=== PATIENT | female | born 1945 | race Caucasian/White ===

== ENCOUNTER → 2017-05-31 07:03 | Outpatient (CLI) | payer MEDICARE, OTHER, MEDICAID, SELFPAY ==
--- NOTE | 2017-05-31 11:52 | PFT ---
INTRODUCTION: The patient is a 72-year-old female currently under the care of Dorita Whaley the presents for pulmonary function testing secondary to a diagnosis of COPD. Respiratory therapy reports good patient effort and reports no other concerns. Bronchodilators were used during testing. INTERPRETATION: Forced expiration spirometry demonstrates the presence of a mild large airways obstructive ventilatory defect. There was no significant response to aerosolized bronchodilators, based upon strict ATS criteria. However, the patient did have a significant mid flow bronchodilator response. Spirogram is of good quality do not plateau indicating slow emptying of the lungs. The respiratory flow volume loop reveals decreased expiratory flow rates primarily at high lung volumes consistent with small airways obstruction. Body plethysmography was performed and reveals lung volumes to be within normal limits. Diffusing capacity by single breath CO was within normal limits at 75% of predicted. IMPRESSION: These pulmonary function studies demonstrate the presence of a mild large airways obstructive ventilatory defect. There was a significant mid flow bronchodilator response and stigmata of small airways obstruction, which can be seen with underlying asthma. There are no previous pulmonary function studies available for comparison.
== END ==
DX: J44.9 Chronic obstructive pulmonary disease, unspecified (principal)
CPT/HCPCS: 94060; 94726; 94729

== ENCOUNTER → 2017-07-06 10:46 | Outpatient (CLI) | payer MEDICARE, OTHER, MEDICAID, SELFPAY ==
[2017-07-06 11:10] LABS: International Normalized Ratio 1.9; Prothrombin Time (Protime)PT. 21.8 SECONDS (11.7-14.9)
== END ==
PROVIDERS: Visit Provider Nurse Practitioner Family
DX: I48.91 Unspecified atrial fibrillation (principal)
CPT/HCPCS: 36415; 85610

== ENCOUNTER → 2017-07-11 09:52 | Outpatient (CLI) | payer MEDICARE, OTHER, MEDICAID, SELFPAY ==
[2017-07-11 11:01] LABS: International Normalized Ratio 3.3; Prothrombin Time (Protime)PT. 33.6 SECONDS (11.7-14.9)
== END ==
PROVIDERS: Visit Provider Nurse Practitioner Family
DX: I48.91 Unspecified atrial fibrillation (principal)
CPT/HCPCS: 85610

== ENCOUNTER → 2017-07-21 09:40 | Outpatient (CLI) | payer MEDICARE, OTHER, MEDICAID, SELFPAY ==
[2017-07-21 12:37] LABS: International Normalized Ratio 3.3
== END ==
PROVIDERS: Visit Provider Nurse Practitioner Family
DX: I48.91 Unspecified atrial fibrillation (principal); Z79.01 Long term (current) use of anticoagulants
CPT/HCPCS: 36415; 85610

== ENCOUNTER → 2017-08-02 12:11 | Outpatient (CLI) | payer MEDICARE, OTHER, MEDICAID, SELFPAY ==
--- NOTE | 2017-08-02 12:18 | EKG12_ITS ---
Test Reason : AFIB Blood Pressure : / mmHG Vent. Rate : 094 BPM Atrial Rate : 089 BPM P-R Int : 000 ms QRS Dur : 110 ms QT Int : 390 ms P-R-T Axes : 000 083 000 degrees QTc Int : 487 ms Atrial fibrillation Low voltage QRS Incomplete right bundle branch block Abnormal ECG When compared with ECG of 21-FEB-2017 12:26, Incomplete right bundle branch block has replaced Right bundle branch block Confirmed by RODNEY MORROW, CHRIS ([id number]), editorial clerk SAUD TALAMANTES ([id number]) on 08/04/2017 3:05:49 PM Referred By: Gabby DONNELLY Confirmed By:CHRIS STEVENS MD
== END ==
PROVIDERS: Family Provider Nurse Practitioner Family; PCP Nurse Practitioner Family; Visit Provider Nurse Practitioner Family
DX: I48.91 Unspecified atrial fibrillation (principal)
CPT/HCPCS: 93005

== ENCOUNTER 2017-08-02 12:31 | Emergency (ER) | payer MEDICARE, OTHER, MEDICAID, SELFPAY ==
[2017-08-02 12:32] VITALS: BP 166/148; PULSE 101; RESP 20; TEMP 36.6; O2SAT 98; BMI 44.2
[2017-08-02 13:16] LABS: Absolute Neutrophil Count 5.9 X10^3/uL (2.0-7.7); Basophil# 0.06 X10^3/uL; Basophil% 0.6 % (0-1); Eosinophil# 0.32 X10^3/uL; Eosinophils% 3.3 % (0-5); Hematocrit 35.7 % (37-47); Lymphocyte % 25.6 % (19-41); Mean Corp Hgb Conc 30.8 g/gl (32-36); Mean Corpuscular Hgb 27.4 pg (27.0-32.0); Mean Platelet Vol. 10.6 fl (6.2-12.0); Monocyte# 0.94 X10^3/uL; Monocyte% 9.6 % (0-10); Neutrophil # 5.91 X10^3/uL (2.7-7.7); Neutrophil % 60.6 % (47-70); POSITIVE COUNT NO; POSITIVE DIFFERENTIAL NO; POSITIVE MORPHOLOGY NO; Platelet Count 410 K/mm3 (150-450); RBC Distribution Width CV 15.3 % (11.6-14.6); RBC Distribution Width SD 49.4 fl (35.1-43.9); Red Blood Count 4.01 M/mm3 (4.2-5.4); White Blood Count 9.8 K/mm3 (4.4-11.0)
--- NOTE | 2017-08-02 13:37 | RAD_ITS ---
STUDY: X-RAY CHEST REASON FOR EXAM: Female, 72 years old. Palpitations. Dyspnea on exertion. TECHNIQUE: PA and lateral views of the chest. COMPARISON: Comparison is made with prior examination dated January 26, 2017. FINDINGS: Stable mild degree of increased linear markings at the lung bases suggestive of a mild degree of bibasilar scarring. Hyperinflation. Mild increased markings at the lung apices suggestive of scarring. There is no demonstrated pleural abnormality. Normal size heart. Normal mediastinum and santana. Normal visualized pulmonary arteries. There is atherosclerotic calcification of the aortic arch with tortuosity. There is demineralization of the osseous structures. Normal visualized ribs, clavicles, and shoulders. There is no demonstrated abnormality of the visualized soft tissue structures of the upper abdomen. RAD/Chest PA and Lateral IMPRESSION: Hyperinflation. Stable mild increased markings at the lung bases suggestive of mild bibasilar scarring. Electronically Signed: Tavo Saucedo MD at 14:31 EDT Tel [phone], Service support ,
[2017-08-02 13:41] LABS: Anion Gap 8 (5-15); BUN 24 mg/dL (7-18); BUN/Creat Ratio 22.9 RATIO (10-20); Calcium,Total 9.2 mg/dL (8.5-10.1); Chloride 108 mmol/L (98-107); Creatinine, Serum 1.05 mg/dL (0.55-1.02); EST Glomerular Filtration Rate 55 mL/min (>60); Est Glom Filt Rate - Afr Amer 66 mL/min (>60); Estimated Creatinine Clearance 49.57 ml/min; Glucose 82 mg/dL (74-106); Potassium 4.8 mmol/L (3.5-5.1); Sodium Level 140 mmol/L (136-145)
[2017-08-02 14:26] VITALS: BP 139/97; PULSE 97; RESP 13; O2SAT 99
[2017-08-02 14:39] LABS: International Normalized Ratio 2.2; Prothrombin Time (Protime)PT. 24.2 SECONDS (11.7-14.9)
[2017-08-02 14:50] LABS: BNP,B-Type NATRIURETIC PEPTIDE 115.1 pg/mL (0-100)
[2017-08-02] MEDS: Furosemide 40 MG/4 ML Vial IV (15:12)
[2017-08-02 15:19] VITALS: BP 136/94; PULSE 74; RESP 14; O2SAT 98
--- NOTE | 2017-08-02 15:42 | ED.DCSUM_ITS ---
- ER Visit Summary Date of Service: 08/02/17 Chief Complaint: [S of breath leg swelling] History of Present Illness: The patient is a 72 F [presents the emergency department with shortness of breath for the last 3 weeks. She has had swelling in her lower extremities which is gotten much worse. She has a history of paroxysmal atrial fibrillation. She followed up with her primary doctor today who noted her to be in atrial fibrillation and referred her to the emergency department. She is on Coumadin. She is on rate controlling medications metoprolol.] Physical Examination: [] The rate 74 pulse ox 98% WN WD NAD PERRL EOMI MMM NECK supple and nontender, no masses Regular rhythm with a normal rate no murmur rub or gallop, plus symmetric lower extremity edema, symmetric radial pulses trichomoniasis DP pulses CTAB no respiratory distress ABDOMEN is soft and nontender, normal bowel sounds, no distension, no rebound or guarding SKIN is warm and dry no rashes Alert and Oriented x3, CN II-XII in tact, no motor or sensory deficits, gait normal No lymphadenopathy Test Results: [] Emergency Department Course and Treatment: [TG is atrial fibrillation at a rate of 94. There is no acute ischemic changes she has a right bundle branch block was unchanged from previous a year ago. Patient is therapeutic on her Coumadin at 2.2. Chest x-ray shows no acute process. BNP is 115 which is only slightly elevated. Patient was given Lasix in the emergency department. I do think her shortness of breath is likely due to increased fluid burden. I spoke with Dr. An who is on-call for Dr. Banuelos. I will start the patient on Lasix daily. She will continue her Coumadin and follow-up with them in the office in 1-2 weeks. She understands to return to the emergency department for any worsening of her symptoms. Treatment Plan: [] Disposition: [Discharge] Impression: [1. Peripheral edema 2. Paroxysmal atrial fibrillation] This note was generated with [employer] dictation software. It may contain incorrect words, spelling, and punctuation that were not noted in review of the chart prior to signing ED Disposition - Plan for ED Patient: Chief Complaint: Shortness of Breath Referrals: Gabby Bhatt, TEE-C [Primary Care Provider] -
--- NOTE | 2017-08-02 15:43 | ED.DEP ---
ED Disposition - Plan for ED Patient: Chief Complaint: Shortness of Breath Instructions: ED Afib, ED Leg Swelling Bilateral Prescriptions: Furosemide [Lasix] 40 mg PO DAILY #10 tablet Referrals: Dwaine Banuelos MD [STAFF PHYSICIAN] - 1-2 Weeks
[2017-08-02 15:56] VITALS: BP 136/94; PULSE 111; RESP 20; O2SAT 97
== END 2017-08-02 15:57 | disposition home or self-care (01) ==
LOC: ED 15:14
PROVIDERS: Emergency Provider Emergency Medicine; Family Provider Nurse Practitioner Family; PCP Nurse Practitioner Family
DX: R60.0 Localized edema (principal); I48.0 Paroxysmal atrial fibrillation; E78.00 Pure hypercholesterolemia, unspecified; E11.9 Type 2 diabetes mellitus without complications; E66.9 Obesity, unspecified; Z68.41 Body mass index [BMI] 40.0-44.9, adult; Z79.01 Long term (current) use of anticoagulants; Z79.84 Long term (current) use of oral hypoglycemic drugs; Z79.899 Other long term (current) drug therapy
CPT/HCPCS: 71046; 80048; 83880; 84484; 85025; 85610; 93005; 96374; 99284; A4216; J1940

== ENCOUNTER → 2017-08-25 15:43 | Outpatient (CLI) | payer MEDICARE, OTHER, MEDICAID, SELFPAY ==
--- NOTE | 2017-08-25 15:43 | DT_ITS ---
This patient was seen during an EMR downtime August 21, 2017 - August 28, 2017. This patient may have a combination of paper and electronic documentation or all paper documentation. All documentation is viewable within the e-chart portion of [facility] for each patient visit.
[2017-08-25 18:12] LABS: Hematocrit 35.5 % (37-47); Hemoglobin 10.9 g/dl (12.0-15.0); Mean Corp Hgb Conc 30.7 g/gl (32-36); Mean Corpuscular Hgb 25.6 pg (27.0-32.0); Mean Corpuscular Volume 83.3 fL (81-99); Mean Platelet Vol. 10.1 fl (6.2-12.0); Platelet Count 420 K/mm3 (150-450); RBC Distribution Width SD 45.7 fl (35.1-43.9); Red Blood Count 4.26 M/mm3 (4.2-5.4); Scan Indicated on CBC? Y/N NO; White Blood Count 11.6 K/mm3 (4.4-11.0)
[2017-08-25 18:13] LABS: International Normalized Ratio 2.4; Prothrombin Time (Protime)PT. 26.4 SECONDS (11.7-14.9)
[2017-08-26 06:12] LABS: BUN 48 mg/dL (7-18); BUN/Creat Ratio 27.1 RATIO (10-20); Creatinine, Serum 1.77 mg/dL (0.55-1.02); EST Glomerular Filtration Rate 30 mL/min (>60); Est Glom Filt Rate - Afr Amer 36 mL/min (>60); Glucose 95 mg/dL (74-106)
[2017-08-26 06:13] LABS: Anion Gap 9 (5-15); Calcium,Total 8.8 mg/dL (8.5-10.1); Chloride 108 mmol/L (98-107); Potassium 3.7 mmol/L (3.5-5.1); Sodium Level 142 mmol/L (136-145); T4 Free Direct 1.59 ng/dL (0.76-1.46); Thyroid Stim Hormone (TSH) 1.16 uIU/mL (0.358-3.74)
[2017-08-26 06:45] LABS: Magnesium 1.8 mg/dL (1.6-2.6)
== END ==
PROVIDERS: Family Provider Nurse Practitioner Family; PCP Nurse Practitioner Family; Visit Provider Physician Assistant Medical
DX: I48.91 Unspecified atrial fibrillation (principal)
CPT/HCPCS: 36415; 80048; 83735; 84439; 84443; 85027; 85610

== ENCOUNTER → 2017-09-12 10:56 | Outpatient (CLI) | payer MEDICARE, OTHER, MEDICAID, SELFPAY ==
[2017-09-11 13:01] VITALS: BMI 43.0
[2017-09-12 11:20] LABS: Prothrombin Time Fingerstick 27.1 SEC (11.9-14.4)
--- NOTE | 2017-09-12 15:00 | PCM.OP.BLANK ---
Problem List (1) Atrial fibrillation by electrocardiogram Status: Chronic Operative Report Date of Procedure: 09/12/17 Procedure: Synchronized biphasic DC cardioversion Indications: Atrial fibrillation Consent: Per the patient Premedications: Per Dr. Pawan Ruiz with propofol 100 mg IV push total Procedure: Synchronized biphasic DC cardioversion: 200 J ?1: Result: Atrial fibrillation Synchronized biphasic DC cardioversion: 300 J ?1: Result: Sinus rhythm with subsequent return to atrial fibrillation Synchronized biphasic DC cardioversion: 360 J ?1: Result: Sinus rhythm with subsequent return to atrial fibrillation Complications: No apparent complications This note was generated with [employer] software. It may contain incorrect words, spelling, and punctuation that were not noted in checking the note before signing.
--- NOTE | 2017-09-12 16:31 | PCM.OP.BLANK ---
Problem List (1) Atrial fibrillation by electrocardiogram Status: Chronic Operative Report Date of Procedure: 09/12/17 - Conscious sedation CONSCIOUS SEDATION REPORT BRIEF HISTORY OF PRESENT ILLNESS: The patient is a 72-year-old [female] who presented to [facility] for an elective outpatient cardioversion due to underlying atrial fibrillation. The patient reports no PO intake since midnight. The patient does have a history of [obstructive sleep apnea]. The patient reports [a] history of smoking and COPD. The patient denies any recent constitutional symptoms such as fevers, chills, nausea or vomiting. The patient denies previous anesthetic complications. PHYSICAL EXAMINATION: VITAL SIGNS: Reviewed and were acceptable. GENERAL: The patient is an obese [female][male], in no apparent distress, speaking in full sentences. HEENT: Normocephalic, atraumatic. Mucous membranes are moist and pink. Good mouth opening noted. Trachea is midline. Good neck mobility. MP [IV] CHEST: S1, S2 irregularly irregular. No murmurs, rubs or gallops were noted. LUNGS: Clear to auscultation bilaterally without appreciable wheezes, rales or rhonchi. ABDOMEN: Soft, nontender, nondistended. Positive bowel sounds. EXTREMITIES: There is no clubbing, cyanosis. 2+ edema was noted. ASA Class: II DESCRIPTION OF PROCEDURE: After confirmation of informed consent, the patient's anesthesia plan was reviewed in detail. [Propofol] was chosen. Risks and benefits were reviewed and the patient agreed to proceed. At 12:36 PM, the patient was given [40 mg of propofol]. [The patient required a total of] 100 [mg of][propofol] [throughout the procedure to achieve appropriate sedation.] The patient achieved an appropriate level of sedation and received 3 attempt[s] synchronized cardioversion, at 200/300/360 respectively by [Dr. Banuelos] at the bedside. This was [unsuccessful] in achieving normal sinus rhythm. The patient was monitored until 12:50 PM, at which time the patient reached their baseline mental status and function. The patient tolerated the procedure well. COMPLICATIONS: Failure to achieve normal sinus rhythm ESTIMATED BLOOD LOSS: None RECOMMENDATIONS: Okay to recover in usual fashion. Code Visit 9xxxx: Other Procedure See Report - 14 minutes of conscious sedation - [id number]
--- NOTE | 2017-09-12 16:34 | OP.PCM_ITS ---
Problem List (1) Atrial fibrillation by electrocardiogram Status: Chronic Operative Report Date of Procedure: 09/12/17 - Conscious sedation CONSCIOUS SEDATION REPORT BRIEF HISTORY OF PRESENT ILLNESS: The patient is a 72-year-old [female] who presented to [facility] for an elective outpatient cardioversion due to underlying atrial fibrillation. The patient reports no PO intake since midnight. The patient does have a history of [obstructive sleep apnea]. The patient reports [a] history of smoking and COPD. The patient denies any recent constitutional symptoms such as fevers, chills, nausea or vomiting. The patient denies previous anesthetic complications. PHYSICAL EXAMINATION: VITAL SIGNS: Reviewed and were acceptable. GENERAL: The patient is an obese [female][male], in no apparent distress, speaking in full sentences. HEENT: Normocephalic, atraumatic. Mucous membranes are moist and pink. Good mouth opening noted. Trachea is midline. Good neck mobility. MP [IV] CHEST: S1, S2 irregularly irregular. No murmurs, rubs or gallops were noted. LUNGS: Clear to auscultation bilaterally without appreciable wheezes, rales or rhonchi. ABDOMEN: Soft, nontender, nondistended. Positive bowel sounds. EXTREMITIES: There is no clubbing, cyanosis. 2+ edema was noted. ASA Class: II DESCRIPTION OF PROCEDURE: After confirmation of informed consent, the patient's anesthesia plan was reviewed in detail. [Propofol] was chosen. Risks and benefits were reviewed and the patient agreed to proceed. At 12:36 PM, the patient was given [40 mg of propofol]. [The patient required a total of] 100 [mg of][propofol] [ throughout the procedure to achieve appropriate sedation.] The patient achieved an appropriate level of sedation and received 3 attempt[s] synchronized cardioversion, at 200/300/360 respectively by [Dr. Banuelos] at the bedside. This was [unsuccessful] in achieving normal sinus rhythm. The patient was monitored until 12:50 PM, at which time the patient reached their baseline mental status and function. The patient tolerated the procedure well. COMPLICATIONS: Failure to achieve normal sinus rhythm ESTIMATED BLOOD LOSS: None RECOMMENDATIONS: Okay to recover in usual fashion. Code Visit 9xxxx: Other Procedure See Report - 14 minutes of conscious sedation - [id number]
== END ==
PROVIDERS: Visit Provider Internal Medicine Cardiovascular Disease
DX: I48.0 Paroxysmal atrial fibrillation (principal); E78.5 Hyperlipidemia, unspecified; R60.0 Localized edema; R53.83 Other fatigue; Z79.01 Long term (current) use of anticoagulants; Z79.82 Long term (current) use of aspirin; Z79.899 Other long term (current) drug therapy
CPT/HCPCS: 36416; 85610; 92960; 93005; J7040

== ENCOUNTER → 2017-09-19 11:11 | Outpatient (CLI) | payer MEDICARE, OTHER, MEDICAID, SELFPAY ==
[2017-09-19 12:32] LABS: Anion Gap 10 (5-15); BUN 26 mg/dL (7-18); Calcium,Total 8.7 mg/dL (8.5-10.1); Chloride 104 mmol/L (98-107); Creatinine, Serum 1.24 mg/dL (0.55-1.02); EST Glomerular Filtration Rate 45 mL/min (>60); Est Glom Filt Rate - Afr Amer 55 mL/min (>60); Glucose 134 mg/dL (74-106); Potassium 3.9 mmol/L (3.5-5.1); Sodium Level 143 mmol/L (136-145)
== END ==
PROVIDERS: Visit Provider Internal Medicine Cardiovascular Disease
DX: I48.91 Unspecified atrial fibrillation (principal)
CPT/HCPCS: 36415; 80048

== ENCOUNTER → 2017-10-05 10:02 | Outpatient (CLI) | payer MEDICARE, MEDICAID, SELFPAY ==
[2017-10-05 11:37] LABS: Anion Gap 6 (5-15); BUN 29 mg/dL (7-18); BUN/Creat Ratio 24.4 RATIO (10-20); Calcium,Total 9.4 mg/dL (8.5-10.1); Chloride 111 mmol/L (98-107); Creatinine, Serum 1.19 mg/dL (0.55-1.02); EST Glomerular Filtration Rate 48 mL/min (>60); Est Glom Filt Rate - Afr Amer 57 mL/min (>60); Glucose 109 mg/dL (74-106); Potassium 4.3 mmol/L (3.5-5.1); Sodium Level 143 mmol/L (136-145)
== END ==
PROVIDERS: Visit Provider Internal Medicine Cardiovascular Disease
DX: I48.91 Unspecified atrial fibrillation (principal); I10 Essential (primary) hypertension; I45.10 Unspecified right bundle-branch block; I34.0 Nonrheumatic mitral (valve) insufficiency; I36.1 Nonrheumatic tricuspid (valve) insufficiency
CPT/HCPCS: 36415; 80048

== ENCOUNTER → 2017-10-31 12:53 | Outpatient (CLI) | payer MEDICARE, MEDICAID, SELFPAY ==
--- NOTE | 2017-11-05 18:42 | LEAS ---
Arterial Study - Arterial Study Arterial Study: This is a 72-year-old female with a history of hypertension, diabetes mellitus, hyperlipidemia, and atrial fibrillation. The patient presents with lower extremity pain. Suspecting the presence of atherosclerotic peripheral arterial occlusive disease, the patient was brought to the noninvasive vascular laboratory at this time for the purpose of bilateral noninvasive lower extremity arterial assessment. Doppler signal assessment was used to evaluate the pulses at ankle level bilaterally. The posterior tibial and dorsalis pedis pulses were triphasic bilaterally. Segmental limb pressures were obtained bilaterally. The right ankle pressure, as determined by posterior tibial pulse, was measured at 134 mmHg. The right ankle pressure, as determined by dorsalis pedis pulse, was measured at 130 mmHg. The right digital pressure was measured at 95 mmHg. The left ankle pressure, as determined by posterior tibial pulse, was measured at 121 mmHg. The left ankle pressure, as determined by dorsalis pedis pulse, was measured at 120 mmHg. The left digital pressure was measured at 93 mmHg. Resting ankle-brachial indices were calculated bilaterally. The resting right ankle-brachial index was calculated to be 1.24. The resting left ankle-brachial index was calculated to be 1.12. Digital-brachial indices were calculated bilaterally. The right digital-brachial index was calculated to be 0.88. The left digital-brachial index was calculated to be 0.86. Impression: Based upon the findings of this resting noninvasive lower extremity arterial study, there is no evidence of significant atherosclerotic peripheral arterial occlusive disease in the lower extremities bilaterally. Triphasic waveforms are noted at ankle level bilaterally. Resting ankle-brachial indices are bilaterally normal. Digital-brachial indices are also normal bilaterally. In summary, this represents a normal resting noninvasive lower extremity arterial study bilaterally.
== END ==
PROVIDERS: PCP Nurse Practitioner Family; Visit Provider Surgery
DX: I73.9 Peripheral vascular disease, unspecified (principal); M79.89 Other specified soft tissue disorders; R79.89 Other specified abnormal findings of blood chemistry
CPT/HCPCS: 93922; 93970

== ENCOUNTER → 2017-11-08 20:05 | Outpatient (CLI) | payer MEDICARE, MEDICAID, SELFPAY | PROVIDERS: PCP Nurse Practitioner Family; Referring Provider Nurse Practitioner Family; Visit Provider Internal Medicine Critical Care Medicine | DX: G47.10 Hypersomnia, unspecified (principal) | CPT/HCPCS: 95810 ==

== ENCOUNTER → 2017-11-10 12:22 | Outpatient (CLI) | payer MEDICARE, MEDICAID, SELFPAY ==
[2017-11-10 13:43] LABS: BNP,B-Type NATRIURETIC PEPTIDE 167.3 pg/mL (0-100)
[2017-11-10 13:45] LABS: Anion Gap 13 (5-15); BUN 30 mg/dL (7-18); BUN/Creat Ratio 24.2 RATIO (10-20); Calcium,Total 8.9 mg/dL (8.5-10.1); Chloride 109 mmol/L (98-107); Creatinine, Serum 1.24 mg/dL (0.55-1.02); EST Glomerular Filtration Rate 45 mL/min (>60); Est Glom Filt Rate - Afr Amer 55 mL/min (>60); Glucose 94 mg/dL (74-106); Potassium 4.2 mmol/L (3.5-5.1); Sodium Level 141 mmol/L (136-145)
== END ==
PROVIDERS: Visit Provider Nurse Practitioner Acute Care
DX: R06.02 Shortness of breath (principal)
CPT/HCPCS: 36415; 71046; 80048; 83880

== ENCOUNTER 2017-11-14 09:30 | Outpatient (RCR) | payer MEDICARE, MEDICAID, SELFPAY ==
[2017-11-07 08:22] VITALS: BP 153/75; PULSE 88; RESP 18; TEMP 36; BMI 43.0
--- NOTE | 2017-11-07 09:05 | PCM.WC.HP ---
(1) Swelling of lower extremity Status: Chronic Current Visit: Yes Code(s): M79.89 - Other specified soft tissue disorders (2) Morbid obesity with BMI of 40.0-44.9, adult Status: Chronic Current Visit: Yes Code(s): E66.01 - Morbid (severe) obesity due to excess calories; Z68.41 - Body mass index (BMI) 40.0-44.9, adult (3) GERD (gastroesophageal reflux disease) Status: Chronic Current Visit: No Code(s): K21.9 - Gastro-esophageal reflux disease without esophagitis (4) Diabetes mellitus Status: Chronic Current Visit: No Qualifiers: Diabetes mellitus type: type 2 Code(s): E11.9 - Type 2 diabetes mellitus without complications (5) Hypothyroidism Status: Chronic Current Visit: No Code(s): E03.9 - Hypothyroidism, unspecified (6) Arthritis Status: Chronic Current Visit: No Code(s): M19.90 - Unspecified osteoarthritis, unspecified site (7) Edema leg Status: Chronic Current Visit: Yes Code(s): R60.0 - Localized edema (8) Lymphedema Status: Chronic Current Visit: Yes Code(s): I89.0 - Lymphedema, not elsewhere classified (9) Atrial fibrillation Status: Chronic Current Visit: No Qualifiers: Code(s): I48.91 - Unspecified atrial fibrillation (10) Hyperlipidemia Status: Chronic Current Visit: No Qualifiers: Code(s): E78.5 - Hyperlipidemia, unspecified (11) Hypertension Status: Chronic Current Visit: No Qualifiers: Code(s): I10 - Essential (primary) hypertension (12) Exertional dyspnea Status: Chronic Current Visit: Yes Code(s): R06.09 - Other forms of dyspnea History of Present Illness Date of Service: 11/07/17 Chief Complaint: Severe swelling, edema, and lymphedema in the lower extremities bilaterally History of Wound: This is a 72-year-old diabetic female with a long-standing history of swelling, edema, and lymphedema in her lower extremities. The patient claims to sleep on a flat surface at night. However, she is not very active. She spends long hours each day sitting idly. She denies any history of thrombophlebitis. She also denies a history of wounds or ulcerations in her lower extremities. She claims her activity is limited by exertional dyspnea. She suffers from multiple medical problems, listed below. Past Medical History Past Medical History: Chronic Problems (Last Reviewed 10/25/17 @ 06:16 by Connie Mattson) Swelling of lower extremity (Chronic) Morbid obesity with BMI of 40.0-44.9, adult (Chronic) GERD (gastroesophageal reflux disease) (Chronic) Diabetes mellitus (Chronic) Hypothyroidism (Chronic) Arthritis (Chronic) Edema leg (Chronic) Lymphedema (Chronic) Exertional dyspnea (Chronic) Atrial fibrillation by electrocardiogram (Chronic) Atrial fibrillation (Chronic) Hyperlipidemia (Chronic) Hypertension (Chronic) RBBB (right bundle branch block) (Chronic) Nonrheumatic mitral valve regurgitation (Chronic) Nonrheumatic tricuspid valve regurgitation (Chronic) Past Medical History: The patient has a history of atrial fibrillation, for which she is on systemic anticoagulation therapy. She also suffers from hypertension, diabetes mellitus, hypothyroidism, hyperlipidemia, gastroesophageal reflux disease, and arthritis. The patient's history is negative for myocardial infarction, congestive heart failure, cerebrovascular accident, cancer, renal disease, and pulmonary disease. Surgical History: - - The patient is undergone cardioversion ?2. She is also undergone tonsillectomy as a child. She is undergone left total knee replacement in the past. She has had bilateral cataract surgery. An ovarian cyst has been removed. She has also undergone bilateral foot surgery. Allergies/Adverse Reactions: Allergies No Known Allergies Allergy (Verified 11/07/17 08:40) Home Medications: Ambulatory Orders Medication Instructions Recorded Atorvastatin Calcium [Lipitor] 20 mg PO QHS 02/02/17 Cholecalciferol (Vitamin D3) 50,000 unit PO QWEEK 02/02/17 [Vitamin D3] Levothyroxine Sodium 150 mcg PO DAILY 02/02/17 Losartan/Hydrochlorothiazide 1 ea PO DAILY 02/02/17 [Losartan-Hctz 100-25 mg Tab] Metformin HCl [Glucophage] 500 mg PO BIDCM 02/02/17 Metoprolol Tartrate [Lopressor 50 mg PO BID 02/02/17 (Beta Frank)] Warfarin [Coumadin ([facility]KC)] 3 mg PO DAILY 02/02/17 furosemide 40 mg tablet 40 mg PO DAILY #30 tab 08/11/17 Albuterol IH (ProAir) [Proair Hfa 1 puff INHALATION Q6H PRN PRN 09/11/17 (SP)Vent Pts] Aspirin E.C. [Ecotrin] 81 mg PO DAILY@0800 09/11/17 Montelukast [Singulair] 10 mg PO DAILY 11/07/17 - Family History Paternal Family History: Family History (Last Reviewed 10/25/17 @ 06:16 by Connie Mattson) Mother Heart disease - - The patient's father at the age of 23, killed in a train wreck. Patient's mother at the age of 91 with a history of dementia and atrial fibrillation. Lives: Alone Smoking Status: Former smoker Tobacco Use: Non-smoker Alcohol: None Drugs: None Review of Systems Constitutional: Denies: Chills, Fever, Weight Change Eyes: Denies: Pain, Vision Change HEENT: Denies: Difficulty Hearing, Difficulty Swallowing, Sinus Congestion Cardiovascular: Denies: Chest Pain, Palpitations Respiratory: Denies: Cough, Shortness of Breath Gastrointestinal: Denies: Diarrhea, Nausea, Vomiting Genitourinary: Denies: Dysuria, Hematuria Endocrine: Denies: Heat/ Cold Intolerance, Polydipsia, Polyuria Hematologic/ Lymphatic: Denies: Easy Bruising, Easy Bleeding - Physical Exam Vital Signs Temp Pulse Resp BP 96.8 F L 88 18 153/75 H 11/07/17 08:22 11/07/17 08:22 11/07/17 08:22 11/07/17 08:22 General: Alert, Oriented x3, Cooperative, No apparent distress, Well developed, Well nourished, - - The patient is morbidly obese. HEENT: Atraumatic, PERRLA, EOMI, Normocephalic Oral: Moist Mucosa Neck: Supple, No JVD, Negative Carotid Bruits, Negative Hepatojugular Reflux, No Nodes, No Nuchal Rigidity, Trachea Midline Lungs: Clear to auscultation, Normal air movement, No rhonchi, No wheeze, No rales Cardiovascular: Regular rate, Regular Rhythm, Normal S1, Normal S2, No murmurs Abdomen: Soft, Non Tender, Non-Distended, Obese Extremities: No clubbing, No cyanosis, No Calf Tenderness, - - Bilateral lower extremity swelling, edema, and lymphedema are noted. There are no open wounds or ulcerations. No significant varicosities are appreciated. Skin: No rashes, No breakdown Wound Measurements and Assessment WC - Nurse 1 - General Ulcer Measurement Start: 11/07/17 08:17 Freq: Status: Active Protocol: Activity Type Activity Date Activity User E-Sign Co-Sign Detail Recorded Client Recorded Date Recorded By Document 11/07/17 08:22 DL [id number] 11/07/17 08:36 DL 11/07/17 08:22 Wound Center Nurse 1 [Ulcer Assessment] Edema -Tunneling No -Undermining/Tunneling No -Circular Undermining No -Moisture (Guerda-wound Skin Appearance No Abnormality ) -Color (Guerda-wound Skin Appearance) No Abnormality -Temperature (Guerda-wound Skin No Abnormality Appearance) (Pt Warm) -Ulcer Cleansing Wound Cleanser -Foul Odor after Cleansing No [Edema Assessment] -Right Calf (cm) 48 -Right Ankle (cm) 34 -Left Calf (cm) 46 -Left Ankle (cm) 32.3 - Nurse 2 - General Ulcer CM Notes Start: 11/07/17 08:17 Freq: Status: Active Protocol: Activity Type Activity Date Activity User E-Sign Co-Sign Detail Recorded Client Recorded Date Recorded By Document 11/07/17 08:58 [id number] 11/07/17 09:02 11/07/17 08:58 Wound Center Nurse 2 [Procedure/Treatment] Edema -Time 08:58 -Correct Patient Yes -Correct Side, Site, Position Yes -Correct Procedure Yes -Procedure Performed No -Wound/Ulcer Outcome Not Healed -Bleeding Controlled with NA [See Physician Procedure note for Specifics] Pain Scale: 0-10 Numeric [Pain] -Is Patient Pain Free? Yes Musculoskeletal: No Muscle Wasting Neurological: Cranial nerves II-XII grossly intact, Neuro grossly intact Psych/Mental Status: Normal Affect, Appropriate, Alert and oriented to time, place, person, mood and affect Debridement Note Post-Debridement Measurements/Treatment - Nurse 2 - General Ulcer CM Notes Start: 11/07/17 08:17 Freq: Status: Active Protocol: Activity Type Activity Date Activity User E-Sign Co-Sign Detail Recorded Client Recorded Date Recorded By Document 11/07/17 08:58 [id number] 11/07/17 09:02 11/07/17 08:58 Wound Center Nurse 2 Edema -Time 08:58 -Correct Patient Yes -Correct Side, Site, Position Yes -Correct Procedure Yes -Procedure Performed No -Wound/Ulcer Outcome Not Healed -Bleeding Controlled with NA Pain Scale: 0-10 Numeric Is Patient Pain Free? Yes No debridement was completed today Assessment/Plan Active Problems (Last Reviewed 10/25/17 @ 06:16 by Connie Mattson) Swelling of lower extremity (Chronic) Morbid obesity with BMI of 40.0-44.9, adult (Chronic) Edema leg (Chronic) Lymphedema (Chronic) Exertional dyspnea (Chronic) Assessment: This is a 72-year-old female with a long-standing history of swelling, edema, and lymphedema in her lower extremities. In part, it appears as though the swelling and edema is related to lifestyle issues. The patient is morbidly obese. She has not active. She spends long hours each day and an idle sitting position. She has multiple pre-existing medical problems, which have been outlined above. 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 Noninvasive lower extremity arterial study has also been performed, which was normal. Plan: We are to implement conservative treatment measures initially with respect to the patient's lower extremity swelling, edema, and lymphedema. The patient has been advised to elevate her lower extremities as much as possible. Elevation is to be to heart level, or higher. Elevation is to be implemented even during daytime hours. Patient is to continue sleeping on a flat mattress at night. Activity has been encouraged. Weight loss has also been encouraged. Patient has been advised to avoid prolonged idle sitting. We are to implement compression to the lower extremities by means of a 3M 2 layer compression wrap, which will be changed twice weekly. The patient is to return in 1 week for reassessment. The patient is not a smoker. Influenza vaccine was not administered today. Patient stands 5 feet 8 inches in height. She weighs 283 pounds. Her BMI is 43, which places her in a class III obesity category. Weight loss has been strongly recommended, with collaboration by the patient's primary care physician.
[2017-11-10 13:36] VITALS: BP 158/66; PULSE 97; RESP 20; TEMP 36.6; BMI 43.0
[2017-11-10 14:10] VITALS: BMI 43.0
[2017-11-14 09:32] VITALS: BP 145/88; PULSE 94; RESP 18; TEMP 37.4; BMI 43.0
--- NOTE | 2017-11-14 10:13 | PCM.WC.HP ---
(1) Swelling of lower extremity Status: Chronic Current Visit: Yes Code(s): M79.89 - Other specified soft tissue disorders (2) Morbid obesity with BMI of 40.0-44.9, adult Status: Chronic Current Visit: Yes Code(s): E66.01 - Morbid (severe) obesity due to excess calories; Z68.41 - Body mass index (BMI) 40.0-44.9, adult (3) GERD (gastroesophageal reflux disease) Status: Chronic Current Visit: No Code(s): K21.9 - Gastro-esophageal reflux disease without esophagitis (4) Diabetes mellitus Status: Chronic Current Visit: No Qualifiers: Diabetes mellitus type: type 2 Code(s): E11.9 - Type 2 diabetes mellitus without complications (5) Hypothyroidism Status: Chronic Current Visit: No Code(s): E03.9 - Hypothyroidism, unspecified (6) Arthritis Status: Chronic Current Visit: No Code(s): M19.90 - Unspecified osteoarthritis, unspecified site (7) Edema leg Status: Chronic Current Visit: Yes Code(s): R60.0 - Localized edema (8) Lymphedema Status: Chronic Current Visit: Yes Code(s): I89.0 - Lymphedema, not elsewhere classified (9) Atrial fibrillation Status: Chronic Current Visit: No Qualifiers: Atrial fibrillation type: paroxysmal Qualified Code(s): I48.0 - Paroxysmal atrial fibrillation Code(s): I48.91 - Unspecified atrial fibrillation (10) Hyperlipidemia Status: Chronic Current Visit: No Qualifiers: Code(s): E78.5 - Hyperlipidemia, unspecified (11) Hypertension Status: Chronic Current Visit: No Qualifiers: Code(s): I10 - Essential (primary) hypertension (12) Exertional dyspnea Status: Chronic Current Visit: Yes Code(s): R06.09 - Other forms of dyspnea History of Present Illness Date of Service: 11/14/17 Chief Complaint: Severe swelling, edema, and lymphedema in the lower extremities bilaterally History of Wound: This is a 72-year-old diabetic female with a long-standing history of swelling, edema, and lymphedema in her lower extremities. The patient claims to sleep on a flat surface at night. However, she is not very active. She spends long hours each day sitting idly. She denies any history of thrombophlebitis. She also denies a history of wounds or ulcerations in her lower extremities. She claims her activity is limited by exertional dyspnea. She suffers from multiple medical problems, listed below. Past Medical History Past Medical History: Chronic Problems (Last Reviewed 11/10/17 @ 11:49 by Izabela Proctor NP-C) Swelling of lower extremity (Chronic) Morbid obesity with BMI of 40.0-44.9, adult (Chronic) GERD (gastroesophageal reflux disease) (Chronic) Diabetes mellitus (Chronic) Hypothyroidism (Chronic) Arthritis (Chronic) Edema leg (Chronic) Lymphedema (Chronic) Exertional dyspnea (Chronic) Atrial fibrillation by electrocardiogram (Chronic) Atrial fibrillation (Chronic) Hyperlipidemia (Chronic) Hypertension (Chronic) RBBB (right bundle branch block) (Chronic) Nonrheumatic mitral valve regurgitation (Chronic) Nonrheumatic tricuspid valve regurgitation (Chronic) Surgical History: - - The patient is undergone cardioversion ?2. She is also undergone tonsillectomy as a child. She is undergone left total knee replacement in the past. She has had bilateral cataract surgery. An ovarian cyst has been removed. She has also undergone bilateral foot surgery. Allergies/Adverse Reactions: Allergies No Known Allergies Allergy (Verified 11/10/17 11:32) Home Medications: Ambulatory Orders Medication Instructions Recorded Atorvastatin Calcium [Lipitor] 20 mg PO QHS 02/02/17 Cholecalciferol (Vitamin D3) 50,000 unit PO QWEEK 02/02/17 [Vitamin D3] Levothyroxine Sodium 150 mcg PO DAILY 02/02/17 Losartan/Hydrochlorothiazide 1 ea PO DAILY 02/02/17 [Losartan-Hctz 100-25 mg Tab] Metformin HCl [Glucophage] 500 mg PO BIDCM 02/02/17 Metoprolol Tartrate [Lopressor 50 mg PO BID 02/02/17 (Beta Frank)] Warfarin [Coumadin ([facility])] 3 mg PO DAILY 02/02/17 furosemide 40 mg tablet 40 mg PO DAILY #30 tab 08/11/17 Albuterol IH (ProAir) [Proair Hfa 1 puff INHALATION Q6H PRN PRN 09/11/17 (SP)Vent Pts] Aspirin E.C. [Ecotrin] 81 mg PO DAILY@0800 09/11/17 Montelukast [Singulair] 10 mg PO DAILY 11/07/17 - Family History Paternal Family History: Family History (Last Reviewed 11/10/17 @ 11:49 by TRENTON Garrison) Mother Heart disease - - The patient's father at the age of 23, killed in a train wreck. Patient's mother at the age of 91 with a history of dementia and atrial fibrillation. Lives: Alone Smoking Status: Former smoker Tobacco Use: Non-smoker Alcohol: None Drugs: None Review of Systems Constitutional: Denies: Chills, Fever, Weight Change Eyes: Denies: Pain, Vision Change HEENT: Denies: Difficulty Hearing, Difficulty Swallowing, Sinus Congestion Cardiovascular: Denies: Chest Pain, Palpitations Respiratory: Denies: Cough, Shortness of Breath Gastrointestinal: Denies: Diarrhea, Nausea, Vomiting Genitourinary: Denies: Dysuria, Hematuria Endocrine: Denies: Heat/ Cold Intolerance, Polydipsia, Polyuria Hematologic/ Lymphatic: Denies: Easy Bruising, Easy Bleeding - Physical Exam Vital Signs Temp Pulse Resp BP 99.3 F H 94 18 145/88 H 11/14/17 09:32 11/14/17 09:32 11/14/17 09:32 11/14/17 09:32 General: Alert, Oriented x3, Cooperative, No apparent distress, Well developed, Well nourished HEENT: Atraumatic, PERRLA, EOMI, Normocephalic Oral: Moist Mucosa Neck: No JVD Lungs: Normal air movement Abdomen: Non-Distended Extremities: No clubbing, No cyanosis, No Calf Tenderness, - - The swelling and edema in the patient's lower extremities persists, but is markedly improved. Circumference dimensions are documented elsewhere. There is no sign of infection or cellulitis. There are no open wounds or ulcerations. Skin: No rashes, No breakdown Wound Measurements and Assessment WC - Nurse 1 - General Ulcer Measurement Start: 11/07/17 08:17 Freq: Status: Active Protocol: Activity Type Activity Date Activity User E-Sign Co-Sign Detail Recorded Client Recorded Date Recorded By Document 11/14/17 09:32 [facility] [id number] 11/14/17 09:38 [facility] 11/14/17 09:32 Wound Center Nurse 1 [Edema Assessment] -Lower Limb Edema Present Yes -Right Calf (cm) 46.7 -Right Ankle (cm) 30.2 -Left Calf (cm) 45.5 -Left Ankle (cm) 29.1 - Nurse 2 - General Ulcer CM Notes Start: 11/07/17 08:17 Freq: Status: Active Protocol: Activity Type Activity Date Activity User E-Sign Co-Sign Detail Recorded Client Recorded Date Recorded By Document 11/14/17 10:05 [id number] 11/14/17 10:06 JS 11/14/17 10:05 Wound Center Nurse 2 [Procedure/Treatment] Edema -Time 10:05 -Correct Patient Yes -Correct Side, Site, Position Yes -Correct Procedure Yes -Procedure Performed No -Wound/Ulcer Outcome Not Healed -Ulcer Cleansing Not Cleansed -Foul Odor after Cleansing No -Bioengineered Tissue No -Bleeding Controlled with NA -Treatment Response Procedure Tolerated Well [See Physician Procedure note for Specifics] Pain Scale: 0-10 Numeric [Pain] -Is Patient Pain Free? Yes Neurological: Cranial nerves II-XII grossly intact, Neuro grossly intact Psych/Mental Status: Normal Affect, Appropriate, Alert and oriented to time, place, person, mood and affect Debridement Note Post-Debridement Measurements/Treatment - Nurse 2 - General Ulcer CM Notes Start: 11/07/17 08:17 Freq: Status: Active Protocol: Activity Type Activity Date Activity User E-Sign Co-Sign Detail Recorded Client Recorded Date Recorded By Document 11/07/17 08:58 [id number] 11/07/17 09:02 Document 11/14/17 10:05 [id number] 11/14/17 10:06 11/07/17 11/14/17 08:58 10:05 Wound Center Nurse 2 Edema -Time 08:58 10:05 -Correct Patient Yes Yes -Correct Side, Site, Position Yes Yes -Correct Procedure Yes Yes -Procedure Performed No No -Wound/Ulcer Outcome Not Healed Not Healed -Ulcer Cleansing Not Cleansed -Foul Odor after Cleansing No -Bioengineered Tissue No -Bleeding Controlled with NA NA -Treatment Response Procedure Tolerated Well Pain Scale: 0-10 Numeric Is Patient Pain Free? Yes Yes No debridement was completed today Assessment/Plan Active Problems (Last Reviewed 11/10/17 @ 11:49 by Izabela Proctor NP-C) Swelling of lower extremity (Chronic) Morbid obesity with BMI of 40.0-44.9, adult (Chronic) Edema leg (Chronic) Lymphedema (Chronic) Exertional dyspnea (Chronic) Assessment: This is a 72-year-old female with a long-standing history of swelling, edema, and lymphedema in her lower extremities. In part, it appears as though the swelling and edema is related to lifestyle issues. The patient is morbidly obese. She has not active. She spends long hours each day and an idle sitting position. She has multiple pre-existing medical problems, which have been outlined above. 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 Noninvasive lower extremity arterial study has also been performed, which was normal. Plan: We are to continue conservative treatment measures with respect to the patient's lower extremity swelling, edema, and lymphedema. The patient has been advised to elevate her lower extremities as much as possible. Elevation is to be to heart level, or higher. Elevation is to be implemented even during daytime hours. Patient is to continue sleeping on a flat mattress at night. Activity has been encouraged. Weight loss has also been encouraged. Patient has been advised to avoid prolonged idle sitting. We are to continue compression to the lower extremities by means of a 3M 2 layer compression wrap, which will be changed twice weekly. The patient is to return in 1 week for reassessment. Ultimately, and long-term solution to compression will be implemented, such as the use of CircAid Velcro compression garments. It is anticipated that these will be implemented within the next several weeks. The patient is not a smoker. Influenza vaccine was not administered today. Patient stands 5 feet 8 inches in height. She weighs 283 pounds. Her BMI is 43, which places her in a class III obesity category. Weight loss has been strongly recommended, with collaboration by the patient's primary care physician.
[2017-11-15 09:59] VITALS: BP 133/96; PULSE 96; RESP 18; TEMP 35.5; BMI 43.0
== END 2017-11-17 23:59 ==
LOC: WC 09:30
PROVIDERS: PCP Nurse Practitioner Family; Visit Provider Surgery
DX: I89.0 Lymphedema, not elsewhere classified (principal); R06.09 Other forms of dyspnea; R06.02 Shortness of breath; K21.9 Gastro-esophageal reflux disease without esophagitis; E66.01 Morbid (severe) obesity due to excess calories; Z68.41 Body mass index [BMI] 40.0-44.9, adult; Z71.3 Dietary counseling and surveillance; E11.9 Type 2 diabetes mellitus without complications; E03.9 Hypothyroidism, unspecified; M19.90 Unspecified osteoarthritis, unspecified site; R60.0 Localized edema; I48.2 Chronic atrial fibrillation; E78.5 Hyperlipidemia, unspecified; I10 Essential (primary) hypertension; Z79.899 Other long term (current) drug therapy; Z79.01 Long term (current) use of anticoagulants; Z79.84 Long term (current) use of oral hypoglycemic drugs; Z79.82 Long term (current) use of aspirin; Z87.891 Personal history of nicotine dependence
CPT/HCPCS: 29581; 36415; 71046; 80048; 83880; 99211; 99212; 99213; G0463

== ENCOUNTER 2017-11-28 10:30 | Outpatient (RCR) | payer MEDICARE, MEDICAID, SELFPAY ==
[2017-11-18 01:40] VITALS: BP 133/96; PULSE 96; RESP 18; TEMP 35.5
[2017-11-21 11:56] VITALS: BP 155/71; PULSE 106; RESP 18; TEMP 36.3
--- NOTE | 2017-11-21 12:54 | PCM.WC.HP ---
(1) Swelling of lower extremity Status: Chronic Current Visit: Yes Code(s): M79.89 - Other specified soft tissue disorders (2) Morbid obesity with BMI of 40.0-44.9, adult Status: Chronic Current Visit: No Code(s): E66.01 - Morbid (severe) obesity due to excess calories; Z68.41 - Body mass index (BMI) 40.0-44.9, adult (3) GERD (gastroesophageal reflux disease) Status: Chronic Current Visit: No Code(s): K21.9 - Gastro-esophageal reflux disease without esophagitis (4) Diabetes mellitus Status: Chronic Current Visit: Yes Qualifiers: Diabetes mellitus type: type 2 Code(s): E11.9 - Type 2 diabetes mellitus without complications (5) Hypothyroidism Status: Chronic Current Visit: No Code(s): E03.9 - Hypothyroidism, unspecified (6) Arthritis Status: Chronic Current Visit: No Code(s): M19.90 - Unspecified osteoarthritis, unspecified site (7) Edema leg Status: Chronic Current Visit: Yes Code(s): R60.0 - Localized edema (8) Lymphedema Status: Chronic Current Visit: Yes Code(s): I89.0 - Lymphedema, not elsewhere classified (9) Exertional dyspnea Status: Chronic Current Visit: No Code(s): R06.09 - Other forms of dyspnea (10) Atrial fibrillation by electrocardiogram Status: Chronic Current Visit: No Code(s): I48.91 - Unspecified atrial fibrillation (11) Atrial fibrillation Status: Chronic Current Visit: No Qualifiers: Code(s): I48.91 - Unspecified atrial fibrillation (12) Hyperlipidemia Status: Chronic Current Visit: No Qualifiers: Code(s): E78.5 - Hyperlipidemia, unspecified (13) Hypertension Status: Chronic Current Visit: No Qualifiers: Code(s): I10 - Essential (primary) hypertension (14) RBBB (right bundle branch block) Status: Chronic Current Visit: No Code(s): I45.10 - Unspecified right bundle-branch block (15) Nonrheumatic mitral valve regurgitation Status: Chronic Current Visit: No Code(s): I34.0 - Nonrheumatic mitral (valve) insufficiency (16) Nonrheumatic tricuspid valve regurgitation Status: Chronic Current Visit: No Code(s): I36.1 - Nonrheumatic tricuspid (valve) insufficiency History of Present Illness Date of Service: 11/21/17 Chief Complaint: Severe swelling, edema, and lymphedema in the lower extremities bilaterally History of Wound: This is a 72-year-old diabetic female with a long-standing history of swelling, edema, and lymphedema in her lower extremities. The patient claims to sleep on a flat surface at night. However, she is not very active. She spends long hours each day sitting idly. She denies any history of thrombophlebitis. She also denies a history of wounds or ulcerations in her lower extremities. She claims her activity is limited by exertional dyspnea. She suffers from multiple medical problems, listed below. Past Medical History Past Medical History: Chronic Problems (Last Reviewed 11/17/17 @ 11:11 by Izabela Proctor NP-C) Swelling of lower extremity (Chronic) Morbid obesity with BMI of 40.0-44.9, adult (Chronic) GERD (gastroesophageal reflux disease) (Chronic) Diabetes mellitus (Chronic) Hypothyroidism (Chronic) Arthritis (Chronic) Edema leg (Chronic) Lymphedema (Chronic) Exertional dyspnea (Chronic) Atrial fibrillation by electrocardiogram (Chronic) Atrial fibrillation (Chronic) Hyperlipidemia (Chronic) Hypertension (Chronic) RBBB (right bundle branch block) (Chronic) Nonrheumatic mitral valve regurgitation (Chronic) Nonrheumatic tricuspid valve regurgitation (Chronic) Surgical History: - - The patient is undergone cardioversion ?2. She is also undergone tonsillectomy as a child. She is undergone left total knee replacement in the past. She has had bilateral cataract surgery. An ovarian cyst has been removed. She has also undergone bilateral foot surgery. Allergies/Adverse Reactions: Allergies No Known Allergies Allergy (Verified 11/17/17 10:51) Home Medications: Ambulatory Orders Medication Instructions Recorded Atorvastatin Calcium [Lipitor] 20 mg PO QHS 02/02/17 Cholecalciferol (Vitamin D3) 50,000 unit PO QWEEK 02/02/17 [Vitamin D3] Levothyroxine Sodium 150 mcg PO DAILY 02/02/17 Losartan/Hydrochlorothiazide 1 ea PO DAILY 02/02/17 [Losartan-Hctz 100-25 mg Tab] Metformin HCl [Glucophage] 500 mg PO BIDCM 02/02/17 Metoprolol Tartrate [Lopressor 50 mg PO BID 02/02/17 (Beta Frank)] Warfarin [Coumadin ([facility])] 3 mg PO DAILY 02/02/17 furosemide 40 mg tablet 40 mg PO DAILY #30 tab 08/11/17 Albuterol IH (ProAir) [Proair Hfa 1 puff INHALATION Q6H PRN PRN 09/11/17 (SP)Vent Pts] Aspirin E.C. [Ecotrin] 81 mg PO DAILY@0800 09/11/17 Montelukast [Singulair] 10 mg PO DAILY 11/07/17 - Family History Paternal Family History: Family History (Last Reviewed 11/17/17 @ 11:11 by Izabela Proctor NP-C) Mother Heart disease - - The patient's father at the age of 23, killed in a train wreck. Patient's mother at the age of 91 with a history of dementia and atrial fibrillation. Smoking Status: Former smoker Tobacco Use: Non-smoker Review of Systems Constitutional: Denies: Chills, Fever, Weight Change Eyes: Denies: Pain, Vision Change HEENT: Denies: Difficulty Hearing, Difficulty Swallowing, Sinus Congestion Cardiovascular: Denies: Chest Pain, Palpitations Respiratory: Denies: Cough, Shortness of Breath Gastrointestinal: Denies: Diarrhea, Nausea, Vomiting Genitourinary: Denies: Dysuria, Hematuria Endocrine: Denies: Heat/ Cold Intolerance, Polydipsia, Polyuria Hematologic/ Lymphatic: Denies: Easy Bruising, Easy Bleeding - Physical Exam Vital Signs Temp Pulse Resp BP 97.3 F L 106 H 18 155/71 H 11/21/17 11:56 11/21/17 11:56 11/21/17 11:56 11/21/17 11:56 General: Alert, Oriented x3, Cooperative, No apparent distress, Well developed, Well nourished HEENT: Atraumatic, PERRLA, EOMI, Normocephalic Oral: Moist Mucosa Neck: No JVD Lungs: Normal air movement Abdomen: Non-Distended Extremities: No clubbing, No cyanosis, No Calf Tenderness, - - Swelling and edema persist in the lower extremities bilaterally, with little change from that noted previously. Dimensions are documented elsewhere. There are no open wounds or ulcerations. There is no sign of infection or cellulitis. Skin: No rashes, No breakdown Wound Measurements and Assessment WC - Nurse 1 - General Ulcer Measurement Start: 11/21/17 11:56 Freq: Status: Active Protocol: Activity Type Activity Date Activity User E-Sign Co-Sign Detail Recorded Client Recorded Date Recorded By Document 11/21/17 11:56 [id number] 11/21/17 11:58 11/21/17 11:56 Wound Center Nurse 1 [Edema Assessment] -Lower Limb Edema Present Yes -Right Calf (cm) 46.5 -Right Ankle (cm) 33.0 -Left Calf (cm) 45.0 -Left Ankle (cm) 30.5 - Nurse 2 - General Ulcer CM Notes Start: 11/21/17 11:56 Freq: Status: Active Protocol: Activity Type Activity Date Activity User E-Sign Co-Sign Detail Recorded Client Recorded Date Recorded By Document 11/21/17 12:39 [id number] 11/21/17 12:47 11/21/17 12:39 Wound Center Nurse 2 [Procedure/Treatment] Edema -Time 12:39 -Correct Patient Yes -Correct Side, Site, Position Yes -Correct Procedure Yes -Procedure Performed No -Bleeding Controlled with NA [See Physician Procedure note for Specifics] Pain Scale: 0-10 Numeric [Pain] -Is Patient Pain Free? Yes Musculoskeletal: No Muscle Wasting Neurological: Cranial nerves II-XII grossly intact, Neuro grossly intact Psych/Mental Status: Normal Affect, Appropriate, Alert and oriented to time, place, person, mood and affect Debridement Note Post-Debridement Measurements/Treatment - Nurse 2 - General Ulcer CM Notes Start: 11/21/17 11:56 Freq: Status: Active Protocol: Activity Type Activity Date Activity User E-Sign Co-Sign Detail Recorded Client Recorded Date Recorded By Document 11/21/17 12:39 [id number] 11/21/17 12:47 11/21/17 12:39 Wound Center Nurse 2 Edema -Time 12:39 -Correct Patient Yes -Correct Side, Site, Position Yes -Correct Procedure Yes -Procedure Performed No -Bleeding Controlled with NA Pain Scale: 0-10 Numeric Is Patient Pain Free? Yes No debridement was completed today Assessment/Plan Active Problems (Last Reviewed 11/17/17 @ 11:11 by LUDY GarrisonC) Swelling of lower extremity (Chronic) Diabetes mellitus (Chronic) Edema leg (Chronic) Lymphedema (Chronic) Assessment: This is a 72-year-old female with a long-standing history of swelling, edema, and lymphedema in her lower extremities. In part, it appears as though the swelling and edema is related to lifestyle issues. The patient is morbidly obese. She has not active. She spends long hours each day and an idle sitting position. She has multiple pre-existing medical problems, which have been outlined above. 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 Noninvasive lower extremity arterial study has also been performed, which was normal. The patient did not tolerate the 3M 2 layer compression wraps, which were bothersome to her during the nighttime hours. She has been using SpandaGrips in the last few days. There has been no significant improvement. Plan: We are to continue conservative treatment measures with respect to the patient's lower extremity swelling, edema, and lymphedema. The patient has been advised to elevate her lower extremities as much as possible. Elevation is to be to heart level, or higher. Elevation is to be implemented even during daytime hours. Patient is to continue sleeping on a flat mattress at night. Activity has been encouraged. Weight loss has also been encouraged. Patient has been advised to avoid prolonged idle sitting. We are to implement compression by means of SurePress compression wraps bilaterally. The patient is to be instructed in the appropriate means of applying the compression wraps bilaterally. These will be worn daily, and will be removed each evening. Because the patient sleeps on a flat mattress at night, leg elevation will help to minimize the swelling during nighttime hours. The patient is to return in 1 week for reassessment. Ultimately, and long-term solution to compression will be implemented, such as the use of CircAid Velcro compression garments. It is anticipated that these will be implemented within the next several weeks. The patient is not a smoker. Influenza vaccine was not administered today. Patient stands 5 feet 8 inches in height. She weighs 283 pounds. Her BMI is 43, which places her in a class III obesity category. Weight loss has been strongly recommended, with collaboration by the patient's primary care physician.
[2017-11-28 10:40] VITALS: BP 138/73; PULSE 95; RESP 18; TEMP 37.3
--- NOTE | 2017-11-28 11:37 | PCM.WC.HP ---
(1) Swelling of lower extremity Status: Chronic Current Visit: Yes Code(s): M79.89 - Other specified soft tissue disorders (2) Morbid obesity with BMI of 40.0-44.9, adult Status: Chronic Current Visit: No Code(s): E66.01 - Morbid (severe) obesity due to excess calories; Z68.41 - Body mass index (BMI) 40.0-44.9, adult (3) GERD (gastroesophageal reflux disease) Status: Chronic Current Visit: No Code(s): K21.9 - Gastro-esophageal reflux disease without esophagitis (4) Diabetes mellitus Status: Chronic Current Visit: Yes Qualifiers: Diabetes mellitus type: type 2 Code(s): E11.9 - Type 2 diabetes mellitus without complications (5) Hypothyroidism Status: Chronic Current Visit: No Code(s): E03.9 - Hypothyroidism, unspecified (6) Arthritis Status: Chronic Current Visit: No Code(s): M19.90 - Unspecified osteoarthritis, unspecified site (7) Edema leg Status: Chronic Current Visit: Yes Code(s): R60.0 - Localized edema (8) Lymphedema Status: Chronic Current Visit: Yes Code(s): I89.0 - Lymphedema, not elsewhere classified (9) Exertional dyspnea Status: Chronic Current Visit: No Code(s): R06.09 - Other forms of dyspnea (10) Atrial fibrillation by electrocardiogram Status: Chronic Current Visit: No Code(s): I48.91 - Unspecified atrial fibrillation (11) Atrial fibrillation Status: Chronic Current Visit: No Qualifiers: Code(s): I48.91 - Unspecified atrial fibrillation (12) Hyperlipidemia Status: Chronic Current Visit: No Qualifiers: Code(s): E78.5 - Hyperlipidemia, unspecified (13) Hypertension Status: Chronic Current Visit: No Qualifiers: Code(s): I10 - Essential (primary) hypertension (14) RBBB (right bundle branch block) Status: Chronic Current Visit: No Code(s): I45.10 - Unspecified right bundle-branch block (15) Nonrheumatic mitral valve regurgitation Status: Chronic Current Visit: No Code(s): I34.0 - Nonrheumatic mitral (valve) insufficiency (16) Nonrheumatic tricuspid valve regurgitation Status: Chronic Current Visit: No Code(s): I36.1 - Nonrheumatic tricuspid (valve) insufficiency History of Present Illness Date of Service: 11/28/17 Chief Complaint: Severe swelling, edema, and lymphedema in the lower extremities bilaterally History of Wound: This is a 72-year-old diabetic female with a long-standing history of swelling, edema, and lymphedema in her lower extremities. The patient claims to sleep on a flat surface at night. However, she is not very active. She spends long hours each day sitting idly. She denies any history of thrombophlebitis. She also denies a history of wounds or ulcerations in her lower extremities. She claims her activity is limited by exertional dyspnea. She suffers from multiple medical problems, listed below. Past Medical History Past Medical History: Chronic Problems (Last Reviewed 11/17/17 @ 11:11 by Izabela Proctor NP-C) Swelling of lower extremity (Chronic) Morbid obesity with BMI of 40.0-44.9, adult (Chronic) GERD (gastroesophageal reflux disease) (Chronic) Diabetes mellitus (Chronic) Hypothyroidism (Chronic) Arthritis (Chronic) Edema leg (Chronic) Lymphedema (Chronic) Exertional dyspnea (Chronic) Atrial fibrillation by electrocardiogram (Chronic) Atrial fibrillation (Chronic) Hyperlipidemia (Chronic) Hypertension (Chronic) RBBB (right bundle branch block) (Chronic) Nonrheumatic mitral valve regurgitation (Chronic) Nonrheumatic tricuspid valve regurgitation (Chronic) Surgical History: - - The patient is undergone cardioversion ?2. She is also undergone tonsillectomy as a child. She is undergone left total knee replacement in the past. She has had bilateral cataract surgery. An ovarian cyst has been removed. She has also undergone bilateral foot surgery. Allergies/Adverse Reactions: Allergies No Known Allergies Allergy (Verified 11/17/17 10:51) Home Medications: Ambulatory Orders Medication Instructions Recorded Atorvastatin Calcium [Lipitor] 20 mg PO QHS 02/02/17 Cholecalciferol (Vitamin D3) 50,000 unit PO QWEEK 02/02/17 [Vitamin D3] Levothyroxine Sodium 150 mcg PO DAILY 02/02/17 Losartan/Hydrochlorothiazide 1 ea PO DAILY 02/02/17 [Losartan-Hctz 100-25 mg Tab] Metformin HCl [Glucophage] 500 mg PO BIDCM 02/02/17 Metoprolol Tartrate [Lopressor 50 mg PO BID 02/02/17 (Beta Frank)] Warfarin [Coumadin ([facility])] 3 mg PO DAILY 02/02/17 furosemide 40 mg tablet 40 mg PO DAILY #30 tab 08/11/17 Albuterol IH (ProAir) [Proair Hfa 1 puff INHALATION Q6H PRN PRN 09/11/17 (SP)Vent Pts] Aspirin E.C. [Ecotrin] 81 mg PO DAILY@0800 09/11/17 Montelukast [Singulair] 10 mg PO DAILY 11/07/17 - Family History Paternal Family History: Family History (Last Reviewed 11/17/17 @ 11:11 by Izabela Proctor NP-C) Mother Heart disease - - The patient's father at the age of 23, killed in a train wreck. Patient's mother at the age of 91 with a history of dementia and atrial fibrillation. Smoking Status: Former smoker Tobacco Use: Non-smoker Review of Systems Constitutional: Denies: Chills, Fever, Weight Change Eyes: Denies: Pain, Vision Change HEENT: Denies: Difficulty Hearing, Difficulty Swallowing, Sinus Congestion Cardiovascular: Denies: Chest Pain, Palpitations Respiratory: Denies: Cough, Shortness of Breath Gastrointestinal: Denies: Diarrhea, Nausea, Vomiting Genitourinary: Denies: Dysuria, Hematuria Endocrine: Denies: Heat/ Cold Intolerance, Polydipsia, Polyuria Hematologic/ Lymphatic: Denies: Easy Bruising, Easy Bleeding - Physical Exam Vital Signs Temp Pulse Resp BP 99.1 F 95 18 138/73 H 11/28/17 10:40 11/28/17 10:40 11/28/17 10:40 11/28/17 10:40 General: Alert, Oriented x3, Cooperative, No apparent distress, Well developed, Well nourished HEENT: Atraumatic, PERRLA, EOMI, Normocephalic Oral: Moist Mucosa Neck: No JVD Lungs: Normal air movement Abdomen: Non-Distended, Obese Extremities: No clubbing, No cyanosis, No Calf Tenderness, Edema, - - Mild swelling and edema persists in the lower extremities bilaterally. However, it is slightly improved over previous weeks. There are no open wounds or ulcerations. There is no sign of infection or cellulitis. Circumference measurements are documented elsewhere. Skin: No rashes, No breakdown Wound Measurements and Assessment WC - Nurse 1 - General Ulcer Measurement Start: 11/21/17 11:56 Freq: Status: Active Protocol: Activity Type Activity Date Activity User E-Sign Co-Sign Detail Recorded Client Recorded Date Recorded By Document 11/28/17 10:40 DL [id number] 11/28/17 10:46 DL 11/28/17 10:40 Wound Center Nurse 1 [Ulcer Assessment] Edema -Texture (Guerda-wound Skin Appearance) No Abnormality -Moisture (Guerda-wound Skin Appearance No Abnormality ) -Color (Guerda-wound Skin Appearance) No Abnormality -Temperature (Guerda-wound Skin No Abnormality Appearance) (Pt Warm) [Edema Assessment] -Right Calf (cm) 45.5 -Right Ankle (cm) 3.2 -Left Calf (cm) 44 -Left Ankle (cm) 27.8 WC - Nurse 2 - General Ulcer CM Notes Start: 11/21/17 11:56 Freq: Status: Active Protocol: Activity Type Activity Date Activity User E-Sign Co-Sign Detail Recorded Client Recorded Date Recorded By Document 11/28/17 11:25 [id number] 11/28/17 11:26 11/28/17 11:25 Wound Center Nurse 2 [Procedure/Treatment] Edema -Time 11:26 -Correct Patient Yes -Correct Side, Site, Position Yes -Correct Procedure Yes -Procedure Performed No -Ulcer Cleansing Not Cleansed -Foul Odor after Cleansing No -Bioengineered Tissue No -Bleeding Controlled with NA [See Physician Procedure note for Specifics] Pain Scale: 0-10 Numeric [Pain] -Is Patient Pain Free? Yes Neurological: Cranial nerves II-XII grossly intact, Neuro grossly intact Psych/Mental Status: Normal Affect, Appropriate, Alert and oriented to time, place, person, mood and affect Debridement Note Post-Debridement Measurements/Treatment - Nurse 2 - General Ulcer CM Notes Start: 11/21/17 11:56 Freq: Status: Active Protocol: Activity Type Activity Date Activity User E-Sign Co-Sign Detail Recorded Client Recorded Date Recorded By Document 11/21/17 12:39 [id number] 11/21/17 12:47 JS Document 11/28/17 11:25 [id number] 11/28/17 11:26 11/21/17 11/28/17 12:39 11:25 Wound Center Nurse 2 Edema -Time 12:39 11:26 -Correct Patient Yes Yes -Correct Side, Site, Position Yes Yes -Correct Procedure Yes Yes -Procedure Performed No No -Ulcer Cleansing Not Cleansed -Foul Odor after Cleansing No -Bioengineered Tissue No -Bleeding Controlled with NA NA Pain Scale: 0-10 Numeric Is Patient Pain Free? Yes Yes No debridement was completed today Assessment/Plan Active Problems (Last Reviewed 11/17/17 @ 11:11 by Izabela Proctor NP-Garrison) Swelling of lower extremity (Chronic) Diabetes mellitus (Chronic) Edema leg (Chronic) Lymphedema (Chronic) Assessment: This is a 72-year-old female with a long-standing history of swelling, edema, and lymphedema in her lower extremities. In part, it appears as though the swelling and edema is related to lifestyle issues. The patient is morbidly obese. She has not active. 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 She spends long hours each day and an idle sitting position. She has multiple pre-existing medical problems, which have been outlined above. 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 Noninvasive lower extremity arterial study has also been performed, which was normal. The patient did not tolerate the 3M 2 layer compression wraps, which were bothersome to her during the nighttime hours. She has been using SurePress wraps to the lower extremities daily. Plan: We are to continue conservative treatment measures with respect to the patient's lower extremity swelling, edema, and lymphedema. The patient has been advised to elevate her lower extremities as much as possible. Elevation is to be to heart level, or higher. Elevation is to be implemented even during daytime hours. Patient is to continue sleeping on a flat mattress at night. Activity has been encouraged. Weight loss has also been encouraged. Patient has been advised to avoid prolonged idle sitting. We are to continue compression by means of SurePress compression wraps bilaterally. The patient has been instructed in the appropriate means of applying the compression wraps bilaterally. These will be worn daily, and will be removed each evening. Because the patient sleeps on a flat mattress at night, leg elevation will help to minimize the swelling during nighttime hours. We will attempt to obtain Velcro CircAid compression garments for the patient's lower extremities. The patient is to return in 2 weeks for reassessment. The patient is not a smoker. Influenza vaccine was not administered today. Patient stands 5 feet 8 inches in height. She weighs 283 pounds. Her BMI is 43, which places her in a class III obesity category. Weight loss has been strongly recommended, with collaboration by the patient's primary care physician.
--- NOTE | 2017-11-28 11:41 | HP.PCM_ITS ---
(1) Swelling of lower extremity Status: Chronic Current Visit: Yes Code(s): M79.89 - Other specified soft tissue disorders (2) Morbid obesity with BMI of 40.0-44.9, adult Status: Chronic Current Visit: No Code(s): E66.01 - Morbid (severe) obesity due to excess calories; Z68.41 - Body mass index (BMI) 40.0-44.9, adult (3) GERD (gastroesophageal reflux disease) Status: Chronic Current Visit: No Code(s): K21.9 - Gastro-esophageal reflux disease without esophagitis (4) Diabetes mellitus Status: Chronic Current Visit: Yes Qualifiers: Diabetes mellitus type: type 2 Code(s): E11.9 - Type 2 diabetes mellitus without complications (5) Hypothyroidism Status: Chronic Current Visit: No Code(s): E03.9 - Hypothyroidism, unspecified (6) Arthritis Status: Chronic Current Visit: No Code(s): M19.90 - Unspecified osteoarthritis, unspecified site (7) Edema leg Status: Chronic Current Visit: Yes Code(s): R60.0 - Localized edema (8) Lymphedema Status: Chronic Current Visit: Yes Code(s): I89.0 - Lymphedema, not elsewhere classified (9) Exertional dyspnea Status: Chronic Current Visit: No Code(s): R06.09 - Other forms of dyspnea (10) Atrial fibrillation by electrocardiogram Status: Chronic Current Visit: No Code(s): I48.91 - Unspecified atrial fibrillation (11) Atrial fibrillation Status: Chronic Current Visit: No Qualifiers: Code(s): I48.91 - Unspecified atrial fibrillation (12) Hyperlipidemia Status: Chronic Current Visit: No Qualifiers: Code(s): E78.5 - Hyperlipidemia, unspecified (13) Hypertension Status: Chronic Current Visit: No Qualifiers: Code(s): I10 - Essential (primary) hypertension (14) RBBB (right bundle branch block) Status: Chronic Current Visit: No Code(s): I45.10 - Unspecified right bundle -branch block (15) Nonrheumatic mitral valve regurgitation Status: Chronic Current Visit: No Code(s): I34.0 - Nonrheumatic mitral ( valve) insufficiency (16) Nonrheumatic tricuspid valve regurgitation Status: Chronic Current Visit: No Code(s): I36.1 - Nonrheumatic tricuspid ( valve) insufficiency History of Present Illness Date of Service: 11/28/17 Chief Complaint: Severe swelling, edema, and lymphedema in the lower extremities bilaterally History of Wound: This is a 72-year-old diabetic female with a long-standing history of swelling, edema, and lymphedema in her lower extremities. The patient claims to sleep on a flat surface at night. However, she is not very active. She spends long hours each day sitting idly. She denies any history of thrombophlebitis. She also denies a history of wounds or ulcerations in her lower extremities. She claims her activity is limited by exertional dyspnea. She suffers from multiple medical problems, listed below. Past Medical History Past Medical History: Chronic Problems (Last Reviewed 11/17/17 @ 11:11 by Izabela Proctor NP-C) Swelling of lower extremity (Chronic) Morbid obesity with BMI of 40.0-44.9, adult (Chronic) GERD (gastroesophageal reflux disease) (Chronic) Diabetes mellitus (Chronic) Hypothyroidism (Chronic) Arthritis (Chronic) Edema leg (Chronic) Lymphedema (Chronic) Exertional dyspnea (Chronic) Atrial fibrillation by electrocardiogram (Chronic) Atrial fibrillation (Chronic) Hyperlipidemia (Chronic) Hypertension (Chronic) RBBB (right bundle branch block) (Chronic) Nonrheumatic mitral valve regurgitation (Chronic) Nonrheumatic tricuspid valve regurgitation (Chronic) Surgical History: - - The patient is undergone cardioversion ?2. She is also undergone tonsillectomy as a child. She is undergone left total knee replacement in the past. She has had bilateral cataract surgery. An ovarian cyst has been removed. She has also undergone bilateral foot surgery. Allergies/Adverse Reactions: Allergies No Known Allergies Allergy (Verified 11/17/17 10:51) Home Medications: Ambulatory Orders Medication Instructions Recorded Atorvastatin Calcium [Lipitor] 20 mg PO QHS 02/02/17 Cholecalciferol (Vitamin D3) 50,000 unit PO QWEEK 02/02/17 [Vitamin D3] Levothyroxine Sodium 150 mcg PO DAILY 02/02/17 Losartan/Hydrochlorothiazide 1 ea PO DAILY 02/02/17 [Losartan-Hctz 100-25 mg Tab] Metformin HCl [Glucophage] 500 mg PO BIDCM 02/02/17 Metoprolol Tartrate [Lopressor 50 mg PO BID 02/02/17 (Beta Frank)] Warfarin [Coumadin ([facility])] 3 mg PO DAILY 02/02/17 furosemide 40 mg tablet 40 mg PO DAILY #30 tab 08/11/17 Albuterol IH (ProAir) [Proair Hfa 1 puff INHALATION Q6H PRN PRN 09/11/17 (SP)Vent Pts] Aspirin E.C. [Ecotrin] 81 mg PO DAILY@0800 09/11/17 Montelukast [Singulair] 10 mg PO DAILY 11/07/17 - Family History Paternal Family History: Family History (Last Reviewed 11/17/17 @ 11:11 by Izabela Proctor NP-C) Mother Heart disease - - The patient's father at the age of 23, killed in a train wreck. Patient's mother at the age of 91 with a history of dementia and atrial fibrillation. Smoking Status: Former smoker Tobacco Use: Non-smoker Review of Systems Constitutional: Denies: Chills, Fever, Weight Change Eyes: Denies: Pain, Vision Change HEENT: Denies: Difficulty Hearing, Difficulty Swallowing, Sinus Congestion Cardiovascular: Denies: Chest Pain, Palpitations Respiratory: Denies: Cough, Shortness of Breath Gastrointestinal: Denies: Diarrhea, Nausea, Vomiting Genitourinary: Denies: Dysuria, Hematuria Endocrine: Denies: Heat/ Cold Intolerance, Polydipsia, Polyuria Hematologic/ Lymphatic: Denies: Easy Bruising, Easy Bleeding - Physical Exam Vital Signs Temp Pulse Resp BP 99.1 F 95 18 138/73 H 11/28/17 10:40 11/28/17 10:40 11/28/17 10:40 11/28/17 10:40 General: Alert, Oriented x3, Cooperative, No apparent distress, Well developed, Well nourished HEENT: Atraumatic, PERRLA, EOMI, Normocephalic Oral: Moist Mucosa Neck: No JVD Lungs: Normal air movement Abdomen: Non-Distended, Obese Extremities: No clubbing, No cyanosis, No Calf Tenderness, Edema, - - Mild swelling and edema persists in the lower extremities bilaterally. However, it is slightly improved over previous weeks. There are no open wounds or ulcerations. There is no sign of infection or cellulitis. Circumference measurements are documented elsewhere. Skin: No rashes, No breakdown Wound Measurements and Assessment WC - Nurse 1 - General Ulcer Measurement Start: 11/21/17 11:56 Freq: Status: Active Protocol: Activity Type Activity Date Activity User E-Sign Co-Sign Detail Recorded Client Recorded Date Recorded By Document 11/28/17 10:40 DL [id number] 11/28/17 10:46 DL 11/28/17 10:40 Wound Center Nurse 1 [Ulcer Assessment] Edema -Texture (Guerda-wound Skin Appearance) No Abnormality -Moisture (Guerda-wound Skin Appearance No Abnormality ) -Color (Guerda-wound Skin Appearance) No Abnormality -Temperature (Guerda-wound Skin No Abnormality Appearance) (Pt Warm) [Edema Assessment] -Right Calf (cm) 45.5 -Right Ankle (cm) 3.2 -Left Calf (cm) 44 -Left Ankle (cm) 27.8 WC - Nurse 2 - General Ulcer CM Notes Start: 11/21/17 11:56 Freq: Status: Active Protocol: Activity Type Activity Date Activity User E-Sign Co-Sign Detail Recorded Client Recorded Date Recorded By Document 11/28/17 11:25 [id number] 11/28/17 11:26 11/28/17 11:25 Wound Center Nurse 2 [Procedure/Treatment] Edema -Time 11:26 -Correct Patient Yes -Correct Side, Site, Position Yes -Correct Procedure Yes -Procedure Performed No -Ulcer Cleansing Not Cleansed -Foul Odor after Cleansing No -Bioengineered Tissue No -Bleeding Controlled with NA [See Physician Procedure note for Specifics] Pain Scale: 0-10 Numeric [Pain] -Is Patient Pain Free? Yes Neurological: Cranial nerves II-XII grossly intact, Neuro grossly intact Psych/Mental Status: Normal Affect, Appropriate, Alert and oriented to time, place, person, mood and affect Debridement Note Post-Debridement Measurements/Treatment - Nurse 2 - General Ulcer CM Notes Start: 11/21/17 11:56 Freq: Status: Active Protocol: Activity Type Activity Date Activity User E-Sign Co-Sign Detail Recorded Client Recorded Date Recorded By Document 11/21/17 12:39 [id number] 11/21/17 12:47 JS Document 11/28/17 11:25 [id number] 11/28/17 11:26 11/21/17 11/28/17 12:39 11:25 Wound Center Nurse 2 Edema -Time 12:39 11:26 -Correct Patient Yes Yes -Correct Side, Site, Position Yes Yes -Correct Procedure Yes Yes -Procedure Performed No No -Ulcer Cleansing Not Cleansed -Foul Odor after Cleansing No -Bioengineered Tissue No -Bleeding Controlled with NA NA Pain Scale: 0-10 Numeric Is Patient Pain Free? Yes Yes No debridement was completed today Assessment/Plan Active Problems (Last Reviewed 11/17/17 @ 11:11 by Izabela Proctor NP-[place]) Swelling of lower extremity (Chronic) Diabetes mellitus (Chronic) Edema leg (Chronic) Lymphedema (Chronic) Assessment: This is a 72-year-old female with a long-standing history of swelling, edema, and lymphedema in her lower extremities. In part, it appears as though the swelling and edema is related to lifestyle issues. The patient is morbidly obese. She has not active. 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 She spends long hours each day and an idle sitting position. She has multiple pre- existing medical problems, which have been outlined above. 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 Noninvasive lower extremity arterial study has also been performed, which was normal. The patient did not tolerate the 3M 2 layer compression wraps , which were bothersome to her during the nighttime hours. She has been using SurePress wraps to the lower extremities daily. Plan: We are to continue conservative treatment measures with respect to the patient's lower extremity swelling, edema, and lymphedema. The patient has been advised to elevate her lower extremities as much as possible. Elevation is to be to heart level, or higher. Elevation is to be implemented even during daytime hours. Patient is to continue sleeping on a flat mattress at night. Activity has been encouraged. Weight loss has also been encouraged. Patient has been advised to avoid prolonged idle sitting. We are to continue compression by means of SurePress compression wraps bilaterally. The patient has been instructed in the appropriate means of applying the compression wraps bilaterally. These will be worn daily, and will be removed each evening. Because the patient sleeps on a flat mattress at night, leg elevation will help to minimize the swelling during nighttime hours. We will attempt to obtain Velcro CircAid compression garments for the patient's lower extremities. The patient is to return in 2 weeks for reassessment. The patient is not a smoker. Influenza vaccine was not administered today. Patient stands 5 feet 8 inches in height. She weighs 283 pounds. Her BMI is 43, which places her in a class III obesity category. Weight loss has been strongly recommended, with collaboration by the patient's primary care physician.
--- NOTE | 2017-11-28 17:05 | WC ---
30 pp Medical Records Faxed to [facility] for CircAid wraps.
== END 2017-12-17 23:59 ==
LOC: WC 10:30
PROVIDERS: PCP Nurse Practitioner Family; Visit Provider Surgery
DX: I89.0 Lymphedema, not elsewhere classified (principal); E11.9 Type 2 diabetes mellitus without complications; R60.0 Localized edema; M79.89 Other specified soft tissue disorders; E66.01 Morbid (severe) obesity due to excess calories; Z68.41 Body mass index [BMI] 40.0-44.9, adult; Z71.3 Dietary counseling and surveillance; K21.9 Gastro-esophageal reflux disease without esophagitis; E03.9 Hypothyroidism, unspecified; M19.90 Unspecified osteoarthritis, unspecified site; I48.2 Chronic atrial fibrillation; E78.5 Hyperlipidemia, unspecified; I10 Essential (primary) hypertension; Z79.899 Other long term (current) drug therapy; Z79.84 Long term (current) use of oral hypoglycemic drugs; Z79.82 Long term (current) use of aspirin; Z87.891 Personal history of nicotine dependence
CPT/HCPCS: 99212; 99213; G0463

== ENCOUNTER → 2017-12-26 11:48 | Outpatient (CLI) | payer MEDICARE, SELFPAY ==
[2017-12-26 12:26] LABS: Prothrombin Time Fingerstick 41.2 SEC (11.9-14.4)
[2017-12-26 12:33] LABS: International Normalized Ratio 3.4; Prothrombin Time (Protime)PT. 34.5 SECONDS (11.7-14.9)
== END ==
PROVIDERS: Internal Medicine Cardiovascular Disease; Referring Provider Internal Medicine Cardiovascular Disease; Visit Provider Internal Medicine Cardiovascular Disease
DX: I48.1 Persistent atrial fibrillation (principal)
CPT/HCPCS: 36415; 36416; 85610

== ENCOUNTER 2018-01-16 09:00 | Outpatient (RCR) | payer MEDICARE, MEDICAID, SELFPAY ==
[2017-12-18 01:15] VITALS: BP 138/73; PULSE 95; RESP 18; TEMP 37.3
[2017-12-26 09:07] VITALS: BP 157/73; PULSE 90; RESP 18; TEMP 36.1
--- NOTE | 2017-12-26 09:35 | PCM.WC.HP ---
(1) KYLE (obstructive sleep apnea) Status: Chronic Current Visit: No Code(s): G47.33 - Obstructive sleep apnea (adult) (pediatric) (2) Swelling of lower extremity Status: Chronic Current Visit: Yes Code(s): M79.89 - Other specified soft tissue disorders (3) Morbid obesity with BMI of 40.0-44.9, adult Status: Chronic Current Visit: Yes Code(s): E66.01 - Morbid (severe) obesity due to excess calories; Z68.41 - Body mass index (BMI) 40.0-44.9, adult (4) GERD (gastroesophageal reflux disease) Status: Chronic Current Visit: No Code(s): K21.9 - Gastro-esophageal reflux disease without esophagitis (5) Diabetes mellitus Status: Chronic Current Visit: No Qualifiers: Diabetes mellitus type: type 2 Code(s): E11.9 - Type 2 diabetes mellitus without complications (6) Hypothyroidism Status: Chronic Current Visit: No Code(s): E03.9 - Hypothyroidism, unspecified (7) Arthritis Status: Chronic Current Visit: No Code(s): M19.90 - Unspecified osteoarthritis, unspecified site (8) Edema leg Status: Chronic Current Visit: Yes Code(s): R60.0 - Localized edema (9) Lymphedema Status: Chronic Current Visit: Yes Code(s): I89.0 - Lymphedema, not elsewhere classified (10) Exertional dyspnea Status: Chronic Current Visit: No Code(s): R06.09 - Other forms of dyspnea (11) Atrial fibrillation by electrocardiogram Status: Chronic Current Visit: No Code(s): I48.91 - Unspecified atrial fibrillation (12) Atrial fibrillation Status: Chronic Current Visit: No Qualifiers: Code(s): I48.91 - Unspecified atrial fibrillation (13) Hyperlipidemia Status: Chronic Current Visit: No Qualifiers: Code(s): E78.5 - Hyperlipidemia, unspecified (14) Hypertension Status: Chronic Current Visit: No Qualifiers: Code(s): I10 - Essential (primary) hypertension (15) RBBB (right bundle branch block) Status: Chronic Current Visit: No Code(s): I45.10 - Unspecified right bundle-branch block (16) Nonrheumatic mitral valve regurgitation Status: Chronic Current Visit: No Code(s): I34.0 - Nonrheumatic mitral (valve) insufficiency (17) Nonrheumatic tricuspid valve regurgitation Status: Chronic Current Visit: No Code(s): I36.1 - Nonrheumatic tricuspid (valve) insufficiency History of Present Illness Chief Complaint: Severe swelling, edema, and lymphedema in the lower extremities bilaterally History of Wound: This is a 72-year-old diabetic female with a long-standing history of swelling, edema, and lymphedema in her lower extremities. The patient claims to sleep on a flat surface at night. However, she is not very active. She spends long hours each day sitting idly. She denies any history of thrombophlebitis. She also denies a history of wounds or ulcerations in her lower extremities. She claims her activity is limited by exertional dyspnea. She suffers from multiple medical problems, listed below. Past Medical History Past Medical History: Chronic Problems (Last Reviewed 11/17/17 @ 11:11 by Izabela Proctor NP-C) KYLE (obstructive sleep apnea) (Chronic) Swelling of lower extremity (Chronic) Morbid obesity with BMI of 40.0-44.9, adult (Chronic) GERD (gastroesophageal reflux disease) (Chronic) Diabetes mellitus (Chronic) Hypothyroidism (Chronic) Arthritis (Chronic) Edema leg (Chronic) Lymphedema (Chronic) Exertional dyspnea (Chronic) Atrial fibrillation by electrocardiogram (Chronic) Atrial fibrillation (Chronic) Hyperlipidemia (Chronic) Hypertension (Chronic) RBBB (right bundle branch block) (Chronic) Nonrheumatic mitral valve regurgitation (Chronic) Nonrheumatic tricuspid valve regurgitation (Chronic) Surgical History: - - The patient is undergone cardioversion ?2. She is also undergone tonsillectomy as a child. She is undergone left total knee replacement in the past. She has had bilateral cataract surgery. An ovarian cyst has been removed. She has also undergone bilateral foot surgery. Allergies/Adverse Reactions: Allergies No Known Allergies Allergy (Verified 12/25/17 15:31) Home Medications: Ambulatory Orders Medication Instructions Recorded Atorvastatin Calcium [Lipitor] 20 mg PO QHS 02/02/17 Cholecalciferol (Vitamin D3) 50,000 unit PO QWEEK 02/02/17 [Vitamin D3] Levothyroxine Sodium 150 mcg PO DAILY 02/02/17 Metformin HCl [Glucophage] 500 mg PO BIDCM 02/02/17 Warfarin [Coumadin ([facility])] 3 mg PO DAILY 02/02/17 furosemide 40 mg tablet 40 mg PO DAILY #30 tab 08/11/17 Albuterol IH (ProAir) [Proair Hfa 1 puff INHALATION Q6H PRN PRN 09/11/17 (SP)Vent Pts] Aspirin E.C. [Ecotrin] 81 mg PO DAILY@0800 09/11/17 Montelukast [Singulair] 10 mg PO DAILY 11/07/17 losartan 50 mg-hydrochlorothiazide 1 tab PO DAILY 12/12/17 12.5 mg tablet propafenone ER 325 mg 325 mg PO Q12H 12/12/17 capsule,extended release 12 hr metoprolol tartrate 50 mg tablet 50 mg PO BID 12/25/17 - Family History Paternal Family History: Family History (Last Reviewed 11/17/17 @ 11:11 by Izabela Proctor NP-C) Mother Heart disease - - The patient's father at the age of 23, killed in a train wreck. Patient's mother at the age of 91 with a history of dementia and atrial fibrillation. Smoking Status: Former smoker Tobacco Use: Non-smoker Review of Systems Constitutional: Denies: Chills, Fever, Weight Change Eyes: Denies: Pain, Vision Change HEENT: Denies: Difficulty Hearing, Difficulty Swallowing, Sinus Congestion Cardiovascular: Denies: Chest Pain, Palpitations Respiratory: Denies: Cough, Shortness of Breath Gastrointestinal: Denies: Diarrhea, Nausea, Vomiting Genitourinary: Denies: Dysuria, Hematuria Endocrine: Denies: Heat/ Cold Intolerance, Polydipsia, Polyuria Hematologic/ Lymphatic: Denies: Easy Bruising, Easy Bleeding - Physical Exam Vital Signs Temp Pulse Resp BP 96.9 F L 90 18 157/73 H 12/26/17 09:07 12/26/17 09:07 12/26/17 09:07 12/26/17 09:07 General: Alert, Oriented x3, Cooperative, No apparent distress, Well developed, Well nourished HEENT: Atraumatic, PERRLA, EOMI, Normocephalic Oral: Moist Mucosa Neck: No JVD Lungs: Normal air movement Abdomen: Non-Distended, Obese Extremities: No clubbing, No cyanosis, No Calf Tenderness, - - Mild swelling and edema is noted in the lower extremities bilaterally. There are no open wounds or ulcerations. A large ecchymosis is noted on the medial aspect of the right distal calf, the result of minor trauma recently. Skin: No rashes Wound Measurements and Assessment - Nurse 1 - General Ulcer Measurement Start: 12/26/17 09:07 Freq: Status: Active Protocol: Activity Type Activity Date Activity User E-Sign Co-Sign Detail Recorded Client Recorded Date Recorded By Document 12/26/17 09:07 [id number] 12/26/17 09:08 12/26/17 09:07 Wound Center Nurse 1 [Edema Assessment] -Lower Limb Edema Present Yes -Right Calf (cm) 48.0 -Right Ankle (cm) 31.0 -Left Calf (cm) 47.0 -Left Ankle (cm) 30.5 - Nurse 2 - General Ulcer CM Notes Start: 12/26/17 09:07 Freq: Status: Active Protocol: Activity Type Activity Date Activity User E-Sign Co-Sign Detail Recorded Client Recorded Date Recorded By Document 12/26/17 09:22 [id number] 12/26/17 09:32 12/26/17 09:22 Wound Center Nurse 2 [Procedure/Treatment] Edema -Time 09:22 -Correct Patient Yes -Correct Side, Site, Position Yes -Correct Procedure Yes -Procedure Performed No [See Physician Procedure note for Specifics] Pain Scale: 0-10 Numeric [Pain] -Is Patient Pain Free? Yes Musculoskeletal: No Muscle Wasting Neurological: Cranial nerves II-XII grossly intact, Neuro grossly intact Psych/Mental Status: Normal Affect, Appropriate, Alert and oriented to time, place, person, mood and affect Debridement Note Post-Debridement Measurements/Treatment - Nurse 2 - General Ulcer CM Notes Start: 12/26/17 09:07 Freq: Status: Active Protocol: Activity Type Activity Date Activity User E-Sign Co-Sign Detail Recorded Client Recorded Date Recorded By Document 12/26/17 09:22 [id number] 12/26/17 09:32 12/26/17 09:22 Wound Center Nurse 2 Edema -Time 09:22 -Correct Patient Yes -Correct Side, Site, Position Yes -Correct Procedure Yes -Procedure Performed No Pain Scale: 0-10 Numeric Is Patient Pain Free? Yes No debridement was completed today Assessment/Plan Active Problems (Last Reviewed 11/17/17 @ 11:11 by Izabela Proctor, AIR POLLUTION CONTROL ENGINEER-C) Swelling of lower extremity (Chronic) Morbid obesity with BMI of 40.0-44.9, adult (Chronic) Edema leg (Chronic) Lymphedema (Chronic) Assessment: This is a 72-year-old female with a long-standing history of swelling, edema, and lymphedema in her lower extremities. In part, it appears as though the swelling and edema is related to lifestyle issues. The patient is morbidly obese. She has not active. 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 She spends long hours each day and an idle sitting position. She has multiple pre-existing medical problems, which have been outlined above. 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 Noninvasive lower extremity arterial study has also been performed, which was normal. The patient did not tolerate the 3M 2 layer compression wraps, which were bothersome to her during the nighttime hours. She has been using SurePress wraps to the lower extremities daily. Presents today, however, with an increase in the swelling and edema in her lower extremities bilaterally. She has, within the last several days, received her CircAid Velcro compression garments, which will now be implemented. Plan: We are to continue conservative treatment measures with respect to the patient's lower extremity swelling, edema, and lymphedema. The patient has been advised to elevate her lower extremities as much as possible. Elevation is to be to heart level, or higher. Elevation is to be implemented even during daytime hours. Patient is to continue sleeping on a flat mattress at night. Activity has been encouraged. Weight loss has also been encouraged. Patient has been advised to avoid prolonged idle sitting. We are to continue compression by means CircAid Velcro compression garments which have recently been received. The patient is to be instructed in the appropriate means of applying the garments. They are to be utilized on a daily basis. The patient is to return in 3 weeks for reassessment. If, as anticipated, the swelling and edema in the patient's lower extremities has improved, it is likely that the patient will be discharged at that time. The patient is not a smoker. Influenza vaccine was not administered today. Patient stands 5 feet 8 inches in height. She weighs 283 pounds. Her BMI is 43, which places her in a class III obesity category. Weight loss has been strongly recommended, with collaboration by the patient's primary care physician.
--- NOTE | 2017-12-26 09:40 | HP.PCM_ITS ---
(1) KYLE (obstructive sleep apnea) Status: Chronic Current Visit: No Code(s): G47.33 - Obstructive sleep apnea (adult) (pediatric) (2) Swelling of lower extremity Status: Chronic Current Visit: Yes Code(s): M79.89 - Other specified soft tissue disorders (3) Morbid obesity with BMI of 40.0-44.9, adult Status: Chronic Current Visit: Yes Code(s): E66.01 - Morbid (severe) obesity due to excess calories; Z68.41 - Body mass index (BMI) 40.0-44.9, adult (4) GERD (gastroesophageal reflux disease) Status: Chronic Current Visit: No Code(s): K21.9 - Gastro-esophageal reflux disease without esophagitis (5) Diabetes mellitus Status: Chronic Current Visit: No Qualifiers: Diabetes mellitus type: type 2 Code(s): E11.9 - Type 2 diabetes mellitus without complications (6) Hypothyroidism Status: Chronic Current Visit: No Code(s): E03.9 - Hypothyroidism, unspecified (7) Arthritis Status: Chronic Current Visit: No Code(s): M19.90 - Unspecified osteoarthritis, unspecified site (8) Edema leg Status: Chronic Current Visit: Yes Code(s): R60.0 - Localized edema (9) Lymphedema Status: Chronic Current Visit: Yes Code(s): I89.0 - Lymphedema, not elsewhere classified (10) Exertional dyspnea Status: Chronic Current Visit: No Code(s): R06.09 - Other forms of dyspnea (11) Atrial fibrillation by electrocardiogram Status: Chronic Current Visit: No Code(s): I48.91 - Unspecified atrial fibrillation (12) Atrial fibrillation Status: Chronic Current Visit: No Qualifiers: Code(s): I48.91 - Unspecified atrial fibrillation (13) Hyperlipidemia Status: Chronic Current Visit: No Qualifiers: Code(s): E78.5 - Hyperlipidemia, unspecified (14) Hypertension Status: Chronic Current Visit: No Qualifiers: Code(s): I10 - Essential (primary) hypertension (15) RBBB (right bundle branch block) Status: Chronic Current Visit: No Code(s): I45.10 - Unspecified right bundle-branch block (16) Nonrheumatic mitral valve regurgitation Status: Chronic Current Visit: No Code(s): I34.0 - Nonrheumatic mitral (valve) insufficiency (17) Nonrheumatic tricuspid valve regurgitation Status: Chronic Current Visit: No Code(s): I36.1 - Nonrheumatic tricuspid (valve) insufficiency History of Present Illness Chief Complaint: Severe swelling, edema, and lymphedema in the lower extremities bilaterally History of Wound: This is a 72-year-old diabetic female with a long-standing history of swelling, edema, and lymphedema in her lower extremities. The patient claims to sleep on a flat surface at night. However, she is not very active. She spends long hours each day sitting idly. She denies any history of thrombophlebitis. She also denies a history of wounds or ulcerations in her low er extremities. She claims her activity is limited by exertional dyspnea. She suffers from multiple medical problems, listed below. Past Medical History Past Medical History: Chronic Problems (Last Reviewed 11/17/17 @ 11:11 by Izabela Proctor NP-C) KYLE (obstructive sleep apnea) (Chronic) Swelling of lower extremity (Chronic) Morbid obesity with BMI of 40.0-44.9, adult (Chronic) GERD (gastroesophageal reflux disease) (Chronic) Diabetes mellitus (Chronic) Hypothyroidism (Chronic) Arthritis (Chronic) Edema leg (Chronic) Lymphedema (Chronic) Exertional dyspnea (Chronic) Atrial fibrillation by electrocardiogram (Chronic) Atrial fibrillation (Chronic) Hyperlipidemia (Chronic) Hypertension (Chronic) RBBB (right bundle branch block) (Chronic) Nonrheumatic mitral valve regurgitation (Chronic) Nonrheumatic tricuspid valve regurgitation (Chronic) Surgical History: - - The patient is undergone cardioversion ?2. She is also u ndergone tonsillectomy as a child. She is undergone left total knee replacement in the past. She has had bilateral cataract surgery. An ovarian cyst has been removed. She has also undergone bilateral foot surgery. Allergies/Adverse Reactions: Allergies No Known Allergies Allergy (Verified 12/25/17 15:31) Home Medications: Ambulatory Orders Medication Instructions Recorded Atorvastatin Calcium [Lipitor] 20 mg PO QHS 02/02/17 Cholecalciferol (Vitamin D3) 50,000 unit PO QWEEK 02/02/17 [Vitamin D3] Levothyroxine Sodium 150 mcg PO DAILY 02/02/17 Metformin HCl [Glucophage] 500 mg PO BIDCM 02/02/17 Warfarin [Coumadin ([facility])] 3 mg PO DAILY 02/02/17 furosemide 40 mg tablet 40 mg PO DAILY #30 tab 08/11/17 Albuterol IH (ProAir) [Proair Hfa 1 puff INHALATION Q6H PRN PRN 09/11/17 (SP)Vent Pts] Aspirin E.C. [Ecotrin] 81 mg PO DAILY@0800 09/11/17 Montelukast [Singulair] 10 mg PO DAILY 11/07/17 losartan 50 mg-hydrochlorothiazide 1 tab PO DAILY 12/12/17 12.5 mg tablet propafenone ER 325 mg 325 mg PO Q12H 12/12/17 capsule,extended release 12 hr metoprolol tartrate 50 mg tablet 50 mg PO BID 12/25/17 - Family History Paternal Family History: Family History (Last Reviewed 11/17/17 @ 11:11 by Izabela Proctor NP-C) Mother Heart disease - - The patient's father at the age of 23, killed in a train wreck. Patient's mother at the age of 91 with a history of dementia and atrial fibrillation. Smoking Status: Former smoker Tobacco Use: Non-smoker Review of Systems Constitutional: Denies: Chills, Fever, Weight Change Eyes: Denies: Pain, Vision Change HEENT: Denies: Difficulty Hearing, Difficulty Swallowing, Sinus Congestion Cardiovascular: Denies: Chest Pain, Palpitations Respiratory: Denies: Cough, Shortness of Breath Gastrointestinal: Denies: Diarrhea, Nausea, Vomiting Genitourinary: Denies: Dysuria, Hematuria Endocrine: Denies: Heat/ Cold Intolerance, Polydipsia, Polyuria Hematologic/ Lymphatic: Denies: Easy Bruising, Easy Bleeding - Physical Exam Vital Signs Temp Pulse Resp BP 96.9 F L 90 18 157/73 H 12/26/17 09:07 12/26/17 09:07 12/26/17 09:07 12/26/17 09:07 General: Alert, Oriented x3, Cooperative, No apparent distress, Well developed, Well nourished HEENT: Atraumatic, PERRLA, EOMI, Normocephalic Oral: Moist Mucosa Neck: No JVD Lungs: Normal air movement Abdomen: Non-Distended, Obese Extremities: No clubbing, No cyanosis, No Calf Tenderness, - - Mild swelling and edema is noted in the lower extremities bilaterally. There are no open wounds or ulcerations. A large ecchymosis is noted on the medial aspect of the right distal calf, the result of minor trauma recently. Skin: No rashes Wound Measurements and Assessment - Nurse 1 - General Ulcer Measurement Start: 12/26/17 09:07 Freq: Status: Active Protocol: Activity Type Activity Date Activity User E-Sign Co-Sign Detail Recorded Client Recorded Date Recorded By Document 12/26/17 09:07 [id number] 12/26/17 09:08 12/26/17 09:07 Wound Center Nurse 1 [Edema Assessment] -Lower Limb Edema Present Yes -Right Calf (cm) 48.0 -Right Ankle (cm) 31.0 -Left Calf (cm) 47.0 -Left Ankle (cm) 30.5 - Nurse 2 - General Ulcer CM Notes Start: 12/26/17 09:07 Freq: Status: Active Protocol: Activity Type Activity Date Activity User E-Sign Co-Sign Detail Recorded Client Recorded Date Recorded By Document 12/26/17 09:22 [id number] 12/26/17 09:32 12/26/17 09:22 Wound Center Nurse 2 [Procedure/Treatment] Edema -Time 09:22 -Correct Patient Yes -Correct Side, Site, Position Yes -Correct Procedure Yes -Procedure Performed No [See Physician Procedure note for Specifics] Pain Scale: 0-10 Numeric [Pain] -Is Patient Pain Free? Yes Musculoskeletal: No Muscle Wasting Neurological: Cranial nerves II-XII grossly intact, Neuro grossly intact Psych/Mental Status: Normal Affect, Appropriate, Alert and oriented to time, place, person, mood and affect Debridement Note Post-Debridement Measurements/Treatment - Nurse 2 - General Ulcer CM Notes Start: 12/26/17 09:07 Freq: Status: Active Protocol: Activity Type Activity Date Activity User E-Sign Co-Sign Detail Recorded Client Recorded Date Recorded By Document 12/26/17 09:22 [id number] 12/26/17 09:32 12/26/17 09:22 Wound Center Nurse 2 Edema -Time 09:22 -Correct Patient Yes -Correct Side, Site, Position Yes -Correct Procedure Yes -Procedure Performed No Pain Scale: 0-10 Numeric Is Patient Pain Free? Yes No debridement was completed today Assessment/Plan Active Problems (Last Reviewed 08/31/18 @ 11:11 by TRENTON Garrison) Swelling of lower extremity (Chronic) Morbid obesity with BMI of 40.0-44.9, adult (Chronic) Edema leg (Chronic) Lymphedema (Chronic) Assessment: This is a 72-year-old female with a long-standing history of swelling, edema, and lymphedema in her lower extremities. In part, it appears as though the swelling and edema is related to lifestyle issues. The patient is morbidly obese. She has not active. 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 She spends long hours each day and an idle sitting position. She has multiple pre-existing medical problems, which have been outlined above. Venous duplex examination has been performed, which reveals incompetence of the right great saphenous vein below th e knee, incompetence of the left great saphenous vein below the knee, incompetence of the right small saphenous vein, and incompetence of a right calf microbiology technician vein 12 cm proximal to the right medial malleolus. Noninvasive lower extremity arterial study has also been performed, which was normal. The patient did not tolerate the 3M 2 layer compression wraps, which were bothersome to her during the nighttime hours. She has been using SurePress wraps to the lower extremities daily. Presents today, however, with an increase in the swelling and edema in her lower extremities bilaterally. She has, within the last several days, received her CircAid Velcro compression garments, which will now be implemented. Plan: We are to continue conservative treatment measures with respect to the patient's lower extremity swelling, edema, and lymphedema. The patient has been advised to elevate her lower extremities as much as possible. Elevation is to be to heart level, or higher. Elevation is to be implemented even during daytime hours. Patient is to continue sleeping on a flat mattress at night. Activity has been encouraged. Weight loss has also been encouraged. Patient has been advised to avoid prolonged idle sitting. We are to continue compression by means CircAid Velcro compression garments which have recently been received. The patient is to be instructed in the appropriate means of applying the garments. They are to be utilized on a daily basis. The patient is to return in 3 weeks for reassessment. If, as anticipated, the swelling and edema in the patient's lower extremities has improved, it is likely that the patient will be discharged at that time. The patient is not a smoker. Influenza vaccine was not administered today. Patient stands 5 feet 8 inches in height. She weighs 283 pounds. Her BMI is 43, which places her in a class III obesity category. Weight loss has been strongly recommended, with collaboration by the patient's primary care physician.
[2018-01-16 09:12] VITALS: BP 176/84; PULSE 87; RESP 18; TEMP 36.1
--- NOTE | 2018-01-16 09:37 | PCM.WC.HP ---
(1) KYLE (obstructive sleep apnea) Status: Chronic Current Visit: No Code(s): G47.33 - Obstructive sleep apnea (adult) (pediatric) (2) Swelling of lower extremity Status: Chronic Current Visit: Yes Code(s): M79.89 - Other specified soft tissue disorders (3) Morbid obesity with BMI of 40.0-44.9, adult Status: Chronic Current Visit: Yes Code(s): E66.01 - Morbid (severe) obesity due to excess calories; Z68.41 - Body mass index (BMI) 40.0-44.9, adult (4) GERD (gastroesophageal reflux disease) Status: Chronic Current Visit: No Code(s): K21.9 - Gastro-esophageal reflux disease without esophagitis (5) Diabetes mellitus Status: Chronic Current Visit: No Qualifiers: Diabetes mellitus type: type 2 Code(s): E11.9 - Type 2 diabetes mellitus without complications (6) Hypothyroidism Status: Chronic Current Visit: No Code(s): E03.9 - Hypothyroidism, unspecified (7) Arthritis Status: Chronic Current Visit: No Code(s): M19.90 - Unspecified osteoarthritis, unspecified site (8) Edema leg Status: Chronic Current Visit: Yes Code(s): R60.0 - Localized edema (9) Lymphedema Status: Chronic Current Visit: Yes Code(s): I89.0 - Lymphedema, not elsewhere classified (10) Exertional dyspnea Status: Chronic Current Visit: No Code(s): R06.09 - Other forms of dyspnea (11) Atrial fibrillation by electrocardiogram Status: Chronic Current Visit: No Code(s): I48.91 - Unspecified atrial fibrillation (12) Atrial fibrillation Status: Chronic Current Visit: No Qualifiers: Code(s): I48.91 - Unspecified atrial fibrillation (13) Hyperlipidemia Status: Chronic Current Visit: No Qualifiers: Code(s): E78.5 - Hyperlipidemia, unspecified (14) Hypertension Status: Chronic Current Visit: No Qualifiers: Code(s): I10 - Essential (primary) hypertension (15) RBBB (right bundle branch block) Status: Chronic Current Visit: No Code(s): I45.10 - Unspecified right bundle-branch block (16) Nonrheumatic mitral valve regurgitation Status: Chronic Current Visit: No Code(s): I34.0 - Nonrheumatic mitral (valve) insufficiency (17) Nonrheumatic tricuspid valve regurgitation Status: Chronic Current Visit: No Code(s): I36.1 - Nonrheumatic tricuspid (valve) insufficiency History of Present Illness Chief Complaint: Severe swelling, edema, and lymphedema in the lower extremities bilaterally History of Wound: This is a 72-year-old diabetic female with a long-standing history of swelling, edema, and lymphedema in her lower extremities. The patient claims to sleep on a flat surface at night. However, she is not very active. She spends long hours each day sitting idly. She denies any history of thrombophlebitis. She also denies a history of wounds or ulcerations in her lower extremities. She claims her activity is limited by exertional dyspnea. She suffers from multiple medical problems, listed below. Past Medical History Past Medical History: Chronic Problems (Last Reviewed 11/17/17 @ 11:11 by Izabela Proctor NP-C) KYLE (obstructive sleep apnea) (Chronic) Swelling of lower extremity (Chronic) Morbid obesity with BMI of 40.0-44.9, adult (Chronic) GERD (gastroesophageal reflux disease) (Chronic) Diabetes mellitus (Chronic) Hypothyroidism (Chronic) Arthritis (Chronic) Edema leg (Chronic) Lymphedema (Chronic) Exertional dyspnea (Chronic) Atrial fibrillation by electrocardiogram (Chronic) Atrial fibrillation (Chronic) Hyperlipidemia (Chronic) Hypertension (Chronic) RBBB (right bundle branch block) (Chronic) Nonrheumatic mitral valve regurgitation (Chronic) Nonrheumatic tricuspid valve regurgitation (Chronic) Surgical History: - - The patient is undergone cardioversion ?2. She is also undergone tonsillectomy as a child. She is undergone left total knee replacement in the past. She has had bilateral cataract surgery. An ovarian cyst has been removed. She has also undergone bilateral foot surgery. Allergies/Adverse Reactions: Allergies No Known Allergies Allergy (Verified 12/25/17 15:31) Home Medications: Ambulatory Orders Medication Instructions Recorded Atorvastatin Calcium [Lipitor] 20 mg PO QHS 02/02/17 Cholecalciferol (Vitamin D3) 50,000 unit PO QWEEK 02/02/17 [Vitamin D3] Levothyroxine Sodium 150 mcg PO DAILY 02/02/17 Metformin HCl [Glucophage] 500 mg PO BIDCM 02/02/17 Warfarin [Coumadin ([facility])] 3 mg PO DAILY 02/02/17 Albuterol IH (ProAir) [Proair Hfa 1 puff INHALATION Q6H PRN PRN 09/11/17 (SP)Vent Pts] Aspirin E.C. [Ecotrin] 81 mg PO DAILY@0800 09/11/17 Montelukast [Singulair] 10 mg PO DAILY 11/07/17 losartan 50 mg-hydrochlorothiazide 1 tab PO DAILY 12/12/17 12.5 mg tablet metoprolol tartrate 50 mg tablet 50 mg PO BID 12/25/17 warfarin 3 mg tablet 3 mg PO DAILY #1 tab 12/27/17 propafenone ER 325 mg 325 mg PO Q12H #180 cap 01/02/18 capsule,extended release 12 hr furosemide 40 mg tablet 40 mg PO DAILY #90 tab 01/08/18 - Family History Paternal Family History: Family History (Last Reviewed 11/17/17 @ 11:11 by TRENTON Garrison) Mother Heart disease - - The patient's father at the age of 23, killed in a train wreck. Patient's mother at the age of 91 with a history of dementia and atrial fibrillation. Smoking Status: Former smoker Tobacco Use: Non-smoker Review of Systems Constitutional: Denies: Chills, Fever, Weight Change Eyes: Denies: Pain, Vision Change HEENT: Denies: Difficulty Hearing, Difficulty Swallowing, Sinus Congestion Cardiovascular: Denies: Chest Pain, Palpitations Respiratory: Denies: Cough, Shortness of Breath Gastrointestinal: Denies: Diarrhea, Nausea, Vomiting Genitourinary: Denies: Dysuria, Hematuria Endocrine: Denies: Heat/ Cold Intolerance, Polydipsia, Polyuria Hematologic/ Lymphatic: Denies: Easy Bruising, Easy Bleeding - Physical Exam Vital Signs Temp Pulse Resp BP 96.9 F L 87 18 176/84 H 01/16/18 09:12 01/16/18 09:12 01/16/18 09:12 01/16/18 09:12 General: Alert, Oriented x3, Cooperative, No apparent distress, Well developed, Well nourished HEENT: Atraumatic, PERRLA, EOMI, Normocephalic Oral: Moist Mucosa Neck: No JVD Lungs: Normal air movement Abdomen: Non-Distended Extremities: No clubbing, No cyanosis, No Calf Tenderness, - - Only mild swelling is noted in the lower extremities bilaterally. However, it is much improved over previous weeks, and certainly a big improvement over her presenting condition. There are no open wounds or ulcerations. There is no sign of infection or cellulitis. There are no significant skin changes. Circumference measurements are documented elsewhere, and have continued to diminish. Skin: No rashes, No breakdown Wound Measurements and Assessment WC - Nurse 1 - General Ulcer Measurement Start: 12/26/17 09:07 Freq: Status: Active Protocol: Activity Type Activity Date Activity User E-Sign Co-Sign Detail Recorded Client Recorded Date Recorded By Document 01/16/18 09:12 DL [id number] 01/16/18 09:16 DL 01/16/18 09:12 Wound Center Nurse 1 [Edema Assessment] -Right Calf (cm) 44.5 -Right Ankle (cm) 29.7 -Left Calf (cm) 43.5 -Left Ankle (cm) 28.5 WC - Nurse 2 - General Ulcer CM Notes Start: 12/26/17 09:07 Freq: Status: Active Protocol: Activity Type Activity Date Activity User E-Sign Co-Sign Detail Recorded Client Recorded Date Recorded By Document 01/16/18 09:24 JS [id number] 01/16/18 09:24 JS 01/16/18 09:24 Wound Center Nurse 2 [Procedure/Treatment] Edema -Time 09:24 -Correct Patient Yes -Correct Side, Site, Position Yes -Correct Procedure Yes -Procedure Performed No -Bleeding Controlled with NA [See Physician Procedure note for Specifics] Pain Scale: 0-10 Numeric [Pain] -Is Patient Pain Free? Yes Musculoskeletal: No Muscle Wasting Neurological: Cranial nerves II-XII grossly intact, Neuro grossly intact Psych/Mental Status: Normal Affect, Appropriate, Alert and oriented to time, place, person, mood and affect Debridement Note Post-Debridement Measurements/Treatment WC - Nurse 2 - General Ulcer CM Notes Start: 12/26/17 09:07 Freq: Status: Active Protocol: Activity Type Activity Date Activity User E-Sign Co-Sign Detail Recorded Client Recorded Date Recorded By Document 12/26/17 09:22 JS [id number] 12/26/17 09:32 JS Document 01/16/18 09:24 [id number] 01/16/18 09:24 JS 10/09/18 10/30/18 09:22 09:24 Wound Center Nurse 2 Edema -Time 09:22 09:24 -Correct Patient Yes Yes -Correct Side, Site, Position Yes Yes -Correct Procedure Yes Yes -Procedure Performed No No -Bleeding Controlled with NA Pain Scale: 0-10 Numeric Is Patient Pain Free? Yes Yes No debridement was completed today Assessment/Plan Active Problems (Last Reviewed 11/17/17 @ 11:11 by Izabela Proctor, TEE-C) Swelling of lower extremity (Chronic) Morbid obesity with BMI of 40.0-44.9, adult (Chronic) Edema leg (Chronic) Lymphedema (Chronic) Assessment: This is a 72-year-old female with a long-standing history of swelling, edema, and lymphedema in her lower extremities. In part, it appears as though the swelling and edema is related to lifestyle issues. The patient is morbidly obese. She has not active. 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 She spends long hours each day and an idle sitting position. She has multiple pre-existing medical problems, which have been outlined above. Venous duplex examination has been performed, which reveals incompetence of the right great saphenous vein below the knee, incompetence of the left great saphenous vein below the knee, incompetence of the right small saphenous vein, and incompetence of a right calf central station operator vein 12 cm proximal to the right medial malleolus. Noninvasive lower extremity arterial study has also been performed, which was normal. The patient did not tolerate the 3M 2 layer compression wraps, which were bothersome to her during the nighttime hours. She has been using Velcro CircAid compression wraps to her lower extremities, with which she is quite pleased. The patient states she is doing great and is very happy. Plan: We are to continue conservative treatment measures with respect to the patient's lower extremity swelling, edema, and lymphedema. She has shown significant improvement. The patient has been advised to elevate her lower extremities as much as possible. Elevation is to be to heart level, or higher. Elevation is to be implemented even during daytime hours. Patient is to continue sleeping on a flat mattress at night. Activity has been encouraged. Weight loss has also been encouraged. Patient has been advised to avoid prolonged idle sitting. We are to continue compression by means CircAid Velcro compression garments which have recently been received. The patient has been instructed in the appropriate means of applying the garments. They are to be utilized on a daily basis. The patient is to discharged, having achieved the objective of minimizing the swelling and providing long-term management options. She will return on an as-needed basis, and consideration may be given to mechanical pneumatic compression pumps in the future should current measures prove insufficient. The patient is not a smoker. Influenza vaccine was not administered today. Patient stands 5 feet 8 inches in height. She weighs 283 pounds. Her BMI is 43, which places her in a class III obesity category. Weight loss has been strongly recommended, with collaboration by the patient's primary care physician.
--- NOTE | 2018-01-16 09:42 | HP.PCM_ITS ---
(1) KYLE (obstructive sleep apnea) Status: Chronic Current Visit: No Code(s): G47.33 - Obstructive sleep apnea (adult) (pediatric) (2) Swelling of lower extremity Status: Chronic Current Visit: Yes Code(s): M79.89 - Other specified soft tissue disorders (3) Morbid obesity with BMI of 40.0-44.9, adult Status: Chronic Current Visit: Yes Code(s): E66.01 - Morbid (severe) obesity due to excess calories; Z68.41 - Body mass index (BMI) 40.0-44.9, adult (4) GERD (gastroesophageal reflux disease) Status: Chronic Current Visit: No Code(s): K21.9 - Gastro-esophageal reflux disease without esophagitis (5) Diabetes mellitus Status: Chronic Current Visit: No Qualifiers: Diabetes mellitus type: type 2 Code(s): E11.9 - Type 2 diabetes mellitus without complications (6) Hypothyroidism Status: Chronic Current Visit: No Code(s): E03.9 - Hypothyroidism, unspecified (7) Arthritis Status: Chronic Current Visit: No Code(s): M19.90 - Unspecified osteoarthritis, unspecified site (8) Edema leg Status: Chronic Current Visit: Yes Code(s): R60.0 - Localized edema (9) Lymphedema Status: Chronic Current Visit: Yes Code(s): I89.0 - Lymphedema, not elsewhere classified (10) Exertional dyspnea Status: Chronic Current Visit: No Code(s): R06.09 - Other forms of dyspnea (11) Atrial fibrillation by electrocardiogram Status: Chronic Current Visit: No Code(s): I48.91 - Unspecified atrial fibrillation (12) Atrial fibrillation Status: Chronic Current Visit: No Qualifiers: Code(s): I48.91 - Unspecified atrial fibrillation (13) Hyperlipidemia Status: Chronic Current Visit: No Qualifiers: Code(s): E78.5 - Hyperlipidemia, unspecified (14) Hypertension Status: Chronic Current Visit: No Qualifiers: Code(s): I10 - Essential (primary) hypertension (15) RBBB (right bundle branch block) Status: Chronic Current Visit: No Code(s): I45.10 - Unspecified right bundle-branch block (16) Nonrheumatic mitral valve regurgitation Status: Chronic Current Visit: No Code(s): I34.0 - Nonrheumatic mitral (valve) insufficiency (17) Nonrheumatic tricuspid valve regurgitation Status: Chronic Current Visit: No Code(s): I36.1 - Nonrheumatic tricuspid (valve) insufficiency History of Present Illness Chief Complaint: Severe swelling, edema, and lymphedema in the lower extremities bilaterally History of Wound: This is a 72-year-old diabetic female with a long-standing history of swelling, edema, and lymphedema in her lower extremities. The patient claims to sleep on a flat surface at night. However, she is not very active. She spends long hours each day sitting idly. She denies any history of thrombophlebitis. She also denies a history of wounds or ulcerations in her low er extremities. She claims her activity is limited by exertional dyspnea. She suffers from multiple medical problems, listed below. Past Medical History Past Medical History: Chronic Problems (Last Reviewed 11/17/17 @ 11:11 by Izabela Proctor NP-C) KYLE (obstructive sleep apnea) (Chronic) Swelling of lower extremity (Chronic) Morbid obesity with BMI of 40.0-44.9, adult (Chronic) GERD (gastroesophageal reflux disease) (Chronic) Diabetes mellitus (Chronic) Hypothyroidism (Chronic) Arthritis (Chronic) Edema leg (Chronic) Lymphedema (Chronic) Exertional dyspnea (Chronic) Atrial fibrillation by electrocardiogram (Chronic) Atrial fibrillation (Chronic) Hyperlipidemia (Chronic) Hypertension (Chronic) RBBB (right bundle branch block) (Chronic) Nonrheumatic mitral valve regurgitation (Chronic) Nonrheumatic tricuspid valve regurgitation (Chronic) Surgical History: - - The patient is undergone cardioversion ?2. She is also u ndergone tonsillectomy as a child. She is undergone left total knee replacement in the past. She has had bilateral cataract surgery. An ovarian cyst has been removed. She has also undergone bilateral foot surgery. Allergies/Adverse Reactions: Allergies No Known Allergies Allergy (Verified 12/25/17 15:31) Home Medications: Ambulatory Orders Medication Instructions Recorded Atorvastatin Calcium [Lipitor] 20 mg PO QHS 02/02/17 Cholecalciferol (Vitamin D3) 50,000 unit PO QWEEK 02/02/17 [Vitamin D3] Levothyroxine Sodium 150 mcg PO DAILY 02/02/17 Metformin HCl [Glucophage] 500 mg PO BIDCM 02/02/17 Warfarin [Coumadin (PBKC)] 3 mg PO DAILY 02/02/17 Albuterol IH (ProAir) [Proair Hfa 1 puff INHALATION Q6H PRN PRN 09/11/17 (SP)Vent Pts] Aspirin E.C. [Ecotrin] 81 mg PO DAILY@0800 09/11/17 Montelukast [Singulair] 10 mg PO DAILY 11/07/17 losartan 50 mg-hydrochlorothiazide 1 tab PO DAILY 12/12/17 12.5 mg tablet metoprolol tartrate 50 mg tablet 50 mg PO BID 12/25/17 warfarin 3 mg tablet 3 mg PO DAILY #1 tab 12/27/17 propafenone ER 325 mg 325 mg PO Q12H #180 cap 01/02/18 capsule,extended release 12 hr furosemide 40 mg tablet 40 mg PO DAILY #90 tab 01/08/18 - Family History Paternal Family History: Family History (Last Reviewed 11/17/17 @ 11:11 by Izabela Proctor NP-C) Mother Heart disease - - The patient's father at the age of 23, killed in a train wreck. Patient's mother at the age of 91 with a history of dementia and atrial fibrillation. Smoking Status: Former smoker Tobacco Use: Non-smoker Review of Systems Constitutional: Denies: Chills, Fever, Weight Change Eyes: Denies: Pain, Vision Change HEENT: Denies: Difficulty Hearing, Difficulty Swallowing, Sinus Congestion Cardiovascular: Denies: Chest Pain, Palpitations Respiratory: Denies: Cough, Shortness of Breath Gastrointestinal: Denies: Diarrhea, Nausea, Vomiting Genitourinary: Denies: Dysuria, Hematuria Endocrine: Denies: Heat/ Cold Intolerance, Polydipsia, Polyuria Hematologic/ Lymphatic: Denies: Easy Bruising, Easy Bleeding - Physical Exam Vital Signs Temp Pulse Resp BP 96.9 F L 87 18 176/84 H 01/16/18 09:12 01/16/18 09:12 01/16/18 09:12 01/16/18 09:12 General: Alert, Oriented x3, Cooperative, No apparent distress, Well developed, Well nourished HEENT: Atraumatic, PERRLA, EOMI, Normocephalic Oral: Moist Mucosa Neck: No JVD Lungs: Normal air movement Abdomen: Non-Distended Extremities: No clubbing, No cyanosis, No Calf Tenderness, - - Only mild swelling is noted in the lower extremities bilaterally. However, it is much improved over previous weeks, and certainly a big improvement over her presenting condition. There are no open wounds or ulcerations. There is no sign of infection or cellulitis. There are no significant skin changes. Circumference measurements are documented elsewhere, and have continued to diminish. Skin: No rashes, No breakdown Wound Measurements and Assessment WC - Nurse 1 - General Ulcer Measurement Start: 12/26/17 09:07 Freq: Status: Active Protocol: Activity Type Activity Date Activity User E-Sign Co-Sign Detail Recorded Client Recorded Date Recorded By Document 01/16/18 09:12 DL [id number] 01/16/18 09:16 DL 01/16/18 09:12 Wound Center Nurse 1 [Edema Assessment] -Right Calf (cm) 44.5 -Right Ankle (cm) 29.7 -Left Calf (cm) 43.5 -Left Ankle (cm) 28.5 WC - Nurse 2 - General Ulcer CM Notes Start: 12/26/17 09:07 Freq: Status: Active Protocol: Activity Type Activity Date Activity User E-Sign Co-Sign Detail Recorded Client Recorded Date Recorded By Document 01/16/18 09:24 [id number] 01/16/18 09:24 JS 01/16/18 09:24 Wound Center Nurse 2 [Procedure/Treatment] Edema -Time 09:24 -Correct Patient Yes -Correct Side, Site, Position Yes -Correct Procedure Yes -Procedure Performed No -Bleeding Controlled with NA [See Physician Procedure note for Specifics] Pain Scale: 0-10 Numeric [Pain] -Is Patient Pain Free? Yes Musculoskeletal: No Muscle Wasting Neurological: Cranial nerves II-XII grossly intact, Neuro grossly intact Psych/Mental Status: Normal Affect, Appropriate, Alert and oriented to time, place, person, mood and affect Debridement Note Post-Debridement Measurements/Treatment WC - Nurse 2 - General Ulcer CM Notes Start: 12/26/17 09:07 Freq: Status: Active Protocol: Activity Type Activity Date Activity User E-Sign Co-Sign Detail Recorded Client Recorded Date Recorded By Document 12/26/17 09:22 JS [id number] 12/26/17 09:32 JS Document 01/16/18 09:24 JS [id number] 01/16/18 09:24 JS 12/26/17 01/16/18 09:22 09:24 Wound Center Nurse 2 Edema -Time 09: 09:24 -Correct Patient Yes Yes -Correct Side, Site, Position Yes Yes -Correct Procedure Yes Yes -Procedure Performed No No -Bleeding Controlled with NA Pain Scale: 0-10 Numeric Is Patient Pain Free? Yes Yes No debridement was completed today Assessment/Plan Active Problems (Last Reviewed 11/17/17 @ 11:11 by Izabela Proctor, TEE-C) Swelling of lower extremity (Chronic) Morbid obesity with BMI of 40.0-44.9, adult (Chronic) Edema leg (Chronic) Lymphedema (Chronic) Assessment: This is a 72-year-old female with a long-standing history of swelling, edema, and lymphedema in her lower extremities. In part, it appears as though the swelling and edema is related to lifestyle issues. The patient is morbidly obese. She has not active. 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 She spends long hours each day and an idle sitting position. She has multiple pre-existing medical problems, which have been outlined above. Venous duplex examination has been performed, which reveals incompetence of the right great saphenous vein below the knee, incompetence of the left great saphenous vein below the knee, incompetence of the right small saphenous vein, and incompetence of a right calf formula checker vein 12 cm proximal to the right medial malleolus. Noninvasive lower extremity arterial study has also been performed, which was normal. The patient did not tolerate the 3M 2 layer compression wraps, which were bothersome to her during the nighttime hours. She has been using Velcro CircAid compression wraps to her lower extremities, with which she is quite pleased. The patient states she is doing great and is very happy. Plan: We are to continue conservative treatment measures with respect to the patient's lower extremity swelling, edema, and lymphedema. She has shown significant improvement. The patient has been advised to elevate her lower extremities as much as possible. Elevation is to be to heart level, or higher. Elevation is to be implemented even during daytime hours. Patient is to continue sleeping on a flat mattress at night. Activity has been encouraged. Weight loss has also been encouraged. Patient has been advised to avoid prolonged idle sitting. We are to continue compression by means CircAid Velcro compression garments which have recently been received. The patient has been instructed in the appropriate means of applying the garments. They are to be utilized on a daily basis. The patient is to discharged, having achieved the objective of minimizing the swelling and providing long-term management options. She will return on an as-needed basis, and consideration may be given to mecha nical pneumatic compression pumps in the future should current measures prove insufficient. The patient is not a smoker. Influenza vaccine was not administered today. Patient stands 5 feet 8 inches in height. She weighs 283 pounds. Her BMI is 43, which places her in a class III obesity category. Weight loss has been strongly recommended, with collaboration by the patient's primary care physician.
== END 2018-01-17 23:59 ==
LOC: WC 09:00
PROVIDERS: PCP Nurse Practitioner Family; Visit Provider Surgery
DX: I89.0 Lymphedema, not elsewhere classified (principal); I48.1 Persistent atrial fibrillation; I10 Essential (primary) hypertension; E78.5 Hyperlipidemia, unspecified; K21.9 Gastro-esophageal reflux disease without esophagitis; E11.9 Type 2 diabetes mellitus without complications; M19.90 Unspecified osteoarthritis, unspecified site; R60.0 Localized edema; E66.01 Morbid (severe) obesity due to excess calories; G47.33 Obstructive sleep apnea (adult) (pediatric); E03.9 Hypothyroidism, unspecified; Z79.899 Other long term (current) drug therapy; Z79.01 Long term (current) use of anticoagulants; Z68.41 Body mass index [BMI] 40.0-44.9, adult; Z71.3 Dietary counseling and surveillance; Z87.891 Personal history of nicotine dependence; M79.89 Other specified soft tissue disorders
CPT/HCPCS: 36415; 36416; 80048; 85610; 99211; G0463

== ENCOUNTER 2018-01-16 09:50 | Outpatient (RCR) | payer MEDICARE, SELFPAY ==
[2018-01-02 13:21] LABS: International Normalized Ratio 3.3; Prothrombin Time (Protime)PT. 33.5 SECONDS (11.7-14.9)
[2018-01-09 12:58] LABS: Anion Gap 11 (5-15); BUN 32 mg/dL (7-18); BUN/Creat Ratio 20.5 RATIO (10-20); Calcium,Total 9.3 mg/dL (8.5-10.1); Chloride 109 mmol/L (98-107); Creatinine, Serum 1.56 mg/dL (0.55-1.02); EST Glomerular Filtration Rate 35 mL/min (>60); Est Glom Filt Rate - Afr Amer 42 mL/min (>60); Glucose 106 mg/dL (74-106); Sodium Level 141 mmol/L (136-145)
[2018-01-09 13:09] LABS: Prothrombin Time (Protime)PT. 35.6 SECONDS (11.7-14.9)
[2018-01-09 13:18] LABS: International Normalized Ratio 3.5
[2018-01-16 10:31] LABS: International Normalized Ratio 2.7; Prothrombin Time (Protime)PT. 29.1 SECONDS (11.7-14.9)
== END 2018-01-16 11:00 | disposition home or self-care (01) ==
LOC: LAB 09:50
PROVIDERS: Referring Provider Internal Medicine Cardiovascular Disease; Visit Provider Internal Medicine Cardiovascular Disease
DX: I48.91 Unspecified atrial fibrillation (principal); Z79.01 Long term (current) use of anticoagulants
CPT/HCPCS: 36415; 80048; 85610

== ENCOUNTER 2018-01-17 09:11 | Day surgery (SDC) | payer MEDICARE, MEDICAID, SELFPAY ==
[2018-01-16 08:38] VITALS: BMI 42.4
[2018-01-17 09:31] LABS: Prothrombin Time Fingerstick 28.2 SEC (11.9-14.4)
--- NOTE | 2018-01-17 11:09 | PCM.OP.BLANK ---
Problem List (1) Atrial fibrillation Status: Chronic Qualifiers: Operative Report Date of Procedure: 01/17/18 Proceure: Synchronized Biphasic DC Cardioversion Indications: Atrial fibrillation Consent: Per the patient Anesthesia: per Dr. Ruiz of pulmonology and critical care medicine with propofol 90 mg IV push total Procedure: Synchronized Biphasic DC Cardioversion: 200 J x1: Result: Atrial fibrillation Synchronized biphasic DC cardioversion: 300 J x1: Result: Sinus rhythm/sinus bradycardia Complications: no apparent complications This note was generated with Night Outation software. It may contain incorrect words, spelling, and punctuation that were not noted in checking the note before signing.
--- NOTE | 2018-01-17 11:23 | OP.PCM_ITS ---
Problem List (1) Atrial fibrillation Status: Chronic Qualifiers: Operative Report Date of Procedure: 01/17/18 Proceure: Synchronized Biphasic DC Cardioversion Indications: Atrial fibrillation Consent: Per the patient Anesthesia: per Dr. Ruiz of pulmonology and critical care medicine with propofol 90 mg IV push total Procedure: Synchronized Biphasic DC Cardioversion: 200 J x1: Result: Atrial fibrillation Synchronized biphasic DC cardioversion: 300 J x1: Result: Sinus rhythm/sinus bradycardia Complications: no apparent complications This note was generated with Watch-Sitesation software. It may contain incorrect words, spelling, and punctuation that were not noted in checking the note before signing.
--- NOTE | 2018-01-17 11:45 | OP.PCM_ITS ---
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: Acute (4) Atrial fibrillation Status: Chronic Qualifiers: (5) Diabetes mellitus Status: Chronic Qualifiers: Diabetes mellitus type: type 2 (6) GERD (gastroesophageal reflux disease) Status: Chronic (7) Hyperlipidemia Status: Chronic Qualifiers: (8) Hypertension Status: Chronic Qualifiers: (9) Hypothyroidism Status: Chronic (10) Nonrheumatic mitral valve regurgitation Status: Chronic (11) Nonrheumatic tricuspid valve regurgitation Status: Chronic (12) KYLE (obstructive sleep apnea) Status: Chronic Operative Report Date of Procedure: 01/17/18 - Conscious sedation CONSCIOUS SEDATION REPORT BRIEF HISTORY OF PRESENT ILLNESS: The patient is a 72-year-old female who presented to [facility] for an elective outpatient cardioversion due to underlying atrial fibrillation. The patient reports no PO intake since midnight. The patient does have a history of obstructive sleep apnea. The patient reports a history of smoking. The patient denies any recent constitutional symptoms such as fevers, chills, nausea or vomiting. The patient denies previous anesthetic complications. Last known ejection fraction of 60% PHYSICAL EXAMINATION: VITAL SIGNS: Reviewed and were acceptable. GENERAL: The patient is an obese female, in no apparent distress, speaking in full sentences. HEENT: Normocephalic, atraumatic. Mucous membranes are moist and pink. Good mouth opening noted. Trachea is midline. Good neck mobility. MP III CHEST: S1, S2 irregularly irregular. No murmurs, rubs or gallops were noted. LUNGS: Clear to auscultation bilaterally without appreciable wheezes, rales or rhonchi. ABDOMEN: Soft, nontender, nondistended. Positive bowel sounds. EXTREMITIES: There is no clubbing, cyanosis or edema. ASA Class: II DESCRIPTION OF PROCEDURE: After confirmation of informed consent, the patient's anesthesia plan was reviewed in detail. Propofol was chosen. Risks and benefits were reviewed and the patient agreed to proceed. At 10:41 AM, the patient was given 40 mg of propofol. The patient required a total of 90 mg of propofol throughout the procedure to achieve appropriate sedation. The patient achieved an appropriate level of sedation and received 2 attempt s synchronized cardioversion, at 200 J and [address] Banuelos at the bedside. This was successful in achieving normal sinus rhythm. The patient was monitored until 10:51 AM, at which time the patient reached their baseline mental status and function. The patient tolerated the procedure well. COMPLICATIONS: None ESTIMATED BLOOD LOSS: None RECOMMENDATIONS: Okay to recover in usual fashion.
== END 2018-01-17 12:50 | disposition home or self-care (01) ==
PROVIDERS: Referring Provider Internal Medicine Cardiovascular Disease; Visit Provider Internal Medicine Cardiovascular Disease
DX: I48.1 Persistent atrial fibrillation (principal); I34.0 Nonrheumatic mitral (valve) insufficiency; I36.1 Nonrheumatic tricuspid (valve) insufficiency; I45.10 Unspecified right bundle-branch block; I10 Essential (primary) hypertension; E11.9 Type 2 diabetes mellitus without complications; K21.9 Gastro-esophageal reflux disease without esophagitis; E78.5 Hyperlipidemia, unspecified; E03.9 Hypothyroidism, unspecified; G47.33 Obstructive sleep apnea (adult) (pediatric); Z79.01 Long term (current) use of anticoagulants; Z79.82 Long term (current) use of aspirin; Z79.84 Long term (current) use of oral hypoglycemic drugs; Z79.899 Other long term (current) drug therapy; Z87.891 Personal history of nicotine dependence
CPT/HCPCS: 36416; 85610; 92960; 93005; J7040

== ENCOUNTER → 2018-01-19 20:02 | Outpatient (CLI) | payer MEDICARE, MEDICAID, SELFPAY | PROVIDERS: Referring Provider Nurse Practitioner Acute Care; Visit Provider Nurse Practitioner Acute Care | DX: G47.33 Obstructive sleep apnea (adult) (pediatric) (principal) | CPT/HCPCS: 95811 ==

== ENCOUNTER 2018-02-15 15:15 | Outpatient (RCR) | payer MEDICARE, MEDICAID, SELFPAY ==
[2018-01-23 13:40] LABS: International Normalized Ratio 2.7; Prothrombin Time (Protime)PT. 28.8 SECONDS (11.7-14.9)
[2018-02-05 14:10] LABS: Prothrombin Time Fingerstick 18.2 SEC (11.9-14.4)
[2018-02-15 15:40] LABS: Prothrombin Time Fingerstick 26.4 SEC (11.9-14.4)
== END 2018-02-16 10:48 | disposition home or self-care (01) ==
LOC: LAB 15:15
PROVIDERS: Referring Provider Internal Medicine Cardiovascular Disease; Visit Provider Internal Medicine Cardiovascular Disease
DX: I48.91 Unspecified atrial fibrillation (principal); Z79.01 Long term (current) use of anticoagulants
CPT/HCPCS: 36415; 36416; 85610

== ENCOUNTER → 2018-04-11 08:09 | Outpatient (CLI) | payer MEDICARE, MEDICAID, SELFPAY ==
--- NOTE | 2018-04-11 08:13 | US_ITS ---
STUDY: ULTRASOUND OF THE FEMALE PELVIS - COMPLETE REASON FOR EXAM: Female, 72 years old. Postmenopausal bleeding. TECHNIQUE: Transabdominal and Transvaginal TECHNICAL QUALITY: Adequate. COMPARISON: None. FINDINGS: The uterus is anteverted and is in a midline position. The uterus measures 9.1 x 4.2 x 2.1 cm. Normal uterine cervix. The endometrium measures 5. mm in thickness, and is hyperechoic. There is no demonstrated endometrial mass. There is no demonstrated myometrial mass. I.U.D. - The patient does not have an I.U.D. The right adnexa demonstrates a large septated cystic mass with multiple smaller rounded cystic structures in the and thickened septa and small nodular density. This measures 15 x 11.1 x 9.7 cm. There is normal arterial and normal venous vascularity. The left ovary is not visualized. There is no visualized left adnexal mass or complex lesion. There is no fluid in the cul-de-sac. The incompletely distended urinary bladder has a volume of 25 mL. Polycystic ovary disease: No. US/Transvaginal Non- IMPRESSION: 1. Large septated cystic mass in the right adnexa with thickened septa and nodular densities. 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 2. Normal uterus. 3. Nonvisualization of the left adnexa. Electronically Signed: Vish Dorsey DO at 23:21 EST Tel [phone], Service support ,
--- NOTE | 2018-04-11 08:13 | US_ITS ---
STUDY: ULTRASOUND OF THE FEMALE PELVIS - COMPLETE REASON FOR EXAM: Female, 72 years old. Postmenopausal bleeding. TECHNIQUE: Transabdominal and Transvaginal TECHNICAL QUALITY: Adequate. COMPARISON: None. FINDINGS: The uterus is anteverted and is in a midline position. The uterus measures 9.1 x 4.2 x 2.1 cm. Normal uterine cervix. The endometrium measures 5. mm in thickness, and is hyperechoic. There is no demonstrated endometrial mass. There is no demonstrated myometrial mass. I.U.D. - The patient does not have an I.U.D. The right adnexa demonstrates a large septated cystic mass with multiple smaller rounded cystic structures in the and thickened septa and small nodular density. This measures 15 x 11.1 x 9.7 cm. There is normal arterial and normal venous vascularity. The left ovary is not visualized. There is no visualized left adnexal mass or complex lesion. There is no fluid in the cul-de-sac. The incompletely distended urinary bladder has a volume of 25 mL. Polycystic ovary disease: No. US/Pelvic (Non ) IMPRESSION: 1. Large septated cystic mass in the right adnexa with thickened septa and nodular densities. 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 2. Normal uterus. 3. Nonvisualization of the left adnexa. Electronically Signed: Vish Dorsey DO at 23:21 EST Tel [phone], Service support ,
--- OUTSIDE RECORDS SUMMARY | 2018-06-13 02:52 | XMS RPT_ITS ---
:1945 Author Organization OHIP Support Name Relationship Address Phone R Unavailable Unavailable Unavailable SEISE, TJ Unavailable [address] + [address] [place] [address] R Unavailable Unavailable Unavailable SEISE, TJ Unavailable Unavailable + R Unavailable Unavailable Unavailable SEISE, TJ Unavailable [address] + [address] [place] [address] R Unavailable Unavailable Unavailable SEISE, TJ Unavailable [address] + [address] [place] [address] R Unavailable Unavailable Unavailable SEISE, TJ Unavailable [address] + [address] [place] [address] R Unavailable Unavailable Unavailable SEISE, TJ Unavailable [address] + [address] [place] [address] R Unavailable Unavailable Unavailable SEISE, TJ Unavailable [address] + [address] [place] [address] R Unavailable Unavailable Unavailable SEISE, TJ Unavailable [address] + [address] [place] [address] R Unavailable Unavailable Unavailable SEISE, TJ Unavailable [address] + [address] [place] [address] R Unavailable Unavailable Unavailable SEISE, TJ Unavailable [address] + [address] [place] [address] R Unavailable Unavailable Unavailable SEISE, TJ Unavailable [address] + [address] [place] [address] R Unavailable Unavailable Unavailable SEISE, TJ Unavailable [address] + [address] [place] [address] R Unavailable Unavailable Unavailable SEISE, TJ Unavailable [address] + [address] [place] [address] R Unavailable Unavailable Unavailable SEISE, TJ Unavailable . + [place] [address] R Unavailable Unavailable Unavailable SEISE, TJ Unavailable . + [place] [address] R Unavailable Unavailable Unavailable SEISE, TJ Unavailable [address] + [address] [place] [address] R Unavailable Unavailable Unavailable SEISE, TJ Unavailable [address] + [address] [place] [address] R Unavailable Unavailable Unavailable SEISE, TJ Unavailable [address] + [address] [place] [address] R Unavailable Unavailable Unavailable SEISE, TJ Unavailable . + [place] [address] R Unavailable Unavailable Unavailable SEISE, TJ Unavailable Unavailable + [place] [address] R Unavailable Unavailable Unavailable SEISE, TJ Unavailable Unavailable + [place] [address] R Unavailable Unavailable Unavailable SEISE, TJ Unavailable . + [place] [address] R Unavailable Unavailable Unavailable SEISE, TJ Unavailable Unavailable + [place] [address] R Unavailable Unavailable Unavailable SEISE, TJ Unavailable Unavailable + [place] [address] R Unavailable Unavailable Unavailable SEISE, TJ Unavailable . + [place] [address] R Unavailable Unavailable Unavailable SEISE, TJ Unavailable . + [place] [address] R Unavailable Unavailable Unavailable SEISE, TJ Unavailable Unavailable + [place] [address] R Unavailable Unavailable Unavailable SEISE, TJ Unavailable Unavailable + [place] [address] R Unavailable Unavailable Unavailable SEISE, TJ Unavailable Unavailable + [place] [address] R Unavailable Unavailable Unavailable SEISE, TJ Unavailable Unavailable + [place] [address] R Unavailable Unavailable Unavailable SEISE, TJ Unavailable Unavailable + [place] [address] R Unavailable Unavailable Unavailable SEISE, TJ Unavailable Unavailable + [place] [address] R Unavailable Unavailable Unavailable SEISE, TJ Unavailable Unavailable + [place] [address] R Unavailable Unavailable Unavailable SEISE, TJ Unavailable Unavailable + [place] [address] RILEY, LILIBETH Unavailable . + [place] [address] R Unavailable Unavailable Unavailable SEISE, TJ Unavailable . + [place] [address] R Unavailable Unavailable Unavailable R Unavailable Unavailable Unavailable SEISE, TJ Unavailable Unavailable + [place] [address] R Unavailable Unavailable Unavailable SEISE, TJ Unavailable . + [place] [address] RILEY, LILIBETH Unavailable . + [place] [address] R Unavailable Unavailable Unavailable SEISE, TJ Unavailable . + [place] [address] RILEY, LILIBETH Unavailable Unavailable + [place] [address] R Unavailable Unavailable Unavailable SEISE, TJ Unavailable Unavailable + [place] [address] RILEY, LILIBETH Unavailable Unavailable + [place] [address] R Unavailable Unavailable Unavailable SEISE, TJ Unavailable Unavailable + [place] [address] R Unavailable Unavailable Unavailable SEISE, TJ Unavailable . + [place] [address] RILEY, LILIBETH Unavailable Unavailable + R Unavailable Unavailable Unavailable SEISE, TJ Unavailable Unavailable + RILEY, LILIBETH Unavailable Unavailable + R Unavailable Unavailable Unavailable SEISE, TJ Unavailable Unavailable + RILEY, LILIBETH Unavailable Unavailable + R Unavailable Unavailable Unavailable SEISE, TJ Unavailable Unavailable + LILIBETH RILEY Unavailable Unavailable + R Unavailable Unavailable Unavailable SEISE, TJ Unavailable Unavailable + LILIBETH RILEY Unavailable Unavailable + R Unavailable Unavailable Unavailable SEISE, TJ Unavailable Unavailable + Care Team Providers Name Role Phone [facility], [facility] Attending Unavailable [facility], [facility] Referring Unavailable [facility], [facility] Primary Care Unavailable [facility], [facility] Attending Unavailable [facility], [facility] Referring Unavailable [facility], [facility] Primary Care Unavailable Swihart BENCH MOLDER, Jaren Consulting Unavailable [facility], [facility] Attending Unavailable [facility], [facility] Referring Unavailable [facility], [facility] Primary Care Unavailable Swihart BENCH MOLDER, Jaren Consulting Unavailable Kemar Duggan D.O. Attending Unavailable Swihart BENCH MOLDER, Jaren Attending Unavailable Swihart BENCH MOLDER, Jaren Referring Unavailable [facility], [facility] Primary Care Unavailable Swihart BENCH MOLDER, Jaren Attending Unavailable [facility], [facility] Primary Care Unavailable Swihart BENCH MOLDER, Jaren Referring Unavailable Swihart BENCH MOLDER, Jaren Attending Unavailable Swihart BENCH MOLDER, Jaren Referring Unavailable [facility], [facility] Primary Care Unavailable Swihart BENCH MOLDER, Jaren Attending Unavailable Swihart BENCH MOLDER, Jaren Referring Unavailable Swihart BENCH MOLDER, Jaren Primary Care Unavailable Swihart BENCH MOLDER, Jaren Primary Care Unavailable Linda Amaral Attending Unavailable Maddi Clements Attending Unavailable Maddi Clements Referring Unavailable Swihart BENCH MOLDER, Jaren Primary Care Unavailable Swihart BENCH MOLDER, Jraen Referring Unavailable Izabela Proctor Attending Unavailable Swihart BENCH MOLDER, Jaren Referring Unavailable Swihart BENCH MOLDER, Jaren Primary Care Unavailable Maddi Clements Attending Unavailable Swihart BENCH MOLDER, Jaren Referring Unavailable Swihart BENCH MOLDER, Jaren Primary Care Unavailable Jason Blount Attending Unavailable Swihart BENCH MOLDER, Jaren Referring Unavailable Dwaine Rangel Attending Unavailable Moodispadean, Dwaien Referring Unavailable [facility]IN[facility], [facility] Primary Care Unavailable Lyly DONNELLY, Jaren Consulting Unavailable Moodisgustavo, Dwaine Attending Unavailable Moodispadean, Dwaine Referring Unavailable CL[facility], [facility] Primary Care Unavailable Swirajt CONY, Jaren Consulting Unavailable Moodispadean, Dwaine Consulting Unavailable Moodispadean, Dwaine Attending Unavailable Moodispadean, Dwaine Referring Unavailable [facility], [facility] Primary Care Unavailable Pawan Ruiz Attending Unavailable Moodisgustavo, Dwaine Referring Unavailable Moodispadean, Dwaine Attending Unavailable MoodispaDwaine moran Referring Unavailable [facility], [facility] Primary Care Unavailable Nicolette Pandya Attending Unavailable Moodispadaen, Dwaine Attending Unavailable [facility], [facility] Referring Unavailable [facility], [facility] Primary Care Unavailable Kemar Duggan D.O. Attending Unavailable Alvint CONY, Jaren Referring Unavailable Tal Salvador Attending Unavailable Tal Salvador Referring Unavailable [facility], [facility] Primary Care Unavailable Swihart CONY, Jaren Consulting Unavailable Jason Blount Attending Unavailable MoodDwaine foley Referring Unavailable Tal Salvador Attending Unavailable [facility], [facility] Primary Care Unavailable Kemar Duggan D.O. Attending Unavailable Swihart BENCH MOLDER, Jaren Referring Unavailable [facility], [facility] Primary Care Unavailable Izabela Proctor Attending Unavailable Swihart BENCH MOLDER, Jaren Referring Unavailable CLIN[facility], [facility] Primary Care Unavailable Izabela Proctor Attending Unavailable Izabela Proctor Referring Unavailable CLIN[facility], [facility] Primary Care Unavailable Swihart BENCH MOLDER, Jaren Consulting Unavailable Izabela Proctor Attending Unavailable Swihart BENCH MOLDER, Jaren Referring Unavailable Tal Salvador Attending Unavailable CL[facility], [facility] Primary Care Unavailable Tal Salvador Attending Unavailable CLIN[facility], [facility] Primary Care Unavailable EKGRead, Cardiology Reports Attending Unavailable Alvint CONY, Jaren Referring Unavailable Moodispadean, Dwaine Attending Unavailable Swihart BENCH MOLDER, Jaren Referring Unavailable Morris Blountril Attending Unavailable Jose Alejandro, Jason Referring Unavailable CLIN[facility], [facility] Primary Care Unavailable [facility], [facility] Attending Unavailable Moodog, Dwaine Attending Unavailable Moodispadean, Dwaine Referring Unavailable CLIN[facility], [facility] Primary Care Unavailable Moodispaw, Dwaine Attending Unavailable Moodispaw, Dwaine Referring Unavailable CLIN[facility], [facility] Primary Care Unavailable Lyly DONNELLY, Jaren Consulting Unavailable Hitesh, Izabela Attending Unavailable Proctor, Izabela Referring Unavailable CLIN[facility], [facility] Primary Care Unavailable Lyly DONNELLY, Jaren Consulting Unavailable Moodispaw, Dwaine Attending Unavailable Moodispaw, Dwaine Referring Unavailable CLIN[facility], [facility] Primary Care Unavailable Jaren Hart Consulting Unavailable Moodispaw, Dwaine Consulting Unavailable Tal Salvador Attending Unavailable CLIN[facility], [facility] Primary Care Unavailable Moodispaw, Dwaine Attending Unavailable Moodispaw, Dwaine Referring Unavailable CLIN[facility], [facility] Primary Care Unavailable Pawan Ruiz Attending Unavailable Moodispaw, Dwaine Referring Unavailable Proctor, Izabela Attending Unavailable Lyly DONNELLY, Jaren Referring Unavailable Nurse, Vani Attending Unavailable CLINIC, [facility] STARTZ[facility] Referring Unavailable Moodispaw, Dwaine Attending Unavailable Moodispaw, Dwaine Referring Unavailable CLIN[facility], [facility] Primary Care Unavailable JAREN DESOUZA L Referring Unavailable TCHOU, RUBEN Guillermo Referring Unavailable TCHOU, RUBEN Guillermo Attending Unavailable MOODISPAW, DWAINE F Referring Unavailable PROBLEMS PROBLEMS DATE TYPE CONDITION / CODE ATTENDING STATUS SOURCE 02/19/2018 Unknown Z79.01 - nursing home Moodispaw, Active [place] (current) use of [facility] anticoagulants / Hospital Z79.01(ICD-10) Repository 03/07/2018 Unknown I48.91 - Unspecified Nurse, Active [place] atrial fibrillation / [facility] I48.91(ICD-10) Hospital Repository 03/07/2018 Unknown G47.33 - Obstructive Proctor, Active [place] sleep apnea (adult) [facility] (pediatric) / Hospital G47.33(ICD-10) Repository 03/07/2018 Unknown E66.01 - Morbid Proctor, Active [place] (severe) obesity due [facility] to excess calories / Hospital E66.01(ICD-10) Repository 03/07/2018 Unknown Z68.41 - Body mass Proctor, Active [place] index (BMI) 40.0-44.9, [facility] adult / Z68.41(ICD-10) Hospital Repository 04/13/2018 Unknown I48.1 - Persistent Moodispaw, Active [place] atrial fibrillation / [facility] I48.1(ICD-10) Hospital Repository 04/12/2018 Unknown I89.0 - Lymphedema, Salvador, Tal Active [place] not elsewhere Community classified / Hospital I89.0(ICD-10) Repository 03/07/2018 Unknown I38 - Endocarditis, Moodispaw, 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 / [facility] I38(ICD-10) Hospital Repository 03/07/2018 Unknown E78.5 - [place], Active [place] Hyperlipidemia, [facility] unspecified / Hospital E78.5(ICD-10) Repository 03/07/2018 Unknown I10 - Essential Moodispaw, Active [place] (primary) hypertension [facility] / I10(ICD-10) Hospital Repository 12/11/2017 Active Unspecified atrial NA Active [place] fibrillation / [facility] I48.91(ICD-10) [place] Repository 11/10/2017 Unknown R06.09 - Other forms Proctor, Active [place] of dyspnea / [facility] R06.09(ICD-10) Hospital Repository 11/10/2017 Unknown R06.02 - Shortness of Proctor, Active [place] breath / [facility] R06.02(ICD-10) Hospital Repository 11/08/2017 Unknown G47.10 - Hypersomnia, Kemar Urban, Active [place] unspecified / D[facility]O. Community G47.10(ICD-10) Hospital Repository 10/26/2017 Unknown I48.0 - Paroxysmal Jose Alejandro, Jason Active [place] atrial fibrillation / [facility] I48.0(ICD-10) Hospital Repository 10/26/2017 Unknown R94.31 - Abnormal Jose Alejandro, Jason Active [place] electrocardiogram Community [ECG] [EKG] / Hospital R94.31(ICD-10) Repository 08/03/2017 Active Unknown / UNK(Unknown) NA Active [facility] [place] Repository 06/19/2017 Unknown J44.9 - Chronic Kemar Duggan, Active [place] obstructive pulmonary [facility].O. Community disease, unspecified / Hospital J44.9(ICD-10) Repository PROCEDURES PROCEDURES No Procedure Records FoundRESULTS RESULTS PELVIC (NON ) Observed: 04/11/2018 Status: F Source: [place] 8:14 AM [facility] REPOSITORY [facility] Imaging Services [address] [place] [address] [place] [address] Pelvic (Non ) MR#: [id number] Acct: [id number] Name: ASHLEY KING Rep #: [id number] : 1945 F 72 From: Vish Dorsey DO PCP: MILY ESPINO [facility] Status: REG CLI Study: Pelvic (Non ) Date of Exam: 04/11/18 Exam# [id number] Ordering Dr: Mily Ren STUDY: ULTRASOUND OF THE FEMALE PELVIS - COMPLETE REASON FOR EXAM: Female, 72 years old. Postmenopausal bleeding. TECHNIQUE: Transabdominal and Transvaginal TECHNICAL QUALITY: Adequate. COMPARISON: None. FINDINGS: The uterus is anteverted and is in a midline position. The uterus measures 9.1 x 4.2 x 2.1 cm. Normal uterine cervix. The endometrium measures 5. mm in thickness, and is hyperechoic. There is no demonstrated endometrial mass. There is no demonstrated myometrial mass. I.U.D. - The patient does not have an I.U.D. The right adnexa demonstrates a large septated cystic mass with multiple smaller rounded cystic structures in the and thickened septa and small nodular density. This measures 15 x 11.1 x 9.7 cm. There is normal arterial and normal venous vascularity. The left ovary is not visualized. There is no visualized left adnexal mass or complex lesion. There is no fluid in the cul-de-sac. The incompletely distended urinary bladder has a volume of 25 mL. Polycystic ovary disease: No. US/Pelvic (Non ) IMPRESSION: 1. Large septated cystic mass in the right adnexa with thickened septa and nodular densities. 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 2. Normal uterus. 3. Nonvisualization of the left adnexa. Electronically Signed: Vish Dorsey DO at 23:21 EST Tel [phone], Service support , CC: MILY ESPINO [facility] Standards Engineer: Signed TRANSVAGINAL Observed: 04/11/2018 Status: F Source: [place] NON- 8:14 AM [facility] REPOSITORY [facility] Imaging Services [address] [place] [address] Transvaginal Non- MR#: [id number] Acct: [id number] Name: ASHLEY KING Rep #: [id number] : 1945 F 72 From: Vish Dorsey DO PCP: MILY FRANCOIS Status: REG CLI Study: Transvaginal Non- Date of Exam: 04/11/18 Exam# [id number] Ordering Dr: Mily Ren STUDY: ULTRASOUND OF THE FEMALE PELVIS - COMPLETE REASON FOR EXAM: Female, 72 years old. Postmenopausal bleeding. TECHNIQUE: Transabdominal and Transvaginal TECHNICAL QUALITY: Adequate. COMPARISON: None. FINDINGS: The uterus is anteverted and is in a midline position. The uterus measures 9.1 x 4.2 x 2.1 cm. Normal uterine cervix. The endometrium measures 5. mm in thickness, and is hyperechoic. There is no demonstrated endometrial mass. There is no demonstrated myometrial mass. I.U.D. - The patient does not have an I.U.D. The right adnexa demonstrates a large septated cystic mass with multiple smaller rounded cystic structures in the and thickened septa and small nodular density. This measures 15 x 11.1 x 9.7 cm. There is normal arterial and normal venous vascularity. The left ovary is not visualized. There is no visualized left adnexal mass or complex lesion. There is no fluid in the cul-de-sac. The incompletely distended urinary bladder has a volume of 25 mL. Polycystic ovary disease: No. US/Transvaginal Non- IMPRESSION: 1. Large septated cystic mass in the right adnexa with thickened septa and nodular densities. 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 2. Normal uterus. 3. Nonvisualization of the left adnexa. Electronically Signed: Vish DorseyDO at 23:21 EST Tel [phone], Service support , CC: MILY ESPINO [facility] Standards Engineer: Signed PROTIME W/INR Collected: 02/15/2018 Status: F Source: [place] 3:36 PM [facility] REPOSITORY TYPE CODE TESTS RESULT OUT OF REFERENCE UNITS RANGE LAB L9200.1001 11.9-14.4 SEC High PROTIME ISTAT 26.4 Result Comment: Reference Range 11.9 - 14.4 LAB L9200.2000 Normal INR ISTAT 2.30 Result Comment: Critical Value > 3.5 Performed By: #### [id number] #### [facility] Laboratory Point of Care [address] [place], [place] [address] PROTIME W/INR Collected: 02/05/2018 Status: F Source: [place] 2:03 PM [facility] REPOSITORY TYPE CODE TESTS RESULT OUT OF REFERENCE UNITS RANGE LAB L9200.1001 11.9-14.4 SEC High PROTIME ISTAT 18.2 Result Comment: Reference Range 11.9 - 14.4 LAB L9200.2000 Normal INR ISTAT 1.50 Result Comment: Critical Value > 3.5 Performed By: #### [id number] #### [facility] Laboratory Point of Care [address] [place] [address] PULMONARY VISIT REPORT Observed: 01/24/2018 Status: F Source: [place] 2:36 PM [facility] REPOSITORY [facility] [address] [place] [address] OFFICE VISIT Date of Service: 01/24/18 MR#: [id number] Acct: [id number] Name: ASHLEY KING Rep #: [id number] : 1945 Provider: Izabela Proctor Age/Sex: 72/F Location: [facility] Status: Signed Assessment AND Plan 1. KYLE (obstructive sleep apnea) G47.33 Plan New. We will set the patient up with Pap therapy, follow closely at a 1 month interval. Set her up to see Dr. Duggan in 3 months. Discussed with the patient that initially the goal is for her to wear the device at least 4 hours nightly, but ultimately it should be worn any time spent sleeping. The patient conveys understanding appears motivated at this time. She has been encouraged to contact the office with any difficulties acclimating to Pap therapy. 2. Morbid obesity with BMI of 40.0-44.9, adult E66.01; Z68.41 Plan Continue to encourage weight loss. 3. Atrial fibrillation, unspecified type I48.91 Plan Complicates exam, plan, care and prognosis. Appears to be in regular rhythm today, by radial pulse palpation. Discussed the relationship between treating her obstructive sleep apnea and reducing the risk or incidence of her atrial fibrillation. Defer management of the A. fib to cardiology. Plan Detail Follow Up 1 Month (CSM) 3 Months (DMB) HPI 3 M FU: Chief Complaint: Dyspnea on exertion HPI Comments Details: This patient presents the office today to follow- up after recently participating in a titration study. She is ambulatory and currently on room air. She reports that she did not have too much difficulty falling asleep during her titration study with the mask and pressure support. Today she continues to complain of shortness of breath on exertion, this has not worsened since her last office visit. She denies any conversational dyspnea or dyspnea at rest. She has a dry cough, denies any sputum production or hemoptysis. She does have some clear nasal drainage, she believes to be seasonal. She reports that she has continued to watch her sodium intake as she was at her previous office visit. She denies any lower extremity edema. She denies any chest pain, palpitations, wheezing or chest tightness. She denies any fever, chills or body aches. She continues compliance with Singulair. She reports that she has not needed to use her rescue inhaler. Patient completed a titration study on January 19, 2018, raw data is available for review. Noted to have a PLMS index of 20.4 events per hour. The patient was tried on BiPAP support of 8/4 cm of water and then progressed to 10/6 cm of water. Formal report pending. Intake Vital Signs01/24/18 Height 5 ft 8 in 01/24/18 Weight: 267 lb Intake Visit Reasons: 3 M FU Pelletizer Tender Required: No Accompanied by: Self Is patient in pain?: No Allergies No Known Allergies Allergy (Verified 01/24/18 06:29) Medications Atorvastatin Calcium [Lipitor] 20 mg PO QHS 02/02/17 [History Confirmed 01/24/18] Cholecalciferol (Vitamin D3) [Vitamin D3] 50,000 unit PO QWEEK 02/02/17 [History Confirmed 01/24/18] Levothyroxine Sodium 150 mcg PO DAILY 02/02/17 [History Confirmed 01/24/18] Metformin HCl [Glucophage] 500 mg PO BIDCM 02/02/17 [History Confirmed 01/24/18] Warfarin [Coumadin (PBKC)] 3 mg PO DAILY 02/02/17 [History Confirmed 01/24/18] Albuterol IH (ProAir) [Proair Hfa (SP)Vent Pts] 1 puff INHALATION Q6H PRN PRN 09/11/17 [History Confirmed 01/24/18] Aspirin E.C. [Ecotrin] 81 mg PO DAILY@0800 09/11/17 [History Confirmed 01/24/18] Montelukast [Singulair] 10 mg PO DAILY 11/07/17 [History Confirmed 01/24/18] losartan 50 mg-hydrochlorothiazide 12.5 mg tablet 1 tab PO DAILY 12/12/17 [History Confirmed 01/24/18] metoprolol tartrate 50 mg tablet 50 mg PO BID 12/25/17 [History Confirmed 01/24/18] furosemide 40 mg tablet 40 mg PO DAILY #90 tab 01/08/18 [Rx Confirmed 01/24/18] Warfarin Sodium 1.5 mg PO DAILY 01/17/18 [History Confirmed 01/24/18] flecainide 100 mg tablet 100 mg PO Q12H #60 tab 01/19/18 [Rx Confirmed 01/24/18] PFSH Medical History Atrial fibrillation by electrocardiogram (Chronic) Atrial fibrillation (Chronic) Hyperlipidemia (Chronic) Hypertension (Chronic) RBBB (right bundle branch block) (Chronic) Nonrheumatic mitral valve regurgitation (Chronic) Nonrheumatic tricuspid valve regurgitation (Chronic) Hypothyroidism (Chronic) Type 2 diabetes mellitus without complications (Chronic) Surgical History History of cataract surgery (Resolved) History of tonsillectomy and adenoidectomy (Resolved) History of total left knee replacement (Resolved) Family History Mother Heart disease atrial fib Social History Smoking Status: Former smoker how long ago did patient quit smokin, 1ppd second hand exposure: Yes Review of Systems Const CONSTITUTIONAL: Negative anorexia, body ache, chills, daytime sleepiness, fever(s), night sweats, oral thrush, stops breathing during sleep, weight loss, sleeping in chair, fatigue, weight loss, weight gain, frequent colds, seasonal allergies, other, headache(s) or orthopnea EETM Ear Nose Throat Mouth: Positive hearing normal, nasal discharge and post nasal drip; negative hard of hearing, hoarseness, dry mouth in morning, change in vision, itchy eyes, eye pain, swallowing Difficulty, ear pain, nose bleed, headache(s), mouth pain, nasal congestion, sinus pain, sinus pressure, sore throat or other Cardio Cardiovascular: Negative chest pain, chest pain at rest, chest pain with activity, irregular heart rhythm, edema, shortness of breath when lying down, palpitations, murmur or other Resp Respiratory: Positive as per HPI, shortness of breath shortness of breath: Positive with activity, cough cough: Positive non-productive and inhalers; negative pain with cough, wheezing, chest congestion, chest tightness, pain on inspiration, increase use of rescue inhalers, snoring, apnea or other Gastro Gastrointestional: Negative bloody stools, change in appetite, difficulty swallowing, reflux, hematemesis, melena stool, loose stool, constipation or other Genitourinary: Negative blood in urine, nocturia, pain with urination or other Musc Musculoskeletal: Negative body pain, back pain, neck pain or other Skin/Breast Skin/Breast: Negative dry skin, itching, rash, unusual bruising, breast lump or other Neuro Neurological: Negative restless legs, confusion, weakness or other Psych Psychocological: Negative abnormal sleep pattern, anxiety, thoughts of hurting self/others, hopelessness or other Lymph Lymphatic: Negative easy bleeding, easy bruising, swollen lymph nodes or other Exam Const Constitutional: Positive conversant, cooperative, in no acute respiratory distress, healthy appearing, well developed, well nourished, good hygiene and obese Head Head: Positive normocephalic and atraumatic; negative cyanosis of lips/distal nose Eyes Eye: Positive clear conjunctiva; negative nystagmus or scleral abnormality Ears Ear: Positive hearing normal and external ears normal; negative hard of hearing Nose Nose: Positive external nose normal and no nasal discharge; negative epistaxis Mouth Mouth: Positive post nasal drip, oral mucosae normal, no lesions and crowded posterior oropharynx; negative malodorous breath or oral thrush present Mallampati Score: III: Mallampati Score Neck Neck: Positive normal visual inspection, full ROM and trachea midline; negative lymphadenopathy, JVD or tender Chest Wall Chest: Positive normal inspection of the chest and symmetric chest movement; negative increased A/P diameter Resp lung sounds: Positive clear to auscultation, good air exchange, normal expiratory time and normal respiratory effort; negative diminished, wheezes, rhonchi, rales, dullness to percussion or wheeze present on forced exhalation Cardio Cardiac: Positive regular rate, regular rhythm, S1 normal and S2 normal; negative murmur GI GI: Positive normal to inspection and obese; negative distended Genitourinary: Positive deferred Musc Musculoskeletal: Positive steady gait and ROM normal; negative kyphosis or scoliosis Skin Pulmonary Skin Exam: Positive intact; negative rash Pulses Pulse: Yes pulses normal x4 extremities Extremities Extremities: Yes capillary refill normal, No clubbing, No cyanosis, No edema Neuro Neurologic: Yes conversant, Yes no focal neuro deficits, Yes normal concentration, Yes understands questions, Yes cooperative, Yes normal cognition, Yes normal coordination Lymph Lymphatic: No lymphadenopathy, No tenderness, No cervical adenopathy Psych Appearance: Positive grossly normal, eye contact and well kempt Mental Status: Positive mental status grossly normal Mood: Positive congruent mood Affect: Positive normal affect Coding Level of Care Code Off vis,est,level 4 Diagnoses KYLE (obstructive sleep apnea) G47.33 Morbid obesity with BMI of 40.0-44.9, adult E66.01; Z68.41 Atrial fibrillation, unspecified type I48.91 Atrial fibrillation type: unspecified 01/24/18 1436 <Electronically signed by Izabela CHOWDHURY> Date Izabela CHOWDHURY Cosigner Signature: Date (if applicable) CC: Jaren DONNELLY 12 LEAD EKG PERFORMED Observed: 01/24/2018 Status: F Source: [facility] [facility] 9:23 AM [facility] REPOSITORY [place] [address] [place] [address] 12 Lead EKG performed by [facility] 01/24/18921 MR#: [id number] Acct: [id number] Name: ASHLEY KING Rep #: [id number] : 1945 72 From: Dwaine Rangel MD Attending Dr: Vani Lubin RN Status: DEP AMB Ordering Dr: Dwaine Rangel MD Date: 01/24/18 Location: [facility] Sex: F C Admitted: [facility]/12 Lead EKG performed by [facility] ECG Report Interpretation Sinus Bradycardia -First degree A-V block Right bundle branch blockABNORMAL Electronically signed on 01/24/2018 at 17:23 by Dwaine Rangel Software Version [id number] 01/24/18 1726 Date Dwaine Rangel MD CC: MILY ESPINO [facility] Date Dictated: 01/24/18921 Date Transcribed: 01/24/18921 Standards Engineer: PM Signed PROTHROMBIN TIME W/INR Collected: 01/23/2018 Status: F Source: [facility] 1:26 PM [facility] TYPE CODE TESTS RESULT OUT OF RANGE REFERENCE UNITS LAB L300.4150 11.7-14.9 SECONDS High PROTIME 28.8 LAB L300.4200 Normal INR 2.7 Performed By: #### L300.3900 #### [facility] [address] 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 Status: Acute (4) Atrial fibrillation Status: Chronic Qualifiers: (5) Diabetes mellitus Status: Chronic Qualifiers: Diabetes mellitus type: type 2 (6) GERD (gastroesophageal reflux disease) Status: Chronic (7) Hyperlipidemia Status: Chronic Qualifiers: (8) Hypertension Status: Chronic Qualifiers: (9) Hypothyroidism Status: Chronic (10) Nonrheumatic mitral valve regurgitation Status: Chronic (11) Nonrheumatic tricuspid valve regurgitation Status: Chronic (12) KYLE (obstructive sleep apnea) Status: Chronic Operative Report Date of Procedure: 01/17/18 - Conscious sedation CONSCIOUS SEDATION REPORT BRIEF HISTORY OF PRESENT ILLNESS: The patient is a 72-year-old female who presented to [facility] for an elective outpatient cardioversion due to underlying atrial fibrillation. The patient reports no PO intake since midnight. The patient does have a history of obstructive sleep apnea. The patient reports a history of smoking. The patient denies any recent constitutional symptoms such as fevers, chills, nausea or vomiting. The patient denies previous anesthetic complications. Last known ejection fraction of 60% PHYSICAL EXAMINATION: VITAL SIGNS: Reviewed and were acceptable. GENERAL: The patient is an obese female, in no apparent distress, speaking in full sentences. HEENT: Normocephalic, atraumatic. Mucous membranes are moist and pink. Good mouth opening noted. Trachea is midline. Good neck mobility. MP III CHEST: S1, S2 irregularly irregular. No murmurs, rubs or gallops were noted. LUNGS: Clear to auscultation bilaterally without appreciable wheezes, rales or rhonchi. ABDOMEN: Soft, nontender, nondistended. Positive bowel sounds. EXTREMITIES: There is no clubbing, cyanosis or edema. ASA Class: II DESCRIPTION OF PROCEDURE: After confirmation of informed consent, the patient's anesthesia plan was reviewed in detail. Propofol was chosen. Risks and benefits were reviewed and the patient agreed to proceed. At 10:41 AM, the patient was given 40 mg of propofol. The patient required a total of 90 mg of propofol throughout the procedure to achieve appropriate sedation. The patient achieved an appropriate level of sedation and received 2 attempt s synchronized cardioversion, at 200 J and [address] Rangel at the bedside. This was successful in achieving normal sinus rhythm. The patient was monitored until 10:51 AM, at which time the patient reached their baseline mental status and function. The patient tolerated the procedure well. COMPLICATIONS: None ESTIMATED BLOOD LOSS: None RECOMMENDATIONS: Okay to recover in usual fashion. 01/18/18 0537 <Electronically signed by Pawan Ruiz MD> Date Pawan Ruiz MD CC: Pawan Ruiz MD; Jaren DONNLELY; Dwaine Rangel MD; MILY FRANCOIS Signed OPERATIVE REPORT Observed: 01/17/2018 Status: F Source: [place] 11:23 AM [facility] REPOSITORY [facility] Medical Records Department [address] [place] [address] Operative Report 01/17/18 1109 MR#: [id number] Acct: [id number] Name: ASHLEY KING Rep #: [id number] : 1945 72 From: Dwaine Rangel MD PCP: MILY FRANCOIS Status: REG [facility] [place] [facility] Y Location: [facility] Problem List (1) Atrial fibrillation Status: Chronic Qualifiers: Operative Report Date of Procedure: 01/17/18 Proceure: Synchronized Biphasic DC Cardioversion Indications: Atrial fibrillation Consent: Per the patient Anesthesia: per Dr. Ruiz of pulmonology and critical care medicine with propofol 90 mg IV push total Procedure: Synchronized Biphasic DC Cardioversion: 200 J x1: Result: Atrial fibrillation Synchronized biphasic DC cardioversion: 300 J x1: Result: Sinus rhythm/sinus bradycardia Complications: no apparent complications This note was generated with NEWLINE SOFTWAREation software. It may contain incorrect words, spelling, and punctuation that were not noted in checking the note before signing. 01/17/18 1123 <Electronically signed by Dwaine Rangel MD> Date Dwaine Rangel MD CC: Jaren DONNELLY; Dwaine Rangel MD; MILY ESPINO [facility] Signed PROTIME W/INR Collected: 01/17/2018 Status: F Source: [place] 9:23 AM [facility] REPOSITORY TYPE CODE TESTS RESULT OUT OF REFERENCE UNITS RANGE LAB L9200.1001 11.9-14.4 SEC High PROTIME ISTAT 28.2 Result Comment: Reference Range 11.9 - 14.4 LAB L9200.2000 Normal INR ISTAT 2.40 Result Comment: Critical Value > 3.5 Performed By: #### L9200.0000 #### [facility] Point of Care [address] [place] [address]. [place], [place] [address] PROTHROMBIN TIME W/INR Collected: 01/16/2018 Status: F Source: [place] 10:03 AM [facility] REPOSITORY TYPE CODE TESTS RESULT OUT OF RANGE REFERENCE UNITS LAB L300.4150 11.7-14.9 SECONDS High PROTIME 29.1 LAB L300.4200 Normal INR 2.7 Performed By: #### L300.3900 #### [facility] [address] [place] [address], [address] WOUND CTR HISTORY Observed: 01/16/2018 Status: F Source: [facility] 9:42 AM [facility] REPOSITORY [facility] [address] [place] [address] [place] [address] Wound Ctr History AND Physical 01/16/18 0937 MR#: [id number] Acct: [id number] Name: ASHLEY KING Rep #: [id number] : 1945 72 From: Tal Salvador MD PCP: Jaren Hart Status: REG RCR Y Location: WC (1) KYLE (obstructive sleep apnea) Status: Chronic Current Visit: No Code(s): G47.33 - Obstructive sleep apnea (adult) (pediatric) (2) Swelling of lower extremity Status: Chronic Current Visit: Yes Code(s): M79.89 - Other specified soft tissue disorders (3) Morbid obesity with BMI of 40.0-44.9, adult Status: Chronic Current Visit: Yes Code(s): E66.01 - Morbid (severe) obesity due to excess calories; Z68.41 - Body mass index (BMI) 40.0-44.9, adult (4) GERD (gastroesophageal reflux disease) Status: Chronic Current Visit: No Code(s): K21.9 - Gastro- esophageal reflux disease without esophagitis (5) Diabetes mellitus Status: Chronic Current Visit: No Qualifiers: Diabetes mellitus type: type 2 Code(s): E11.9 - Type 2 diabetes mellitus without complications (6) Hypothyroidism Status: Chronic Current Visit: No Code(s): E03.9 - Hypothyroidism, unspecified (7) Arthritis Status: Chronic Current Visit: No Code(s): M19.90 - Unspecified osteoarthritis, unspecified site (8) Edema leg Status: Chronic Current Visit: Yes Code(s): R60.0 - Localized edema (9) Lymphedema Status: Chronic Current Visit: Yes Code(s): I89.0 - Lymphedema, not elsewhere classified (10) Exertional dyspnea Status: Chronic Current Visit: No Code(s): R06.09 - Other forms of dyspnea (11) Atrial fibrillation by electrocardiogram Status: Chronic Current Visit: No Code(s): I48.91 - Unspecified atrial fibrillation (12) Atrial fibrillation Status: Chronic Current Visit: No Qualifiers: Code(s): I48.91 - Unspecified atrial fibrillation (13) Hyperlipidemia Status: Chronic Current Visit: No Qualifiers: Code(s): E78.5 - Hyperlipidemia, unspecified (14) Hypertension Status: Chronic Current Visit: No Qualifiers: Code(s): I10 - Essential (primary) hypertension (15) RBBB (right bundle branch block) Status: Chronic Current Visit: No Code(s): I45.10 - Unspecified right bundle-branch block (16) Nonrheumatic mitral valve regurgitation Status: Chronic Current Visit: No Code(s): I34.0 - Nonrheumatic mitral (valve) insufficiency (17) Nonrheumatic tricuspid valve regurgitation Status: Chronic Current Visit: No Code(s): I36.1 - Nonrheumatic tricuspid (valve) insufficiency History of Present Illness Chief Complaint: Severe swelling, edema, and lymphedema in the lower extremities bilaterally History of Wound: This is a 72-year-old diabetic female with a long-standing history of swelling, edema, and lymphedema in her lower extremities. The patient claims to sleep on a flat surface at night. However, she is not very active. She spends long hours each day sitting idly. She denies any history of thrombophlebitis. She also denies a history of wounds or ulcerations in her lower extremities. She claims her activity is limited by exertional dyspnea. She suffers from multiple medical problems, listed below. Past Medical History Past Medical History: Chronic Problems (Last Reviewed 11/17/17 @ 11:11 by Izabela Proctor NP-C) KYLE (obstructive sleep apnea) (Chronic) Swelling of lower extremity (Chronic) Morbid obesity with BMI of 40.0-44.9, adult (Chronic) GERD (gastroesophageal reflux disease) (Chronic) Diabetes mellitus (Chronic) Hypothyroidism (Chronic) Arthritis (Chronic) Edema leg (Chronic) Lymphedema (Chronic) Exertional dyspnea (Chronic) Atrial fibrillation by electrocardiogram (Chronic) Atrial fibrillation (Chronic) Hyperlipidemia (Chronic) Hypertension (Chronic) RBBB (right bundle branch block) (Chronic) Nonrheumatic mitral valve regurgitation (Chronic) Nonrheumatic tricuspid valve regurgitation (Chronic) Surgical History: - - The patient is undergone cardioversion 2. She is also undergone tonsillectomy as a child. She is undergone left total knee replacement in the past. She has had bilateral cataract surgery. An ovarian cyst has been removed. She has also undergone bilateral foot surgery. Allergies/Adverse Reactions: Allergies No Known Allergies Allergy (Verified 12/25/17 15:31) Home Medications: Ambulatory Orders Medication Instructions Recorded Atorvastatin Calcium [Lipitor] 20 mg PO QHS 02/02/17 - Family History Paternal Family History: Family History (Last Reviewed 11/17/17 @ 11:11 by TRENTON Garrison) Mother Heart disease - - The patient's father at the age of 23, killed in a train wreck. Patient's mother at the age of 91 with a history of dementia and atrial fibrillation. Smoking Status: Former smoker Tobacco Use: Non-smoker Review of Systems Constitutional: Denies: Chills, Fever, Weight Change Eyes: Denies: Pain, Vision Change HEENT: Denies: Difficulty Hearing, Difficulty Swallowing, Sinus Congestion Cardiovascular: Denies: Chest Pain, Palpitations Respiratory: Denies: Cough, Shortness of Breath Gastrointestinal: Denies: Diarrhea, Nausea, Vomiting Genitourinary: Denies: Dysuria, Hematuria Endocrine: Denies: Heat/ Cold Intolerance, Polydipsia, Polyuria Hematologic/ Lymphatic: Denies: Easy Bruising, Easy Bleeding - Physical Exam Vital Signs Temp Pulse Resp BP 96.9 F L 87 18 176/84 H 01/16/18 09:12 01/16/18 09:12 01/16/18 09:12 01/16/18 09:12 General: Alert, Oriented x3, Cooperative, No apparent distress, Well developed, Well nourished HEENT: Atraumatic, PERRLA, EOMI, Normocephalic Oral: Moist Mucosa Neck: No JVD Lungs: Normal air movement Abdomen: Non-Distended Extremities: No clubbing, No cyanosis, No Calf Tenderness, - - Only mild swelling is noted in the lower extremities bilaterally. However, it is much improved over previous weeks, and certainly a big improvement over her presenting condition. There are no open wounds or ulcerations. There is no sign of infection or cellulitis. There are no significant skin changes. Circumference measurements are documented elsewhere, and have continued to diminish. Skin: No rashes, No breakdown Wound Measurements and Assessment WC - Nurse 1 - General Ulcer Measurement Start: 12/26/17 09:07 Freq: Status: Active Protocol: Activity Type Activity Date Activity User E-Sign Co-Sign Detail Recorded Client Recorded Date Recorded By Document 01/16/18 09:12 KATE [id number] 01/16/18 09:16 DL Wound Center Nurse 1 [Edema Assessment] -Right Calf (cm) 44.5 -Right Ankle (cm) 29.7 -Left Calf (cm) 43.5 -Left Ankle (cm) 28.5 WC - Nurse 2 - General Ulcer CM Notes Start: 12/26/17 09:07 Freq: Status: Active Protocol: Activity Type Activity Date Activity User E-Sign Co-Sign Detail Recorded Client Recorded Date Recorded By Document 01/16/18 09:24 JAYJAY [id number] 01/16/18 09:24 JAYJAY Wound Center Nurse 2 [Procedure/Treatment] Edema -Time 09:24 -Correct Patient Yes -Correct Side, Site, Position Yes -Correct Procedure Yes Musculoskeletal: No Muscle Wasting Neurological: Cranial nerves II-XII grossly intact, Neuro grossly intact Psych/Mental Status: Normal Affect, Appropriate, Alert and oriented to time, place, person, mood and affect Debridement Note Post-Debridement Measurements/Treatment WC - Nurse 2 - General Ulcer CM Notes Start: 12/26/17 09:07 Freq: Status: Active Protocol: Activity Type Activity Date Activity User E-Sign Co-Sign Detail Wound Center Nurse 2 Edema -Time 09:22 09:24 -Correct Patient Yes Yes No debridement was completed today Assessment/Plan Active Problems (Last Reviewed 11/17/17 @ 11:11 by Izabela Proctor, TEE-C) Swelling of lower extremity (Chronic) Morbid obesity with BMI of 40.0-44.9, adult (Chronic) Edema leg (Chronic) Lymphedema (Chronic) Assessment: This is a 72-year-old female with a long-standing history of swelling, edema, and lymphedema in her lower extremities. In part, it appears as though the swelling and edema is related to lifestyle issues. The patient is morbidly obese. She has not active. 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 She spends long hours each day and an idle sitting position. She has multiple pre-existing medical problems, which have been outlined above. 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 Noninvasive lower extremity arterial study has also been performed, which was normal. The patient did not tolerate the 3M 2 layer compression wraps, which were bothersome to her during the nighttime hours. She has been using Velcro CircAid compression wraps to her lower extremities, with which she is quite pleased. The patient states she is doing great and is very happy. Plan: We are to continue conservative treatment measures with respect to the patient's lower extremity swelling, edema, and lymphedema. She has shown significant improvement. The patient has been advised to elevate her lower extremities as much as possible. Elevation is to be to heart level, or higher. Elevation is to be implemented even during daytime hours. Patient is to continue sleeping on a flat mattress at night. Activity has been encouraged. Weight loss has also been encouraged. Patient has been advised to avoid prolonged idle sitting. We are to continue compression by means CircAid Velcro compression garments which have recently been received. The patient has been instructed in the appropriate means of applying the garments. They are to be utilized on a daily basis. The patient is to discharged, having achieved the objective of minimizing the swelling and providing long-term management options. She will return on an as-needed basis, and consideration may be given to mechanical pneumatic compression pumps in the future should current measures prove insufficient. The patient is not a smoker. Influenza vaccine was not administered today. Patient stands 5 feet 8 inches in height. She weighs 283 pounds. Her BMI is 43, which places her in a class III obesity category. Weight loss has been strongly recommended, with collaboration by the patient's primary care physician. 01/16/18 0942 <Electronically signed by Tal Salvador MD> Date Tal Salvador MD CC: Signed BASIC METABOLIC Collected: 01/09/2018 Status: F Source: [facility] PROFILE (B[facility]) 11:37 AM [facility] REPOSITORY TYPE CODE TESTS RESULT OUT OF RANGE REFERENCE UNITS LAB L501.0100 74-106 mg/dL Normal GLU 106 Result Comment: Fasting Glucose result from 100 to 125 mg/dL suggests IMPAIRED HOMEOSTASIS per A.D.A. criteria. Please note revised GLUCOSE reference range effective 2017. LAB L501.1000 7-18 mg/dL High BUN 32 LAB L501.1100 0.55-1.02 mg/dL High CREAT,SERUM 1.56 Result Comment: The validity of the calculated GFR AND GFRAA in patients over 70 years has not been determined. Clinical correlation is essential. LAB L501.1110 >60 mL/min Low EST GFR 35 Result Comment: Non- GFR Calc LAB L501.1115 >60 mL/min Low EST GFR - AA 42 Result Comment: GFR Calc LAB L501.1300 10-20 RATIO High BUN/CRE 20.5 LAB L501.2200 8.5-10.1 mg/dL CA Normal 9.3 LAB L501.5300 136-145 mmol/L NA Normal 141 LAB L501.5600 3.5-5.1 mmol/L K Normal 4.0 LAB L501.5900 98-107 mmol/L High CL 109 LAB L501.6100 21.0-32.0 mmol/L Normal CO2 21.0 LAB L501.6200 5-15 Normal GAP 11 Performed By: #### L500.2500, L300.3900 #### [facility] [address] [facility] [place], [place], [id number] PROTHROMBIN TIME W/INR Collected: 01/09/2018 Status: F Source: [place] 11:37 AM [facility] REPOSITORY Order Comment: Comments: STANDING ORDER Comments: STANDING ORDER TYPE CODE TESTS RESULT OUT OF REFERENCE UNITS RANGE LAB L300.4150 11.7-14.9 SECONDS High PROTIME 35.6 LAB L300.4200 High alert INR 3.5 Result Comment: CRITICAL VALUE VERIFIED. CALLED TO DAVY AT [facility] 01/09/18 Taylor8 Annabelle Villegas. RESULTS READ BACK BY SAME . Performed By: #### L500.2500, L300.3900 #### [facility] [address] [facility] [place], [place], [address] PROTHROMBIN TIME W/INR Collected: 01/02/2018 Status: F Source: [place] 12:38 PM [facility] REPOSITORY Order Comment: Comments: STANDING ORDER Comments: STANDING ORDER TYPE CODE TESTS RESULT OUT OF RANGE REFERENCE UNITS LAB L300.4150 11.7-14.9 SECONDS High PROTIME 33.5 LAB L300.4200 Normal INR 3.3 Performed By: #### L300.3900 #### [facility] [address] [facility] [place], [address] PROTIME W/INR Collected: 12/26/2017 Status: F Source: [place] 12:09 PM [facility] REPOSITORY TYPE CODE TESTS RESULT OUT OF REFERENCE UNITS RANGE LAB L9200.1001 11.9-14.4 SEC High PROTIME ISTAT 41.2 Result Comment: Reference Range 11.9 - 14.4 LAB L9200.2000 High alert INR ISTAT 3.70 Result Comment: Critical Value > 3.5 Performed By: #### L9200.0000 #### [facility] Point of Care [address] [facility] [place] [address] PROTHROMBIN TIME W/INR Collected: 12/26/2017 Status: F Source: [place] 12:02 PM [facility] REPOSITORY Order Comment: SEND RESULTS TO [facility] ALSO CALLED OFFICE THEY ARE ON LUNCH WILL CALL AT 1PM TYPE CODE TESTS RESULT OUT OF RANGE REFERENCE UNITS LAB L300.4150 11.7-14.9 SECONDS High PROTIME 34.5 LAB L300.4200 Normal INR 3.4 Performed By: #### L300.3900 #### [facility] [address] [facility] [place], [address] WOUND CTR HISTORY Observed: 12/26/2017 Status: F Source: [facility] 9:40 AM [facility] REPOSITORY [facility] [address] [place] [address] Wound Ctr History AND Physical 12/26/17 0935 MR#: [id number] Acct: [id number] Name: ASHLEY KING Rep #: [id number] : 1945 72 From: Tal Salvador MD PCP: Jaren Hart Status: REG RCR Y Location: WC (1) KYLE (obstructive sleep apnea) Status: Chronic Current Visit: No Code(s): G47.33 - Obstructive sleep apnea (adult) (pediatric) (2) Swelling of lower extremity Status: Chronic Current Visit: Yes Code(s): M79.89 - Other specified soft tissue disorders (3) Morbid obesity with BMI of 40.0-44.9, adult Status: Chronic Current Visit: Yes Code(s): E66.01 - Morbid (severe) obesity due to excess calories; Z68.41 - Body mass index (BMI) 40.0-44.9, adult (4) GERD (gastroesophageal reflux disease) Status: Chronic Current Visit: No Code(s): K21.9 - Gastro- esophageal reflux disease without esophagitis (5) Diabetes mellitus Status: Chronic Current Visit: No Qualifiers: Diabetes mellitus type: type 2 Code(s): E11.9 - Type 2 diabetes mellitus without complications (6) Hypothyroidism Status: Chronic Current Visit: No Code(s): E03.9 - Hypothyroidism, unspecified (7) Arthritis Status: Chronic Current Visit: No Code(s): M19.90 - Unspecified osteoarthritis, unspecified site (8) Edema leg Status: Chronic Current Visit: Yes Code(s): R60.0 - Localized edema (9) Lymphedema Status: Chronic Current Visit: Yes Code(s): I89.0 - Lymphedema, not elsewhere classified (10) Exertional dyspnea Status: Chronic Current Visit: No Code(s): R06.09 - Other forms of dyspnea (11) Atrial fibrillation by electrocardiogram Status: Chronic Current Visit: No Code(s): I48.91 - Unspecified atrial fibrillation (12) Atrial fibrillation Status: Chronic Current Visit: No Qualifiers: Code(s): I48.91 - Unspecified atrial fibrillation (13) Hyperlipidemia Status: Chronic Current Visit: No Qualifiers: Code(s): E78.5 - Hyperlipidemia, unspecified (14) Hypertension Status: Chronic Current Visit: No Qualifiers: Code(s): I10 - Essential (primary) hypertension (15) RBBB (right bundle branch block) Status: Chronic Current Visit: No Code(s): I45.10 - Unspecified right bundle-branch block (16) Nonrheumatic mitral valve regurgitation Status: Chronic Current Visit: No Code(s): I34.0 - Nonrheumatic mitral (valve) insufficiency (17) Nonrheumatic tricuspid valve regurgitation Status: Chronic Current Visit: No Code(s): I36.1 - Nonrheumatic tricuspid (valve) insufficiency History of Present Illness Chief Complaint: Severe swelling, edema, and lymphedema in the lower extremities bilaterally History of Wound: This is a 72-year-old diabetic female with a long-standing history of swelling, edema, and lymphedema in her lower extremities. The patient claims to sleep on a flat surface at night. However, she is not very active. She spends long hours each day sitting idly. She denies any history of thrombophlebitis. She also denies a history of wounds or ulcerations in her lower extremities. She claims her activity is limited by exertional dyspnea. She suffers from multiple medical problems, listed below. Past Medical History Past Medical History: Chronic Problems (Last Reviewed 11/17/17 @ 11:11 by TRENTON Garrison) KYLE (obstructive sleep apnea) (Chronic) Swelling of lower extremity (Chronic) Morbid obesity with BMI of 40.0-44.9, adult (Chronic) GERD (gastroesophageal reflux disease) (Chronic) Diabetes mellitus (Chronic) Hypothyroidism (Chronic) Arthritis (Chronic) Edema leg (Chronic) Lymphedema (Chronic) Exertional dyspnea (Chronic) Atrial fibrillation by electrocardiogram (Chronic) Atrial fibrillation (Chronic) Hyperlipidemia (Chronic) Hypertension (Chronic) RBBB (right bundle branch block) (Chronic) Nonrheumatic mitral valve regurgitation (Chronic) Nonrheumatic tricuspid valve regurgitation (Chronic) Surgical History: - - The patient is undergone cardioversion 2. She is also undergone tonsillectomy as a child. She is undergone left total knee replacement in the past. She has had bilateral cataract surgery. An ovarian cyst has been removed. She has also undergone bilateral foot surgery. Allergies/Adverse Reactions: Allergies No Known Allergies Allergy (Verified 12/25/17 15:31) Home Medications: Ambulatory Orders Medication Instructions Recorded Atorvastatin Calcium [Lipitor] 20 mg PO QHS 02/02/17 Cholecalciferol (Vitamin D3) 50,000 unit PO QWEEK 02/02/17 [Vitamin D3] Levothyroxine Sodium 150 mcg PO DAILY 02/02/17 - Family History Paternal Family History: Family History (Last Reviewed 11/17/17 @ 11:11 by Izabela Proctor NP-C) Mother Heart disease - - The patient's father at the age of 23, killed in a train wreck. Patient's mother at the age of 91 with a history of dementia and atrial fibrillation. Smoking Status: Former smoker Tobacco Use: Non-smoker Review of Systems Constitutional: Denies: Chills, Fever, Weight Change Eyes: Denies: Pain, Vision Change HEENT: Denies: Difficulty Hearing, Difficulty Swallowing, Sinus Congestion Cardiovascular: Denies: Chest Pain, Palpitations Respiratory: Denies: Cough, Shortness of Breath Gastrointestinal: Denies: Diarrhea, Nausea, Vomiting Genitourinary: Denies: Dysuria, Hematuria Endocrine: Denies: Heat/ Cold Intolerance, Polydipsia, Polyuria Hematologic/ Lymphatic: Denies: Easy Bruising, Easy Bleeding - Physical Exam Vital Signs Temp Pulse Resp BP 96.9 F L 90 18 157/73 H 12/26/17 09:07 12/26/17 09:07 12/26/17 09:07 12/26/17 09:07 General: Alert, Oriented x3, Cooperative, No apparent distress, Well developed, Well nourished HEENT: Atraumatic, PERRLA, EOMI, Normocephalic Oral: Moist Mucosa Neck: No JVD Lungs: Normal air movement Abdomen: Non-Distended, Obese Extremities: No clubbing, No cyanosis, No Calf Tenderness, - - Mild swelling and edema is noted in the lower extremities bilaterally. There are no open wounds or ulcerations. A large ecchymosis is noted on the medial aspect of the right distal calf, the result of minor trauma recently. Skin: No rashes Wound Measurements and Assessment - Nurse 1 - General Ulcer Measurement Start: 12/26/17 09:07 Freq: Status: Active Protocol: Activity Type Activity Date Activity User E-Sign Co-Sign Detail Recorded Client Recorded Date Recorded By Document 12/26/17 09:07 [id number] 12/26/17 09:08 [facility] - Nurse 2 - General Ulcer CM Notes Start: 12/26/17 09:07 Freq: Status: Active Protocol: Activity Type Activity Date Activity User E-Sign Co-Sign Detail Recorded Client Recorded Date Recorded By Document 12/26/17 09:22 [id number] 12/26/17 09:32 Wound Center Nurse 2 [Procedure/Treatment] Edema -Time 09:22 -Correct Patient Yes -Correct Side, Site, Position Yes Musculoskeletal: No Muscle Wasting Neurological: Cranial nerves II-XII grossly intact, Neuro grossly intact Psych/Mental Status: Normal Affect, Appropriate, Alert and oriented to time, place, person, mood and affect Debridement Note Post-Debridement Measurements/Treatment WC - Nurse 2 - General Ulcer CM Notes Start: 12/26/17 09:07 Freq: Status: Active Protocol: Activity Type Activity Date Activity User E-Sign Co-Sign Detail Recorded Client Recorded Date Recorded By Document 12/26/17 09:22 JAYJAY [id number] 12/26/17 09:32 JAYJAY Wound Center Nurse 2 No debridement was completed today Assessment/Plan Active Problems (Last Reviewed 11/17/17 @ 11:11 by Izabela Proctor, TEE-C) Swelling of lower extremity (Chronic) Morbid obesity with BMI of 40.0-44.9, adult (Chronic) Edema leg (Chronic) Lymphedema (Chronic) Assessment: This is a 72-year-old female with a long-standing history of swelling, edema, and lymphedema in her lower extremities. In part, it appears as though the swelling and edema is related to lifestyle issues. The patient is morbidly obese. She has not active. 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 She spends long hours each day and an idle sitting position. She has multiple pre-existing medical problems, which have been outlined above. 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 Noninvasive lower extremity arterial study has also been performed, which was normal. The patient did not tolerate the 3M 2 layer compression wraps, which were bothersome to her during the nighttime hours. She has been using SurePress wraps to the lower extremities daily. Presents today, however, with an increase in the swelling and edema in her lower extremities bilaterally. She has, within the last several days, received her CircAid Velcro compression garments, which will now be implemented. Plan: We are to continue conservative treatment measures with respect to the patient's lower extremity swelling, edema, and lymphedema. The patient has been advised to elevate her lower extremities as much as possible. Elevation is to be to heart level, or higher. Elevation is to be implemented even during daytime hours. Patient is to continue sleeping on a flat mattress at night. Activity has been encouraged. Weight loss has also been encouraged. Patient has been advised to avoid prolonged idle sitting. We are to continue compression by means CircAid Velcro compression garments which have recently been received. The patient is to be instructed in the appropriate means of applying the garments. They are to be utilized on a daily basis. The patient is to return in 3 weeks for reassessment. If, as anticipated, the swelling and edema in the patient's lower extremities has improved, it is likely that the patient will be discharged at that time. The patient is not a smoker. Influenza vaccine was not administered today. Patient stands 5 feet 8 inches in height. She weighs 283 pounds. Her BMI is 43, which places her in a class III obesity category. Weight loss has been strongly recommended, with collaboration by the patient's primary care physician. 12/26/17 0940 <Electronically signed by Tal Salvador MD> Date Tal Salvador MD CC: Signed CARDIOLOGY VISIT Observed: 12/25/2017 Status: F Source: [facility] REPORT 4:09 PM [facility] REPOSITORY [facility] [address] [place] [address] OFFICE VISIT Date of Service: 12/25/17 MR#: [id number] Acct: [id number] Name: ASHLEY KING Rep #: [id number] : 1945 Provider: Dwaine Rangel MD Age/Sex: 72/F Location: [facility] [place] Status: Signed [facility] HPI Details: ASHLEY KING, is a 72 F who presents to the office today for outpatient cardiovascular follow-up. She has been evaluated by Dr. Ruben Rivera at [facility] electrophysiology on 12/11/2017. This evaluation was for her atrial dysrhythmia with concerns of medical management versus EPS/RFA. Following the evaluation the patient elected to attempt medical management. Thus he placed her on antiarrhythmic therapy with propafenone, recommended continued anticoagulation, and another attempt at DC cardioversion. If this was unsuccessful then she may have to consider EPS/RFA. In the meantime she states overall she thinks she has had episodes where she feels better on the medication as opposed to worse. She has had no near syncope or syncope. She has had no chest discomfort or worsening shortness of breath or dyspnea. She notes that her lower extremity edema, with her diuretics, her wraps, and with Dr. Navarro assistance has been better. She had an ECG performed in the office on 12/19/2017. At that time she remained in atrial fibrillation with a right bundle branch block pattern. Intake Vital Signs12/25/17 Height 5 ft 8 in 12/25/17 Weight: 279 lb 12/25/17 Body Mass Index (BMI) 42.4 12/25/17 Blood Pressure 122/72 H 12/25/17 Blood Pressure Location Lt brachial Intake Visit Reasons: UPDATE H AND P Pelletizer Tender Required: No Accompanied by: none Is patient in pain?: No Allergies No Known Allergies Allergy (Verified 12/25/17 15:31) Medications Atorvastatin Calcium [Lipitor] 20 mg PO QHS 02/02/17 [History Confirmed 12/25/17] Cholecalciferol (Vitamin D3) [Vitamin D3] 50,000 unit PO QWEEK 02/02/17 [History Confirmed 12/25/17] Levothyroxine Sodium 150 mcg PO DAILY 02/02/17 [History Confirmed 12/25/17] Metformin HCl [Glucophage] 500 mg PO BIDCM 02/02/17 [History Confirmed 12/25/17] Warfarin [Coumadin (PBKC)] 3 mg PO DAILY 02/02/17 [History Confirmed 12/25/17] furosemide 40 mg tablet 40 mg PO DAILY #30 tab 08/11/17 [Rx Confirmed 12/25/17] Albuterol IH (ProAir) [Proair Hfa (SP)Vent Pts] 1 puff INHALATION Q6H PRN PRN 09/11/17 [History Confirmed 12/25/17] Aspirin E.C. [Ecotrin] 81 mg PO DAILY@0800 09/11/17 [History Confirmed 12/25/17] Montelukast [Singulair] 10 mg PO DAILY 11/07/17 [History Confirmed 12/25/17] losartan 50 mg-hydrochlorothiazide 12.5 mg tablet 1 tab PO DAILY 12/12/17 [History Confirmed 12/25/17] propafenone ER 325 mg capsule,extended release 12 hr 325 mg PO Q12H 12/12/17 [History] metoprolol tartrate 50 mg tablet 50 mg PO BID 12/25/17 [History Confirmed 12/25/17] PFS Medical History Atrial fibrillation by electrocardiogram (Chronic) Atrial fibrillation (Chronic) Hyperlipidemia (Chronic) Hypertension (Chronic) RBBB (right bundle branch block) (Chronic) Nonrheumatic mitral valve regurgitation (Chronic) Nonrheumatic tricuspid valve regurgitation (Chronic) Hypothyroidism (Chronic) Type 2 diabetes mellitus without complications (Chronic) Surgical History History of cataract surgery (Resolved) History of tonsillectomy and adenoidectomy (Resolved) History of total left knee replacement (Resolved) Family History Mother Heart disease atrial fib Social History Smoking Status: Former smoker how long ago did patient quit smokin, 1ppd second hand exposure: Yes ROS Const Const: Negative for fatigue, weakness, night sweats, excessive sweating, frequent falls, headache(s) or daytime sleepiness Eyes Eyes: Negative for loss of peripheral vision, transient loss of vision, blind spots, double vision or blurry vision ENT ENT: Negative for headache(s), dizziness, balance problems, Nosebleed/epistaxis, tongue swelling or lip swelling Cardio Chest Pain: No Palpitations: No Edema: None Muscle aches with walking: None Resp Respiratory: Negative for SOB at rest, SOB orthopnea\SOB lying down, Cough, paroxysmal nocturnal dyspnea or SOB with activity GI GI: Negative nausea, vomiting, heartburn, black,tarry stools or bright, red blood in stools : Negative for hematuria Musc Musc: Negative for balance problems, muscle aches/ myalgia, muscle weakness or joint pain Skin Skin: Negative non-healing lesions, unusual bruising or rash Neuro Neuro: Negative for weakness, frequent falls, headache(s), double vision, dizziness, lightheadedness, orthostatic symptoms, blurry vision or lack of coordination Rasheed Hematologic/Lymphatic: Negative for easy bruising or easy bleeding Endo Endo: Negative for fatigue, excessive sweating, cold intolerance, heat intolerance, increased thirst/drinking or hair loss Psych Psych: Negative for anxiety or depression Allergy Allergy/Immunology: Negative for throat swelling, Negative for tongue swelling, Negative for hives, Negative for rash, Negative for lip swelling Cardiology Exam Const Appearance: cooperative, healthy appearing, comfortable, no acute distress, well developed and well groomed Nutritional Appearance: overweight Orientation: alert, awake and oriented x3 Head Head: normal to inspection, normocephalic and atraumatic Ears: hearing grossly normal bilaterally Nose: external nose normal Face and Sinus: face symmetric Mouth: oral mucosae normal Teeth and gingiva: fair dentition Eyes Eyelids: eyelids normal Conjunctivae: conjunctivae normal Pupils: PERRL EOM: EOM intact bilaterally Neck Neck: normal visual inspection and full ROM Carotids: normal carotid upstroke Chest Chest inspection: normal inspection of the chest and symmetric chest movement Auscultation: Bilateral: Clear to Auscultation Cardio Palpation: normal PMI Rhythm: irregular rhythm Heart sounds: S1 normal and S2 normal GI GI: normal to inspection, bowel sounds present and soft Neuro General: alert, awake, oriented x3 and moves all extremities Skin Skin: no rashes or lesions noted Extremities Pulses: Normal: Right Radial Pulse, Left Radial Pulse Lower Extremity Edema: +3: Bilateral Psych Psychological: normal affect Supplemental Info Transthoracic echocardiogram: 12/28/2016 Interpretation Summary The study was technically difficult. Contrast injection was performed. Left ventricular systolic function is normal. The estimated ejection fraction is 60 %. The left atrium is mildly enlarged. The right atrium is mildly enlarged. Mild-Moderate (1-2+) mitral valve insufficiency. Mild to moderate (1-2+) tricuspid valve insufficiency. Right ventricular systolic pressure estimated to be 32 mmHg. Stress nuclear imaging study: 12/28/2016 The patient underwent pharmacologic (Regadenoson) evaluation with a peak heart rate of 96 bpm (64% predicted maximal heart rate) with a peak blood pressure 138/86 mmHg. The baseline ECG demonstrated atrial fibrillation. The peak pharmacologic ECG demonstrated no obvious ECG changes. There was an air PVC pretest. There was no complaint of chest discomfort during pharmacologic infusion or recovery. The examination was discontinued secondary to completion of protocol. Impression: 1. Pharmacologic (Regadenoson) evaluation 2. Peak pharmacologic ECG with no obvious ECG changes 3. Rare PVC pretest 4. Nuclear images pending Myocardial perfusion imaging study: Technique: The patient was injected with 14.5 mCi of technetium 99m Cardiolite and subsequently rest SPECT Cardiolite nuclear imaging was obtained in the horizontal long, vertical long, and short axis views. The patient underwent pharmacologic (Regadenoson) evaluation with a peak heart rate of 96 bpm (64% predicted maximal heart rate) with a peak blood pressure 138/86 mmHg. The patient was injected with 44.8 mCi of technetium 99m Cardiolite and subsequent stress SPECT Cardiolite nuclear imaging was obtained in the horizontal long, vertical long, and short axis views. A gated Cardiolite study at peak stress was obtained. Interpretation: Rest and stress SPECT Cardiolite nuclear imaging status post realignment, normalization, and attenuation correction, demonstrates the appearance of relative uniform tracer uptake and myocardial perfusion appearing within normal limits. There is notation of end systolic thickening and brightening. The gated Cardiolite study demonstrates myocardial thickening and inward wall motion. The reported LVEF is 75%. Impression: 1. Rest and stress SPECT Cardiolite nuclear imaging demonstrating relative uniform tracer uptake and myocardial perfusion appearing within normal limits. 2. The gated Cardiolite study reports an LVEF of 75%. DC cardioversion: 09/12/2017 Procedure: Synchronized biphasic DC cardioversion Indications: Atrial fibrillation Consent: Per the patient Premedications: Per Dr. Pawan Ruiz with propofol 100 mg IV push total Procedure: Synchronized biphasic DC cardioversion: 200 J 1: Result: Atrial fibrillation Synchronized biphasic DC cardioversion: 300 J 1: Result: Sinus rhythm with subsequent return to atrial fibrillation Synchronized biphasic DC cardioversion: 360 J 1: Result: Sinus rhythm with subsequent return to atrial fibrillation Complications: No apparent complications Assessment AND Plan 1. Persistent atrial fibrillation I48.1 Plan At the present time she remains in atrial fibrillation. She will continue her current medical management. Her INR levels will be followed. If her INR levels remain therapeutic and she will be scheduled for an upcoming synchronized biphasic DC cardioversion. Depending upon her results she may be able to continue medical management versus need to consider alternative antiarrhythmic therapy versus need to consider other possible EPS/RFA. Orders Orders: 2. Valvular heart disease I38 Plan She does have both MR and TR. This may be a contributing factor to her atrial dysrhythmia. At the moment she will continue her evaluation care as noted above. Her valvular heart disease will need to be followed over time 3. Hyperlipidemia, unspecified hyperlipidemia type E78.5 Plan She will continue risk factor evaluation and care as deemed appropriate. 4. Essential hypertension I10 Plan Her blood pressure appears to be reasonably well-controlled. She will continue medical management Plan Detail Other Medications New: Additional Comments Thank you for allowing me to participate in the care of your patient. Please don't hesitate to call if any issues arise. This note was generated using a voice recognition system and there may be incorrect words, spelling or punctuation that were not noted when reviewing the office note prior to saving. Follow Up 3 Months (PFM) Coding Level of Care Code Off vis,est,level 3 Diagnoses Persistent atrial fibrillation I48.1 Atrial fibrillation type: persistent Valvular heart disease I38 Hyperlipidemia, unspecified hyperlipidemia type E78.5 Hyperlipidemia type: unspecified Essential hypertension I10 Hypertension type: essential hypertension Coding Level of Care Code Off vis,est,level 3 Diagnoses Persistent atrial fibrillation I48.1 Atrial fibrillation type: persistent Valvular heart disease I38 Hyperlipidemia, unspecified hyperlipidemia type E78.5 Hyperlipidemia type: unspecified Essential hypertension I10 Hypertension type: essential hypertension 12/25/17 1609 <Electronically signed by Dwaine Rangel MD> Date Dwaine Rangel MD Cosigner Signature: Date (if applicable) CC: Jaren DONENLLY OFFICE VISIT REPORT Observed: 12/19/2017 Status: F Source: [place] 4:[address] [place] [address] OFFICE VISIT Date of Service: 12/19/17 MR#: [id number] Acct: [id number] Patient: ASHLEY KING Rep #: [id number] : 1945 Provider: CARDIOLOGY REPORTS EKGREAD Age/Sex: 72/F Location: [facility] Status: Signed Intake Intake Visit Reasons: EKG\PFM Chief Complaint: Shortness of breath improved Allergies No Known Allergies Allergy (Verified 11/17/17 10:51) Medications Atorvastatin Calcium [Lipitor] 20 mg PO QHS 02/02/17 [History Confirmed 11/17/17] Cholecalciferol (Vitamin D3) [Vitamin D3] 50,000 unit PO QWEEK 02/02/17 [History Confirmed 11/17/17] Levothyroxine Sodium 150 mcg PO DAILY 02/02/17 [History Confirmed 11/17/17] Metformin HCl [Glucophage] 500 mg PO BIDCM 02/02/17 [History Confirmed 11/17/17] Warfarin [Coumadin (PBKC)] 3 mg PO DAILY 02/02/17 [History Confirmed 11/17/17] furosemide 40 mg tablet 40 mg PO DAILY #30 tab 08/11/17 [Rx Confirmed 11/17/17] Albuterol IH (ProAir) [Proair Hfa (SP)Vent Pts] 1 puff INHALATION Q6H PRN PRN 09/11/17 [History Confirmed 11/17/17] Aspirin E.C. [Ecotrin] 81 mg PO DAILY@0800 09/11/17 [History Confirmed 11/17/17] Montelukast [Singulair] 10 mg PO DAILY 11/07/17 [History Confirmed 11/17/17] losartan 50 mg-hydrochlorothiazide 12.5 mg tablet 1 tab PO DAILY 12/12/17 [History] propafenone ER 325 mg capsule,extended release 12 hr 325 mg PO Q12H 12/12/17 [History] Assessment AND Plan Orders Orders: Nursing Note Patient in for EKG S/P new antiarrhythmic medication propafenon SR 325mg BID initiation. Patient reports that she continues with fatigue and SOB with exertion. EKG completed, appears atrial fibrillation. EKG reviewed with Curt Bernard NP, will discuss with Dr. Rangel as to plan of care. 12/19/17 1612 <Electronically signed by Curt CHOWDHURY> Date Curt CHOWDHURY Cosigner Signature: Date (if applicable) CC: Maddi Eller 12 LEAD EKG PERFORMED Observed: 12/19/2017 Status: F Source: [place] [facility] 1:34 PM [facility] REPOSITORY [facility] [address] [place] [address] 12 Lead EKG performed by [facility] 12/19/171332 MR#: [id number] Acct: [id number] Name: ASHLEY KING Rep #: [id number] : 1945 72 From: Dwaine Rangel MD Attending Dr: LISACARDIOLOGY REPORTS Status: DEP AMB Ordering Dr: Dwaine Rangel MD Date: 12/19/17 Location: [facility] [place] Sex: F C Admitted: BMS/12 Lead EKG performed by [facility] ECG Report Interpretation Atrial fibrillationRight bundle branch blockABNORMAL Electronically signed on 12/20/2017 at 17:43 by Dwaine Rangel [employer] Version [id number] 12/20/17 1746 Date Dwaine Rangel MD CC: Jaren DONNELLY Date Dictated: 12/19/171332 Date Transcribed: 12/19/17 133 Standards Engineer: PM Signed ECG COMPLETE W Observed: 12/11/2017 Status: F Source: [place] INTERPRETATION 8:49 AM [facility] REPOSITORY NAME : ASHLEY KING PID : [id number] : 1945 Gender : Female Race : ORD : [id number] Procedure Date : Dec 11 2017 08:49:44 Edit Date : Dec 14 2017 13:26:24 Diagnosis:ATRIAL FIBRILLATION COMPLETE RIGHT BUNDLE BRANCH BLOCK ABNORMAL ECG Confirmed by DANIELLE GOULD M.D. ([id number]) on 12/14/2017 1:18:26 PM Ventricular Rate : 82 BPM Atrial Rate : 220 BPM QRS Duration : 138 ms Q-T Interval : 422 ms QTC Calculation(Bezet) : 493 ms R [place] : 84 degrees T [place] : -12 degrees Test Reason : Location : [facility] : J14 Overread By : DANIELLE GOULD M.D. Edited By : DANIELLE GOULD M.D. Referred By : RUBEN RIVERA Acquired by : DEREK NULL PROGRESS Observed: 12/11/2017 Status: COMPLETED Source: [place] 8:31 AM [facility] REPOSITORY HNO ID: [id number] Author: Ruben Rivera MD Service: (none) Author Type: Physician Type: Progress Notes Filed: 12/11/2017 10:52 AM Note Text: [facility] [place] Johan Baldwin Department of Cardiovascular Medicine SECTION OF CARDIAC PACING and ELECTROPHYSIOLOGY OUTPATIENT VISIT DATE December 11, 2017 OUTPATIENT VISIT TYPE NEW PRIMARY CARE PHYSICIAN: Jaren Desouza, AIME ([facility]) [address] [place] [address] REFERRING PHYSICIAN: Dwaine Rangel MD ([facility]) [address] [facility] [address] HPI: Ashley King is a 72 year old female who presents today for atrial fibrillation and consideration for ablation. She was initially diagnosed with AF incidentally during routine follow up. She was seeing Dr. Desouza. BP check and cardiac sounds were irregular. She got an EKG at [facility]. That showed AF. She was then sent to see Dr. Rangel. She was started on warfarin and underwent DCC to SR. Done at [facility] about a year ago. She states she felt significantly better in SR. About 4 months ago she noticed she was getting fatigued easier and having increased PRATER. She followed up with her local physician and was found to be back in AF. She underwent unsuccessful DCC in August [address] [place] [address] Rangel during which there were three attempts at DCC with immediate recurrence of AF. She has not been tried on any anti-arrhythmic medications. She notes occasional lightheadedness/dizziness with quick positional changes. She denies palpitations, chest pain, near syncope, or syncope. CHADSVASC: 4 (age, female, HF, DM) on warfarin Her warfarin is managed by Dr. Desouza. PAST MEDICAL HISTORY Diagnosis Date - Asthma - Atrial fibrillation (HCC) - COPD (chronic obstructive pulmonary disease) (HCC) - Diabetes (HCC) - Heart failure (HCC) - Hypothyroidism - Sleep apnea PAST SURGICAL HISTORY Procedure Laterality Date - PAST SURGICAL HISTORY OF Left knee replacement - PAST SURGICAL HISTORY OF Bilateral cataracts - PAST SURGICAL HISTORY OF removal of ovarian cyst - TONSILLECTOMY AND ADENOIDECTOMY HX SOCIAL HISTORY Social History Substance Use Topics - Smoking status: Former Smoker Types: Cigarettes - Smokeless tobacco: Never Used - Alcohol use No FAMILY HISTORY Problem Relation Age of Onset - Heart Failure Mother - Heart Mother atrial fibrillation - other (Other - in accident) Father - other (lung disease) Sister - COPD Brother - Heart Failure Sister - Heart Sister valve disease - Cancer Sister - Cancer Sister breast CA ALLERGIES: ALLERGIES No Known Allergies MEDICATIONS: furosemide (LASIX) 40 mg tablet Take 40 mg by mouth once daily. montelukast (SINGULAIR) 10 mg tablet Take 10 mg by mouth daily at bedtime. levothyroxine (SYNTHROID) 150 mcg tablet Take 150 mcg by mouth daily before breakfast. warfarin (COUMADIN) 3 mg tablet Take 3 mg by mouth daily as directed. As directed ergocalciferol, vitamin D2, (DRISDOL) 50,000 unit capsule Take 50,000 Units by mouth once each week. losartan-hydrochlorothiazide (HYZAAR) 50-12.5 mg per tablet Take 1 tablet by mouth once daily. metFORMIN (GLUCOPHAGE) 500 mg tablet Take 500 mg by mouth twice daily with meals. atorvastatin (LIPITOR) 20 mg tablet Take 20 mg by mouth once daily. ASPIRIN (ASPIR-81 ORAL) Take 1 tablet by mouth once daily. REVIEW OF SYSTEMS: General, constitutional: Weight loss or gain- yes, Fever or chills-No, Weakness-yes, Trouble sleeping-yes. Head, Eyes, Ears, Mouth: Headache, head injury-No, Glasses or contact lenses-yes, Pain-No, Impaired vision-No, Decreased hearing- No, Ringing in ears-No, Nose bleeds-No, Dental difficulties-No, Bleeding gums-No, Dentures-No. Neck: Swelling-No, Pain-No, Stiffness-No. Respiratory: Cough-No, Spitting up blood-No, Shortness of breath-yes, Wheezing or asthma-No. Musculoskeletal: Muscle or joint pain or stiffness-yes, Joint swelling-yes. Gastrointestinal: Difficulty swallowing-No, Heartburn-yes, Change in bowel habits-No, Blood in stool, Dark black stools-No. Neurological/Psychiatric: Weakness, paralysis-No, Numbness-No, Tingling-No, Tremor-No, Nervousness or anxiety-yes, Depressed mood-No, Memory loss-yes. Skin: Rash-No, Itching-No. Hematological: Easy bruising-yes, Easy bleeding-yes. Endocrine: Heat or cold intolerance-No, Excessive sweating- No, Frequent urination-No, Frequent thirst-yes. Nancy Caruso RN /Additional Comments, Assessment, Recommendations and Plan: The above note reflects my interview with the patient and my incorporation of the nurse obtained information as well as my own additions and modifications comprising the patient history. Additional findings and changes as listed below. Additional History: Noted to be in AF about a year ago. [place] much better after DCC. However, about 4 months ago, she again had recurrence of symptoms of fatigue. Noted to be back in AF again. DCC tried but had IRAF with [address] Rangel. Here for consult regarding further options for treatment. Has bad right knee. She had prior left knee replacement. BP 112/74 Pulse 82 Ht 172.7 cm (5' 8) Wt 123.4 kg (272 lb) BMI 41.36 kg/m? General appearance: comfortable, alert Neck: No JVD, no bruit Lungs: clear, good excursion Heart: RR, Nl s1, s2, no mm, gallops or rubs Extremities: trace edema, good skin color ECG today shows: AF, RBBB. VR 82. Other tests:Echo and stress nuclear test done recently were all normal. IMPRESSION, PLAN/RECOMMENDATIONS:Persistent AF, with IRAF. She feels much better in SR. So, we should pursue maintaining SR. We discussed options for treatments to maintain SR. We discussed ablation approaches versus a trial of medications. She would prefer a trial of meds. I would suggest propafenone SR 325 mg po bid. Get an EKG in 1 weeks or so. DCC after that. She is on warfarin. Propafenone can increase the INR. So, she should have that checked within a week of starting the propafenone. She can be cardioverted in one week if she does not spontaneously convert to SR. If propafenone does not work, can consider Tikosyn. But likely she should pursue ablation approach if meds do not work. She would be a good candidate for an ablation approach. She can follow up with Dr. Rangel next week to see how she is doing on the propafenone and whether a DCC is needed. She will follow up with Dr. Rangel. Encouraged continued weight loss. She has lost around 20 lbs already. It was a pleasure contributing to this patient's medical care. If there are any questions, recurrent arrhythmia issues, I will be happy to see this patient back as needed. If I can be of any other assistance, please don't hesitate to contact me. Ruben Rivera M.D. I reviewed old records, obtained relevant HPI and PMH from the pt, examined the patient and created the above report. I spent over 50% of my time counseling the patient regarding my assessment and recommendations. Time spent for the above: 60m Note to: MD Jaren Ramsay CNP [facility] Jaren Desouza CNP - (Active), Patel Perry (Inactive) [address] [facility] [id number] () MANNY Observed: 12/11/2017 Status: COMPLETED Source: [place] 8:15 AM [facility] REPOSITORY Office Visit (CARDMN) ASHLEY KING ([id number]) 1945 F Date Time Provider Department 12/11/17 8:15 AM RUBEN RIVERA During your visit today, we recorded the following information about you: Pulse Blood pressure Weight Height 82/minute 112/74 123.4 kg 1.727 m Ruben Rivera MD, 12/11/2017 10:52 AM [facility] [place] Johan Baldwin Department of Cardiovascular Medicine SECTION OF CARDIAC PACING and ELECTROPHYSIOLOGY OUTPATIENT VISIT DATE December 11, 2017 OUTPATIENT VISIT TYPE NEW PRIMARY CARE PHYSICIAN: Jaren Desouza CNP ([facility]) [address] [place] [address] REFERRING PHYSICIAN: Dwaine Rangel MD ([facility]) [address] [facility] [address] HPI: Ashley King is a 72 year old female who presents today for atrial fibrillation and consideration for ablation. She was initially diagnosed with AF incidentally during routine follow up. She was seeing Dr. Desouza. BP check and cardiac sounds were irregular. She got an EKG at [facility]. That showed AF. She was then sent to see Dr. Rangel. She was started on warfarin and underwent DCC to SR. Done at [facility] about a year ago. She states she felt significantly better in SR. About 4 months ago she noticed she was getting fatigued easier and having increased PRATER. She followed up with her local physician and was found to be back in AF. She underwent unsuccessful DCC in August [address] [place] [address] Rangel during which there were three attempts at DCC with immediate recurrence of AF. She has not been tried on any anti-arrhythmic medications. She notes occasional lightheadedness/dizziness with quick positional changes. She denies palpitations, chest pain, near syncope, or syncope. CHADSVASC: 4 (age, female, HF, DM) on warfarin Her warfarin is managed by Dr. Desouza. PAST MEDICAL HISTORY Diagnosis Date - Asthma - Atrial fibrillation (HCC) - COPD (chronic obstructive pulmonary disease) (HCC) - Diabetes (HCC) - Heart failure (HCC) - Hypothyroidism - Sleep apnea PAST SURGICAL HISTORY Procedure Laterality Date - PAST SURGICAL HISTORY OF Left knee replacement - PAST SURGICAL HISTORY OF Bilateral cataracts - PAST SURGICAL HISTORY OF removal of ovarian cyst - TONSILLECTOMY AND ADENOIDECTOMY HX SOCIAL HISTORY Social History Substance Use Topics - Smoking status: Former Smoker Types: Cigarettes - Smokeless tobacco: Never Used - Alcohol use No FAMILY HISTORY Problem Relation Age of Onset - Heart Failure Mother - Heart Mother atrial fibrillation - other (Other - in accident) Father - other (lung disease) Sister - COPD Brother - Heart Failure Sister - Heart Sister valve disease - Cancer Sister - Cancer Sister breast CA ALLERGIES: ALLERGIES No Known Allergies MEDICATIONS: furosemide (LASIX) 40 mg tablet Take 40 mg by mouth once daily. montelukast (SINGULAIR) 10 mg tablet Take 10 mg by mouth daily at bedtime. levothyroxine (SYNTHROID) 150 mcg tablet Take 150 mcg by mouth daily before breakfast. warfarin (COUMADIN) 3 mg tablet Take 3 mg by mouth daily as directed. As directed ergocalciferol, vitamin D2, (DRISDOL) 50,000 unit capsule Take 50,000 Units by mouth once each week. losartan-hydrochlorothiazide (HYZAAR) 50-12.5 mg per tablet Take 1 tablet by mouth once daily. metFORMIN (GLUCOPHAGE) 500 mg tablet Take 500 mg by mouth twice daily with meals. atorvastatin (LIPITOR) 20 mg tablet Take 20 mg by mouth once daily. ASPIRIN (ASPIR-81 ORAL) Take 1 tablet by mouth once daily. REVIEW OF SYSTEMS: General, constitutional: Weight loss or gain- yes, Fever or chills-No, Weakness-yes, Trouble sleeping-yes. Head, Eyes, Ears, Mouth: Headache, head injury-No, Glasses or contact lenses-yes, Pain-No, Impaired vision-No, Decreased hearing- No, Ringing in ears-No, Nose bleeds-No, Dental difficulties-No, Bleeding gums-No, Dentures-No. Neck: Swelling-No, Pain-No, Stiffness-No. Respiratory: Cough-No, Spitting up blood-No, Shortness of breath-yes, Wheezing or asthma-No. Musculoskeletal: Muscle or joint pain or stiffness-yes, Joint swelling-yes. Gastrointestinal: Difficulty swallowing-No, Heartburn-yes, Change in bowel habits-No, Blood in stool, Dark black stools-No. Neurological/Psychiatric: Weakness, paralysis-No, Numbness- No, Tingling-No, Tremor-No, Nervousness or anxiety-yes, Depressed mood-No, Memory loss-yes. Skin: Rash-No, Itching-No. Hematological: Easy bruising-yes, Easy bleeding-yes. Endocrine: Heat or cold intolerance-No, Excessive sweating- No, Frequent urination-No, Frequent thirst-yes. Nancy Caruso RN /Additional Comments, Assessment, Recommendations and Plan: The above note reflects my interview with the patient and my incorporation of the nurse obtained information as well as my own additions and modifications comprising the patient history. Additional findings and changes as listed below. Additional History: Noted to be in AF about a year ago. [place] much better after DCC. However, about 4 months ago, she again had recurrence of symptoms of fatigue. Noted to be back in AF again. DCC tried but had IRAF with [address] Rangel. Here for consult regarding further options for treatment. Has bad right knee. She had prior left knee replacement. BP 112/74 Pulse 82 Ht 172.7 cm (5' 8) Wt 123.4 kg (272 lb) BMI 41.36 kg/m? General appearance: comfortable, alert Neck: No JVD, no bruit Lungs: clear, good excursion Heart: RR, Nl s1, s2, no mm, gallops or rubs Extremities: trace edema, good skin color ECG today shows: AF, RBBB. VR 82. Other tests:Echo and stress nuclear test done recently were all normal. IMPRESSION, PLAN/RECOMMENDATIONS:Persistent AF, with IRAF. She feels much better in SR. So, we should pursue maintaining SR. We discussed options for treatments to maintain SR. We discussed ablation approaches versus a trial of medications. She would prefer a trial of meds. I would suggest propafenone SR 325 mg po bid. Get an EKG in 1 weeks or so. DCC after that. She is on warfarin. Propafenone can increase the INR. So, she should have that checked within a week of starting the propafenone. She can be cardioverted in one week if she does not spontaneously convert to SR. If propafenone does not work, can consider Tikosyn. But likely she should pursue ablation approach if meds do not work. She would be a good candidate for an ablation approach. She can follow up with Dr. Rangel next week to see how she is doing on the propafenone and whether a DCC is needed. She will follow up with Dr. Rangel. Encouraged continued weight loss. She has lost around 20 lbs already. It was a pleasure contributing to this patient's medical care. If there are any questions, recurrent arrhythmia issues, I will be happy to see this patient back as needed. If I can be of any other assistance, please don't hesitate to contact me. Ruben Rivera M.D. I reviewed old records, obtained relevant HPI and PMH from the pt, examined the patient and created the above report. I spent over 50% of my time counseling the patient regarding my assessment and recommendations. Time spent for the above: 60m Note to: MD Jaren Ramsay, AIME [facility] Jaren Desouza CNP - (Active), In [place] (Inactive) [address] [place] [address] (Ph) Referring Provider: DWAINE RANGEL [[id number]] Allergies As of Date: 12/11/2017 (No Known Allergies) Date Reviewed: 12/11/2017 Reviewed by: Nancy (Rn) BJ Caruso - Fully Assessed Visit Diagnoses:Obesity, Class III, BMI 40-49.9 (morbid obesity) (HCC) [E66.01] Persistent atrial fibrillation (HCC) [I48.1] Chronic obstructive pulmonary disease, unspecified COPD type ([facility]) [J44.9] Prescriptions as of 12/11/2017 Sig: FUROSEMIDE 40 MG TABLET Take 40 mg by mouth once peace* MONTELUKAST 10 MG TABLET Take 10 mg by mouth daily at * LEVOTHYROXINE 150 MCG TABLET Take 150 mcg by mouth daily b* WARFARIN 3 MG TABLET Take 3 mg by mouth daily as d* ERGOCALCIFEROL (VITAMIN D2) 5* Take 50,000 Units by mouth on* LOSARTAN 50 MG-HYDROCHLOROTHI* Take 1 tablet by mouth once d* METFORMIN 500 MG TABLET Take 500 mg by mouth twice da* ATORVASTATIN 20 MG TABLET Take 20 mg by mouth once peace* ASPIR-81 ORAL Take 1 tablet by mouth once d* X PROPAFENONE ER 325 MG CAPSULE* Take 1 capsule by mouth twice* Problem List As Of Date 12/11/2017 Noted Resolved Obesity, Class III, BMI >= 40 [E66.01] INVALID FOR* Atrial fibrillation - persistent [I48.91] INVALID FOR* COPD (chronic obstructive pulmonary disease) (H*INVALID FOR* More... Prescriptions ordered this encounter Disp Refills Start End PROPAFENONE ER 325 MG CAPSULE,EXTEND* 60 c* 3 12/11/2017 12/15/2017 Route: ORAL Sig: Take 1 capsule by mouth twice daily. Medications Discontinued During This Encounter naproxen (NAPROSYN) 500 mg tablet 12/11/2017 Class: Historical Med Route: ORAL Sig: Take 500 mg by mouth twice daily with meals. Disc: Reason for discontinue is not on file. Letter Text Ruben Rivera MD Cardiac Pacing and Electrophysiology [facility] Department of Cardiovascular Medicine [address] [place] [id number] Office: [phone] December 11, 2017 Dwaine Rangel MD [address] [facility] [address] NAME: Ashley King CLINIC NO.: [id number] DATE OF SERVICE: 12/11/[address] Rangel, I had the pleasure of seeing Ashley King in the Cardiac Arrhythmia Clinic at the [facility] on 12/11/2017. Enclosed is a copy of my clinic note for your records. My impression and recommendations are noted at the end of the note. I appreciate the opportunity of contributing to the care of this very pleasant patient of yours. Please don't hesitate to contact me if you have any questions or if I can be of any other assistance. Yours sincerely, Ruben Rivera M.D. PJT:al attachment c: Jaren Desouza, PERFORMANCE REPORTER [address] [place] [address] HPI: Ashley King is a 72 year old female who presents today for atrial fibrillation and consideration for ablation. She was initially diagnosed with AF incidentally during routine follow up. She was seeing Dr. Desouza. BP check and cardiac sounds were irregular. She got an EKG at [facility]. That showed AF. She was then sent to see Dr. Rangel. She was started on warfarin and underwent DCC to SR. Done at [facility] about a year ago. She states she felt significantly better in SR. About 4 months ago she noticed she was getting fatigued easier and having increased PRATER. She followed up with her local physician and was found to be back in AF. She underwent unsuccessful DCC in August [address] [place] [address] Rangel during which there were three attempts at DCC with immediate recurrence of AF. She has not been tried on any anti-arrhythmic medications. She notes occasional lightheadedness/dizziness with quick positional changes. She denies palpitations, chest pain, near syncope, or syncope. CHADSVASC: 4 (age, female, HF, DM) on warfarin Her warfarin is managed by Dr. Desouza. PAST MEDICAL HISTORY Diagnosis Date - Asthma - Atrial fibrillation (HCC) - COPD (chronic obstructive pulmonary disease) (HCC) - Diabetes (HCC) - Heart failure (HCC) - Hypothyroidism - Sleep apnea PAST SURGICAL HISTORY Procedure Laterality Date - PAST SURGICAL HISTORY OF Left knee replacement - PAST SURGICAL HISTORY OF Bilateral cataracts - PAST SURGICAL HISTORY OF removal of ovarian cyst - TONSILLECTOMY AND ADENOIDECTOMY HX SOCIAL HISTORY Social History Substance Use Topics - Smoking status: Former Smoker Types: Cigarettes - Smokeless tobacco: Never Used - Alcohol use No FAMILY HISTORY Problem Relation Age of Onset - Heart Failure Mother - Heart Mother atrial fibrillation - other (Other - in accident) Father - other (lung disease) Sister - COPD Brother - Heart Failure Sister - Heart Sister valve disease - Cancer Sister - Cancer Sister breast CA ALLERGIES: ALLERGIES No Known Allergies MEDICATIONS: furosemide (LASIX) 40 mg tablet Take 40 mg by mouth once daily. montelukast (SINGULAIR) 10 mg tablet Take 10 mg by mouth daily at bedtime. levothyroxine (SYNTHROID) 150 mcg tablet Take 150 mcg by mouth daily before breakfast. warfarin (COUMADIN) 3 mg tablet Take 3 mg by mouth daily as directed. As directed ergocalciferol, vitamin D2, (DRISDOL) 50,000 unit capsule Take 50,000 Units by mouth once each week. losartan-hydrochlorothiazide (HYZAAR) 50-12.5 mg per tablet Take 1 tablet by mouth once daily. metFORMIN (GLUCOPHAGE) 500 mg tablet Take 500 mg by mouth twice daily with meals. atorvastatin (LIPITOR) 20 mg tablet Take 20 mg by mouth once daily. ASPIRIN (ASPIR-81 ORAL) Take 1 tablet by mouth once daily. REVIEW OF SYSTEMS: General, constitutional: Weight loss or gain- yes, Fever or chills-No, Weakness-yes, Trouble sleeping-yes. Head, Eyes, Ears, Mouth: Headache, head injury-No, Glasses or contact lenses-yes, Pain-No, Impaired vision-No, Decreased hearing- No, Ringing in ears-No, Nose bleeds-No, Dental difficulties-No, Bleeding gums-No, Dentures-No. Neck: Swelling-No, Pain-No, Stiffness-No. Respiratory: Cough-No, Spitting up blood-No, Shortness of breath-yes, Wheezing or asthma-No. Musculoskeletal: Muscle or joint pain or stiffness-yes, Joint swelling-yes. Gastrointestinal: Difficulty swallowing-No, Heartburn-yes, Change in bowel habits-No, Blood in stool, Dark black stools-No. Neurological/Psychiatric: Weakness, paralysis-No, Numbness- No, Tingling-No, Tremor-No, Nervousness or anxiety-yes, Depressed mood-No, Memory loss-yes. Skin: Rash-No, Itching-No. Hematological: Easy bruising-yes, Easy bleeding-yes. Endocrine: Heat or cold intolerance-No, Excessive sweating- No, Frequent urination-No, Frequent thirst-yes. Nancy Caruso RN /Additional Comments, Assessment, Recommendations and Plan: The above note reflects my interview with the patient and my incorporation of the nurse obtained information as well as my own additions and modifications comprising the patient history. Additional findings and changes as listed below. Additional History: Noted to be in AF about a year ago. [place] much better after DCC. However, about 4 months ago, she again had recurrence of symptoms of fatigue. Noted to be back in AF again. DCC tried but had IRAF with [address] Rangel. Here for consult regarding further options for treatment. Has bad right knee. She had prior left knee replacement. BP 112/74 Pulse 82 Ht 172.7 cm (5' 8) Wt 123.4 kg (272 lb) BMI 41.36 kg/m? General appearance: comfortable, alert Neck: No JVD, no bruit Lungs: clear, good excursion Heart: RR, Nl s1, s2, no mm, gallops or rubs Extremities: trace edema, good skin color ECG today shows: AF, RBBB. VR 82. Other tests:Echo and stress nuclear test done recently were all normal. IMPRESSION, PLAN/RECOMMENDATIONS:Persistent AF, with IRAF. She feels much better in SR. So, we should pursue maintaining SR. We discussed options for treatments to maintain SR. We discussed ablation approaches versus a trial of medications. She would prefer a trial of meds. I would suggest propafenone SR 325 mg po bid. Get an EKG in 1 weeks or so. DCC after that. She is on warfarin. Propafenone can increase the INR. So, she should have that checked within a week of starting the propafenone. She can be cardioverted in one week if she does not spontaneously convert to SR. If propafenone does not work, can consider Tikosyn. But likely she should pursue ablation approach if meds do not work. She would be a good candidate for an ablation approach. She can follow up with Dr. Rangel next week to see how she is doing on the propafenone and whether a DCC is needed. She will follow up with Dr. Rangel. Encouraged continued weight loss. She has lost around 20 lbs already. It was a pleasure contributing to this patient's medical care. If there are any questions, recurrent arrhythmia issues, I will be happy to see this patient back as needed. If I can be of any other assistance, please don't hesitate to contact me. Ruben Rivera M.D. Letter Text Ruben Rivera MD Cardiac Pacing and Electrophysiology [facility] [place] Department of Cardiovascular Medicine [address] [place] [address] Office: [phone] December 19, 2017 Dwaine Rangel MD [address] [facility], [address] [place] [id number] NAME: Ashley King CLINIC NO.: [id number] DATE OF SERVICE: 12/11/[address] Rangel, I had the pleasure of seeing Ashley King in the Cardiac Arrhythmia Clinic at the [facility] on 12/11/2017. Enclosed is a copy of my clinic note for your records. My impression and recommendations are noted at the end of the note. I appreciate the opportunity of contributing to the care of this very pleasant patient of yours. Please don't hesitate to contact me if you have any questions or if I can be of any other assistance. Yours sincerely, Ruben Rivera M.D. PJT:al attachment c: Jaren Desouza, PERFORMANCE REPORTER [address] [id number] HPI: Ashley King is a 72 year old female who presents today for atrial fibrillation and consideration for ablation. She was initially diagnosed with AF incidentally during routine follow up. She was seeing Dr. Desouza. BP check and cardiac sounds were irregular. She got an EKG at [facility]. That showed AF. She was then sent to see Dr. Rangel. She was started on warfarin and underwent DCC to . Done at [facility] about a year ago. She states she felt significantly better in SR. About 4 months ago she noticed she was getting fatigued easier and having increased PRATER. She followed up with her local physician and was found to be back in AF. She underwent unsuccessful DCC in August [address] [place] [address] Rangel during which there were three attempts at DCC with immediate recurrence of AF. She has not been tried on any anti-arrhythmic medications. She notes occasional lightheadedness/dizziness with quick positional changes. She denies palpitations, chest pain, near syncope, or syncope. CHADSVASC: 4 (age, female, HF, DM) on warfarin Her warfarin is managed by Dr. Desouza. PAST MEDICAL HISTORY Diagnosis Date - Asthma - Atrial fibrillation (HCC) - COPD (chronic obstructive pulmonary disease) (HCC) - Diabetes (HCC) - Heart failure (HCC) - Hypothyroidism - Sleep apnea PAST SURGICAL HISTORY Procedure Laterality Date - PAST SURGICAL HISTORY OF Left knee replacement - PAST SURGICAL HISTORY OF Bilateral cataracts - PAST SURGICAL HISTORY OF removal of ovarian cyst - TONSILLECTOMY AND ADENOIDECTOMY HX SOCIAL HISTORY Social History Substance Use Topics - Smoking status: Former Smoker Types: Cigarettes - Smokeless tobacco: Never Used - Alcohol use No FAMILY HISTORY Problem Relation Age of Onset - Heart Failure Mother - Heart Mother atrial fibrillation - other (Other - in accident) Father - other (lung disease) Sister - COPD Brother - Heart Failure Sister - Heart Sister valve disease - Cancer Sister - Cancer Sister breast CA ALLERGIES: ALLERGIES No Known Allergies MEDICATIONS: furosemide (LASIX) 40 mg tablet Take 40 mg by mouth once daily. montelukast (SINGULAIR) 10 mg tablet Take 10 mg by mouth daily at bedtime. levothyroxine (SYNTHROID) 150 mcg tablet Take 150 mcg by mouth daily before breakfast. warfarin (COUMADIN) 3 mg tablet Take 3 mg by mouth daily as directed. As directed ergocalciferol, vitamin D2, (DRISDOL) 50,000 unit capsule Take 50,000 Units by mouth once each week. losartan-hydrochlorothiazide (HYZAAR) 50-12.5 mg per tablet Take 1 tablet by mouth once daily. metFORMIN (GLUCOPHAGE) 500 mg tablet Take 500 mg by mouth twice daily with meals. atorvastatin (LIPITOR) 20 mg tablet Take 20 mg by mouth once daily. ASPIRIN (ASPIR-81 ORAL) Take 1 tablet by mouth once daily. REVIEW OF SYSTEMS: General, constitutional: Weight loss or gain- yes, Fever or chills-No, Weakness-yes, Trouble sleeping-yes. Head, Eyes, Ears, Mouth: Headache, head injury-No, Glasses or contact lenses-yes, Pain-No, Impaired vision-No, Decreased hearing- No, Ringing in ears-No, Nose bleeds-No, Dental difficulties-No, Bleeding gums-No, Dentures-No. Neck: Swelling-No, Pain-No, Stiffness-No. Respiratory: Cough-No, Spitting up blood-No, Shortness of breath-yes, Wheezing or asthma-No. Musculoskeletal: Muscle or joint pain or stiffness-yes, Joint swelling-yes. Gastrointestinal: Difficulty swallowing-No, Heartburn-yes, Change in bowel habits-No, Blood in stool, Dark black stools-No. Neurological/Psychiatric: Weakness, paralysis-No, Numbness- No, Tingling-No, Tremor-No, Nervousness or anxiety-yes, Depressed mood-No, Memory loss-yes. Skin: Rash-No, Itching-No. Hematological: Easy bruising-yes, Easy bleeding-yes. Endocrine: Heat or cold intolerance-No, Excessive sweating- No, Frequent urination-No, Frequent thirst-yes. Nancy Caruso RN /Additional Comments, Assessment, Recommendations and Plan: The above note reflects my interview with the patient and my incorporation of the nurse obtained information as well as my own additions and modifications comprising the patient history. Additional findings and changes as listed below. Additional History: Noted to be in AF about a year ago. [place] much better after DCC. However, about 4 months ago, she again had recurrence of symptoms of fatigue. Noted to be back in AF again. DCC tried but had IRAF with [address] Rangel. Here for consult regarding further options for treatment. Has bad right knee. She had prior left knee replacement. BP 112/74 Pulse 82 Ht 172.7 cm (5' 8) Wt 123.4 kg (272 lb) BMI 41.36 kg/m? General appearance: comfortable, alert Neck: No JVD, no bruit Lungs: clear, good excursion Heart: RR, Nl s1, s2, no mm, gallops or rubs Extremities: trace edema, good skin color ECG today shows: AF, RBBB. VR 82. Other tests:Echo and stress nuclear test done recently were all normal. IMPRESSION, PLAN/RECOMMENDATIONS:Persistent AF, with IRAF. She feels much better in SR. So, we should pursue maintaining SR. We discussed options for treatments to maintain SR. We discussed ablation approaches versus a trial of medications. She would prefer a trial of meds. I would suggest propafenone SR 325 mg po bid. Get an EKG in 1 weeks or so. DCC after that. She is on warfarin. Propafenone can increase the INR. So, she should have that checked within a week of starting the propafenone. She can be cardioverted in one week if she does not spontaneously convert to SR. If propafenone does not work, can consider Tikosyn. But likely she should pursue ablation approach if meds do not work. She would be a good candidate for an ablation approach. She can follow up with Dr. Rangel next week to see how she is doing on the propafenone and whether a DCC is needed. She will follow up with Dr. Rangel. Encouraged continued weight loss. She has lost around 20 lbs already. It was a pleasure contributing to this patient's medical care. If there are any questions, recurrent arrhythmia issues, I will be happy to see this patient back as needed. If I can be of any other assistance, please don't hesitate to contact me. Ruben Rivera M.D. Encounter Status:Closed by RUBEN RIVERA MD on 12/11/17 WOUND CTR HISTORY Observed: 11/28/2017 Status: F Source: [facility] 11:41 AM [facility] [address] [place] [address] Wound Ctr History AND Physical 11/28/17 1137 MR#: [id number] Acct: [id number] Name: ASHLEY KING Rep #: [id number] : 1945 72 From: Tal Salvador MD PCP: Jaren Hart Status: REG RCR Y Location: WC (1) Swelling of lower extremity Status: Chronic Current Visit: Yes Code(s): M79.89 - Other specified soft tissue disorders (2) Morbid obesity with BMI of 40.0-44.9, adult Status: Chronic Current Visit: No Code(s): E66.01 - Morbid (severe) obesity due to excess calories; Z68.41 - Body mass index (BMI) 40.0-44.9, adult (3) GERD (gastroesophageal reflux disease) Status: Chronic Current Visit: No Code(s): K21.9 - Gastro- esophageal reflux disease without esophagitis (4) Diabetes mellitus Status: Chronic Current Visit: Yes Qualifiers: Diabetes mellitus type: type 2 Code(s): E11.9 - Type 2 diabetes mellitus without complications (5) Hypothyroidism Status: Chronic Current Visit: No Code(s): E03.9 - Hypothyroidism, unspecified (6) Arthritis Status: Chronic Current Visit: No Code(s): M19.90 - Unspecified osteoarthritis, unspecified site (7) Edema leg Status: Chronic Current Visit: Yes Code(s): R60.0 - Localized edema (8) Lymphedema Status: Chronic Current Visit: Yes Code(s): I89.0 - Lymphedema, not elsewhere classified (9) Exertional dyspnea Status: Chronic Current Visit: No Code(s): R06.09 - Other forms of dyspnea (10) Atrial fibrillation by electrocardiogram Status: Chronic Current Visit: No Code(s): I48.91 - Unspecified atrial fibrillation (11) Atrial fibrillation Status: Chronic Current Visit: No Qualifiers: Code(s): I48.91 - Unspecified atrial fibrillation (12) Hyperlipidemia Status: Chronic Current Visit: No Qualifiers: Code(s): E78.5 - Hyperlipidemia, unspecified (13) Hypertension Status: Chronic Current Visit: No Qualifiers: Code(s): I10 - Essential (primary) hypertension (14) RBBB (right bundle branch block) Status: Chronic Current Visit: No Code(s): I45.10 - Unspecified right bundle-branch block (15) Nonrheumatic mitral valve regurgitation Status: Chronic Current Visit: No Code(s): I34.0 - Nonrheumatic mitral (valve) insufficiency (16) Nonrheumatic tricuspid valve regurgitation Status: Chronic Current Visit: No Code(s): I36.1 - Nonrheumatic tricuspid (valve) insufficiency History of Present Illness Date of Service: 11/28/17 Chief Complaint: Severe swelling, edema, and lymphedema in the lower extremities bilaterally History of Wound: This is a 72-year-old diabetic female with a long-standing history of swelling, edema, and lymphedema in her lower extremities. The patient claims to sleep on a flat surface at night. However, she is not very active. She spends long hours each day sitting idly. She denies any history of thrombophlebitis. She also denies a history of wounds or ulcerations in her lower extremities. She claims her activity is limited by exertional dyspnea. She suffers from multiple medical problems, listed below. Past Medical History Past Medical History: Chronic Problems (Last Reviewed 11/17/17 @ 11:11 by TRENTON Garrison) Swelling of lower extremity (Chronic) Morbid obesity with BMI of 40.0-44.9, adult (Chronic) GERD (gastroesophageal reflux disease) (Chronic) Diabetes mellitus (Chronic) Hypothyroidism (Chronic) Arthritis (Chronic) Edema leg (Chronic) Lymphedema (Chronic) Exertional dyspnea (Chronic) Atrial fibrillation by electrocardiogram (Chronic) Atrial fibrillation (Chronic) Hyperlipidemia (Chronic) Hypertension (Chronic) RBBB (right bundle branch block) (Chronic) Nonrheumatic mitral valve regurgitation (Chronic) Nonrheumatic tricuspid valve regurgitation (Chronic) Surgical History: - - The patient is undergone cardioversion 2. She is also undergone tonsillectomy as a child. She is undergone left total knee replacement in the past. She has had bilateral cataract surgery. An ovarian cyst has been removed. She has also undergone bilateral foot surgery. Allergies/Adverse Reactions: Allergies No Known Allergies Allergy (Verified 11/17/17 10:51) Home Medications: Ambulatory Orders Medication Instructions Recorded Atorvastatin Calcium [Lipitor] 20 mg PO QHS 02/02/17 Cholecalciferol (Vitamin D3) 50,000 unit PO QWEEK 02/02/17 - Family History Paternal Family History: Family History (Last Reviewed 11/17/17 @ 11:11 by TRENTON Garrison) Mother Heart disease - - The patient's father at the age of 23, killed in a train wreck. Patient's mother at the age of 91 with a history of dementia and atrial fibrillation. Smoking Status: Former smoker Tobacco Use: Non-smoker Review of Systems Constitutional: Denies: Chills, Fever, Weight Change Eyes: Denies: Pain, Vision Change HEENT: Denies: Difficulty Hearing, Difficulty Swallowing, Sinus Congestion Cardiovascular: Denies: Chest Pain, Palpitations Respiratory: Denies: Cough, Shortness of Breath Gastrointestinal: Denies: Diarrhea, Nausea, Vomiting Genitourinary: Denies: Dysuria, Hematuria Endocrine: Denies: Heat/ Cold Intolerance, Polydipsia, Polyuria Hematologic/ Lymphatic: Denies: Easy Bruising, Easy Bleeding - Physical Exam Vital Signs Temp Pulse Resp BP 99.1 F 95 18 138/73 H 11/28/17 10:40 11/28/17 10:40 11/28/17 10:40 11/28/17 10:40 General: Alert, Oriented x3, Cooperative, No apparent distress, Well developed, Well nourished HEENT: Atraumatic, PERRLA, EOMI, Normocephalic Oral: Moist Mucosa Neck: No JVD Lungs: Normal air movement Abdomen: Non-Distended, Obese Extremities: No clubbing, No cyanosis, No Calf Tenderness, Edema, - - Mild swelling and edema persists in the lower extremities bilaterally. However, it is slightly improved over previous weeks. There are no open wounds or ulcerations. There is no sign of infection or cellulitis. Circumference measurements are documented elsewhere. Skin: No rashes, No breakdown Wound Measurements and Assessment WC - Nurse 1 - General Ulcer Measurement Start: 11/21/17 11:56 Freq: Status: Active Protocol: Activity Type Activity Date Activity User E-Sign Co-Sign Detail Recorded Client Recorded Date Recorded By Document 11/28/17 10:40 DL [id number] 11/28/17 10:46 [facility] Nurse 1 WC - Nurse 2 - General Ulcer CM Notes Start: 11/21/17 11:56 Freq: Status: Active Protocol: Activity Type Activity Date Activity User E-Sign Co-Sign Detail Recorded Client Recorded Date Recorded By Document 11/28/17 11:25 [email or web address] [id number] 11/28/17 11:26 J[facility] W[facility] Nurse 2 [Procedure/Treatment] Neurological: Cranial nerves II-XII grossly intact, Neuro grossly intact Psych/Mental Status: Normal Affect, Appropriate, Alert and oriented to time, place, person, mood and affect Debridement Note Post-Debridement Measurements/Treatment WC - Nurse 2 - General Ulcer CM Notes Start: 11/21/17 11:56 Freq: Status: Active Protocol: Activity Type Activity Date Activity User E-Sign Co-Sign Detail No debridement was completed today Assessment/Plan Active Problems (Last Reviewed 11/17/17 @ 11:11 by Izabela Proctor NP-C) Swelling of lower extremity (Chronic) Diabetes mellitus (Chronic) Edema leg (Chronic) Lymphedema (Chronic) Assessment: This is a 72-year-old female with a long-standing history of swelling, edema, and lymphedema in her lower extremities. In part, it appears as though the swelling and edema is related to lifestyle issues. The patient is morbidly obese. She has not active. 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 She spends long hours each day and an idle sitting position. She has multiple pre-existing medical problems, which have been outlined above. 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 Noninvasive lower extremity arterial study has also been performed, which was normal. The patient did not tolerate the 3M 2 layer compression wraps, which were bothersome to her during the nighttime hours. She has been using SurePress wraps to the lower extremities daily. Plan: We are to continue conservative treatment measures with respect to the patient's lower extremity swelling, edema, and lymphedema. The patient has been advised to elevate her lower extremities as much as possible. Elevation is to be to heart level, or higher. Elevation is to be implemented even during daytime hours. Patient is to continue sleeping on a flat mattress at night. Activity has been encouraged. Weight loss has also been encouraged. Patient has been advised to avoid prolonged idle sitting. We are to continue compression by means of SurePress compression wraps bilaterally. The patient has been instructed in the appropriate means of applying the compression wraps bilaterally. These will be worn daily, and will be removed each evening. Because the patient sleeps on a flat mattress at night, leg elevation will help to minimize the swelling during nighttime hours. We will attempt to obtain Velcro CircAid compression garments for the patient's lower extremities. The patient is to return in 2 weeks for reassessment. The patient is not a smoker. Influenza vaccine was not administered today. Patient stands 5 feet 8 inches in height. She weighs 283 pounds. Her BMI is 43, which places her in a class III obesity category. Weight loss has been strongly recommended, with collaboration by the patient's primary care physician. 11/28/17 1141 <Electronically signed by Tal Salvador MD> Date Tal Salvador MD CC: Signed WOUND CTR HISTORY Observed: 11/21/2017 Status: F Source: [facility] 12:59 PM [facility] REPOSITORY [facility] [address] [place] [id number] Wound Ctr History AND Physical 11/21/17 1254 MR#: [id number] Acct: [id number] Name: ASHLEY KING Rep #: [id number] : 1945 72 From: Tal Salvador MD PCP: Jaren Hart Status: REG RCR Y Location: WC (1) Swelling of lower extremity Status: Chronic Current Visit: Yes Code(s): M79.89 - Other specified soft tissue disorders (2) Morbid obesity with BMI of 40.0-44.9, adult Status: Chronic Current Visit: No Code(s): E66.01 - Morbid (severe) obesity due to excess calories; Z68.41 - Body mass index (BMI) 40.0-44.9, adult (3) GERD (gastroesophageal reflux disease) Status: Chronic Current Visit: No Code(s): K21.9 - Gastro- esophageal reflux disease without esophagitis (4) Diabetes mellitus Status: Chronic Current Visit: Yes Qualifiers: Diabetes mellitus type: type 2 Code(s): E11.9 - Type 2 diabetes mellitus without complications (5) Hypothyroidism Status: Chronic Current Visit: No Code(s): E03.9 - Hypothyroidism, unspecified (6) Arthritis Status: Chronic Current Visit: No Code(s): M19.90 - Unspecified osteoarthritis, unspecified site (7) Edema leg Status: Chronic Current Visit: Yes Code(s): R60.0 - Localized edema (8) Lymphedema Status: Chronic Current Visit: Yes Code(s): I89.0 - Lymphedema, not elsewhere classified (9) Exertional dyspnea Status: Chronic Current Visit: No Code(s): R06.09 - Other forms of dyspnea (10) Atrial fibrillation by electrocardiogram Status: Chronic Current Visit: No Code(s): I48.91 - Unspecified atrial fibrillation (11) Atrial fibrillation Status: Chronic Current Visit: No Qualifiers: Code(s): I48.91 - Unspecified atrial fibrillation (12) Hyperlipidemia Status: Chronic Current Visit: No Qualifiers: Code(s): E78.5 - Hyperlipidemia, unspecified (13) Hypertension Status: Chronic Current Visit: No Qualifiers: Code(s): I10 - Essential (primary) hypertension (14) RBBB (right bundle branch block) Status: Chronic Current Visit: No Code(s): I45.10 - Unspecified right bundle-branch block (15) Nonrheumatic mitral valve regurgitation Status: Chronic Current Visit: No Code(s): I34.0 - Nonrheumatic mitral (valve) insufficiency (16) Nonrheumatic tricuspid valve regurgitation Status: Chronic Current Visit: No Code(s): I36.1 - Nonrheumatic tricuspid (valve) insufficiency History of Present Illness Date of Service: 11/21/17 Chief Complaint: Severe swelling, edema, and lymphedema in the lower extremities bilaterally History of Wound: This is a 72-year-old diabetic female with a long-standing history of swelling, edema, and lymphedema in her lower extremities. The patient claims to sleep on a flat surface at night. However, she is not very active. She spends long hours each day sitting idly. She denies any history of thrombophlebitis. She also denies a history of wounds or ulcerations in her lower extremities. She claims her activity is limited by exertional dyspnea. She suffers from multiple medical problems, listed below. Past Medical History Past Medical History: Chronic Problems (Last Reviewed 11/17/17 @ 11:11 by Izabela Proctor NP-C) Swelling of lower extremity (Chronic) Morbid obesity with BMI of 40.0-44.9, adult (Chronic) GERD (gastroesophageal reflux disease) (Chronic) Diabetes mellitus (Chronic) Hypothyroidism (Chronic) Arthritis (Chronic) Edema leg (Chronic) Lymphedema (Chronic) Exertional dyspnea (Chronic) Atrial fibrillation by electrocardiogram (Chronic) Atrial fibrillation (Chronic) Hyperlipidemia (Chronic) Hypertension (Chronic) RBBB (right bundle branch block) (Chronic) Nonrheumatic mitral valve regurgitation (Chronic) Nonrheumatic tricuspid valve regurgitation (Chronic) Surgical History: - - The patient is undergone cardioversion 2. She is also undergone tonsillectomy as a child. She is undergone left total knee replacement in the past. She has had bilateral cataract surgery. An ovarian cyst has been removed. She has also undergone bilateral foot surgery. Allergies/Adverse Reactions: Allergies No Known Allergies Allergy (Verified 11/17/17 10:51) Home Medications: Ambulatory Orders Medication Instructions Recorded Atorvastatin Calcium [Lipitor] 20 mg PO QHS 02/02/17 Cholecalciferol (Vitamin D3) 50,000 unit PO QWEEK 02/02/17 - Family History Paternal Family History: Family History (Last Reviewed 11/17/17 @ 11:11 by Izabela Proctor NP-C) Mother Heart disease - - The patient's father at the age of 23, killed in a train wreck. Patient's mother at the age of 91 with a history of dementia and atrial fibrillation. Smoking Status: Former smoker Tobacco Use: Non-smoker Review of Systems Constitutional: Denies: Chills, Fever, Weight Change Eyes: Denies: Pain, Vision Change HEENT: Denies: Difficulty Hearing, Difficulty Swallowing, Sinus Congestion Cardiovascular: Denies: Chest Pain, Palpitations Respiratory: Denies: Cough, Shortness of Breath Gastrointestinal: Denies: Diarrhea, Nausea, Vomiting Genitourinary: Denies: Dysuria, Hematuria Endocrine: Denies: Heat/ Cold Intolerance, Polydipsia, Polyuria Hematologic/ Lymphatic: Denies: Easy Bruising, Easy Bleeding - Physical Exam Vital Signs Temp Pulse Resp BP 97.3 F L 106 H 18 155/71 H 11/21/17 11:56 11/21/17 11:56 11/21/17 11:56 11/21/17 11:56 General: Alert, Oriented x3, Cooperative, No apparent distress, Well developed, Well nourished HEENT: Atraumatic, PERRLA, EOMI, Normocephalic Oral: Moist Mucosa Neck: No JVD Lungs: Normal air movement Abdomen: Non-Distended Extremities: No clubbing, No cyanosis, No Calf Tenderness, - - Swelling and edema persist in the lower extremities bilaterally, with little change from that noted previously. Dimensions are documented elsewhere. There are no open wounds or ulcerations. There is no sign of infection or cellulitis. Skin: No rashes, No breakdown Wound Measurements and Assessment WC - Nurse 1 - General Ulcer Measurement Start: 11/21/17 11:56 Freq: Status: Active Protocol: Activity Type Activity Date Activity User E-Sign Co-Sign Detail Recorded Client Recorded Date Recorded By Document 11/21/17 11:56 [id number] 11/21/17 11:58 [facility] - Nurse 2 - General Ulcer CM Notes Start: 11/21/17 11:56 Freq: Status: Active Protocol: Activity Type Activity Date Activity User E-Sign Co-Sign Detail Recorded Client Recorded Date Recorded By Document 11/21/17 12:39 [id number] 11/21/17 12:47 Wound Center Nurse 2 [Procedure/Treatment] Edema -Time 12:39 -Correct Patient Yes -Correct Side, Site, Position Yes -Correct Procedure Yes Musculoskeletal: No Muscle Wasting Neurological: Cranial nerves II-XII grossly intact, Neuro grossly intact Psych/Mental Status: Normal Affect, Appropriate, Alert and oriented to time, place, person, mood and affect Debridement Note Post-Debridement Measurements/Treatment - Nurse 2 - General Ulcer CM Notes Start: 11/21/17 11:56 Freq: Status: Active Protocol: Activity Type Activity Date Activity User E-Sign Co-Sign Detail Recorded Client Recorded Date Recorded By Document 11/21/17 12:39 [id number] 11/21/17 12:47 Wound Center Nurse 2 Edema -Time 12:39 -Correct Patient Yes No debridement was completed today Assessment/Plan Active Problems (Last Reviewed 11/17/17 @ 11:11 by TRENTON Garrison) Swelling of lower extremity (Chronic) Diabetes mellitus (Chronic) Edema leg (Chronic) Lymphedema (Chronic) Assessment: This is a 72-year-old female with a long-standing history of swelling, edema, and lymphedema in her lower extremities. In part, it appears as though the swelling and edema is related to lifestyle issues. The patient is morbidly obese. She has not active. She spends long hours each day and an idle sitting position. She has multiple pre-existing medical problems, which have been outlined above. 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 Noninvasive lower extremity arterial study has also been performed, which was normal. The patient did not tolerate the 3M 2 layer compression wraps, which were bothersome to her during the nighttime hours. She has been using SpandaGrips in the last few days. There has been no significant improvement. Plan: We are to continue conservative treatment measures with respect to the patient's lower extremity swelling, edema, and lymphedema. The patient has been advised to elevate her lower extremities as much as possible. Elevation is to be to heart level, or higher. Elevation is to be implemented even during daytime hours. Patient is to continue sleeping on a flat mattress at night. Activity has been encouraged. Weight loss has also been encouraged. Patient has been advised to avoid prolonged idle sitting. We are to implement compression by means of SurePress compression wraps bilaterally. The patient is to be instructed in the appropriate means of applying the compression wraps bilaterally. These will be worn daily, and will be removed each evening. Because the patient sleeps on a flat mattress at night, leg elevation will help to minimize the swelling during nighttime hours. The patient is to return in 1 week for reassessment. Ultimately, and long-term solution to compression will be implemented, such as the use of CircAid Velcro compression garments. It is anticipated that these will be implemented within the next several weeks. The patient is not a smoker. Influenza vaccine was not administered today. Patient stands 5 feet 8 inches in height. She weighs 283 pounds. Her BMI is 43, which places her in a class III obesity category. Weight loss has been strongly recommended, with collaboration by the patient's primary care physician. 11/21/17 4953 <Electronically signed by Tal Salvador MD> Date Tal Salvador MD CC: Signed PULMONARY VISIT REPORT Observed: 11/17/2017 Status: F Source: [place] 11:16 AM [facility] REPOSITORY [facility] [address] [place] [address] OFFICE VISIT Date of Service: 11/17/17 MR#: [id number] Acct: [id number] Name: ASHLEY KING Rep #: [id number] : 1945 Provider: Izabela Proctor Age/Sex: 72/F Location: [facility] Status: Signed Assessment AND Plan 1. PRATER (dyspnea on exertion) R06.09 Plan Improved. Patient's shortness of breath has significantly improved with the use of conservative measures alone. She reports that she is doing what I should have done all along. She has been compliant with Lasix, lower extremity elevation, and lower extremity wraps. She is also made dietary changes which include sodium restriction, smaller portions and healthier choices. Continue current measures, keep previously scheduled routine follow-up. She has been encouraged to contact the office with any new or worsening symptoms in the meantime. Test results personally reviewed with the patient. HPI 1 W FU: Chief Complaint: Shortness of breath improved HPI Comments Details: This patient presents the office today to follow- up after recently being seen in the office for an acute visit with complaints of worsening shortness of breath. Today, she is ambulatory and currently on room air. She reports that over the past week she has been compliant watching her sodium intake, as well as dietary restrictions which include eating smaller portions and making healthier choices. She was compliant with her Lasix daily. She left her bilateral lower extremity compression wraps on all week as directed. She also spent time with her legs elevated as directed. Her weight is down pet 10 pounds today, and she reports that her lower extremity edema is significantly improved. Currently her shortness of breath is significantly improved. She is only experiencing on exertion, denies any shortness of breath with rest or conversation. She denies any cough, wheezing, chest tightness, chest heaviness, chest pain or palpitations. She denies any sputum production or hemoptysis. She denies any fever, chills or body aches. See complete review of systems. Chest x-ray completed on November 10, 2017 is interpreted as showing COPD related changes with no evidence of focal airspace disease. Laboratory Tests Chloride 109 H Carbon Dioxide 19.0 L BUN 30 H Creatinine 1.24 H B-Natriuretic Peptide 167.3 H Intake Vital Signs11/17/17 Height 5 ft 8 in 11/17/17 Weight: 273 lb Intake Visit Reasons: 1 W FU Chief Complaint: Shortness of breath Accompanied by: Self Allergies No Known Allergies Allergy (Verified 11/17/17 10:51) Medications Atorvastatin Calcium [Lipitor] 20 mg PO QHS 02/02/17 [History Confirmed 11/17/17] Cholecalciferol (Vitamin D3) [Vitamin D3] 50,000 unit PO QWEEK 02/02/17 [History Confirmed 11/17/17] Levothyroxine Sodium 150 mcg PO DAILY 02/02/17 [History Confirmed 11/17/17] Losartan/Hydrochlorothiazide [Losartan-Hctz 100-25 mg Tab] 1 ea PO DAILY 02/02/17 [History Confirmed 11/17/17] Metformin HCl [Glucophage] 500 mg PO BIDCM 02/02/17 [History Confirmed 11/17/17] Metoprolol Tartrate [Lopressor (Beta Frank)] 50 mg PO BID 02/02/17 [History Confirmed 11/17/17] Warfarin [Coumadin (PBKC)] 3 mg PO DAILY 02/02/17 [History Confirmed 11/17/17] furosemide 40 mg tablet 40 mg PO DAILY #30 tab 08/11/17 [Rx Confirmed 11/17/17] Albuterol IH (ProAir) [Proair Hfa (SP)Vent Pts] 1 puff INHALATION Q6H PRN PRN 09/11/17 [History Confirmed 11/17/17] Aspirin E.C. [Ecotrin] 81 mg PO DAILY@0800 09/11/17 [History Confirmed 11/17/17] Montelukast [Singulair] 10 mg PO DAILY 11/07/17 [History Confirmed 11/17/17] PFSH Medical History Atrial fibrillation by electrocardiogram (Chronic) Atrial fibrillation (Chronic) Hyperlipidemia (Chronic) Hypertension (Chronic) RBBB (right bundle branch block) (Chronic) Nonrheumatic mitral valve regurgitation (Chronic) Nonrheumatic tricuspid valve regurgitation (Chronic) Hypothyroidism (Chronic) Type 2 diabetes mellitus without complications (Chronic) Surgical History History of cataract surgery (Resolved) History of tonsillectomy and adenoidectomy (Resolved) History of total left knee replacement (Resolved) Family History Mother Heart disease atrial fib Social History Smoking Status: Former smoker how long ago did patient quit smokin, 1ppd second hand exposure: Yes Review of Systems Const CONSTITUTIONAL: Negative anorexia, body ache, chills, daytime sleepiness, fever(s), night sweats, oral thrush, stops breathing during sleep, weight loss, sleeping in chair, fatigue, weight loss, weight gain, frequent colds, seasonal allergies, other, headache(s) or orthopnea EETM Ear Nose Throat Mouth: Positive hearing normal; negative hard of hearing, hoarseness, dry mouth in morning, change in vision, itchy eyes, eye pain, swallowing Difficulty, ear pain, nose bleed, headache(s), mouth pain, nasal congestion, nasal discharge, sinus pain, sinus pressure, sore throat or other Cardio Cardiovascular: Positive edema Location: lower extremity Right/Left: Left, Right; negative chest pain, chest pain at rest, chest pain with activity, irregular heart rhythm, shortness of breath when lying down, palpitations, murmur or other Resp Respiratory: Positive as per HPI and shortness of breath shortness of breath: Positive with activity (improved ); negative pain with cough, wheezing, chest congestion, cough, chest tightness, pain on inspiration, inhalers, increase use of rescue inhalers, snoring, apnea or other Gastro Gastrointestional: Negative bloody stools, change in appetite, difficulty swallowing, reflux, hematemesis, melena stool, loose stool, constipation or other Genitourinary: Negative blood in urine, nocturia, pain with urination or other Musc Musculoskeletal: Negative body pain, back pain, neck pain or other Skin/Breast Skin/Breast: Negative dry skin, itching, unusual bruising, breast lump or other Neuro Neurological: Negative restless legs, confusion, weakness or other Psych Psychocological: Negative abnormal sleep pattern, anxiety, thoughts of hurting self/others, hopelessness or other Lymph Lymphatic: Negative easy bleeding, easy bruising or other Exam Const Constitutional: Positive conversant, cooperative, in no acute respiratory distress, healthy appearing, well developed, well nourished, good hygiene and obese Head Head: Positive normocephalic and atraumatic; negative cyanosis of lips/distal nose Eyes Eye: Positive clear conjunctiva; negative nystagmus or scleral abnormality Ears Ear: Positive hearing normal and external ears normal; negative hard of hearing Nose Nose: Positive external nose normal and no nasal discharge; negative epistaxis Mouth Mouth: Positive oral mucosae normal Neck Neck: Positive normal visual inspection, full ROM and trachea midline; negative lymphadenopathy, JVD or tender Chest Wall Chest: Positive normal inspection of the chest and symmetric chest movement; negative increased A/P diameter Resp lung sounds: Positive clear to auscultation, good air exchange, normal expiratory time and normal respiratory effort; negative diminished, wheezes, rhonchi, rales, dullness to percussion or wheeze present on forced exhalation Cardio Cardiac: Positive regular rate, regular rhythm, S1 normal and S2 normal; negative murmur GI GI: Positive normal to inspection and obese; negative distended Genitourinary: Positive deferred Musc Musculoskeletal: Positive steady gait and ROM normal; negative kyphosis or scoliosis Pulses Pulse: Yes radial pulses present Extremities Extremities: Yes capillary refill normal, No clubbing, Yes edema Location: lower extremity location: Bilateral pitting trace Neuro Neurologic: Yes conversant, Yes no focal neuro deficits, Yes understands questions, Yes cooperative, Yes normal concentration, Yes normal cognition, Yes normal coordination Psych Appearance: Positive grossly normal, eye contact and well kempt Mental Status: Positive mental status grossly normal Mood: Positive congruent mood Affect: Positive normal affect Coding Level of Care Code Off vis,est,level 3 Diagnoses PRATER (dyspnea on exertion) R06.09 11/17/17 1116 <Electronically signed by Izabela CHOWDHURY> Date Izabela CHOWDHURY Cosigner Signature: Date (if applicable) CC: [facility] HISTORY Observed: 11/14/2017 Status: F Source: [place] [facility] PHYS[facility] 10:17 AM [facility] REPOSITORY [facility] [address] [place] [address] Wound Ctr History AND Physical 11/14/17 1013 MR#: [id number] Acct: [id number] Name: ASHLEY KING Rep #: [id number] : 1945 72 From: Tal Salvador MD PCP: Jaren Hart Status: REG RCR Y Location: WC (1) Swelling of lower extremity Status: Chronic Current Visit: Yes Code(s): M79.89 - Other specified soft tissue disorders (2) Morbid obesity with BMI of 40.0-44.9, adult Status: Chronic Current Visit: Yes Code(s): E66.01 - Morbid (severe) obesity due to excess calories; Z68.41 - Body mass index (BMI) 40.0-44.9, adult (3) GERD (gastroesophageal reflux disease) Status: Chronic Current Visit: No Code(s): K21.9 - Gastro- esophageal reflux disease without esophagitis (4) Diabetes mellitus Status: Chronic Current Visit: No Qualifiers: Diabetes mellitus type: type 2 Code(s): E11.9 - Type 2 diabetes mellitus without complications (5) Hypothyroidism Status: Chronic Current Visit: No Code(s): E03.9 - Hypothyroidism, unspecified (6) Arthritis Status: Chronic Current Visit: No Code(s): M19.90 - Unspecified osteoarthritis, unspecified site (7) Edema leg Status: Chronic Current Visit: Yes Code(s): R60.0 - Localized edema (8) Lymphedema Status: Chronic Current Visit: Yes Code(s): I89.0 - Lymphedema, not elsewhere classified (9) Atrial fibrillation Status: Chronic Current Visit: No Qualifiers: Atrial fibrillation type: paroxysmal Qualified Code(s): I48.0 - Paroxysmal atrial fibrillation Code(s): I48.91 - Unspecified atrial fibrillation (10) Hyperlipidemia Status: Chronic Current Visit: No Qualifiers: Code(s): E78.5 - Hyperlipidemia, unspecified (11) Hypertension Status: Chronic Current Visit: No Qualifiers: Code(s): I10 - Essential (primary) hypertension (12) Exertional dyspnea Status: Chronic Current Visit: Yes Code(s): R06.09 - Other forms of dyspnea History of Present Illness Date of Service: 11/14/17 Chief Complaint: Severe swelling, edema, and lymphedema in the lower extremities bilaterally History of Wound: This is a 72-year-old diabetic female with a long-standing history of swelling, edema, and lymphedema in her lower extremities. The patient claims to sleep on a flat surface at night. However, she is not very active. She spends long hours each day sitting idly. She denies any history of thrombophlebitis. She also denies a history of wounds or ulcerations in her lower extremities. She claims her activity is limited by exertional dyspnea. She suffers from multiple medical problems, listed below. Past Medical History Past Medical History: Chronic Problems (Last Reviewed 11/10/17 @ 11:49 by Izabela Proctor NP-C) Swelling of lower extremity (Chronic) Morbid obesity with BMI of 40.0-44.9, adult (Chronic) GERD (gastroesophageal reflux disease) (Chronic) Diabetes mellitus (Chronic) Hypothyroidism (Chronic) Arthritis (Chronic) Edema leg (Chronic) Lymphedema (Chronic) Exertional dyspnea (Chronic) Atrial fibrillation by electrocardiogram (Chronic) Atrial fibrillation (Chronic) Hyperlipidemia (Chronic) Hypertension (Chronic) RBBB (right bundle branch block) (Chronic) Nonrheumatic mitral valve regurgitation (Chronic) Nonrheumatic tricuspid valve regurgitation (Chronic) Surgical History: - - The patient is undergone cardioversion 2. She is also undergone tonsillectomy as a child. She is undergone left total knee replacement in the past. She has had bilateral cataract surgery. An ovarian cyst has been removed. She has also undergone bilateral foot surgery. Allergies/Adverse Reactions: Allergies No Known Allergies Allergy (Verified 11/10/17 11:32) Home Medications: Ambulatory Orders Medication Instructions Recorded Atorvastatin Calcium [Lipitor] 20 mg PO QHS 02/02/17 Cholecalciferol (Vitamin D3) 50,000 unit PO QWEEK 02/02/17 - Family History Paternal Family History: Family History (Last Reviewed 11/10/17 @ 11:49 by TRENTON Garrison) Mother Heart disease - - The patient's father at the age of 23, killed in a train wreck. Patient's mother at the age of 91 with a history of dementia and atrial fibrillation. Lives: Alone Smoking Status: Former smoker Tobacco Use: Non-smoker Alcohol: None Drugs: None Review of Systems Constitutional: Denies: Chills, Fever, Weight Change Eyes: Denies: Pain, Vision Change HEENT: Denies: Difficulty Hearing, Difficulty Swallowing, Sinus Congestion Cardiovascular: Denies: Chest Pain, Palpitations Respiratory: Denies: Cough, Shortness of Breath Gastrointestinal: Denies: Diarrhea, Nausea, Vomiting Genitourinary: Denies: Dysuria, Hematuria Endocrine: Denies: Heat/ Cold Intolerance, Polydipsia, Polyuria Hematologic/ Lymphatic: Denies: Easy Bruising, Easy Bleeding - Physical Exam Vital Signs Temp Pulse Resp BP 99.3 F H 94 18 145/88 H 11/14/17 09:32 11/14/17 09:32 11/14/17 09:32 11/14/17 09:32 General: Alert, Oriented x3, Cooperative, No apparent distress, Well developed, Well nourished HEENT: Atraumatic, PERRLA, EOMI, Normocephalic Oral: Moist Mucosa Neck: No JVD Lungs: Normal air movement Abdomen: Non-Distended Extremities: No clubbing, No cyanosis, No Calf Tenderness, - - The swelling and edema in the patient's lower extremities persists, but is markedly improved. Circumference dimensions are documented elsewhere. There is no sign of infection or cellulitis. There are no open wounds or ulcerations. Skin: No rashes, No breakdown Wound Measurements and Assessment - Nurse 1 - General Ulcer Measurement Start: 11/07/17 08:17 Freq: Status: Active Protocol: Activity Type Activity Date Activity User E-Sign Co-Sign Detail Recorded Client Recorded Date Recorded By Document 11/14/17 09:32 [facility] [id number] 11/14/17 09:38 [facility] - Nurse 2 - General Ulcer CM Notes Start: 11/07/17 08:17 Freq: Status: Active Protocol: Activity Type Activity Date Activity User E-Sign Co-Sign Detail Recorded Client Recorded Date Recorded By Document 11/14/17 10:05 [id number] 11/14/17 10:06 Wound Center Nurse 2 [Procedure/Treatment] Edema -Time 10:05 -Correct Patient Yes -Correct Side, Site, Position Yes Neurological: Cranial nerves II-XII grossly intact, Neuro grossly intact Psych/Mental Status: Normal Affect, Appropriate, Alert and oriented to time, place, person, mood and affect Debridement Note Post-Debridement Measurements/Treatment WC - Nurse 2 - General Ulcer CM Notes Start: 11/07/17 08:17 Freq: Status: Active Protocol: Activity Type Activity Date Activity User E-Sign Co-Sign Detail Wound Center Nurse 2 Edema -Time 08:58 10:05 -Correct Patient Yes Yes No debridement was completed today Assessment/Plan Active Problems (Last Reviewed 11/10/17 @ 11:49 by Izabela Proctor NP-Garrison) Swelling of lower extremity (Chronic) Morbid obesity with BMI of 40.0-44.9, adult (Chronic) Edema leg (Chronic) Lymphedema (Chronic) Exertional dyspnea (Chronic) Assessment: This is a 72-year-old female with a long-standing history of swelling, edema, and lymphedema in her lower extremities. In part, it appears as though the swelling and edema is related to lifestyle issues. The patient is morbidly obese. She has not active. She spends long hours each day and an idle sitting position. She has multiple pre-existing medical problems, which have been outlined above. 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 Noninvasive lower extremity arterial study has also been performed, which was normal. Plan: We are to continue conservative treatment measures with respect to the patient's lower extremity swelling, edema, and lymphedema. The patient has been advised to elevate her lower extremities as much as possible. Elevation is to be to heart level, or higher. Elevation is to be implemented even during daytime hours. Patient is to continue sleeping on a flat mattress at night. Activity has been encouraged. Weight loss has also been encouraged. Patient has been advised to avoid prolonged idle sitting. We are to continue compression to the lower extremities by means of a 3M 2 layer compression wrap, which will be changed twice weekly. The patient is to return in 1 week for reassessment. Ultimately, and long-term solution to compression will be implemented, such as the use of CircAid Velcro compression garments. It is anticipated that these will be implemented within the next several weeks. The patient is not a smoker. Influenza vaccine was not administered today. Patient stands 5 feet 8 inches in height. She weighs 283 pounds. Her BMI is 43, which places her in a class III obesity category. Weight loss has been strongly recommended, with collaboration by the patient's primary care physician. 11/14/17 1017 <Electronically signed by Tal Salvador MD> Date Tal Salvador MD CC: Signed PULMONARY VISIT REPORT Observed: 11/10/2017 Status: F Source: [place] 3:43 PM [facility] REPOSITORY [facility] [address] [place] [address] OFFICE VISIT Date of Service: 11/10/17 MR#: [id number] Acct: [id number] Name: ASHLEY KING Rep #: [id number] : 1945 Provider: Izabela Proctor Age/Sex: 72/F Location: [facility] Status: Signed Assessment AND Plan 1. PRATER (dyspnea on exertion) R06.09 Plan Deteriorated. Walking oximetry completed in the office today and determine if the patient does not become hypoxic during ambulation, no submental oxygen needed at this time. Evaluating for exacerbation of CHF with a BNP, checking kidney function with a BMP to identify if the patient would tolerate an increase in her diuretics. Evaluating a chest x-ray today for congestive heart failure. The patient has known pulmonary hypertension, shortness of breath may be worsening of her pulmonary hypertension or cor pulmonale. Follow-up in 1 week. We will call the patient later today with test results. No change in maintenance medication, changes may occur pending test results. Orders Orders: 2. Paroxysmal atrial fibrillation I48.0 Plan Complicates exam, plan, care and prognosis, test results pending. Plan Detail Other Orders Orders: Follow Up 1 Week ([facility]) HPI Shortness of breath: Chief Complaint: Shortness of breath HPI Comments Details: This patient presents the office today with complaints of worsening shortness of breath. She is ambulatory, currently on room air and visibly dyspneic. She reports that her symptoms began 4 days ago. She reports increased shortness of breath on exertion, is only able to walk about 25-50 feet without stopping. She has noticed a moderate increase in lower extremity edema. She has maintained compliance with 40 mg of Lasix daily. She reports that her legs were wrapped for swelling on Monday, however she was unable to tolerate the wraps secondary to discomfort and removed them. She has maintained compliance with Coumadin. She denies any wheezing or chest tightness. She has attempted to use her Ventolin rescue inhaler for the shortness of breath, she believes it does give her a mild amount of temporary relief from the shortness of breath. She does report that she is currently in A. fib, this has been going on for some time. She has a follow-up appointment for a cardioversion pending. She denies any cough, sputum production or hemoptysis. She has not experienced any fever, chills or body aches. She has not added any [id number] medications to treat her symptoms. Her weight is stable. Last echocardiogram was completed in 2017 and did show an elevated RVSP of 32 mmHg, EF at the time was 60%. Intake Vital Signs11/10/17 Pulse Ox 98 11/10/17 Oxygen Delivery Method room air 11/10/17 Comment Min #6 Ambulating 11/10/17 Pulse Ox 98 11/10/17 Oxygen Delivery Method room air Intake Visit Reasons: Shortness of breath Allergies No Known Allergies Allergy (Verified 11/10/17 11:32) Medications Atorvastatin Calcium [Lipitor] 20 mg PO QHS 02/02/17 [History Confirmed 11/10/17] Cholecalciferol (Vitamin D3) [Vitamin D3] 50,000 unit PO QWEEK 02/02/17 [History Confirmed 11/10/17] Levothyroxine Sodium 150 mcg PO DAILY 02/02/17 [History Confirmed 11/10/17] Losartan/Hydrochlorothiazide [Losartan-Hctz 100-25 mg Tab] 1 ea PO DAILY 02/02/17 [History Confirmed 11/10/17] Metformin HCl [Glucophage] 500 mg PO BIDCM 02/02/17 [History Confirmed 11/10/17] Metoprolol Tartrate [Lopressor (Beta Frank)] 50 mg PO BID 02/02/17 [History Confirmed 11/10/17] Warfarin [Coumadin (PBKC)] 3 mg PO DAILY 02/02/17 [History Confirmed 11/10/17] furosemide 40 mg tablet 40 mg PO DAILY #30 tab 08/11/17 [Rx Confirmed 11/10/17] Albuterol IH (ProAir) [Proair Hfa (SP)Vent Pts] 1 puff INHALATION Q6H PRN PRN 09/11/17 [History Confirmed 11/10/17] Aspirin E.C. [Ecotrin] 81 mg PO DAILY@0800 09/11/17 [History Confirmed 11/10/17] Montelukast [Singulair] 10 mg PO DAILY 11/07/17 [History Confirmed 11/10/17] PFSH Medical History Atrial fibrillation by electrocardiogram (Chronic) Atrial fibrillation (Chronic) Hyperlipidemia (Chronic) Hypertension (Chronic) RBBB (right bundle branch block) (Chronic) Nonrheumatic mitral valve regurgitation (Chronic) Nonrheumatic tricuspid valve regurgitation (Chronic) Hypothyroidism (Chronic) Type 2 diabetes mellitus without complications (Chronic) Surgical History History of cataract surgery (Resolved) History of tonsillectomy and adenoidectomy (Resolved) History of total left knee replacement (Resolved) Family History Mother Heart disease atrial fib Social History Smoking Status: Former smoker how long ago did patient quit smokin, 1ppd second hand exposure: Yes Review of Systems Const CONSTITUTIONAL: Positive fatigue; negative anorexia, body ache, chills, daytime sleepiness, fever(s), night sweats, oral thrush, stops breathing during sleep, weight loss, sleeping in chair, weight loss, weight gain, frequent colds, seasonal allergies, other, headache(s) or orthopnea EETM Ear Nose Throat Mouth: Positive hearing normal and nasal discharge; negative hard of hearing, hoarseness, dry mouth in morning, change in vision, itchy eyes, eye pain, swallowing Difficulty, ear pain, nose bleed, headache(s), mouth pain, nasal congestion, post nasal drip, sinus pain, sinus pressure, sore throat or other Cardio Cardiovascular: Positive irregular heart rhythm (a-fib) and edema Location: lower extremity; negative chest pain, chest pain at rest, chest pain with activity, shortness of breath when lying down, palpitations or other Resp Respiratory: Positive as per HPI and shortness of breath shortness of breath: Positive with activity and worsening; negative pain with cough, wheezing, chest congestion, cough, chest tightness, pain on inspiration, inhalers, increase use of rescue inhalers, snoring, apnea or other Gastro Gastrointestional: Negative bloody stools, change in appetite, difficulty swallowing, reflux, hematemesis, melena stool, loose stool, constipation or other Genitourinary: Negative blood in urine, nocturia, pain with urination or other Musc Musculoskeletal: Negative body pain, back pain, neck pain or other Skin/Breast Skin/Breast: Negative dry skin, itching, rash, unusual bruising, breast lump or other Neuro Neurological: Negative restless legs, confusion, weakness or other Psych Psychocological: Negative abnormal sleep pattern, anxiety, thoughts of hurting self/others, hopelessness or other Lymph Lymphatic: Negative easy bleeding, easy bruising, swollen lymph nodes or other Exam Const Constitutional: Positive conversant, cooperative, well developed, well nourished, good hygiene, dyspenic and obese Head Head: Positive normocephalic and atraumatic; negative cyanosis of lips/distal nose Eyes Eye: Positive clear conjunctiva; negative nystagmus or scleral abnormality Ears Ear: Positive hearing normal and external ears normal; negative hard of hearing Nose Nose: Positive external nose normal and no nasal discharge; negative epistaxis Mouth Mouth: Positive oral mucosae normal, no lesions, good dentition and crowded posterior oropharynx; negative post nasal drip, malodorous breath or oral thrush present Mallampati Score: III: Mallampati Score Neck Neck: Positive normal visual inspection, full ROM and trachea midline; negative lymphadenopathy, JVD or tender Chest Wall Chest: Positive normal inspection of the chest and symmetric chest movement; negative increased A/P diameter Resp lung sounds: Positive diminished, rales rales: Positive lower and bilateral, normal expiratory time and increased work of breathing; negative wheezes, rhonchi, dullness to percussion, wheeze present on forced exhalation or use of accessory muscles Cardio Cardiac: Negative regular rate or regular rhythm GI GI: Positive normal to inspection and obese; negative distended Genitourinary: Positive deferred Musc Musculoskeletal: Positive steady gait and ROM normal; negative kyphosis or scoliosis Skin Pulmonary Skin Exam: Positive intact; negative rash or lesion Pulses Pulse: Yes pulses normal x4 extremities Extremities Extremities: Yes capillary refill normal, No clubbing, Yes edema Location: lower extremity location: Bilateral pitting +2 Neuro Neurologic: Yes conversant, Yes no focal neuro deficits, Yes normal concentration, Yes understands questions, Yes cooperative, Yes normal cognition, Yes normal coordination Lymph Lymphatic: No lymphadenopathy, No tenderness Psych Appearance: Positive grossly normal, eye contact and well kempt Mental Status: Positive mental status grossly normal Mood: Positive congruent mood Affect: Positive normal affect Office Procedures Walking Oximetry Walking Oximetry Procedure performed by: Connie Mattson Walking Oximetry: Yes walking oximetry preformed, see nurisng documentation, desaturation below 89% did not occur, no signs of distress prior to departing office and no indication for supplemental oxygen at this time Coding Level of Care Code Off vis,est,level 4 Diagnoses PRATER (dyspnea on exertion) R06.09 Paroxysmal atrial fibrillation I48.0 Atrial fibrillation type: paroxysmal 11/10/17 1543 <Electronically signed by Izabela CHOWDHURY> Date Izabela CHOWDHURY Cosigner Signature: Date (if applicable) CC: Jaren DONNELLY CHEST PA AND LATERAL Observed: 11/10/2017 Status: F Source: [place] 12:45 PM [facility] REPOSITORY [facility] Imaging Services [address] [place], [place] [address] [address] Chest PA and Lateral MR#: [id number] Acct: [id number] Name: ASHLEY KING Rep #: [id number] : 1945 F 72 From: Merrill Vaca DO PCP: MILY ESPINO [facility] Status: REG CLI Study: Chest PA and Lateral Date of Exam: 11/10/17 Exam# [id number] Ordering Dr: Izabela Proctor STUDY: X-RAY CHEST REASON FOR EXAM: Female, 72 years old. Shortness of breath. TECHNIQUE: PA and lateral views of the chest. COMPARISON: 02 Aug 2017 FINDINGS: There is hyperinflation of the lungs consistent with chronic obstructive lung disease (COPD). There is no demonstrated pleural abnormality. Normal size heart. Normal mediastinum and santana. Normal visualized pulmonary arteries. There is atherosclerotic calcification of the aortic arch with tortuosity. Normal visualized thoracic spine. Normal visualized ribs, clavicles, and shoulders. There is no demonstrated abnormality of the visualized soft tissue structures of the upper abdomen. RAD/Chest PA and Lateral IMPRESSION: COPD related changes with no evidence of focal airspace disease. Electronically Signed: Merrill Vaca DO at 12:00 EDT , Service support , CC: Izabela Proctor; [facility] Standards Engineer: Signed BNP,B-TYPE NATRIURETIC Collected: 11/10/2017 Status: F Source: [place] PEPTIDE 12:31 PM [facility] REPOSITORY TYPE CODE TESTS RESULT OUT OF RANGE REFERENCE UNITS LAB L503.6620 0-100 pg/mL High B-TYPE 167.3 KARL PEP Performed By: #### L503.6620, L500.2500 #### [facility] [address] [place], [address] BASIC METABOLIC Collected: 11/10/2017 Status: F Source: [place] PROFILE (BMP) 12:31 PM [facility] REPOSITORY TYPE CODE TESTS RESULT OUT OF RANGE REFERENCE UNITS LAB L501.0100 74-106 mg/dL Normal GLU 94 Result Comment: Please note revised GLUCOSE reference range effective 2017. LAB L501.1000 7-18 mg/dL High BUN 30 LAB L501.1100 0.55-1.02 mg/dL High CREAT,SERUM 1.24 Result Comment: The validity of the calculated GFR AND GFRAA in patients over 70 years has not been determined. Clinical correlation is essential. LAB L501.1110 >60 mL/min Low EST GFR 45 Result Comment: Non- GFR Calc LAB L501.1115 >60 mL/min Low EST GFR - AA 55 Result Comment: GFR Calc LAB L501.1300 10-20 RATIO High BUN/CRE 24.2 LAB L501.2200 8.5-10.1 mg/dL CA Normal 8.9 LAB L501.5300 136-145 mmol/L NA Normal 141 LAB L501.5600 3.5-5.1 mmol/L K Normal 4.2 LAB L501.5900 98-107 mmol/L High CL 109 LAB L501.6100 21.0-32.0 mmol/L Low CO2 19.0 LAB L501.6200 5-15 Normal GAP 13 Performed By: #### L503.6620, L500.2500 #### [facility] [address] [facility] [place], [address] WOUND CTR HISTORY Observed: 11/07/2017 Status: F Source: [place] AND PHYSICAL 9:20 AM [facility] REPOSITORY [facility] [address] [place] [address] Wound Ctr History AND Physical 11/07/17 0905 MR#: [id number] Acct: [id number] Name: ASHLEY KING Rep #: [id number] : 1945 72 From: Tal Salvador MD PCP: Jaren Hart Status: REG RCR Y Location: WC (1) Swelling of lower extremity Status: Chronic Current Visit: Yes Code(s): M79.89 - Other specified soft tissue disorders (2) Morbid obesity with BMI of 40.0-44.9, adult Status: Chronic Current Visit: Yes Code(s): E66.01 - Morbid (severe) obesity due to excess calories; Z68.41 - Body mass index (BMI) 40.0-44.9, adult (3) GERD (gastroesophageal reflux disease) Status: Chronic Current Visit: No Code(s): K21.9 - Gastro- esophageal reflux disease without esophagitis (4) Diabetes mellitus Status: Chronic Current Visit: No Qualifiers: Diabetes mellitus type: type 2 Code(s): E11.9 - Type 2 diabetes mellitus without complications (5) Hypothyroidism Status: Chronic Current Visit: No Code(s): E03.9 - Hypothyroidism, unspecified (6) Arthritis Status: Chronic Current Visit: No Code(s): M19.90 - Unspecified osteoarthritis, unspecified site (7) Edema leg Status: Chronic Current Visit: Yes Code(s): R60.0 - Localized edema (8) Lymphedema Status: Chronic Current Visit: Yes Code(s): I89.0 - Lymphedema, not elsewhere classified (9) Atrial fibrillation Status: Chronic Current Visit: No Qualifiers: Code(s): I48.91 - Unspecified atrial fibrillation (10) Hyperlipidemia Status: Chronic Current Visit: No Qualifiers: Code(s): E78.5 - Hyperlipidemia, unspecified (11) Hypertension Status: Chronic Current Visit: No Qualifiers: Code(s): I10 - Essential (primary) hypertension (12) Exertional dyspnea Status: Chronic Current Visit: Yes Code(s): R06.09 - Other forms of dyspnea History of Present Illness Date of Service: 11/07/17 Chief Complaint: Severe swelling, edema, and lymphedema in the lower extremities bilaterally History of Wound: This is a 72-year-old diabetic female with a long-standing history of swelling, edema, and lymphedema in her lower extremities. The patient claims to sleep on a flat surface at night. However, she is not very active. She spends long hours each day sitting idly. She denies any history of thrombophlebitis. She also denies a history of wounds or ulcerations in her lower extremities. She claims her activity is limited by exertional dyspnea. She suffers from multiple medical problems, listed below. Past Medical History Past Medical History: Chronic Problems (Last Reviewed 10/25/17 @ 06:16 by Connie Mattson) Swelling of lower extremity (Chronic) Morbid obesity with BMI of 40.0-44.9, adult (Chronic) GERD (gastroesophageal reflux disease) (Chronic) Diabetes mellitus (Chronic) Hypothyroidism (Chronic) Arthritis (Chronic) Edema leg (Chronic) Lymphedema (Chronic) Exertional dyspnea (Chronic) Atrial fibrillation by electrocardiogram (Chronic) Atrial fibrillation (Chronic) Hyperlipidemia (Chronic) Hypertension (Chronic) RBBB (right bundle branch block) (Chronic) Nonrheumatic mitral valve regurgitation (Chronic) Nonrheumatic tricuspid valve regurgitation (Chronic) Past Medical History: The patient has a history of atrial fibrillation, for which she is on systemic anticoagulation therapy. She also suffers from hypertension, diabetes mellitus, hypothyroidism, hyperlipidemia, gastroesophageal reflux disease, and arthritis. The patient's history is negative for myocardial infarction, congestive heart failure, cerebrovascular accident, cancer, renal disease, and pulmonary disease. Surgical History: - - The patient is undergone cardioversion 2. She is also undergone tonsillectomy as a child. She is undergone left total knee replacement in the past. She has had bilateral cataract surgery. An ovarian cyst has been removed. She has also undergone bilateral foot surgery. Allergies/Adverse Reactions: Allergies No Known Allergies Allergy (Verified 11/07/17 08:40) Home Medications: Ambulatory Orders Medication Instructions Recorded Atorvastatin Calcium [Lipitor] 20 mg PO QHS 02/02/17 Cholecalciferol (Vitamin D3) 50,000 unit PO QWEEK 02/02/17 - Family History Paternal Family History: Family History (Last Reviewed 10/25/17 @ 06:16 by Connie Mattson) Mother Heart disease - - The patient's father at the age of 23, killed in a train wreck. Patient's mother at the age of 91 with a history of dementia and atrial fibrillation. Lives: Alone Smoking Status: Former smoker Tobacco Use: Non-smoker Alcohol: None Drugs: None Review of Systems Constitutional: Denies: Chills, Fever, Weight Change Eyes: Denies: Pain, Vision Change HEENT: Denies: Difficulty Hearing, Difficulty Swallowing, Sinus Congestion Cardiovascular: Denies: Chest Pain, Palpitations Respiratory: Denies: Cough, Shortness of Breath Gastrointestinal: Denies: Diarrhea, Nausea, Vomiting Genitourinary: Denies: Dysuria, Hematuria Endocrine: Denies: Heat/ Cold Intolerance, Polydipsia, Polyuria Hematologic/ Lymphatic: Denies: Easy Bruising, Easy Bleeding - Physical Exam Vital Signs Temp Pulse Resp BP 96.8 F L 88 18 153/75 H 11/07/17 08:22 11/07/17 08:22 11/07/17 08:22 11/07/17 08:22 General: Alert, Oriented x3, Cooperative, No apparent distress, Well developed, Well nourished, - - The patient is morbidly obese. HEENT: Atraumatic, PERRLA, EOMI, Normocephalic Oral: Moist Mucosa Neck: Supple, No JVD, Negative Carotid Bruits, Negative Hepatojugular Reflux, No Nodes, No Nuchal Rigidity, Trachea Midline Lungs: Clear to auscultation, Normal air movement, No rhonchi, No wheeze, No rales Cardiovascular: Regular rate, Regular Rhythm, Normal S1, Normal S2, No murmurs Abdomen: Soft, Non Tender, Non-Distended, Obese Extremities: No clubbing, No cyanosis, No Calf Tenderness, - - Bilateral lower extremity swelling, edema, and lymphedema are noted. There are no open wounds or ulcerations. No significant varicosities are appreciated. Skin: No rashes, No breakdown Wound Measurements and Assessment WC - Nurse 1 - General Ulcer Measurement Start: 11/07/17 08:17 Freq: Status: Active Protocol: Activity Type Activity Date Activity User E-Sign Co-Sign Detail Recorded Client Recorded Date Recorded By Document 11/07/17 08:22 DL [id number] 11/07/17 08:36 DL Wound Center Nurse 1 [Ulcer Assessment] Edema -Tunneling No -Undermining/Tunneling No -Circular Undermining No WC - Nurse 2 - General Ulcer CM Notes Start: 11/07/17 08:17 Freq: Status: Active Protocol: Activity Type Activity Date Activity User E-Sign Co-Sign Detail Recorded Client Recorded Date Recorded By Document 11/07/17 08:58 JS [id number] 11/07/17 09:02 JS Musculoskeletal: No Muscle Wasting Neurological: Cranial nerves II-XII grossly intact, Neuro grossly intact Psych/Mental Status: Normal Affect, Appropriate, Alert and oriented to time, place, person, mood and affect Debridement Note Post-Debridement Measurements/Treatment WC - Nurse 2 - General Ulcer CM Notes Start: 11/07/17 08:17 Freq: Status: Active Protocol: Activity Type Activity Date Activity User E-Sign Co-Sign Detail Recorded Client Recorded Date Recorded By Document 11/07/17 08:58 [id number] 18 09:02 JAY[facility]AY Wound Center Nurse 2 Edema -Time 08:58 -Correct Patient Yes -Correct Side, Site, Position Yes No debridement was completed today Assessment/Plan Active Problems (Last Reviewed 10/25/17 @ 06:16 by Connie Mattson) Swelling of lower extremity (Chronic) Morbid obesity with BMI of 40.0-44.9, adult (Chronic) Edema leg (Chronic) Lymphedema (Chronic) Exertional dyspnea (Chronic) Assessment: This is a 72-year-old female with a long-standing history of swelling, edema, and lymphedema in her lower extremities. In part, it appears as though the swelling and edema is related to lifestyle issues. The patient is morbidly obese. She has not active. She spends long hours each day and an idle sitting position. She has multiple pre-existing medical problems, which have been outlined above. 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 Noninvasive lower extremity arterial study has also been performed, which was normal. Plan: We are to implement conservative treatment measures initially with respect to the patient's lower extremity swelling, edema, and lymphedema. The patient has been advised to elevate her lower extremities as much as possible. Elevation is to be to heart level, or higher. Elevation is to be implemented even during daytime hours. Patient is to continue sleeping on a flat mattress at night. Activity has been encouraged. Weight loss has also been encouraged. Patient has been advised to avoid prolonged idle sitting. We are to implement compression to the lower extremities by means of a 3M 2 layer compression wrap, which will be changed twice weekly. The patient is to return in 1 week for reassessment. The patient is not a smoker. Influenza vaccine was not administered today. Patient stands 5 feet 8 inches in height. She weighs 283 pounds. Her BMI is 43, which places her in a class III obesity category. Weight loss has been strongly recommended, with collaboration by the patient's primary care physician. 11/07/17 0920 <Electronically signed by Tal Salvador MD> Date Tal Salvador MD CC: Signed LOWER EXT ARTERIAL Observed: 11/05/2017 Status: F Source: [facility] 6:48 PM [facility] REPOSITORY [facility] Cardiovascular Services [address] [place] [address] 11/05/17 1842 MR#: [id number] Acct: [id number] Name: ASHLEY KING Rep #: [id number] : 1945 72 From: Tal Salvador MD Attending Dr: Tal Salvador MD Status: REG CLI Ordering Dr: Date: 11/05/17 Location: [facility] Sex: F C Admitted: Arterial Study - Arterial Study Arterial Study: This is a 72-year-old female with a history of hypertension, diabetes mellitus, hyperlipidemia, and atrial fibrillation. The patient presents with lower extremity pain. Suspecting the presence of atherosclerotic peripheral arterial occlusive disease, the patient was brought to the noninvasive vascular laboratory at this time for the purpose of bilateral noninvasive lower extremity arterial assessment. Doppler signal assessment was used to evaluate the pulses at ankle level bilaterally. The posterior tibial and dorsalis pedis pulses were triphasic bilaterally. Segmental limb pressures were obtained bilaterally. The right ankle pressure, as determined by posterior tibial pulse, was measured at 134 mmHg. The right ankle pressure, as determined by dorsalis pedis pulse, was measured at 130 mmHg. The right digital pressure was measured at 95 mmHg. The left ankle pressure, as determined by posterior tibial pulse, was measured at 121 mmHg. The left ankle pressure, as determined by dorsalis pedis pulse, was measured at 120 mmHg. The left digital pressure was measured at 93 mmHg. Resting ankle-brachial indices were calculated bilaterally. The resting right ankle-brachial index was calculated to be 1.24. The resting left ankle-brachial index was calculated to be 1.12. Digital-brachial indices were calculated bilaterally. The right digital-brachial index was calculated to be 0.88. The left digital-brachial index was calculated to be 0.86. Impression: Based upon the findings of this resting noninvasive lower extremity arterial study, there is no evidence of significant atherosclerotic peripheral arterial occlusive disease in the lower extremities bilaterally. Triphasic waveforms are noted at ankle level bilaterally. Resting ankle-brachial indices are bilaterally normal. Digital- brachial indices are also normal bilaterally. In summary, this represents a normal resting noninvasive lower extremity arterial study bilaterally. 11/05/171847 <Electronically signed by Tal Salvador MD> Date Tal Salvador MD CC: Jaren DONNELLY; Tal Salvador MD; [facility] Date Dictated: 11/05/171841 Date Transcribed: 11/05/171841 Standards Engineer: CHRISTOPHER Hill VENOUS DUPLEX LOWER Observed: 11/01/2017 Status: F Source: [facility] [facility] 7:13 PM [facility] REPOSITORY [facility] Cardiovascular Services [address] [place] [address] Venous Duplex US - Scott Extrem 10/31/17 1309 MR#: [id number] Acct: [id number] Name: ASHLEY KING Rep #: [id number] : 1945 72 From: Tal Salvador MD Attending Dr: Tal Salvador MD Status: REG CLI Ordering Dr: Tal Salvador MD Date: 10/31/17 Location: [facility] Sex: F C Admitted: Reason For Study: LEG SWELLING RIGHT LEFT GSV is normal. GSV is normal. CFV is compressible, spontaneous, phasic, CFV is compressible, spontaneous, phasic, competent and demonstrates normal competent, and demonstrates normal augmentation. augmentation. FV is compressible, spontaneous, phasic, FV is compressible, spontaneous, phasic, competent and demonstrates normal competent and demonstrates normal augmentation. augmentation. POP V is compressible, spontaneous, phasic, POP V is compressible, spontaneous, phasic, competent and demonstrates normal competent and demonstrates normal augmentation. augmentation. T/P Trunk is compressible. T/P Trunk is compressible. PTV is compressible. PTV is compressible. RT PerV is compressible. LT PerV is compressible. SFJ is competent SFJ is INCOMPETENT GSV is competent above knee GSV is competent above knee GSV is INCOMPETENT below knee with reflux GSV is INCOMPETENT below knee with reflux greater than .5 sec and diameter of .56 greater than .5 sec and diameter of .53 x .50 cm x .54 cm SSV is INCOMPETENT with reflux greater SSV is competent. than .5 sec and diameter of .41 x .42 cm INCOMPETENT sales office assistant 12 cm prox to medial malleolus. Procedure Exam performed in department. A preliminary report was called and/or faxed to [facility]. Interpretation Summary Deep veins of the lower extremities are bilaterally patent and compressible segmentally. There is no evidence of deep vein thrombosis on either side. Valvular competence appears intact within the proximal deep venous systems bilaterally. The greater saphenous veins appear bilaterally patent and compressible segmentally. The right sapheno-femoral junction is competent . The left sapheno- femoral junction is incompetent . The right greater saphenous vein appears competent above the knee. The right greater saphenous vein appears incompetent below the knee. The left greater saphenous vein appears competent above the knee. The left greater saphenous vein appears incompetent below the knee. The right small saphenous vein is patent and incompetent. The left small saphenous vein is patent and competent. An incompetent sales office assistant vein is identified in the right calf, located 12 centimeters proximal to the right medial malleolus. Ordering Physician: Tal Salvador Referring Physician: Tal Salvador Performed By: Portia Carrion RVT 11/01/171911 Date Tal Salvador MD CC: Jaren DONNELLY; Tal Salvador MD; [facility] Date Dictated: 10/31/17 1309 Date Transcribed: 11/01/17 191 Standards Engineer: Signed PULMONARY VISIT REPORT Observed: 10/25/2017 Status: F Source: [facility] 8:53 AM [facility] REPOSITORY [facility] [address] [place] [address] OFFICE VISIT Date of Service: 10/25/17 MR#: [id number] Acct: [id number] Name: ASHLEY KING Rep #: [id number] : 1945 Provider: Kemar Duggan D.O. Age/Sex: 72/F Location: [facility] Status: Signed Assessment AND Plan 1. 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 There is no indication for an escalation in her inhaler regimen. She has been advised to call this office with any worsening in her breathing quality and/or increased reliance on her short acting beta agonist. 2. Hypersomnia G47.10 Plan The patient was referred to undergo a polysomnogram due to the presence of symptoms concerning for sleep disordered breathing at her last office visit. To date, the patient is yet to undergo testing. Therefore, a call was placed to the sleep lab and a new order for the diagnostic polysomnogram was placed. The patient has intentions of completing testing as soon as possible. Orders Orders: 3. Persistent atrial fibrillation I48.1 Plan Continue medical management and outpatient follow-up with cardiology. Patient has a pending evaluation at the [facility] in November to see an crop pest control specialist for potential ablation. Plan Detail Follow Up 3 Months (CSM) HPI HPI Comments Details: The patient is a 72-year-old female who presents to the clinic today for a routine scheduled follow-up office visit. If you recall, the patient is a retired clerical worker and previous smoker of 1 pack per day for 30 years, having quit completely in 1979. Pulmonary function testing completed in May 2017 revealed evidence of a mild large airways obstructive ventilatory defect with a significant mid flow bronchodilator response and stigmata of small airways obstruction. The patient was seen by our nurse practitioner in August, at which time, she was provided with an albuterol rescue inhaler. She does report symptom improvement with the use of her albuterol states on average she is only utilizing it 2 times per week. The patient was last seen by her technology services manager, Dr. Rangel approximately 1 week ago. She was referred to Dr. Ruben Rivera at the [facility] for consideration for further EP evaluation of her atrial fibrillation. Although there was clinical concern for underlying sleep disordered breathing at her last office visit, the patient is yet to undergo a diagnostic polysomnogram. She denies the presence of chest tightness or wheezing. She does experience an intermittent, infrequent nonproductive cough. Her weight has been stable. She denies fevers, chills or night sweats. She denies chest pain, dizziness or lightheadedness. Intake Vital Signs10/25/17 Height 5 ft 8 in 10/25/17 Weight: 283 lb Intake Visit Reasons: 2 M FU Accompanied by: Self Allergies No Known Allergies Allergy (Verified 10/25/17 06:15) Medications Atorvastatin Calcium [Lipitor] 20 mg PO QHS 02/02/17 [History Confirmed 10/25/17] Cholecalciferol (Vitamin D3) [Vitamin D3] 50,000 unit PO QWEEK 02/02/17 [History Confirmed 10/25/17] Levothyroxine Sodium 150 mcg PO DAILY 02/02/17 [History Confirmed 10/25/17] Losartan/Hydrochlorothiazide [Losartan-Hctz 100-25 mg Tab] 1 ea PO DAILY 02/02/17 [History Confirmed 10/25/17] Metformin HCl [Glucophage] 500 mg PO BIDCM 02/02/17 [History Confirmed 10/25/17] Metoprolol Tartrate [Lopressor (Beta Frank)] 50 mg PO BID 02/02/17 [History Confirmed 10/25/17] Warfarin [Coumadin (PBKC)] 3 mg PO DAILY 02/02/17 [History Confirmed 10/25/17] furosemide 40 mg tablet 40 mg PO DAILY #30 tab 08/11/17 [Rx Confirmed 10/25/17] Albuterol IH (ProAir) [Proair Hfa (SP)Vent Pts] 1 puff INHALATION Q6H PRN PRN 09/11/17 [History Confirmed 10/25/17] Aspirin E.C. [Ecotrin] 81 mg PO DAILY@0800 09/11/17 [History Confirmed 10/25/17] [facility] Medical History Atrial fibrillation by electrocardiogram (Chronic) Atrial fibrillation (Chronic) Hyperlipidemia (Chronic) Hypertension (Chronic) RBBB (right bundle branch block) (Chronic) Nonrheumatic mitral valve regurgitation (Chronic) Nonrheumatic tricuspid valve regurgitation (Chronic) Hypothyroidism (Chronic) Type 2 diabetes mellitus without complications (Chronic) Surgical History History of cataract surgery (Resolved) History of tonsillectomy and adenoidectomy (Resolved) History of total left knee replacement (Resolved) Family History Mother Heart disease atrial fib Social History Smoking Status: Former smoker how long ago did patient quit smokin, 1ppd second hand exposure: Yes Review of Systems Const CONSTITUTIONAL: Negative anorexia, body ache, chills, daytime sleepiness, fever(s), night sweats, oral thrush, stops breathing during sleep, weight loss, sleeping in chair, fatigue, weight loss, weight gain, frequent colds, seasonal allergies, other, headache(s) or orthopnea EETM Ear Nose Throat Mouth: Positive hearing normal; negative hard of hearing, hoarseness, dry mouth in morning, change in vision, itchy eyes, eye pain, swallowing Difficulty, ear pain, nose bleed, headache(s), mouth pain, nasal congestion, nasal discharge, post nasal drip, sinus pain, sinus pressure, sore throat or other Cardio Cardiovascular: Positive edema Location: lower extremity; negative chest pain, chest pain at rest, chest pain with activity, irregular heart rhythm, shortness of breath when lying down, palpitations, murmur or other Resp Respiratory: Positive as per HPI and shortness of breath shortness of breath: Positive with activity; negative pain with cough, wheezing, chest congestion, cough, chest tightness, pain on inspiration, inhalers, increase use of rescue inhalers, snoring, apnea or other Gastro Gastrointestional: Negative bloody stools, change in appetite, difficulty swallowing, reflux, hematemesis, melena stool, loose stool, constipation or other Genitourinary: Negative blood in urine, nocturia, pain with urination or other Musc Musculoskeletal: Negative body pain, back pain, neck pain or other Skin/Breast Skin/Breast: Negative dry skin, itching, rash, unusual bruising, breast lump or other Neuro Neurological: Negative restless legs, confusion, weakness or other Psych Psychocological: Negative abnormal sleep pattern, anxiety, thoughts of hurting self/others, hopelessness or other Lymph Lymphatic: Negative easy bleeding, easy bruising, swollen lymph nodes or other Exam Const Constitutional: Positive conversant, cooperative, in no acute respiratory distress, well developed, well nourished, good hygiene and obese Head Head: Positive normocephalic and atraumatic; negative cyanosis of lips/distal nose Eyes Eye: Positive clear conjunctiva; negative nystagmus or scleral abnormality Ears Ear: Positive hearing normal and external ears normal; negative hard of hearing Nose Nose: Positive external nose normal; negative epistaxis Mouth Mouth: Positive oral mucosae normal and posterior oropharynx is adequate; negative no lesions or post nasal drip Mallampati Score: II: Mallampati Score Neck Neck: Positive normal visual inspection and trachea midline; negative lymphadenopathy Chest Wall Chest: Positive symmetric chest movement Normal AP diameter. Resp lung sounds: Positive clear to auscultation and good air exchange; negative wheezes, rhonchi or rales Cardio Cardiac: Positive S1 normal and S2 normal; negative rub, gallop or murmur Irregular rhythm GI GI: Positive normal bowel sounds and obese Soft without distention Genitourinary: Positive deferred Musc Musculoskeletal: Positive steady gait Skin Pulmonary Skin Exam: Positive intact; negative lesion, ulcers, dermal atrophy or rash Pulses Pulse: Yes Pedal pulses present: Extremities Extremities: No clubbing, No cyanosis, Yes edema Location: lower extremity location: Bilateral Neuro Neurologic: Yes conversant, Yes no focal neuro deficits, Yes cooperative Lymph Lymphatic: No lymphadenopathy Psych Appearance: Positive grossly normal Mental Status: Positive mental status grossly normal Mood: Positive congruent mood Affect: Positive normal affect Coding Level of Care Code Off vis,est,level 3 Diagnoses Asthma-COPD overlap syndrome J44.9 Hypersomnia G47.10 Persistent atrial fibrillation I48.1 Atrial fibrillation type: persistent 10/25/17 0852 <Electronically signed by Kemar Duggan DO> Date Kemar Cunningham Signature: Date (if applicable) CC: Jaren DONNELLY CARDIOLOGY VISIT Observed: 10/16/2017 Status: F Source: [place] REPORT 12:38 PM [facility] REPOSITORY [facility] [address] [place] [address] OFFICE VISIT Date of Service: 10/16/17 MR#: [id number] Acct: [id number] Name: ASHLEY KING Rep #: [id number] : 1945 Provider: Dwaine Rangel MD Age/Sex: 72/F Location: [facility] Status: Signed HPI HPI Details: ASHLEY KING, is a 72 F who presents to the office today for for outpatient cardiovascular follow-up of her history of underlying atrial fibrillation, hyperlipidemia, and hypertension superimposed on diabetes mellitus and an underlying thyroid disorder. As you know, since her last outpatient visit, she has undergone an attempt at regaining sinus rhythm with a synchronized biphasic DC cardioversion performed approximately 1 month ago. Despite 3 attempts, 2 of which were able to transiently regain sinus rhythm, she reverted back to atrial fibrillation and subsequently left the hospital that day in atrial fibrillation. She has had no acute chest discomfort or difficulty breathing. She continues with bilateral lower extremity peripheral pitting edema which she states has been present most of her life even before her atrial dysrhythmia and before her weight gain. She states her main concern since being back in atrial fibrillation is fatigued. She has been referred to Dr. Ruben Rivera at the [facility] [place] for consideration for further EP evaluation of her atrial fibrillation. Intake Vital Signs10/16/17 Height 5 ft 8 in 10/16/17 Weight: 283 lb 10/16/17 Body Mass Index (BMI) 43.0 10/16/17 Blood Pressure 124/74 Intake Visit Reasons: 6 M FU Allergies No Known Allergies Allergy (Verified 10/16/17 11:51) Medications Atorvastatin Calcium [Lipitor] 20 mg PO QHS 02/02/17 [History Confirmed 10/16/17] Cholecalciferol (Vitamin D3) [Vitamin D3] 50,000 unit PO QWEEK 02/02/17 [History Confirmed 10/16/17] Levothyroxine Sodium 150 mcg PO DAILY 02/02/17 [History Confirmed 10/16/17] Losartan/Hydrochlorothiazide [Losartan-Hctz 100-25 mg Tab] 1 ea PO DAILY 02/02/17 [History Confirmed 10/16/17] Metformin HCl [Glucophage] 500 mg PO BIDCM 02/02/17 [History Confirmed 10/16/17] Metoprolol Tartrate [Lopressor (Beta Frank)] 50 mg PO BID 02/02/17 [History Confirmed 10/16/17] Warfarin [Coumadin (PBKC)] 3 mg PO DAILY 02/02/17 [History Confirmed 10/16/17] furosemide 40 mg tablet 40 mg PO DAILY #30 tab 08/11/17 [Rx Confirmed 10/16/17] Albuterol IH (ProAir) [Proair Hfa (SP)Vent Pts] 1 puff INHALATION Q6H PRN PRN 09/11/17 [History Confirmed 10/16/17] Aspirin E.C. [Ecotrin] 81 mg PO DAILY@0800 09/11/17 [History Confirmed 10/16/17] [facility] Medical History Atrial fibrillation by electrocardiogram (Chronic) Atrial fibrillation (Chronic) Hyperlipidemia (Chronic) Hypertension (Chronic) RBBB (right bundle branch block) (Chronic) Nonrheumatic mitral valve regurgitation (Chronic) Nonrheumatic tricuspid valve regurgitation (Chronic) Hypothyroidism (Chronic) Type 2 diabetes mellitus without complications (Chronic) Surgical History History of cataract surgery (Resolved) History of tonsillectomy and adenoidectomy (Resolved) History of total left knee replacement (Resolved) Family History Mother Heart disease atrial fib Social History Smoking Status: Former smoker ROS Const Const: Positive for fatigue (increased); negative for weakness, weight gain, weight loss, frequent falls or excessive sweating Eyes Eyes: Negative for change in vision, blurry vision or transient loss of vision ENT ENT: Negative for dizziness or balance problems Cardio Chest Pain: No Palpitations: Yes feels like its: irregular Edema: Bilateral Muscle aches with walking: None Resp Respiratory: Positive for SOB with activity (increased); negative for SOB at rest GI GI: Negative vomiting or vomiting blood/hematemesis : Negative for hematuria Musc Musc: Negative for balance problems, muscle aches/ myalgia, muscle weakness or joint pain Skin Skin: Negative non-healing lesions or rash Neuro Neuro: Negative for weakness, blurry vision, dizziness, lightheadedness, frequent falls or orthostatic symptoms Rasheed Hematologic/Lymphatic: Negative for easy bleeding Endo Endo: Positive for fatigue (increased); negative for excessive sweating Psych Psych: Negative for anxiety or depression Allergy Allergy/Immunology: Negative for hives, Negative for rash Cardiology Exam Const Appearance: cooperative, healthy appearing, comfortable, no acute distress, well developed and well groomed Nutritional Appearance: overweight Orientation: alert, awake and oriented x3 Head Head: normal to inspection, normocephalic and atraumatic Ears: hearing grossly normal bilaterally Nose: external nose normal Face and Sinus: face symmetric Mouth: oral mucosae normal Teeth and gingiva: fair dentition Eyes Eyelids: eyelids normal Conjunctivae: conjunctivae normal Pupils: PERRL EOM: EOM intact bilaterally Neck Neck: normal visual inspection and full ROM Carotids: normal carotid upstroke Chest Chest inspection: normal inspection of the chest and symmetric chest movement Auscultation: Bilateral: Clear to Auscultation Cardio Palpation: normal PMI Rhythm: irregular rhythm Heart sounds: S1 normal and S2 normal GI GI: normal to inspection, bowel sounds present and soft Neuro General: alert, awake, oriented x3 and moves all extremities Skin Skin: no rashes or lesions noted Extremities Pulses: Normal: Right Radial Pulse, Left Radial Pulse Lower Extremity Edema: +3: Bilateral Psych Psychological: normal affect Supplemental Info She did have a transthoracic echogram performed on 12/28/2016 at [facility]. At that time it was a diminished quality study, contrast was used, the left ventricle was thought to be normal with an LVEF of 60% with mild biatrial enlargement, mild to moderate MR/TR, and an estimated RV systolic pressure of 32 mmHg She had a pharmacologic stress nuclear imaging study performed on 12/28/2016. Based upon the myocardial perfusion study it appeared to be within normal limits with no evidence of ongoing myocardial ischemia or previous myocardial injury/infarction with a gated LVEF of 75%. Assessment AND Plan 1. Persistent atrial fibrillation I48.1 Plan At the present time she remains in atrial fibrillation. She will continue rate control therapy and anticoagulant therapy. She is pending evaluation at the [facility] for consideration for possible EPS/RFA. 2. Nonrheumatic mitral valve insufficiency I34.0 Plan She does have a history of underlying MR and TR. She appears without acute change on history or examination at this time. She will be followed 3. Nonrheumatic tricuspid valve regurgitation I36.1 Plan As noted above she appears without acute change on history or examination. She will continue to be followed. 4. Hyperlipidemia, unspecified hyperlipidemia type E78.5 Plan She does have a history of hyperlipidemia. She will continue risk factor modification and medical management. 5. Essential hypertension I10 Plan Her blood pressure appears to be reasonably well-controlled. Again she will continue medical therapy and follow-up. Plan Detail Additional Comments Thank you for allowing me to participate in the care of your patient. Please don't hesitate to call if any issues arise This note was generated using a voice recognition system and there may be incorrect words, spelling or punctuation that were not noted when reviewing the office note prior to saving. Follow Up 3 Months (PFM) Coding Level of Care Code Off vis,est,level 3 Diagnoses Persistent atrial fibrillation I48.1 Atrial fibrillation type: persistent Nonrheumatic mitral valve insufficiency I34.0 Nonrheumatic tricuspid valve regurgitation I36.1 Hyperlipidemia, unspecified hyperlipidemia type E78.5 Hyperlipidemia type: unspecified Essential hypertension I10 Hypertension type: essential hypertension Coding Level of Care Code Off vis,est,level 3 Diagnoses Persistent atrial fibrillation I48.1 Atrial fibrillation type: persistent Nonrheumatic mitral valve insufficiency I34.0 Nonrheumatic tricuspid valve regurgitation I36.1 Hyperlipidemia, unspecified hyperlipidemia type E78.5 Hyperlipidemia type: unspecified Essential hypertension I10 Hypertension type: essential hypertension 10/16/17 1238 <Electronically signed by Dwaine Rangel MD> Date Dwaine Rangel MD Cosigner Signature: Date (if applicable) CC: Ruben Rivera; MEREDITHSteven ESPINO [facility] BASIC METABOLIC Collected: 10/05/2017 Status: F Source: [facility] PROFILE ([facility]) 10:33 AM [facility] REPOSITORY TYPE CODE TESTS RESULT OUT OF RANGE REFERENCE UNITS LAB L501.0100 74-106 mg/dL High GLU 109 Result Comment: Fasting Glucose result from 100 to 125 mg/dL suggests IMPAIRED HOMEOSTASIS per A.D.A. criteria. Please note revised GLUCOSE reference range effective 2017. LAB L501.1000 7-18 mg/dL High BUN 29 LAB L501.1100 0.55-1.02 mg/dL High CREAT,SERUM 1.19 Result Comment: The validity of the calculated GFR AND GFRAA in patients over 70 years has not been determined. Clinical correlation is essential. LAB L501.1110 >60 mL/min Low EST GFR 48 Result Comment: Non- GFR Calc LAB L501.1115 >60 mL/min Low EST GFR - AA 57 Result Comment: GFR Calc LAB L501.1300 10-20 RATIO High BUN/CRE 24.4 LAB L501.2200 8.5-10.1 mg/dL CA Normal 9.4 LAB L501.5300 136-145 mmol/L NA Normal 143 LAB L501.5600 3.5-5.1 mmol/L K Normal 4.3 LAB L501.5900 98-107 mmol/L High CL 111 LAB L501.6100 21.0-32.0 mmol/L Normal CO2 26.0 LAB L501.6200 5-15 Normal GAP 6 Performed By: #### L500.2500 #### [facility] [address] [place], [place], [id number] BASIC METABOLIC Collected: 09/19/2017 Status: F Source: [facility] PROFILE ([facility]) 11:19 AM [facility] REPOSITORY TYPE CODE TESTS RESULT OUT OF RANGE REFERENCE UNITS LAB L501.0100 74-106 mg/dL High GLU 134 Result Comment: Fasting Glucose result greater than or equal to 126 mg/dL suggests DIABETES MELLITUS per A.D.A. criteria. Please note revised GLUCOSE reference range effective 2017. LAB L501.1000 7-18 mg/dL High BUN 26 LAB L501.1100 0.55-1.02 mg/dL High CREAT,SERUM 1.24 Result Comment: The validity of the calculated GFR AND GFRAA in patients over 70 years has not been determined. Clinical correlation is essential. LAB L501.1110 >60 mL/min Low EST GFR 45 Result Comment: Non- GFR Calc LAB L501.1115 >60 mL/min Low EST GFR - AA 55 Result Comment: GFR Calc LAB L501.1300 10-20 RATIO High BUN/CRE 21.0 LAB L501.2200 8.5-10.1 mg/dL CA Normal 8.7 LAB L501.5300 136-145 mmol/L NA Normal 143 LAB L501.5600 3.5-5.1 mmol/L K Normal 3.9 LAB L501.5900 98-107 mmol/L CL Normal 104 LAB L501.6100 21.0-32.0 mmol/L Normal CO2 29.0 LAB L501.6200 5-15 Normal GAP 10 Performed By: #### L500.2500 #### [facility] [address] [place], [address] OPERATIVE REPORT Observed: 09/13/2017 Status: F Source: [place] 5:30 AM [facility] REPOSITORY [facility] Medical Records Department [address] [place] [address] Operative Report 09/12/17 1631 MR#: [id number] Acct: [id number] Name: ASHLEY KING Rep #: [id number] : 1945 72 From: Pawan Ruiz MD PCP: MILY [facility]INO [facility] Status: REG CLI Y Location: [facility] Problem List (1) Atrial fibrillation by electrocardiogram Status: Chronic Operative Report Date of Procedure: 09/12/17 - Conscious sedation CONSCIOUS SEDATION REPORT BRIEF HISTORY OF PRESENT ILLNESS: The patient is a 72-year-old [female] who presented to [facility] for an elective outpatient cardioversion due to underlying atrial fibrillation. The patient reports no PO intake since midnight. The patient does have a history of [obstructive sleep apnea]. The patient reports [a] history of smoking and COPD. The patient denies any recent constitutional symptoms such as fevers, chills, nausea or vomiting. The patient denies previous anesthetic complications. PHYSICAL EXAMINATION: VITAL SIGNS: Reviewed and were acceptable. GENERAL: The patient is an obese [female][male], in no apparent distress, speaking in full sentences. HEENT: Normocephalic, atraumatic. Mucous membranes are moist and pink. Good mouth opening noted. Trachea is midline. Good neck mobility. MP [IV] CHEST: S1, S2 irregularly irregular. No murmurs, rubs or gallops were noted. LUNGS: Clear to auscultation bilaterally without appreciable wheezes, rales or rhonchi. ABDOMEN: Soft, nontender, nondistended. Positive bowel sounds. EXTREMITIES: There is no clubbing, cyanosis. 2+ edema was noted. ASA Class: II DESCRIPTION OF PROCEDURE: After confirmation of informed consent, the patient's anesthesia plan was reviewed in detail. [Propofol] was chosen. Risks and benefits were reviewed and the patient agreed to proceed. At 12:36 PM, the patient was given [40 mg of propofol]. [The patient required a total of] 100 [mg of][propofol] [throughout the procedure to achieve appropriate sedation.] The patient achieved an appropriate level of sedation and received 3 attempt[s] synchronized cardioversion, at 200/300/360 respectively by [Dr. Rangel] at the bedside. This was [unsuccessful] in achieving normal sinus rhythm. The patient was monitored until 12:50 PM, at which time the patient reached their baseline mental status and function. The patient tolerated the procedure well. COMPLICATIONS: Failure to achieve normal sinus rhythm ESTIMATED BLOOD LOSS: None RECOMMENDATIONS: Okay to recover in usual fashion. Code Visit 9xxxx: Other Procedure See Report - 14 minutes of conscious sedation - [id number] 09/13/17 7630 <Electronically signed by Pawan Ruiz MD> Date Pawan Ruiz MD CC: Pawan Ruiz MD; Jaren DONNELLY; Dwaine Rangel MD; MILY [facility] Signed OPERATIVE REPORT Observed: 09/12/2017 Status: F Source: [place] 3:02 PM [facility] REPOSITORY [facility] Medical Records Department [address] [place] [address] Operative Report 09/12/17 1500 MR#: [id number] Acct: [id number] Name: ASHLEY KING Rep #: [id number] : 1945 72 From: Dwaine Rangel MD PCP: MILY [facility] Status: REG CLI Y Location: [facility] Problem List (1) Atrial fibrillation by electrocardiogram Status: Chronic Operative Report Date of Procedure: 09/12/17 Procedure: Synchronized biphasic DC cardioversion Indications: Atrial fibrillation Consent: Per the patient Premedications: Per Dr. Pawan Ruiz with propofol 100 mg IV push total Procedure: Synchronized biphasic DC cardioversion: 200 J 1: Result: Atrial fibrillation Synchronized biphasic DC cardioversion: 300 J 1: Result: Sinus rhythm with subsequent return to atrial fibrillation Synchronized biphasic DC cardioversion: 360 J 1: Result: Sinus rhythm with subsequent return to atrial fibrillation Complications: No apparent complications This note was generated with [employer] software. It may contain incorrect words, spelling, and punctuation that were not noted in checking the note before signing. 09/12/17 1502 <Electronically signed by Dwaine Rangel MD> Date Dwaine Rangel MD CC: Jaren DONNELLY; Dwaine Rangel MD; [facility] Signed PROTIME W/INR Collected: 09/12/2017 Status: F Source: [place] 11:04 AM [facility] REPOSITORY TYPE CODE TESTS RESULT OUT OF REFERENCE UNITS RANGE LAB L9200.1001 11.9-14.4 SEC High PROTIME ISTAT 27.1 Result Comment: Reference Range 11.9 - 14.4 LAB L9200.2000 Normal INR ISTAT 2.40 Result Comment: Critical Value > 3.5 Performed By: #### L9200.0000 #### [facility] Point of Care [address] [place] [address] DOWNTIME REPORT Observed: 09/07/2017 Status: F Source: [place] 1:18 PM [facility] REPOSITORY [facility] Medical Records Department [address] [place] [address] Downtime Report MR#: [id number] Acct: [id number] Name: ASHLEY KING Rep #: [id number] : 1945 72 From: Bowen Talamantes PCP: Jaren Hart Status: REG CLI This patient was seen during an EMR downtime August 21, 2017 - August 28, 2017. This patient may have a combination of paper and electronic documentation or all paper documentation. All documentation is viewable within the e-chart portion of [employer] for each patient visit. BASIC METABOLIC Collected: 08/25/2017 Status: F Source: [place] PROFILE (BMP) 3:50 PM [facility] REPOSITORY Order Comment: 46 TYPE CODE TESTS RESULT OUT OF RANGE REFERENCE UNITS LAB L501.0100 74-106 mg/dL Normal GLU 95 Result Comment: Please note revised GLUCOSE reference range effective 2017. LAB L501.1000 7-18 mg/dL High BUN 48 LAB L501.1100 0.55-1.02 mg/dL High CREAT,SERUM 1.77 Result Comment: The validity of the calculated GFR AND GFRAA in patients over 70 years has not been determined. Clinical correlation is essential. LAB L501.1110 >60 mL/min Low EST GFR 30 LAB L501.1115 >60 mL/min Low EST GFR - AA 36 LAB L501.1300 10-20 RATIO High BUN/CRE 27.1 LAB L501.2200 8.5-10.1 mg/dL Normal CA 8.8 LAB L501.5300 136-145 mmol/L Normal NA 142 LAB L501.5600 3.5-5.1 mmol/L Normal K 3.7 LAB L501.5900 98-107 mmol/L High CL 108 LAB L501.6100 21.0-32.0 mmol/L Normal CO2 25.0 LAB L501.6200 5-15 Normal GAP 9 Performed By: #### L500.2500, L501.5200, L501.9520, L506.0400 #### [facility] [address] [place], [place], [address] MAGNESIUM Collected: 08/25/2017 Status: F Source: [place] 3:50 PM [facility] REPOSITORY Order Comment: 46 TYPE CODE TESTS RESULT OUT OF RANGE REFERENCE UNITS LAB L501.5200 1.6-2.6 mg/dL Normal MG 1.8 Performed By: #### L500.2500, L501.5200, L501.9520, L506.0400 #### [facility] [address] [place], [address] THYROID STIM HORMONE Collected: 08/25/2017 Status: F Source: [place] (TSH) 3:50 PM [facility] REPOSITORY Order Comment: 46 TYPE CODE TESTS RESULT OUT OF RANGE REFERENCE UNITS LAB L501.9520 0.358-3.74 uIU/mL Normal TSH 1.16 Performed By: #### L500.2500, L501.5200, L501.9520, L506.0400 #### [facility] [address] [place], [place], [address] T4 FREE DIRECT Collected: 08/25/2017 Status: F Source: [place] 3:50 PM [facility] REPOSITORY Order Comment: 46 TYPE CODE TESTS RESULT OUT OF REFERENCE UNITS RANGE LAB L506.0400 0.76-1.46 ng/dL High T4 FREE 1.59 DIRECT Performed By: #### L500.2500, L501.5200, L501.9520, L506.0400 #### [facility] [address] [place], [address] PROTHROMBIN TIME W/INR Collected: 08/25/2017 Status: F Source: [place] 3:50 PM [facility] REPOSITORY TYPE CODE TESTS RESULT OUT OF RANGE REFERENCE UNITS LAB L300.4150 11.7-14.9 SECONDS High PROTIME 26.4 LAB L300.4200 Normal INR 2.4 Performed By: #### L300.3900 #### [facility] [address] [place], [address] CBC-COMPLETE BLOOD CNT Collected: 08/25/2017 Status: F Source: [place] NO DIFF 3:50 PM [facility] REPOSITORY TYPE CODE TESTS RESULT OUT OF RANGE REFERENCE UNITS LAB L100.1000 4.4-11.0 K/mm3 High WBC 11.6 LAB L100.1200 4.2-5.4 M/mm3 Normal RBC 4.26 LAB L100.1300 12.0-15.0 g/dl Low HGB 10.9 LAB L100.1400 37-47 % Low HCT 35.5 LAB L100.1500 81-99 fL Normal MCV 83.3 LAB L100.1600 27.0-32.0 pg Low MCH 25.6 LAB L100.1700 32-36 g/gl Low MCHC 30.7 LAB L100.1810 11.6-14.6 % High RDW CV 15.0 LAB L100.1820 35.1-43.9 fl High RDW SD 45.7 LAB L100.1900 150-450 K/mm3 Normal PLT 420 LAB L100.2000 6.2-12.0 fl Normal MPV 10.1 Performed By: #### L100.0500 #### [facility] [address] [facility] [place], [address] 12 LEAD ELECTROCARDIOGRAM Observed: 08/04/2017 Status: F Source: [place] 3:05 PM [facility] REPOSITORY [facility] Cardiovascular Services [address] [place] [address] 12 Lead EKG 08/02/17 1223 MR#: [id number] Acct: [id number] Name: ASHLEY KING Rep #: [id number] : 1945 72 From: Jason Blount MD Attending Dr: Jaren Hart Status: REG CLI Ordering Dr: Jaren Desouza [employer] Date: 08/02/17 Location: CVS Sex: F C Admitted: Test Reason : AFIB Blood Pressure : / mmHG Vent. Rate : 094 BPM Atrial Rate : 089 BPM P-R Int : 000 ms QRS Dur : 110 ms QT Int : 390 ms P-R-T Axes : 000 083 000 degrees QTc Int : 487 ms Atrial fibrillation Low voltage QRS Incomplete right bundle branch block Abnormal ECG When compared with ECG of 21-FEB-2017 12:26, Incomplete right bundle branch block has replaced Right bundle branch block Confirmed by JASON BLOUNT MD ([id number]), optometric tech SAUD TALAMANTES ([id number]) on 08/04/2017 3:05:49 PM Referred By: Jaren DONNELLY Confirmed By:JASON BLOUNT MD 08/04/17 1505 Date Jason Blount MD CC: Jaren DONNELLY Signed CNCO Observed: 08/03/2017 Status: COMPLETED Source: [place] 10:10 AM [facility] REPOSITORY HNO ID: [id number] Author: Mammography Coordinator Service: (none) Author Type: Physician Type: Letter Filed: 08/07/2017 11:31 PM Note Text: August 03, 2017 PID: [id number] Ashley King [address] [place] [address] Dear Ms. King, We are pleased to inform you that the results of your recent breast imaging exam on 08/03/2017 are normal. Early detection of cancer is very important. We also understand recommendations regarding breast cancer screening are controversial. Please discuss with your primary care provider which strategy is best for you and whether a mammogram is right for you. Your imaging studies and report will be kept on file at [facility] as part of your permanent medical record and are available for your continuing care. Thank you for allowing us to help in meeting your health care needs. Sincerely, Dr. La Interpreting Radiologist [facility] (Normal over 40) [facility] SCREENING Observed: 08/03/2017 Status: F Source: [place] 9:59 AM [facility] REPOSITORY * * *Final Report* * * DATE OF EXAM: Aug 03 2017 9:59AM [facility] 0581 - [facility] SCREENING / PROCEDURE REASON: screening * * * * Physician Interpretation * * * * RESULT: #[id number] - [facility] SCREENING BILATERAL DIGITAL SCREENING MAMMOGRAM WITH CAD: 08/03/2017 HISTORY: Screening /Screening Mammogram - patient reports NO symptoms /priors available for comparison. RESULT: TECHNIQUE: The study was acquired using full field digital technology and interpreted from soft copy. Current study was also evaluated with a Computer Aided Detection (CAD). Comparison is made to exams dated: 07/29/2016 mammogram, 12/10/2015 mammogram, 06/09/2015 mammogram - [facility], and 05/26/2015 mammogram - [facility]. There are scattered fibroglandular elements in both breasts. No significant masses, calcifications, or other findings are seen in either breast. There has been no significant interval change. IMPRESSION: NEGATIVE There is no mammographic evidence of malignancy. A 1 year screening mammogram is recommended. Davy ba/mabel:08/03/2017 10:10:50 Skiving Machine Operator: Reina HARTMAN(Paul)(Kelvin), [facility] letter sent: Normal over 40 Mammogram BI-RADS: 1 Negative Standards Engineer: Mabel Transcribe Date/Time: Aug 03 2017 10:01A Dictated by: DAVY LA MD This examination was interpreted and the report reviewed and electronically signed by: DAVY LA MD on Aug 03 2017 10:10AM EST [id number] Observed: 08/03/2017 Status: COMPLETED Source: [place] 9:45 AM [facility] [place] REPOSITORY [facility] ID: [id number] Author: Antonia Hartman Service: (none) Author Type: (none) Type: Progress Notes Filed: 08/03/2017 10:11 AM Note Text: Radiology Service Progress Note PATIENT NAME: Ashley King DATE OF SERVICE: August 03, 2017 TIME: 9:46 AM PATIENT IDENTITY VERIFICATION COMPLETED USING TWO (2) METHODS: Patient confirmed name verbally and Date of . PATIENT GENDER DATA: Female. status: : No status: NO. PATIENT RELEVANT IMPLANT DATA REVIEWED: Not Applicable RADIOLOGY DEPARTMENT: [facility] scr mammogram PERIPHERAL IV DATA: Not applicable SIGNED BY: Antonia Hartman August 03, 2017 9:46 AM DISCHARGE INSTRUCTION Observed: 08/02/2017 Status: F Source: [place] 3:44 PM [facility] REPOSITORY [facility] Medical Records Department [address] [facility] [address] Discharge Instruction 08/02/17 1543 MR#: [id number] Acct: [id number] Name: ASHLEY KING Rep #: [id number] : 1945 72 From: Linda Amaral PCP: Jaren aHrt Status: REG ER ED Disposition - Plan for ED Patient: Chief Complaint: Shortness of Breath Instructions: ED Afib, ED Leg Swelling Bilateral Prescriptions: Furosemide [Lasix] 40 mg PO DAILY #10 tablet Referrals: Dwaine Rangel MD [STAFF PHYSICIAN] - 1-2 Weeks What to do if you have Problems For any increased pain, shortness of breath, bleeding, nausea or vomiting, chest pain, or any unexpected problems, contact your Primary Care Provider. Call [facility] ([phone]) or report to the closest Emergency Room. Call 911 if necessary. 08/02/17 1544 <Electronically signed by Linda Amaral > Date Linda Amaral Cosigner Signature (If Indicated): Date CC: Jaren DONNELLY EMERGENCY DEPARTMENT Observed: 08/02/2017 Status: F Source: [place] SUMMARY 3:42 PM [facility] REPOSITORY [facility] Medical Records Department [address] [place] [address] Emergency Department Summary 08/02/17 1540 MR#: [id number] Acct: [id number] Name: ASHLEY KING Rep #: [id number] : 1945 72 From: Linda Amaral PCP: Jaren Hart Status: REG ER - ER Visit Summary Date of Service: 08/02/17 Chief Complaint: [S of breath leg swelling] History of Present Illness: The patient is a 72 F [presents the emergency department with shortness of breath for the last 3 weeks. She has had swelling in her lower extremities which is gotten much worse. She has a history of paroxysmal atrial fibrillation. She followed up with her primary doctor today who noted her to be in atrial fibrillation and referred her to the emergency department. She is on Coumadin. She is on rate controlling medications metoprolol.] Physical Examination: [] The rate 74 pulse ox 98% WN WD NAD PERRL EOMI MMM NECK supple and nontender, no masses Regular rhythm with a normal rate no murmur rub or gallop, plus symmetric lower extremity edema, symmetric radial pulses trichomoniasis DP pulses CTAB no respiratory distress ABDOMEN is soft and nontender, normal bowel sounds, no distension, no rebound or guarding SKIN is warm and dry no rashes Alert and Oriented x3, CN II-XII in tact, no motor or sensory deficits, gait normal No lymphadenopathy Test Results: [] Emergency Department Course and Treatment: [TG is atrial fibrillation at a rate of 94. There is no acute ischemic changes she has a right bundle branch block was unchanged from previous a year ago. Patient is therapeutic on her Coumadin at 2.2. Chest x-ray shows no acute process. BNP is 115 which is only slightly elevated. Patient was given Lasix in the emergency department. I do think her shortness of breath is likely due to increased fluid burden. I spoke with Dr. An who is on-call for Dr. Rangel. I will start the patient on Lasix daily. She will continue her Coumadin and follow-up with them in the office in 1-2 weeks. She understands to return to the emergency department for any worsening of her symptoms. Treatment Plan: [] Disposition: [Discharge] Impression: [1. Peripheral edema 2. Paroxysmal atrial fibrillation] This note was generated with [employer] dictation software. It may contain incorrect words, spelling, and punctuation that were not noted in review of the chart prior to signing ED Disposition - Plan for ED Patient: Chief Complaint: Shortness of Breath Referrals: Jaren Desouza, [employer] WORK[employer]-C [Primary Care Provider] - What to do if you have Problems For any increased pain, shortness of breath, bleeding, nausea or vomiting, chest pain, or any unexpected problems, contact your Primary Care Provider. Call [employer] [facility] ([phone]) or report to the closest Emergency Room. Call 911 if necessary. 08/02/17 7705 <Electronically signed by Linda Amaral > Date Linda Beckman Signature (If Indicated): Date CC: Jaren DONNELLY PROTHROMBIN TIME W/INR Collected: 08/02/2017 Status: F Source: [place] 2:19 PM [facility] REPOSITORY Order Comment: REDRAW. PREVIOUS SPECIMEN REJECTED DUE TO HEMOLYSIS. 08/02/17 1321 Berta Gracia. TYPE CODE TESTS RESULT OUT OF RANGE REFERENCE UNITS LAB L300.4150 11.7-14.9 SECONDS High PROTIME 24.2 LAB L300.4200 Normal INR 2.2 Performed By: #### L300.3900 #### [facility] [address] [place], [address] CHEST PA AND LATERAL Observed: 08/02/2017 Status: F Source: [place] 1:37 PM [facility] REPOSITORY [facility] Imaging Services [address] [place] [address] Chest PA and Lateral MR#: [id number] Acct: [id number] Name: ASHLEY KING Rep #: [id number] : 1945 F 72 From: Tavo Saucedo MD PCP: Jaren Hart Status: PRE ER Study: Chest PA and Lateral Date of Exam: 08/02/17 Exam# [id number] Ordering Dr: Linda Amaral STUDY: X-RAY CHEST REASON FOR EXAM: Female, 72 years old. Palpitations. Dyspnea on exertion. TECHNIQUE: PA and lateral views of the chest. COMPARISON: Comparison is made with prior examination dated January 26, 2017. FINDINGS: Stable mild degree of increased linear markings at the lung bases suggestive of a mild degree of bibasilar scarring. Hyperinflation. Mild increased markings at the lung apices suggestive of scarring. There is no demonstrated pleural abnormality. Normal size heart. Normal mediastinum and santana. Normal visualized pulmonary arteries. There is atherosclerotic calcification of the aortic arch with tortuosity. There is demineralization of the osseous structures. Normal visualized ribs, clavicles, and shoulders. There is no demonstrated abnormality of the visualized soft tissue structures of the upper abdomen. RAD/Chest PA and Lateral IMPRESSION: Hyperinflation. Stable mild increased markings at the lung bases suggestive of mild bibasilar scarring. Electronically Signed: Tavo Saucedo MD at 14:31 EDT Tel [phone], Service support , CC: Linda Amaral; Jaren DONNELLY Standards Engineer: Signed CBC W/DIFF, AUTOMATED Collected: 08/02/2017 Status: F Source: [place] 12:50 PM [facility] REPOSITORY TYPE CODE TESTS RESULT OUT OF RANGE REFERENCE UNITS LAB L100.1000 4.4-11.0 K/mm3 Normal WBC 9.8 LAB L100.1200 4.2-5.4 M/mm3 Low RBC 4.01 LAB L100.1300 12.0-15.0 g/dl Low HGB 11.0 LAB L100.1400 37-47 % Low HCT 35.7 LAB L100.1500 81-99 fL Normal MCV 89.0 LAB L100.1600 27.0-32.0 pg Normal MCH 27.4 LAB L100.1700 32-36 g/gl Low MCHC 30.8 LAB L100.1810 11.6-14.6 % High RDW CV 15.3 LAB L100.1820 35.1-43.9 fl High RDW SD 49.4 LAB L100.1900 150-450 K/mm3 Normal PLT 410 LAB L100.2000 6.2-12.0 fl Normal MPV 10.6 LAB L100.2100 47-70 % Normal NEUT% 60.6 LAB L100.2200 19-41 % Normal LY% 25.6 LAB L100.2300 0-10 % Normal MONO% 9.6 LAB L100.2400 0-5 % Normal EO% 3.3 LAB L100.2500 0-1 % Normal BASO% 0.6 LAB L100.2550 0.0-0.9 % Normal IM GRAN % 0.300 Result Comment: IG% - Immature Granulocytes (promyelocytes, myelocytes and metamyelocytes) > 1% indicates that a LEFT SHIFT is Present. LAB L100.2620 2.0-7.7 X10 3/uL Normal Absolute Neut 5.9 LAB L100.2720 0.83-4.51 X10 3/ul Normal Absolute Lymph 2.50 Performed By: #### L100.0100 #### [facility] [address] [place], [place], [address] BASIC METABOLIC Collected: 08/02/2017 Status: F Source: [place] PROFILE (BMP) 12:50 PM [facility] REPOSITORY Order Comment: 'TROP' Serial specimen #1, #2, #3, or #4: 1 TYPE CODE TESTS RESULT OUT OF RANGE REFERENCE UNITS LAB L501.0100 74-106 mg/dL Normal GLU 82 Result Comment: Please note revised GLUCOSE reference range effective 2017. LAB L501.1000 7-18 mg/dL High BUN 24 LAB L501.1100 0.55-1.02 mg/dL High CREAT,SERUM 1.05 Result Comment: The validity of the calculated GFR AND GFRAA in patients over 70 years has not been determined. Clinical correlation is essential. LAB L501.1110 >60 mL/min Low EST GFR 55 Result Comment: Non- GFR Calc LAB L501.1115 >60 mL/min Normal EST GFR - AA 66 Result Comment: GFR Calc LAB L501.1255 ml/min Normal Estimated CRCL 49.57 LAB L501.1300 10-20 RATIO High BUN/CRE 22.9 LAB L501.2200 8.5-10 mg/dL Normal .1 CA 9.2 LAB L501.5300 136-14 mmol/L Normal 5 NA 140 LAB L501.5600 3.5-5. mmol/L Normal 1 K 4.8 Result Comment: Slight Hemolysis, Result may be falsely increased. LAB L501.5900 98-107 mmol/L High CL 108 LAB L501.6100 21.0-32.0 mmol/L Normal CO2 24.0 LAB L501.6200 5-15 Normal 8 GAP Performed By: #### L500.2500, L501.4010 #### [facility] [address] [place], [address] TROPONIN-I Collected: 08/02/2017 Status: F Source: [place] 12:50 PM [facility] REPOSITORY Order Comment: 'TROP' Serial specimen #1, #2, #3, or #4: 1 TYPE CODE TESTS RESULT OUT OF RANGE REFERENCE UNITS LAB L501.4010 <0.045 ng/mL Normal < 0.015 TROPONIN-I Result Comment: TROPONIN-I EXPECTED VALUES <0.045 Negative 0.045 - 0.590 Consistent with Cardiac Damage > OR = 0.600 Critical Value Not every elevated troponin is indicative of TN. These values should be used with clinical judgement in examining the patient's clinical picture for diagnosis. To establish a diagnosis of TN versus myocardial injury, there must be a demonstrated rise and/or fall in the troponin values, in addition to ischemic symptoms, EKG changes, new regional wall motion abnormality, and/or angiographical evidence. PLEASE NOTE: REFERENCE RANGES EDITED 17 Performed By: #### L500.2500, L501.4010 #### [facility] [address] [place], [address] BNP,B-TYPE NATRIURETIC Collected: 08/02/2017 Status: F Source: [place] PEPTIDE 12:50 PM [facility] REPOSITORY TYPE CODE TESTS RESULT OUT OF RANGE REFERENCE UNITS LAB L503.6620 0-100 pg/mL High B-TYPE 115.1 KARL PEP Performed By: #### L503.6620 #### [facility] [address] [place], [address] PROTHROMBIN TIME W/INR Collected: 07/21/2017 Status: F Source: [place] 10:04 AM [facility] REPOSITORY TYPE CODE TESTS RESULT OUT OF RANGE REFERENCE UNITS LAB L300.4150 11.7-14.9 SECONDS High PROTIME 34.0 LAB L300.4200 Normal INR 3.3 Performed By: #### L300.3900 #### [facility] [address] [place], [address] PROTHROMBIN TIME W/INR Collected: 07/11/2017 Status: F Source: [place] 10:34 AM [facility] REPOSITORY Order Comment: RESULTS CALLED TO SROBERTS 07/11/17 1104 Giulia Decker. REPORT READ BACK BY SROBERTS. TYPE CODE TESTS RESULT OUT OF RANGE REFERENCE UNITS LAB L300.4150 11.7-14.9 SECONDS High PROTIME 33.6 LAB L300.4200 Normal INR 3.3 Performed By: #### L300.3900 #### [facility] [address] [place], [address] PROTHROMBIN TIME W/INR Collected: 07/06/2017 Status: F Source: [place] 10:51 AM [facility] REPOSITORY Order Comment: CALL RERSULTS TO [phone] TYPE CODE TESTS RESULT OUT OF RANGE REFERENCE UNITS LAB L300.4150 11.7-14.9 SECONDS High PROTIME 21.8 LAB L300.4200 Normal INR 1.9 Performed By: #### L300.3900 #### [facility] [address] [place], [address] PULMONARY FUNCTION Observed: 05/31/2017 Status: F Source: [place] TEST 11:55 AM [facility] REPOSITORY [facility] Pulmonary Services/Neurology [address] [place] [address] MR#: [id number] Acct: [id number] Name: ASHLEY KING Rep #: [id number] : 1945 72 From: Kemar Duggan DO Referring Dr: MILY ESPINO [facility] Status: REG CLI Ordering Dr: Date: Location: [facility] Sex: F C INTRODUCTION: The patient is a 72-year-old female currently under the care of Dorita Whaley the presents for pulmonary function testing secondary to a diagnosis of COPD. Respiratory therapy reports good patient effort and reports no other concerns. Bronchodilators were used during testing. INTERPRETATION: Forced expiration spirometry demonstrates the presence of a mild large airways obstructive ventilatory defect. There was no significant response to aerosolized bronchodilators, based upon strict ATS criteria. However, the patient did have a significant mid flow bronchodilator response. Spirogram is of good quality do not plateau indicating slow emptying of the lungs. The respiratory flow volume loop reveals decreased expiratory flow rates primarily at high lung volumes consistent with small airways obstruction. Body plethysmography was performed and reveals lung volumes to be within normal limits. Diffusing capacity by single breath CO was within normal limits at 75% of predicted. IMPRESSION: These pulmonary function studies demonstrate the presence of a mild large airways obstructive ventilatory defect. There was a significant mid flow bronchodilator response and stigmata of small airways obstruction, which can be seen with underlying asthma. There are no previous pulmonary function studies available for comparison. 05/31/17 1155 <Electronically signed by Kemar Duggan DO> Date Kemar Duggan DO CC: MILY ESPINO [facility] Date Dictated: 05/31/171151 Date Transcribed: 05/31/171151 Standards Engineer: FLAKITA Signed ALLERGIES ALLERGIES DATE TYPE / CODE NAME / CODE REACTION SEVERITY SOURCE 01/24/2018 Drug No Known Unknown [facility] Allergy/416 Allergies/Y83882 Hospital 719528(SNOM 0388(RXNORM) Repository ED CT) Drug NO KNOWN [facility] Class/33437 ALLERGIES [facility] 1003(SNOMED Repository CT) ENCOUNTERS ENCOUNTERS ADMIT/DISCHARGE ACCOUNT ADMITTING ENCOUNTER LOCATION SOURCE NUMBER CLASS 04/13/2018 [id number] [facility] ing:[facility] Repository 04/11/2018 [id number] [facility] ing:OPUS Repository 03/01/2018 [id number] [facility] ing:LAB Repository 02/15/2018/02/17/20 [id number] Ambulatory [address] ing:LAB Repository 01/28/2018 [id number] [facility] ing:WC Repository 01/24/2018/01/25/20 [id number] [facility] [place] [facility] 01/24/2018/01/25/20 [id number] Ambulatory BMSBuilding:B [place] [address] [facility] Repository 01/19/2018 [id number] [facility]ulatory [facility] Hospital ing:SL Repository 01/17/2018 [id number] Ambulatory BMSBuilding:[place].[facility] Repository 01/17/2018/01/18/20 [id number] Ambulatory [address] Hospital ing:CLSP Repository 01/17/2018/01/18/20 [id number] Ambulatory BMSBuilding:[place] [facility] Repository 01/16/2018/01/17/20 [id number] Ambulatory [address] Hospital ing:LAB Repository 01/16/2018/01/18/20 [id number] Ambulatory [address] Hospital ing:WC Repository 12/26/2017 [id number] [facility]ulatory [facility] Hospital ing:LAB Repository 12/26/2017 [id number] Ambulatory BMSBuilding:[place].[facility] Repository 12/25/2017/12/26/19 [id number] Ambulatory BMSBuilding:B [place] [address] MS.[facility] Repository 12/19/2017/12/20/19 [id number] Ambulatory BMSBuilding:B [place] [address] MS.[facility] Repository 12/11/2017/12/12/19 [id number] Ambulatory [address] Repository 12/11/2017/12/12/19 [id number] Ambulatory [address] Repository 11/28/2017/12/18/19 [id number] [facility] [facility] ing:WC Repository 11/17/2017/11/18/19 [id number] Ambulatory BMSBuilding:B [place] [address] MS.[facility] Repository 11/14/2017/11/18/19 [id number] [address] ing:WC Repository 11/10/2017 [id number] [facility] ing[facility]LAB Repository 11/10/2017/11/11/19 [id number] Ambulatory BMSBuilding:B [place] 18 [place].[facility] Repository 11/08/2017 [id number] [facility] 10/31/2017 [id number] [facility] Repository 10/25/2017/10/26/19 [id number] Ambulatory BMSBuilding:B [place] [facility] [place] [place] 10/16/2017/10/17/19 [id number] Ambulatory BMSBuilding:B [place] 18 MS.[facility] Repository 10/13/2017 [id number] Ambulatory B[place]Building:[place] Repository 10/05/2017 [id number] [facility]LAB Repository 09/19/2017 [id number] Ambulatory BMSBuilding:[place] Repository 09/19/2017 [id number] [facility]LAB Repository 09/12/2017 [id number] [facility] ing:CLSP Repository 09/12/2017 [id number] Ambulatory BMSBuilding:B [place] MS.CF.[facility] Repository 09/12/2017 [id number] Ambulatory BMSBuilding:W [facility] Repository 09/12/2017 [id number] Ambulatory BMSBuilding:W [facility] Repository 09/08/2017 [id number] Ambulatory BMSBuilding:B [place].[facility] Repository 08/25/2017 [id number] [facility]LAB Repository 08/25/2017/08/26/19 [id number] Ambulatory BMSBuilding:B [place] 18 MS.[facility] Repository 08/22/2017/08/23/19 [id number] Ambulatory BMSBuilding:B [place] [place] 08/03/2017/08/04/19 [id number] Ambulatory [address] Repository 08/02/2017/08/03/19 [id number] Emergency [address] ing:ED Repository 08/02/2017 [id number] [facility] ing:CVS Repository 08/02/2017 [id number] Ambulatory BMSBuilding:[facility] Repository 07/21/2017 [id number] [facility] ing:LAB Repository 07/11/2017 [id number] Ambulatory [facility] ing:LAB.FUTUR Repository E 07/06/2017 [id number] [facility] ing:LAB Repository 05/31/2017 [id number] Ambulatory [facility] ing:PSN Repository 05/31/2017 [id number] Ambulatory BMSBuilding:[facility] Repository PAYERS PAYERS ENCOUNTER GUARANTOR PAYER SUBSCRIBER SOURCE 04/13/2018 ASHLEY Jiang Primary ASHLEY Jiang [place] [id number] Insurance:CONNIE RINCON: [facility] CATERINA ELIOT MEDICARE [facility] [id number] ADVANTAPolicy Number: Repository [id number]: 513 [id number] [phone] (HP) Date:7871-84-60MR [address] [place] [address] 92817VX: 04/13/2018 Secondary ASHLEY S [place] Insurance:MEDICAIDPol MCCROSSANA: [facility] Number: [id number] Hospital [id number] Repository Date:2018-04-11 04/13/2018 Tertiary NOT GIVENUNK [place] Insurance:SELF PAY [facility] Number: Effective Repository Date:2018-04-11 04/11/2018 ASHLEY Jiang Primary ASHLEY [place] [id number] Insurance:CONNIE RINCON: [facility] MEDICARE SENIOR [id number] ADVANTAPolicy Number: Repository [id number]: 519) [id number] [phone] (HP) Date:5496-04-60BX [address] [place] [address] 41009TU: 04/11/2018 Secondary ASHLEY Jiang [place] Insurance:MEDICAIDPol MCCAYDOB: Community icy Number: [id number] Hospital [id number] Repository Date:2018-04-06 04/11/2018 Tertiary NOT GIVENUNK [place] Insurance:SELF PAY [facility] Number: Effective Repository Date:2018-04-06 03/01/2018 ASHLEY Jiang Primary ASHLEY [place] [id number] Insurance:ANTHNICO KINGDOB: Community CATERINA DRAPT MEDICARE SENIOR [id number] ADVANTAPolicy Number: Repository [id number]: (127) [id number] [phone] () Date:7854-14-54MC [address] [place] [address] 55859AU: 03/01/2018 Secondary ASHLEY Jiang [place] Insurance:MEDICAIDPol MCCAYDOB: Community icy Number: [id number] Hospital [id number] Repository Date:2018-01-02 03/01/2018 Tertiary NOT GIVENUNK [place] Insurance:SELF PAY [facility] Number: Effective Repository Date:2018-02-19 02/15/2018 ASHLEY Jiang Primary ASHLEY [place] [id number] Insurance:ANTHNICO KINGDOB: Community CATERINA DRAPT MEDICARE [facility] [id number] ADVANTAPolicy Number: Repository [id number]: ([phone] [id number] [phone] (HP) Date:2200-74-16LZ [address] [place] [address] 10082HS: 02/15/2018 Secondary ASHLEY [place] Insurance:MEDICAIDPol MCCAYDOB: Community icy Number: [id number] Hospital [id number] Repository Date:2018-01-02 02/15/2018 Tertiary NOT GIVENUNK [place] Insurance:SELF PAY [facility] Number: Effective Repository Date:2018-01-18 01/28/2018 ASHLEY Jiang Primary ASHLEY [place] [id number] Insurance:ANTHEM DAVIDDOB: Community [address]ERINA [address]APT MEDICARE SENIOR [id number] ADVANTAPolicy Number: Repository [id number]: (513 [id number] [phone] (HP) Date:0764-21-51FC [address] [place] [address] 58160SA: 01/28/2018 Secondary NOT GIVENUNK [place] Insurance:SELF PAY [facility] Hospital Number: Effective Repository Date:2018-01-18 01/24/2018 ASHLEY S Primary ASHLEY [place] [id number] Insurance:CONNIE KINGDOB: Community CATERINA DRAPT MEDICARE SENIOR [id number] ADVANTAPolicy Number: Repository [id number]: (513 [id number] [phone] (HP) Date:5323-24-64EV [address] [place] [address] 95408ZE: 01/24/2018 Secondary ASHLEY Jiang [place] Insurance:MEDICARE MCCAYDOB: Community PART A [facility] [id number] Hospital Number: Repository [id number] Date:2018-01-05 01/24/2018 Tertiary NOT GIVENUNK [place] Insurance:SELF PAY [facility] Hospital Number: Effective Repository Date:2018-01-24 01/24/2018 ASHLEY S Primary ASHLEY [place] [id number] Insurance:CONNIE DEJESUSB: Community CATERINA DRAPT MEDICARE SENIOR [id number] ADVANTAPolicy Number: Repository [id number]: ([phone] [id number] [phone] (HP) Date:4136-58-68TF [address] [place] [address] 40359WS: 01/24/2018 Secondary ASHLEY S [place] Insurance:MEDICARE MCCAYDOB: Community PART A [facility] [id number] Hospital Number: Repository [id number] Date:2017-10-25 01/24/2018 Tertiary NOT GIVENUNK [place] Insurance:SELF PAY [facility] Hospital Number: Effective Repository Date:2018-01-16 01/19/2018 ASHLEY S Primary ASHLEY [place] [id number] Insurance:ANTHEM DAVIDDOB: Community [address]ERINA [address]APT MEDICARE SENIOR [id number] ADVANTAPoly Number: Repository [id number]: 513 [id number] [phone] (HP) Date:4774-34-94BK [address] [place] [address] 12664OH: 01/19/2018 Secondary ASHLEY Jiang [place] Insurance:MEDICARE MCCAYDOB: Community PART A [facility] [id number] Hospital Number: Repository [id number] Date:2018-01-01 01/19/2018 Tertiary NOT GIVENUNK [place] Insurance:SELF PAY [facility] Hospital Number: Effective Repository Date:2018-01-01 01/17/2018 ASHLEY Jiang Primary ASHLEY [place] [id number] Insurance:ANTHEM DAVIDDOB: Community CATERINA DRAPT MEDICARE SENIOR [id number] [facility] Number: Repository [id number]: 513 [id number] [phone] (HP) Date:5195-69-83GO [address] [place] [address] 30681PL: 01/17/2018 Secondary ASHLEY Jiang [place] Insurance:MEDICARE MCCAYDOB: Community PART A [facility] [id number] Hospital Number: Repository [id number] Date:2018-01-17 01/17/2018 Tertiary NOT GIVENUNK [place] Insurance:SELF PAY [facility] Hospital Number: Effective Repository Date:2018-01-17 01/17/2018 ASHLEY S Primary ASHLEY Jiang [place] [id number] Insurance:ANTHEM GAILAYDOB: Community CATERINA [address]APT MEDICARE [facility] [id number] ADVANTAPolic Number: Repository [id number]: 513 [id number] [phone] (HP) Date:4413-44-96VJ [id number] [place] [address] 10875LU: 01/17/2018 Secondary ASHLEY S [place] Insurance:MEDICAIDPol MCCAYDOB: Community icy Number: [id number] Hospital [id number] Repository Date:2018-01-05 01/17/2018 Tertiary NOT GIVENUNK [place] Insurance:SELF PAY [facility] Number: Effective Repository Date:2018-01-05 01/17/2018 ASHLEY S Primary ASHLEY [place] [id number] Insurance:CONNIE DEJESUSB: Community CATERINA [address]APT MEDICARE SENIOR [id number] ADVANTAPolicy Number: Repository [id number]: 513 [id number] [phone] (HP) Date:2778-73-32OT [address] [place] [address] 63247XU: 01/17/2018 Secondary NOT GIVENUNK [place] Insurance:SELF PAY [facility] Number: Effective Repository Date:2018-01-17 01/16/2018 ASHLEY S Primary ASHLEY Jiang [place] [id number] Insurance:CONNIE DEJESUSB: Community CATERINA DRAPT MEDICARE [facility] [id number] ADVANTAPolicy Number: Repository [id number]: 513 [id number] [phone]) Date:2515-87-06NG [address] [place] [address] 71694YZ: 01/16/2018 Secondary NOT GIVENUNK [place] Insurance:SELF PAY [facility] Number: Effective Repository Date:2018-01-02 01/16/2018 ASHLEY S Primary ASHLEY [place] [id number] Insurance:CONNIE RINCON: Community CATERINA [address]APT MEDICARE SENIOR [id number] ADVANTAPolicy Number: Repository [id number]: 513 [id number] [phone] (HP) Date:1301-87-30US [address] [place] [address] [place] [address]AL: 01/16/2018 Secondary ASHLEY S [place] Insurance:MEDICAIDPol MCCAYDOB: Community icy Number: [id number] Hospital [id number] Repository Date:2017-10-23 01/16/2018 Tertiary NOT GIVENUNK [place] Insurance:SELF PAY [facility] Number: Effective Repository Date:2017-12-18 12/26/2017 ASHLEY Jiang Primary ASHLEY Jiang [place] [id number] Insurance:CONNIE DEJESUSB: Community CATERINA [address]APT MEDICARE SENIOR [id number] ADVANTAPolicy Number: Repository [id number]: 513 [id number] [phone] (HP) Date:8169-08-80PE [address] [place] [address] 36421FT: 12/26/2017 Secondary NOT GIVENUNK [place] Insurance:SELF PAY [facility] Hospital Number: Effective Repository Date:2017-12-26 12/26/2017 ASHLEY S Primary ASHLEY Jiang [place] [id number] Insurance:CONNIE DEJESUSB: Community [address]ERINA [address]APT MEDICARE SENIOR [id number] ADVANTAPolicy Number: Repository [id number]: (513 [id number] [phone]) Date:7304-22-14BG [address] [place] [address] 27279FH: 12/26/2017 Secondary NOT GIVENUNK [place] Insurance:SELF PAY [facility] Number: Effective Repository Date:2017-12-26 12/25/2017 ASHLEY S Primary ASHLEY Jiang [place] [id number] Insurance:CONNIE DEJESUSB: Community CATERINA [address]APT MEDICARE SENIOR [id number] ADVANTAPolicy Number: Repository [id number]: (513 [id number] [phone]) Date:0500-49-62WJ [address] [place] [address] 97580NB: 12/25/2017 Secondary ASHLEY [place] Insurance:MEDICARE MCCAYDOB: Community PART A [facility] [id number] Hospital Number: Repository [id number] Date:2017-12-22 12/25/2017 Tertiary NOT GIVENUNK [place] Insurance:SELF PAY [facility] Number: Effective Repository Date:2017-12-25 12/19/2017 ASHLEY S Primary ASHLEY Jiang [place] [id number] Insurance:CONNIE DEJESUSB: Community CATERINA DRAPT MEDICARE [facility] [id number] ADVANTAPolic Number: Repository [id number]: 513 [id number] [phone] (HP) Date:6770-45-68MZ [address] [place] [address] 90897MG: 12/19/2017 Secondary ASHLEY Jiang [place] Insurance:MEDICARE MCCAYDOB: Community PART A [facility] [id number] Hospital Number: Repository [id number] Date:2017-12-13 12/19/2017 Tertiary NOT GIVENUNK [place] Insurance:SELF PAY [facility] Number: Effective Repository Date:2017-12-19 11/28/2017 ASHLEY S Primary ASHLEY Jiang [place] [id number] Insurance:CONNIE KINGDOB: Community [address]ERINA [address]APT MEDICARE SENIOR [id number] ADVANTAPoly Number: Repository [id number]: 513 [id number] [phone] () Date:8300-35-07BE [address] [place] [address] 08667MC: 11/28/2017 Secondary ASHLEY [place] Insurance:MEDICAIDPol MCCAYDOB: [facility] icy Number: [id number] Hospital [id number] Repository Date:2017-10-23 11/28/2017 Tertiary NOT GIVENUNK [place] Insurance:SELF PAY [facility] Number: Effective Repository Date:2017-11-18 11/17/2017 ASLHEY S Primary ASHLEY Jiang [place] [id number] Insurance:MEDICARE MCCAYDOB: Community CATERINA DRAPT PART A [facility] [id number] Number: Repository [id number]: 513 [id number] [phone] (HP) Date:2017-11-10 11/17/2017 Secondary ASHLEY S [place] Insurance:MEDICAIDPol MCCAYDOB: Community icy Number: [id number] [id number] Repository Date:2017-11-10 11/17/2017 Tertiary NOT GIVENUNK [place] Insurance:SELF PAY [facility] Number: Effective Repository Date:2017-11-16 11/14/2017 ASHLEY Jiang Primary ASHLEY Jiang [place] [id number] Insurance:MEDICARE MCCAYDOB: Community CATERINA DRAPT PART A [facility] [id number], [place] Number: Repository [id number]: 513 [id number] [phone] () Date:2017-10-23 11/14/2017 Secondary ASHLEY [place] Insurance:MEDICAIDPol MCCAYDOB: Community icy Number: [id number] Hospital [id number] Repository Date:2017-10-23 11/14/2017 Tertiary NOT GIVENUNK [place] Insurance:SELF PAY [facility] Number: Effective Repository Date:2017-10-23 11/10/2017 ASHLEY S Primary ASHLEY Jiang [place] [id number] Insurance:MEDICARE MCCAYDOB: Community CATERINA DRAPT PART A [facility] [id number] [place] Number: Repository [id number]: [phone]) [id number] [phone] () Date:2017-11-10 11/10/2017 Secondary ASHLEY Jiang [place] Insurance:MEDICAIDPol MCCAYDOB: Community icy Number: [id number] Hospital [id number] Repository Date:2017-11-10 11/10/2017 Tertiary NOT GIVENUNK [place] Insurance:SELF PAY [facility] Number: Effective Repository Date:2017-11-10 11/10/2017 ASHLEY S Primary ASHLEY Jiang [place] [id number] Insurance:MEDICARE MCCAYDOB: Community CATERINA DRAPT PART A [facility] [id number], [place] Number: Repository 477[address]Ifm: (180) [id number] [phone] () Date:2017-11-10 11/10/2017 Secondary ASHLEY Jiang [place] Insurance:MEDICAIDPol MCCAYDOB: Community icy Number: [id number] Hospital [id number] Repository Date:2017-11-10 11/10/2017 Tertiary NOT GIVENUNK [place] Insurance:SELF PAY [facility] Number: Effective Repository Date:2017-11-10 11/08/2017 ASHLEY Jiang Primary ASHLEY Jiang [place] [id number] Insurance:MEDICARE MCCAYDOB: Community CATERINA DRAPT PART A [facility] [id number], [place] Number: Repository [id number]: ([phone] [id number] [phone] (HP) Date:2017-10-26 11/08/2017 Secondary ASHLEY Jiang [place] Insurance:MEDICAIDPol MCCAYDOB: Community icy Number: [id number] Hospital [id number] Repository Date:2017-10-26 11/08/2017 Tertiary NOT GIVENUNK [place] Insurance:SELF PAY [facility] Number: Effective Repository Date:2017-10-26 10/31/2017 ASHLEY Jiang Primary ASHLEY Jiang [place] [id number] Insurance:MEDICARE MCCAYDOB: Community CATERINA DRAPT PART A [facility] [id number], [place] Number: Repository 94687Jsw: [phone]) [id number] [phone] () Date:2017-10-23 10/31/2017 Secondary ASHLEY Jiang [place] Insurance:MEDICAIDPol MCCAYDOB: Community icy Number: [id number] Hospital [id number] Repository Date:2017-10-23 10/31/2017 Tertiary NOT GIVENUNK [place] Insurance:SELF PAY [facility] Number: Effective Repository Date:2017-10-23 10/25/2017 ASHLEY S Primary ASHLEY Jiang [place] [id number] Insurance:MEDICARE MCCAYDOB: Community CATERINA DRAPT PART A [facility] [id number], [place] Number: Repository 55706Gxj: (250) [id number] [phone] () Date:2017-08-29 10/25/2017 Secondary ASHLEY Jiang [place] Insurance:MEDICAIDPol MCCAYDOB: Community icy Number: [id number] Hospital [id number] Repository Date:2017-08-29 10/25/2017 Tertiary NOT GIVENUNK [place] Insurance:SELF PAY [facility] Number: Effective Repository Date:2017-10-18 10/16/2017 ASHLEY Jiang Primary ASHLEY Jiang [place] [id number] Insurance:MEDICARE MCCAYDOB: Community CATERINA DRAPT PART A [facility] [id number] Number: Repository 79185Pvj: (252) [id number] [phone] () Date:2017-03-08 10/16/2017 Secondary ASHLEY [place] Insurance:MEDICAIDPol MCCAYDOB: Community icy Number: [id number] Hospital [id number] Repository Date:2017-03-08 10/16/2017 Tertiary NOT GIVENUNK [place] Insurance:SELF PAY [facility] Number: Effective Repository Date:2017-10-16 10/13/2017 ASHLEY S Primary ASHLEY Jiang [place] [id number] Insurance:MEDICARE MCCAYDOB: Community CATERINA DRAPT PART A [facility] [id number], [place] Number: Repository 44457Zqq: 513 [id number] [phone] () Date:2017-10-13 10/13/2017 Secondary ASHLEY Jiang [place] Insurance:MEDICAIDPol MCCAYDOB: Community icy Number: [id number] Hospital [id number] Repository Date:2017-10-13 10/13/2017 Tertiary NOT GIVENUNK [place] Insurance:SELF PAY [facility] Number: Effective Repository Date:2017-10-13 10/05/2017 ASHLEY S Primary ASHLEY [place] [id number] Insurance:MEDICARE MCCAYDOB: Community CATERINA DRAPT PART A [facility] [id number] Number: Repository 65752Pil: (624) [id number] [phone] () Date:2017-10-05 10/05/2017 Secondary ASHLEY Jiang [place] Insurance:MEDICAIDPol MCCAYDOB: Community icy Number: [id number] Hospital [id number] Repository Date:2017-10-05 10/05/2017 Tertiary NOT GIVENUNK [place] Insurance:SELF PAY [facility] Number: Effective Repository Date:2017-10-05 09/19/2017 ASHLEY S Primary ASHLEY [place] [id number] Insurance:MEDICARE MCCAYDOB: Community CATERINA DRAPT PART A [facility] [id number] Number: Repository 16116Jbw: (003) [id number] [phone] () Date:2017-08-30 09/19/2017 Secondary ASHLEY S [place] Insurance:AETNA SR MCCAYDOB: Community SUPPLEMENT INSPolic [id number] Hospital Number: Repository [id number] Date:6799-50-99PVYSF SENIOR SUPPLEMENT [address], [place] [address]AP: 09/19/2017 Tertiary ASHLEY Jiang [place] Insurance:MEDICAIDPol MCCAYDOB: [facility] icy Number: [id number] Hospital [id number] Repository Date:2017-08-30 09/19/2017 Tertiary NOT GIVENUNK [place] Insurance:SELF PAY [facility] Number: Effective Repository Date:2017-08-30 09/19/2017 SAHLEY S Primary ASHLEY S [place] [id number] Insurance:MEDICARE MCCAYDOB: Community CATERINA DRAPT PART A [facility] [id number] Number: Repository [id number]: 514) [id number] [phone] () Date:2017-09-19 09/19/2017 Secondary ASHLEY S [place] Insurance:AETNA SR MCCAYDOB: Community SUPPLEMENT INSPolicy [id number] Hospital Number: Repository [id number] Date:2939-23-17WNWLL SENIOR SUPPLEMENT [address] [address], [place] [address]LR: 09/19/2017 Tertiary ASHLEY S [place] Insurance:MEDICAIDPol MCCAYDOB: [facility] ic Number: [id number] Hospital [id number] Repository Date:2017-09-19 09/19/2017 Tertiary NOT GIVENUNK [place] Insurance:SELF PAY [facility] Hospital Number: Effective Repository Date:2017-09-19 09/12/2017 ASHLEY S Primary ASHLEY Jiang [place] [id number] Insurance:MEDICARE MCCAYDOB: Community CATERINA DRAPT PART A [facility] [id number] Number: Repository [id number]: 51 [id number] [phone] () Date:2017-08-28 09/12/2017 Secondary ASHLEY S [place] Insurance:AETNA SR MCCAYDOB: Community [facility] [id number] Hospital Number: Repository [id number] Date:0234-28-81NRYHQ SENIOR SUPPLEMENT [address] [address], [place] [address]KD: 09/12/2017 Tertiary ASHLEY [place] Insurance:MEDICAIDPol MCCAYDOB: Community icy Number: [id number] Hospital [id number] Repository Date:2017-08-28 09/12/2017 Tertiary NOT GIVENUNK [place] Insurance:SELF PAY [facility] Number: Effective Repository Date:2017-08-28 09/12/2017 ASHLEY S Primary ASHLEY [place] [id number] Insurance:MEDICARE MCCAYDOB: Community CATERINA DRAPT PART A [facility] [id number] Number: Repository [id number]: 513 [id number] [phone] () Date:2017-08-28 09/12/2017 Secondary ASHLEY S [place] Insurance:AETNA SR MCCAYDOB: Community [facility]LEMENT [facility] [id number] Hospital Number: Repository [id number] Date:0428-72-39ZTSUC SENIOR SUPPLEMENT [address] [address], [place] [address]DF: 09/12/2017 Tertiary ASHLEY S [place] Insurance:MEDICAIDPol MCCAYDOB: Community icy Number: [id number] Hospital [id number] Repository Date:2017-08-28 09/12/2017 Tertiary NOT G[place]UNK [place] Insurance:SELF PAY [facility] Number: Effective Repository Date:2017-09-12 09/12/2017 ASHLEY S Primary ASHLEY [place] [id number] Insurance:MEDICARE MCCAYDOB: Community [address]ERINA DRAPT PART A [facility] [id number] Number: Repository [id number]: ([phone]) [id number] [phone] () Date:2017-08-28 09/12/2017 Secondary ASHLEY S [place] Insurance:AETNA SR MCCAYDOB: Community SUPPLEMENT [facility] [id number] Hospital Number: Repository [id number] Date:9191-74-32TDEEE SENIOR SUPPLEMENT [address]SP[address] [place] [address]AE: 09/12/2017 Tertiary ASHLEY S [place] Insurance:MEDICAIDPol MCCAYDOB: Community icy Number: [id number] Hospital [id number] Repository Date:2017-08-28 09/12/2017 Tertiary NOT GIVENUNK [place] Insurance:SELF PAY [facility] Number: Effective Repository Date:2017-09-12 09/12/2017 ASHLEY S Primary ASHLEY S [place] [id number] Insurance:MEDICARE MCCAYDOB: Community CATERINA DRAPT PART A [facility] [id number] Number: Repository [id number]: (120) [id number] [phone] () Date:2017-08-28 09/12/2017 Secondary ASHLEY S [place] Insurance:AETNA SR MCCAYDOB: Community SUPPLEMENT [facility] [id number] Hospital Number: Repository [id number] Date:[id number] SENIOR SUPPLEMENT [address] [place] [address]LU: 09/12/2017 Tertiary ASHLEY S [place] Insurance:MEDICAIDPol MCCAYDOB: Community icy Number: [id number] Hospital [id number] Repository Date:2017-08-28 09/12/2017 Tertiary NOT GIVENUNK [place] Insurance:SELF PAY [facility] Effective Repository Date:2017-09-12 09/08/2017 ASHLEY S Primary ASHLEY S [place] [id number] Insurance:MEDICARE MCCAYDOB: Community [address]ERINA DRAPT PART A [facility] [id number] Number: Repository [id number]: [phone] [id number] [phone] () Date:2017-08-30 09/08/2017 Secondary ASHLEY Jiang [place] Insurance:AETNA SR MCCAYDOB: Community SUPPLEMENT [facility] [id number] Hospital Number: Repository [id number] Date:0752-18-51SDQXT SENIOR SUPPLEMENT [address] [address], [place] [address]SI: 09/08/2017 Tertiary ASHLEY S [place] Insurance:MEDICAIDPol MCCAYDOB: Community icy Number: [id number] Hospital [id number] Repository Date:2017-08-30 09/08/2017 Tertiary NOT GIVENUNK [place] Insurance:SELF PAY [facility] Number: Effective Repository Date:2017-08-30 08/25/2017 ASHLEY S Primary ASHLEY S [place] [id number] Insurance:MEDICARE MCCAYDOB: Community CATERINA DRAPT PART A [facility] [id number] Number: Repository [id number]: [phone] [id number] [phone] () Date:2017-08-25 08/25/2017 Secondary ASHLEY S [place] Insurance:AETNA SR MCCAYDOB: Community SUPPLEMENT [facility] [id number] Hospital Number: Repository [id number] Date:2552-68-30OJHXF SENIOR SUPPLEMENT [address] [address], [place] [address]ML: 08/25/2017 Tertiary ASHLEY S [place] Insurance:MEDICAIDPol MCCAYDOB: Community icy Number: [id number] Hospital [id number] Repository Date:2017-08-25 08/25/2017 Tertiary NOT [place]UNK [place] Insurance:SELF PAY [facility] Number: Effective Repository Date:2017-08-25 08/25/2017 ASHLEY S Primary ASHLEY S [place] [id number] Insurance:MEDICARE MCCAYDOB: Community [address]IVEAPT PART A [facility] [id number], [place] Number: Repository [id number]: [phone] [id number] [phone] (HP) Date:2017-08-03 08/25/2017 Secondary ASHLEY S [place] Insurance:AETNA SR MCCAYDOB: Community SUPPLEMENT [facility] [id number] Hospital Number: Repository [id number] Date:0791-33-07NSZRU SENIOR SUPPLEMENT [address] [address], [place] [address]BF: 08/25/2017 Tertiary ASHLEY S [place] Insurance:MEDICAIDPol MCCAYDOB: Community icy Number: [id number] Hospital [id number] Repository Date:2017-08-03 08/25/2017 Tertiary NOT G[place]UNK [place] Insurance:SELF PAY [facility] Number: Effective Repository Date:2017-09-01 08/22/2017 ASHLEY S Primary ASHLEY Jiang [place] [id number] Insurance:MEDICARE MCCAYDOB: Community CATERINA DRAPT PART A [facility] [id number] Number: Repository [id number]: [phone] [id number] [phone] () Date:2017-08-02 08/22/2017 Secondary ASHLEY S [place] Insurance:AETNA SR [facility] SUPPLEMENT [facility] [id number] Hospital Number: Repository [id number] Date:2670-31-35GQWZL [facility] SUPPLEMENT [address] [address], [place] [address]XV: 08/22/2017 Tertiary ASHLEY S [place] Insurance:MEDICAIDPol MCCAYDOB: Community icy Number: [id number] Hospital [id number] Repository Date:2017-08-02 08/22/2017 Tertiary NOT GIVENUNK [place] Insurance:SELF PAY [facility] Number: Effective Repository Date:2017-08-18 08/02/2017 ASHLEY S Primary ASHLEY Jiang [place] [id number] Insurance:MEDICARE MCCAYDOB: Community [address]INA DRAPT PART A [facility] [id number] Number: Repository [id number]: [phone] [id number] [phone] (HP) Date:2017-08-02 08/02/2017 Secondary ASHLEY S [place] Insurance:AETNA SR MCCAYDOB: Community SUPPLEMENT [facility] [id number] Hospital Number: Repository [id number] Date:0327-78-83QGFRV SENIOR SUPPLEMENT [address] [address], [place] [address]BJ: 08/02/2017 Tertiary ASHLEY S [place] Insurance:MEDICAIDPol MCCAYDOB: Community icy Number: [id number] Hospital [id number] Repository Date:2017-08-02 08/02/2017 Tertiary NOT GIV[place]UNK [place] Insurance:SELF PAY [facility] Number: Effective Repository Date:2017-08-02 08/02/2017 ASHLEY S Primary ASHLEY Jiang [place] [id number] Insurance:MEDICARE MCCAYDOB: Community CATERINA DRAPT PART A [facility] [id number] Number: Repository [id number]: [phone] [id number] [phone] () Date:2017-08-02 08/02/2017 Secondary ASHLEY S [place] Insurance:AETNA SR [facility] Community SUPPLEMENT [facility] [id number] Hospital Number: Repository [id number] Date:4487-89-82ENJTO SENIOR SUPPLEMENT [address] [address], [place] [address]OX: 08/02/2017 Tertiary ASHLEY S [place] Insurance:MEDICAIDPol MCCAYDOB: Community ic Number: [id number] Hospital [id number] Repository Date:2017-08-02 08/02/2017 Tertiary NOT G[place]K [place] Insurance:SELF PAY [facility] Number: Effective Repository Date:2017-08-02 08/02/2017 ASHLEY S Primary ASHLEY [place] [id number] Insurance:MEDICARE MCCAYDOB: Community [address]T PART A [facility] [id number] Number: Repository [id number]: [phone] [id number] [phone] () Date:2017-08-02 08/02/2017 Secondary ASHLEY S [place] Insurance:AETNA SR MCCAYDOB: Community SUPPLEMENT [facility] [id number] Hospital Number: Repository [id number] Date:7647-05-01WWQER SENIOR SUPPLEMENT [address] [address], [place] [address]JI: 08/02/2017 Tertiary ASHLEY S [place] Insurance:MEDICAIDPol MCCAYDOB: Community icy Number: [id number] Hospital [id number] Repository Date:2017-08-02 08/02/2017 Tertiary NOT GIVENUNK [place] Insurance:SELF PAY [facility] Number: Effective Repository Date:2017-08-02 07/21/2017 ASHLEY S Primary ASHLEY [place] [id number] Insurance:MEDICARE MCCAYDOB: Community [address]T PART A [facility] [id number] Number: Repository [id number]: [phone] [id number] [phone] (HP) Date:2017-07-21 07/21/2017 Secondary ASHLEY S [place] Insurance:AETNA SR MCCAYDOB: Community SUPPLEMENT [facility] [id number] Hospital Number: Repository [id number] Date:9690-66-86JRGSC SENIOR SUPPLEMENT [address] [address], [place] [address]TQ: 07/21/2017 Tertiary ASHLEY Jiang [place] Insurance:MEDICAIDPol [facility] Number: [id number] Hospital [id number] Repository Date:2017-07-21 07/21/2017 Tertiary NOT GIV[place]UNK [place] Insurance:SELF PAY [facility] Number: Effective Repository Date:2017-07-21 07/11/2017 ASHLEY S Primary ASHLEY Jiang [place] [id number] Insurance:MEDICARE MCCAYDOB: Community [address]T PART A [facility] [id number] Number: Repository [id number]: [phone] [id number] [phone] (HP) Date:2017-07-11 07/11/2017 Secondary ASHLEY S [place] Insurance:AETNA SR MCCAYDOB: Community SUPPLEMENT [facility] [id number] Hospital Number: Repository [id number] Date:9068-96-40HYIZK SENIOR SUPPLEMENT [address] [place] [address]FA: 07/11/2017 Tertiary ASHLEY S [place] Insurance:MEDICAIDPol [facility] icy Number: [id number] Hospital [id number] Repository Date:2017-07-11 07/11/2017 Tertiary NOT GIVENUNK [place] Insurance:SELF PAY [facility] Hospital Number: Effective Repository Date:2017-07-11 07/06/2017 ASHLEY S Primary ASHLEY S [place] [id number] Insurance:MEDICARE MCCAYDOB: Community [address]ER[address]T PART A [facility] [id number] Number: Repository [id number]: [phone] [id number] [phone] (HP) Date:2017-07-06 07/06/2017 Secondary ASHLEY S [place] Insurance:AETNA SR MCCAYDOB: Community SUPPLEMENT [facility] [id number] Hospital Number: Repository [id number] Date:1066-18-76DTVQH SENIOR SUPPLEMENT [address] [place] [address]EY: 07/06/2017 Tertiary ASHLEY S [place] Insurance:MEDICAIDPol [facility] Number: [id number] Hospital [id number] Repository Date:2017-07-06 07/06/2017 Tertiary NOT G[place]UNK [place] Insurance:SELF PAY [facility] Hospital Number: Effective Repository Date:2017-07-06 05/31/2017 ASHLEY S Primary ASHLEY S [place] [id number] Insurance:MEDICARE MCCAYDOB: Community [address]T PART A [facility] [id number] Number: Repository [address]Ftg: [phone] [id number] [phone] (HP) Date:2017-05-10 05/31/2017 Secondary ASHLEY S [place] Insurance:AETNA SR MCCAYDOB: Community SUPPLEMENT [facility] [id number] Hospital Number: Repository [id number] Date:9941-39-10ABEEX SENIOR SUPPLEMENT [address] [address], [place] [address]ZY: 05/31/2017 Tertiary ASHLEY Jiang [place] Insurance:MEDICAIDPol MCCAYDOB: Community icy Number: [id number] Hospital [id number] Repository Date:2017-05-10 05/31/2017 Tertiary NOT GIVENUNK [place] Insurance:SELF PAY [facility] Number: Effective Repository Date:2017-05-10 05/31/2017 ASHLEY S Primary ASHLEY Jiang [place] [id number] Insurance:MEDICARE MCCAYDOB: Community CATERINA DRAPT PART A [facility] [id number] Number: Repository [address]Kfd: [phone] [id number] [phone] () Date:2017-05-10 05/31/2017 Secondary ASHLEY S [place] Insurance:AETNA SR [facility] Community SUPPLEMENT [facility] [id number] Hospital Number: Repository [id number] Date:0572-95-45YOLFC SENIOR SUPPLEMENT [address] [address], [place] [address]TN: 05/31/2017 Tertiary ASHLEY Jiang [place] Insurance:MEDICAIDPol [facility] ic Number: [id number] Hospital [id number] Repository Date:2017-05-10 05/31/2017 Tertiary NOT GIVENUNK [place] Insurance:SELF PAY [facility] Number: Effective Repository Date:2017-05-31
== END ==
DX: N95.0 Postmenopausal bleeding (principal)
CPT/HCPCS: 76830; 76856

== ENCOUNTER → 2018-04-26 13:29 | Outpatient (CLI) | payer MEDICARE, MEDICAID, SELFPAY ==
[2018-04-17 10:09] VITALS: BMI 41.9
--- NOTE | 2018-04-26 12:52 | SLEEP ---
Pt presents to the sleep Center for PAP education. The pt saw Izabela Proctor at [facility] at the end of March and Izabela went over the most recent [employer] download with the pt. The pt has not worn PAP in over a month. She c/o of the followin. Mask discomfort and not being able to control leak. She is fearful of the machine and mask. We discussed at length the pathophysiology of KYLE and the possibility of untreated KYLE triggering A-Fib. The Dreamwear full face mask, medium frame/ medium cushion fits her really well. We went over how to properly adjust this mask and to use either the mask fit feature of her machine, or to turn off the RAMP feature. She is going to practice at home, in a chair during the day in her living room with the machine and mask. When she reaches 40 min with the mask on while awake, she will then take it to her room to attempt use at night. 2. RLS/PLMS: The pt c/o of moderate to severe RLS symptoms. She admits to not notifying Izabela during their visit of her RLS symptoms. PSG and titration support the presence of PLMS. We discussed at length the medication classifications used to treat RLS. She is going to discuss with Izabela Hitesh. She was given a handout on RLS/PLMS/PLMD. She is at the end of her 90 day compliance cycle. I will notify Nati and ask for an extension to give me some time to work with her and get her compliant. Realistically, it could take another 60 days to get her 30 days compliant. I will f/u with her early next week. The patient recently lost her 92 year old mother after placing her into hospice care. This has made the insomnia worse. I think the insomnia will lessen or even resolve after treating her legs and time after mourning the loss of her mother.
== END ==
PROVIDERS: Referring Provider Nurse Practitioner Acute Care; Visit Provider Nurse Practitioner Acute Care
DX: G47.33 Obstructive sleep apnea (adult) (pediatric) (principal)
CPT/HCPCS: 98960; G0463

== ENCOUNTER → 2018-04-26 16:58 | Outpatient (CLI) | payer MEDICARE, MEDICAID, SELFPAY ==
[2018-04-17 10:09] VITALS: BMI 41.9
--- NOTE | 2018-04-26 17:01 | CT_ITS ---
STUDY: CT ABDOMEN AND PELVIS WITH CONTRAST REASON FOR EXAM: Female, 72 years old. Postmenopausal bleeding RADIATION DOSAGE (If Supplied By Facility): CTDIvol = ( 19.4 ) mGy, DLP = ( 2160.43 ) mGycm TECHNIQUE: Transaxial images were obtained from the dome of the diaphragm to the symphysis pubis with oral contrast. 100 ml of Isovue 300 contrast was administered. Sagittal and coronal images were reconstructed. Individualized dose optimization techniques were used for this CT. COMPARISON: Pelvic ultrasound from 04/11/2018 FINDINGS: The visualized lung bases are unremarkable. The visualized portions of the heart are within normal limits. Normal liver. Gallstones within the portion of the gallbladder lumen. Normal spleen. Normal pancreas. Normal bilateral adrenal glands. There is moderate cortical atrophy of the right kidney, consistent with chronic medical renal disease. There is moderate cortical atrophy of the left kidney, consistent with chronic medical renal disease. Normal visualized stomach. Normal small intestine. There are multiple colonic diverticula consistent with diverticulosis. The appendix is visualized and appears normal. There is diffuse atherosclerotic calcification of the abdominal aorta, without a demonstrated aneurysm. Normal inferior vena cava. Normal retroperitoneum. Urinary bladder is not well distended. The uterus is atrophic. In the right hemipelvis, there is a cystic and solid mass measuring 14.8 x 9.0 x 10.1 cm. There is a small cystic nodule anterior to the uterus on axial image 94 measured 1.1 cm. The left ovary is normal in appearance. There is a left-sided inguinal hernia containing adipose tissue. There are diffuse degenerative changes of the visualized lumbar spine. CT/Abdomen/Pelvis WITH Contrast IMPRESSION: 1. 14.8 x 9.0 x 10.1 cm solid and cystic mass in the region of the right ovary worrisome for serous neoplasm. Gynecologic consultation is suggested. 1 cm low density nodule anterior to the uterus could represent a peritoneal implant, although is nonspecific. 2. Bilateral renal atrophy. 3. Degenerative changes of the lumbar spine. Minimal spondylolisthesis of L4-L5 due to facet arthropathy. 4. Cholelithiasis. Electronically Signed: Rc Martinez MD at 21:46 EST , Service support ,
== END ==
PROVIDERS: Visit Provider Nurse Practitioner Family
DX: N95.0 Postmenopausal bleeding (principal); G47.33 Obstructive sleep apnea (adult) (pediatric)
CPT/HCPCS: 74177; 98960; Q9967; G0463

== ENCOUNTER → 2018-05-25 10:09 | Outpatient (CLI) | payer MEDICARE, MEDICAID, SELFPAY ==
[2018-05-18 08:37] VITALS: BMI 44.0
--- NOTE | 2018-05-25 10:10 | CDU_ITS ---
Reason For Study: DIZZINESS Rt. Velocities/BP Lt. Velocities/BP Prox CCA 112.0/21.1 cm/sec. Prox CCA 109.0/19.9 cm/sec. Mid CCA 102.0/15.8 cm/sec. Mid CCA 99.1/21.1 cm/sec. Dist CCA 89.1/12.9 cm/sec. Dist CCA 96.7/17.6 cm/sec. Prox ICA 85.6/17.6 cm/sec. Prox ICA 100.0/22.3 cm/sec. Mid ICA 97.3/17.6 cm/sec. Mid ICA 103.0/24.6 cm/sec. Dist ICA 99.7/21.1 cm/sec. Dist ICA 119.0/18.2 cm/sec. Rt. ICA/CCA = .98. Lt. ICA/CCA = 1.2. Prox ECA 113.0/13.5 cm/sec. Prox ECA 88.5/12.3 cm/sec. Rt. Vert. 59.8/11.7 cm/sec. Lt. Vert. 82.7/15.2 cm/sec. Right Extracranial There is intimal thickening but no significant atherosclerotic plaque noted in the right common carotid artery. There is intimal thickening but no significant atherosclerotic plaque noted in the right internal carotid artery. There is no significant atherosclerotic plaque noted in the right external carotid artery. Antegrade flow is noted in the right vertebral artery. Left Extracranial There is intimal thickening but no significant atherosclerotic plaque noted in the left common carotid artery. There is heterogeneous, irregular atherosclerotic plaque noted in the left internal carotid artery. There is intimal thickening but no significant atherosclerotic plaque noted in the left external carotid artery. Antegrade flow is noted in the left vertebral artery. Procedure Carotid Duplex [id number]. Exam performed in department. Interpretation Summary <50% stenosis right extracranial internal carotid with no significant plague Normal flow right external carotid Minimal plague at the proximal left internal carotid with <50% stenosis. Normal flow left external carotid Patent and antegrade bilateral vertebrals. Ordering Physician: Curt Love Referring Physician: Curt Love Performed By: Portia Carrion RVT
== END ==
PROVIDERS: Referring Provider Nurse Practitioner Family; Visit Provider Nurse Practitioner Family
DX: I48.91 Unspecified atrial fibrillation (principal); R42 Dizziness and giddiness; R00.2 Palpitations
CPT/HCPCS: 93880

== ENCOUNTER 2018-06-02 12:44 | Emergency (ER) | payer MEDICARE, MEDICAID, SELFPAY ==
[2018-05-18 08:37] VITALS: BMI 44.0
[2018-06-02 12:45] VITALS: TEMP 36.9; BMI 45.5
[2018-06-02 12:53] VITALS: BP 124/70; PULSE 127; RESP 21; O2SAT 99
--- NOTE | 2018-06-02 13:09 | EKG12_ITS ---
Test Reason : PALPITATIONS Blood Pressure : / mmHG Vent. Rate : 122 BPM Atrial Rate : 110 BPM P-R Int : 000 ms QRS Dur : 154 ms QT Int : 382 ms P-R-T Axes : 000 096 -24 degrees QTc Int : 544 ms Atrial fibrillation with rapid ventricular response Right bundle branch block T wave abnormality, consider inferior ischemia Abnormal ECG Confirmed by RODNEY MORROW, CHRIS ([id number]), editor greeting card ESMER RIDDLE ([id number]) on 06/04/2018 4:18:00 PM Referred By: ROWAN Confirmed By:CHRIS STEVENS MD
--- NOTE | 2018-06-02 13:09 | RAD_ITS ---
STUDY: X-RAY CHEST REASON FOR EXAM: Female, 73 years old. Chest pain TECHNIQUE: Frontal view of the chest COMPARISON: 07/15/2017 FINDINGS: The lungs are clear. There are no pleural effusions. There is no pneumothorax. The heart is normal in size. The visualized osseous structures are within normal limits. RAD/Chest 1 View (Portable) IMPRESSION: No acute thoracic pathology. Electronically Signed: Hima Mckenzie, at 13:41 EDT Tel , Service support ,
[2018-06-02 13:15] VITALS: O2SAT 99
[2018-06-02 13:23] LABS: Absolute Lymphocyte Count 1.66 X10^3/ul (0.83-4.51); Absolute Neutrophil Count 4.8 X10^3/uL (2.0-7.7); Basophil# 0.03 X10^3/uL; Basophil% 0.4 % (0-1); Eosinophil# 0.15 X10^3/uL; Eosinophils% 2.1 % (0-5); Hematocrit 31.4 % (37-47); Hemoglobin 8.9 g/dl (12.0-15.0); Lymphocyte # 1.66 X10^3/ul (4.0); Lymphocyte % 22.8 % (19-41); Mean Corp Hgb Conc 28.3 g/gl (32-36); Mean Corpuscular Hgb 21.5 pg (27.0-32.0); Mean Corpuscular Volume 75.8 fL (81-99); Mean Platelet Vol. 9.6 fl (6.2-12.0); Monocyte# 0.61 X10^3/uL; Monocyte% 8.4 % (0-10); Neutrophil # 4.81 X10^3/uL (2.7-7.7); Neutrophil % 66.2 % (47-70); Platelet Count 523 K/mm3 (150-450); RBC Distribution Width CV 16.1 % (11.6-14.6); RBC Distribution Width SD 44.6 fl (35.1-43.9); Red Blood Count 4.14 M/mm3 (4.2-5.4); White Blood Count 7.3 K/mm3 (4.4-11.0)
[2018-06-02] MEDS: dilTIAZem 25 MG/5 ML Vial 20 MG IV BOLUS (13:23)
[2018-06-02 13:26] LABS: POSITIVE COUNT NO; POSITIVE DIFFERENTIAL NO; POSITIVE MORPHOLOGY NO
[2018-06-02 13:30] LABS: International Normalized Ratio 1.9; Prothrombin Time (Protime)PT. 21.7 SECONDS (11.7-14.9)
[2018-06-02 13:38] LABS: Anion Gap 7 (5-15); BUN 28 mg/dL (7-18); Calcium,Total 9.3 mg/dL (8.5-10.1); Chloride 109 mmol/L (98-107); EST Glomerular Filtration Rate 39 mL/min (>60); Est Glom Filt Rate - Afr Amer 48 mL/min (>60); Glucose 148 mg/dL (74-106); Potassium 3.6 mmol/L (3.5-5.1); Sodium Level 141 mmol/L (136-145)
[2018-06-02 13:47] VITALS: BP 121/70; PULSE 78; RESP 18; O2SAT 99
--- NOTE | 2018-06-02 13:50 | EKG12_ITS ---
Test Reason : REPEAT EKG Blood Pressure : / mmHG Vent. Rate : 077 BPM Atrial Rate : 077 BPM P-R Int : 202 ms QRS Dur : 148 ms QT Int : 448 ms P-R-T Axes : 018 087 025 degrees QTc Int : 506 ms Normal sinus rhythm Right bundle branch block Abnormal ECG Confirmed by RODNEY MORROW, CHRIS ([id number]), editor house organ ESMER RIDDLE ([id number]) on 06/04/2018 4:18:37 PM Referred By: ROWAN Confirmed By:CHRIS STEVENS MD
[2018-06-02 14:13] VITALS: BP 133/85; PULSE 89; RESP 17; O2SAT 99
--- NOTE | 2018-06-02 14:14 | ED.DCSUM_ITS ---
- ER Visit Summary Date of Service: 06/02/18 Chief Complaint: Palpitations History of Present Illness: The patient is a 73 F with palpitations that started a few hours ago. No chest pain or shortness of breath no fever or chills. She has had similar symptoms with atrial fibrillation. She is on flecainide and Coumadin. Physical Examination: She has slightly dry mucous membrane she has an irregularly irregular tachycardia. She has a soft abdomen no lower extremity edema. Emergency Department Course and Treatment: Her workup was unremarkable, her INR is 1.9, she converted with Cardizem. She is now in normal sinus rhythm. I believe she is safe for discharge we will adjust her Coumadin, it will increase. She is to follow-up with her nurseryman assistant in 3-5 days. Disposition: Discharge stable condition Impression: Atrial fibrillation with rapid ventricular response status post cardioversion in the emergency department This note was generated with [employer] dictation software. It may contain incorrect words, spelling, and punctuation that were not noted in review of the chart prior to signing ED Disposition - Plan for ED Patient: Disposition: Home or Assisted Living Diagnosis: Atrial fibrillation by electrocardiogram Referrals: Jason Blount MD [STAFF PHYSICIAN] - 3-5 Days
[2018-06-02 14:25] VITALS: BP 121/70; PULSE 78; RESP 18; O2SAT 99
== END 2018-06-02 14:28 | disposition home or self-care (01) ==
PROVIDERS: Emergency Provider Emergency Medicine
DX: I48.91 Unspecified atrial fibrillation (principal); E11.9 Type 2 diabetes mellitus without complications; J44.9 Chronic obstructive pulmonary disease, unspecified; Z79.01 Long term (current) use of anticoagulants; Z79.82 Long term (current) use of aspirin; Z79.84 Long term (current) use of oral hypoglycemic drugs; Z79.899 Other long term (current) drug therapy
CPT/HCPCS: 71045; 80048; 84484; 85025; 85610; 93005; 96374; 99285; J7030; A4216

== ENCOUNTER → 2018-06-28 | Outpatient (CLI) | payer MEDICARE, MEDICAID, SELFPAY ==
[2018-06-07 10:57] VITALS: BMI 45.5
[2018-06-21 08:46] VITALS: BMI 43.0
--- NOTE | 2018-06-28 12:50 | ECHOCS_ITS ---
Reason For Study: DYSPNEA/SOB Procedure This was a 2D Doppler, Color Flow transthoracic echocardiogram. The study was technically difficult. Contrast injection was performed. Exam performed in department. Left Ventricle Normal LV size. Left ventricular systolic function is normal. The estimated ejection fraction is 60 %. No regional wall motion abnormalities noted. Right Ventricle Normal RV size. Normal systolic function. Atria The left atrium is moderately enlarged. The right atrium is mildly enlarged. No doppler evidence for ASD. Mitral Valve There is no mitral annular calcification. Normal mitral valve. Mild-Moderate (1-2+) mitral valve insufficiency. Tricuspid Valve Normal tricuspid valve. Mild tricuspid valve insufficiency. Right ventricular systolic pressure estimated to be 36 mmHg. Aortic Valve Trisinus/trileaflet aortic valve. Normal aortic valve. Pulmonic Valve The pulmonic valve is not well visualized. Great Vessels Normal sized aortic root. Pericardium/Pleural No pericardial effusion. Medication 22 gauge I.V. with prn adaptor inserted into right arm. Diluted definity 4ml given slow IV push to enhance endocardial definition. MMode/2D Measurements & Calculations LVIDd: 4.6 cm IVSd: 0.86 cm Ao root diam: 3.2 cm LVIDs: 3.2 cm LVPWd: 0.92 cm RVDd: 3.5 cm FS: 30.7 % LAV(MOD-bp): 69.2 ml LVAd ap4: 32.4 cm2 SV(MOD-sp4): 61.2 ml LAV(MOD-bp) Indexed: 30.6 ml/m2 EDV(MOD-sp4): 106.4 ml LAV(MOD-sp2): 57.6 ml EDV(sp4-el): 110.9 ml LAV(MOD-sp4): 71.4 ml LVAs ap4: 18.7 cm2 ESV(MOD-sp4): 45.2 ml ESV(sp4-el): 47.3 ml EF(MOD-sp4): 57.5 % EF(sp4-el): 57.3 % SV(sp4-el): 63.6 ml LA A4 area: 23.7 cm2 LA dimension(2D): 4.4 cm RA A4 area: 17.2 cm2 Time Measurements MV dec time: 0.15 sec Doppler Measurements & Calculations MV E max donovan: 144.1 cm/sec Lat Peak E' Donovan: 19.7 cm/sec Med Peak E' Donovan: 11.2 cm/sec MV A max donovan: 85.3 cm/sec E/E' lat: 7.3 E/E' med: 12.9 MV E/A: 1.7 Ao V2 max: 127.8 cm/sec LV V1 max: 107.5 cm/sec PA V2 max: 104.4 cm/sec Ao max P.6 mmHg LV V1 max P.6 mmHg PI end-d donovan: 138.9 cm/sec TR max donovan: 286.7 cm/sec TR max P.9 mmHg Interpretation Summary The study was technically difficult. Contrast injection was performed. Left ventricular systolic function is normal. The estimated ejection fraction is 60 %. The left atrium is moderately enlarged. The right atrium is mildly enlarged. Mild-Moderate (1-2+) mitral valve insufficiency. Mild tricuspid valve insufficiency. Right ventricular systolic pressure estimated to be 36 mmHg. Transmitral diastolic flow velocities suggest diastolic dysfunction (pseudonormal pattern). Ordering Physician: Curt Love/Dwaine Banuelos Referring Physician: MILY ESPINO Performed By: Caroline Cook, SANJAY
== END | disposition home or self-care (01) ==
LOC: CVS 12:50
PROVIDERS: Referring Provider Nurse Practitioner Family; Visit Provider Nurse Practitioner Family
DX: G47.33 Obstructive sleep apnea (adult) (pediatric) (principal); R06.09 Other forms of dyspnea; R42 Dizziness and giddiness
CPT/HCPCS: 93306; Q9957; A4216; C8929

== ENCOUNTER → 2018-07-13 15:49 | Outpatient (CLI) | payer MEDICARE, MEDICAID, SELFPAY ==
[2018-07-13 15:04] VITALS: BMI 44.4
[2018-07-13 16:35] LABS: Absolute Lymphocyte Count 1.58 X10^3/ul (0.83-4.51); Absolute Neutrophil Count 6.3 X10^3/uL (2.0-7.7); Basophil# 0.02 X10^3/uL; Basophil% 0.2 % (0-1); Eosinophil# 0.12 X10^3/uL; Eosinophils% 1.4 % (0-5); Hematocrit 23.7 % (37-47); Hemoglobin 6.6 g/dl (12.0-15.0); Lymphocyte # 1.58 X10^3/ul (4.0); Lymphocyte % 18.1 % (19-41); Mean Corp Hgb Conc 27.8 g/gl (32-36); Mean Corpuscular Volume 71.8 fL (81-99); Mean Platelet Vol. 9.6 fl (6.2-12.0); Monocyte# 0.73 X10^3/uL; Monocyte% 8.4 % (0-10); Neutrophil # 6.26 X10^3/uL (2.7-7.7); Neutrophil % 71.8 % (47-70); Platelet Count 420 K/mm3 (150-450); RBC Distribution Width CV 17.9 % (11.6-14.6); RBC Distribution Width SD 44.8 fl (35.1-43.9); White Blood Count 8.7 K/mm3 (4.4-11.0)
[2018-07-13 16:46] LABS: Differential Indicated SCAN CRITERIA MET; POSITIVE COUNT NO; POSITIVE DIFFERENTIAL NO; POSITIVE MORPHOLOGY YES
[2018-07-13 16:47] LABS: Anion Gap 7 (5-15); BUN 31 mg/dL (7-18); BUN/Creat Ratio 26.7 RATIO (10-20); Calcium,Total 8.4 mg/dL (8.5-10.1); Chloride 106 mmol/L (98-107); Creatinine, Serum 1.16 mg/dL (0.55-1.02); EST Glomerular Filtration Rate 49 mL/min (>60); Est Glom Filt Rate - Afr Amer 59 mL/min (>60); Glucose 105 mg/dL (74-106); Magnesium 1.7 mg/dL (1.6-2.6); Potassium 3.8 mmol/L (3.5-5.1); Sodium Level 140 mmol/L (136-145); T4 Free Direct 1.44 ng/dL (0.76-1.46); Thyroid Stim Hormone (TSH) 0.98 uIU/mL (0.358-3.74)
[2018-07-13 17:25] LABS: Prothrombin Time (Protime)PT. 36.7 SECONDS (11.7-14.9)
[2018-07-13 17:56] LABS: International Normalized Ratio 3.7
[2018-07-13 18:11] LABS: Anisocytosis 1+; Hypochromasia 2+; Microcytosis 2+; Platelet Estimate ADEQUATE (ADEQ)
[2018-07-13 18:12] LABS: Ovalocyte RARE; Target Cells RARE
== END ==
PROVIDERS: Internal Medicine Cardiovascular Disease; Referring Provider Nurse Practitioner Family; Visit Provider Nurse Practitioner Family
DX: I48.91 Unspecified atrial fibrillation (principal); I10 Essential (primary) hypertension; R42 Dizziness and giddiness; R06.09 Other forms of dyspnea; Z79.01 Long term (current) use of anticoagulants
CPT/HCPCS: 36415; 80048; 83735; 84439; 84443; 85025; 85610

== ENCOUNTER 2018-07-13 19:22 | Emergency (ER) | payer MEDICARE, MEDICAID, SELFPAY ==
[2018-07-13] VITALS (8 sets, daily range): BP systolic 102–134; BP diastolic 44–77; PULSE 82–99; RESP 16–18; TEMP 36.8–37.4; O2SAT 96–100; BMI 44.4
[2018-07-13 20:41] LABS: Absolute Lymphocyte Count 1.72 X10^3/ul (0.83-4.51); Absolute Neutrophil Count 8.6 X10^3/uL (2.0-7.7); Basophil# 0.03 X10^3/uL; Basophil% 0.3 % (0-1); Eosinophil# 0.17 X10^3/uL; Eosinophils% 1.5 % (0-5); Hematocrit 23.3 % (37-47); Hemoglobin 6.4 g/dl (12.0-15.0); Lymphocyte # 1.72 X10^3/ul (4.0); Lymphocyte % 14.9 % (19-41); Mean Corp Hgb Conc 27.5 g/gl (32-36); Mean Corpuscular Hgb 19.6 pg (27.0-32.0); Mean Corpuscular Volume 71.5 fL (81-99); Mean Platelet Vol. 9.1 fl (6.2-12.0); Monocyte# 0.98 X10^3/uL; Monocyte% 8.5 % (0-10); Neutrophil # 8.61 X10^3/uL (2.7-7.7); Neutrophil % 74.7 % (47-70); Platelet Count 401 K/mm3 (150-450); RBC Distribution Width CV 17.9 % (11.6-14.6); RBC Distribution Width SD 46.4 fl (35.1-43.9); Red Blood Count 3.26 M/mm3 (4.2-5.4); White Blood Count 11.5 K/mm3 (4.4-11.0)
--- NOTE | 2018-07-13 20:44 | ED.VIS.GEN ---
History of Present Illness Chief Complaint: Abn Labs Informant: Patient Narrative: Patient had routine labs at a cardiology appointment today, showed that she had a hemoglobin of 6.6 so she was sent to the ER for transfusion. She has been fatigued and dyspnea with exertion, this has been for the last month or more. She knew she was anemic when checked last year, but she was never this low. It is of unknown cause, she has not seen her PCP for it. She had a hysterectomy a couple months ago, followed by a cardiac ablation 1 month ago for chronic A. fib, she is still on warfarin for that and has been bleeding from nowhere, no blood in her stool or melena. 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 (3) Arthritis Status: Chronic (4) Atrial fibrillation Status: Chronic (5) Diabetes mellitus Status: Chronic (6) GERD (gastroesophageal reflux disease) Status: Chronic (7) Hyperlipidemia Status: Chronic (8) Hypothyroidism Status: Chronic (9) intermediate (current) use of anticoagulants Status: Chronic (10) Lymphedema Status: Chronic (11) Morbid obesity with BMI of 40.0-44.9, adult Status: Chronic (12) Nonrheumatic mitral valve regurgitation Status: Chronic (13) Nonrheumatic tricuspid valve regurgitation Status: Chronic (14) KYLE (obstructive sleep apnea) Status: Chronic (15) History of radiofrequency ablation procedure for cardiac arrhythmia Status: Resolved Past Medical History - Allergies and Home Meds Allergies/Adverse Reactions: Allergies No Known Allergies Allergy (Verified 07/13/18 19:25) Primary Care Physician: Poppy Ren [Primary Care Provider] - Surgical History: - - The patient is undergone cardioversion ?2. She is also undergone tonsillectomy as a child. She is undergone left total knee replacement in the past. She has had bilateral cataract surgery. An ovarian cyst has been removed. She has also undergone bilateral foot surgery. Smoking Status: Former smoker Drugs: None - Family History Paternal Family History: Family History (Last Reviewed 06/07/18 @ 10:24 by Candelaria Cesar) Mother Heart disease Family History: Reports: - - The patient's father at the age of 23, killed in a train wreck. Patient's mother at the age of 91 with a history of dementia and atrial fibrillation. Review of Systems General: Reports: Malaise, - - lightheaded off and on. Denies: Chills, Fever Eyes: Denies: Visual changes - bilaterally, Diplopia ENT: Denies: Rhinorrhea, Sore throat Cardiovascular: Denies: Chest pain, Palpitations Respiratory: Reports: Dyspnea on exertion. Denies: Cough, Orthopnea Gastrointestinal: Denies: Abdominal pain, Nausea, Vomiting, Diarrhea, Melena, Hematochezia Genitourinary: Denies: Dysuria, Hematuria, Frequency Musculoskeletal: Reports: Swelling - chronic. Denies: Back pain, Extremity Pain Skin: Denies: Rash, Wounds Neurological: Denies: Headache, Weakness, Numbness Physical Exam Vital Signs/Narrative: Vital Signs Temp Pulse Resp BP Pulse Ox 07/13/18 19:43 99.3 F H 18 96 07/13/18 19:22 99.3 F H 86 16 102/44 L 100 Inital Vital Signs reviewed: Yes General: Well nourished, Well developed, Obese, No Acute Distress - well-appearing, nad Head: Normocephalic, Atraumatic Eyes: Perrl, EOMI, Pale conjunctiva ENT: Moist mucous membranes, No rhinorrhea Neck: Supple, Nontender Cardiovascular: Regular rate, Regular rhythm, No murmurs Respiratory: No distress, CTA bilaterally, Chest nontender Abdomen: Soft, Nontender, Nondistended, Normal bowel sounds Back: Nontender, Normal Inspection Extremities: Nontender, Edema - 4+ BLE. Negative for: Calf Tenderness Skin: Normal color, No rash, No Trauma Neurological: Alert, Oriented x3, Cranial nerves II-XII grossly intact, Normal Strength, Normal Sensation Psychological: Normal affect, Normal Mood Diagnostic/Tx/Re-eval Impressions Chest X-Ray 07/13/18 23:51 IMPRESSION: Small right-sided pleural effusion. Electronically Signed: Georgia Anderson MD at 0:08 EDT , Service support , 07/13/18 23:51 Chest PA and Lateral [RAD] Stat Laboratory Results 07/13/18 07/13/18 07/13/18 20:07 20:07 20:45 WBC 11.5 H RBC 3.26 L Hgb 6.4 L Hct 23.3 L MCV 71.5 L MCH 19.6 L MCHC 27.5 L RDW 17.9 H RDW Differential 46.4 H Plt Count 401 MPV 9.1 Immature Gran % (Auto) 0.100 Neut % (Auto) 74.7 H Lymph % (Auto) 14.9 L [place] % (Auto) 8.5 Eos % (Auto) 1.5 Baso % (Auto) 0.3 Absolute Neuts (auto) 8.6 H Absolute Lymphs (auto) 1.72 Total Counted Not Reportable Diff Path Review May foll Toxic Granulation RARE Platelet Estimate ADEQUATE Polychromasia RARE Hypochromasia 2+ Anisocytosis 1+ Microcytosis 2+ Target Cells RARE Tear Drop Cells RARE Ovalocytes RARE Sodium 143 Potassium 3.8 Chloride 107 Carbon Dioxide 27.0 Anion Gap 9 BUN 34 H Creatinine 1.34 H Estim Creat Clear Calc 35.53 Est GFR (MDRD) Af Amer 50 L Est GFR (MDRD) Non-Af 41 L BUN/Creatinine Ratio 25.4 H Glucose 113 H Calcium 8.4 L Blood Type O POSITIVE Antibody Screen NEGATIVE Crossmatch See Detail - Rhythm Strip Rhythm Strip: A-fib Rate: 85 Ectopy: None - Medical Decision Making Labs confirm anemia with a hemoglobin of 6.4. She was given 1 unit of blood which she tolerated well in the ER, I do not think she needs to be admitted for more. That will take her above 7, and with the microcytic anemia, it is most likely iron deficiency. She is seen at the local [facility]. I am adding iron studies onto her labs, starting her on iron prescription, and advising that she hold her next day of Coumadin since her level is 3.7. She has no symptoms of bleeding from anywhere. She was encouraged to follow-up for interpretation of her iron studies, and encouraged to return if worse. She is comfortable with this plan. Of note I did discuss with Dr. Banuelos, who agrees that her PCP should manage her anemia. He asked that I obtain a chest x-ray to make sure she did not have any type of pericardial effusion. She has borderline cardiomegaly that does not look acutely worse than her old. She has a small right pleural effusion and I do not think that is likely causing her dyspnea with exertion, it would be more likely that her significant anemia would be, but again she should follow-up if her breathing gets worse. ED Disposition - Plan for ED Patient: Disposition: Home or Assisted Living Diagnosis: Symptomatic anemia, Pleural effusion, right, Atrial fibrillation Instructions: ED Anemia Iron Deficiency Prescriptions: Ferrous Sulfate [Iron] 325 mg PO TID #42 tab Referrals: [facility] Poppy Blanca [Primary Care Provider] - 3-5 Days
[2018-07-13 20:48] LABS: Anion Gap 9 (5-15); BUN 34 mg/dL (7-18); BUN/Creat Ratio 25.4 RATIO (10-20); Calcium,Total 8.4 mg/dL (8.5-10.1); Chloride 107 mmol/L (98-107); Creatinine, Serum 1.34 mg/dL (0.55-1.02); EST Glomerular Filtration Rate 41 mL/min (>60); Est Glom Filt Rate - Afr Amer 50 mL/min (>60); Estimated Creatinine Clearance 35.53 ml/min; Glucose 113 mg/dL (74-106); Potassium 3.8 mmol/L (3.5-5.1); Sodium Level 143 mmol/L (136-145)
--- NOTE | 2018-07-13 20:48 | ED.DCSUM_ITS ---
History of Present Illness Chief Complaint: Abn Labs Informant: Patient Narrative: Patient had routine labs at a cardiology appointment today, showed that she had a hemoglobin of 6.6 so she was sent to the ER for transfusion. She has been fatigued and dyspnea with exertion, this has been for the last month or more. She knew she was anemic when checked last year, but she was never this low. It is of unknown cause, she has not seen her PCP for it. She had a hysterectomy a couple months ago, followed by a cardiac ablation 1 month ago for chronic A. fib, she is still on warfarin for that and has been bleeding from nowhere, no blood in her stool or melena. 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 (3) Arthritis Status: Chronic (4) Atrial fibrillation Status: Chronic (5) Diabetes mellitus Status: Chronic (6) GERD (gastroesophageal reflux disease) Status: Chronic (7) Hyperlipidemia Status: Chronic (8) Hypothyroidism Status: Chronic (9) alf (current) use of anticoagulants Status: Chronic (10) Lymphedema Status: Chronic (11) Morbid obesity with BMI of 40.0-44.9, adult Status: Chronic (12) Nonrheumatic mitral valve regurgitation Status: Chronic (13) Nonrheumatic tricuspid valve regurgitation Status: Chronic (14) KYLE (obstructive sleep apnea) Status: Chronic (15) History of radiofrequency ablation procedure for cardiac arrhythmia Status: Resolved Past Medical History - Allergies and Home Meds Allergies/Adverse Reactions: Allergies No Known Allergies Allergy (Verified 07/13/18 19:25) Primary Care Physician: Poppy Ren [Primary Care Provider] - Surgical History: - - The patient is undergone cardioversion ?2. She is also undergone tonsillectomy as a child. She is undergone left total knee replacement in the past. She has had bilateral cataract surgery. An ovarian cyst has been removed. She has also undergone bilateral foot surgery. Smoking Status: Former smoker Drugs: None - Family History Paternal Family History: Family History (Last Reviewed 06/07/18 @ 10:24 by Candelaria Cesar) Mother Heart disease Family History: Reports: - - The patient's father at the age of 23, killed in a train wreck. Patient's mother at the age of 91 with a history of dementia and atrial fibrillation. Review of Systems General: Reports: Malaise, - - lightheaded off and on. Denies: Chills, Fever Eyes: Denies: Visual changes - bilaterally, Diplopia ENT: Denies: Rhinorrhea, Sore throat Cardiovascular: Denies: Chest pain, Palpitations Respiratory: Reports: Dyspnea on exertion. Denies: Cough, Orthopnea Gastrointestinal: Denies: Abdominal pain, Nausea, Vomiting, Diarrhea, Melena, Hematochezia Genitourinary: Denies: Dysuria, Hematuria, Frequency Musculoskeletal: Reports: Swelling - chronic. Denies: Back pain, Extremity Pain Skin: Denies: Rash, Wounds Neurological: Denies: Headache, Weakness, Numbness Physical Exam Vital Signs/Narrative: Vital Signs Temp Pulse Resp BP Pulse Ox 07/13/18 19:43 99.3 F H 18 96 07/13/18 19:22 99.3 F H 86 16 102/44 L 100 Inital Vital Signs reviewed: Yes General: Well nourished, Well developed, Obese, No Acute Distress - well- appearing, nad Head: Normocephalic, Atraumatic Eyes: Perrl, EOMI, Pale conjunctiva ENT: Moist mucous membranes, No rhinorrhea Neck: Supple, Nontender Cardiovascular: Regular rate, Regular rhythm, No murmurs Respiratory: No distress, CTA bilaterally, Chest nontender Abdomen: Soft, Nontender, Nondistended, Normal bowel sounds Back: Nontender, Normal Inspection Extremities: Nontender, Edema - 4+ BLE. Negative for: Calf Tenderness Skin: Normal color, No rash, No Trauma Neurological: Alert, Oriented x3, Cranial nerves II-XII grossly intact, Normal Strength, Normal Sensation Psychological: Normal affect, Normal Mood Diagnostic/Tx/Re-eval Impressions Chest X-Ray 07/13/18 23:51 IMPRESSION: Small right-sided pleural effusion. Electronically Signed: Geogria Anderson MD at 0:08 EDT , Service support , 07/13/18 23:51 Chest PA and Lateral [RAD] Stat Laboratory Results 07/13/18 07/13/18 07/13/18 20:07 20:07 20:45 WBC 11.5 H RBC 3.26 L Hgb 6.4 L Hct 23.3 L MCV 71.5 L MCH 19.6 L MCHC 27.5 L RDW 17.9 H RDW Differential 46.4 H Plt Count 401 MPV 9.1 Immature Gran % (Auto) 0.100 Neut % (Auto) 74.7 H Lymph % (Auto) 14.9 L Bandera % (Auto) 8.5 Eos % (Auto) 1.5 Baso % (Auto) 0.3 Absolute Neuts (auto) 8.6 H Absolute Lymphs (auto) 1.72 Total Counted Not Reportable Diff Path Review May foll Toxic Granulation RARE Platelet Estimate ADEQUATE Polychromasia RARE Hypochromasia 2+ Anisocytosis 1+ Microcytosis 2+ Target Cells RARE Tear Drop Cells RARE Ovalocytes RARE Sodium 143 Potassium 3.8 Chloride 107 Carbon Dioxide 27.0 Anion Gap 9 BUN 34 H Creatinine 1.34 H Estim Creat Clear Calc 35.53 Est GFR (MDRD) Af Amer 50 L Est GFR (MDRD) Non-Af 41 L BUN/Creatinine Ratio 25.4 H Glucose 113 H Calcium 8.4 L Blood Type O POSITIVE Antibody Screen NEGATIVE Crossmatch See Detail - Rhythm Strip Rhythm Strip: A-fib Rate: 85 Ectopy: None - Medical Decision Making Labs confirm anemia with a hemoglobin of 6.4. She was given 1 unit of blood which she tolerated well in the ER, I do not think she needs to be admitted for more. That will take her above 7, and with the microcytic anemia, it is most likely iron deficiency. She is seen at the local [facility]. I am adding iron studies onto her labs, starting her on iron prescription, and advising that she hold her next day of Coumadin since her level is 3.7. She has no symptoms of bleeding from anywhere. She was encouraged to follow-up for interpretation of her iron studies, and encouraged to return if worse. She is comfortable with this plan. Of note I did discuss with Dr. Banuelos, who agrees that her PCP should manage her anemia. He asked that I obtain a chest x-ray to make sure she did not have any type of pericardial effusion. She has borderline cardiomegaly that does not look acutely worse than her old. She has a small right pleural effusion and I do not think that is likely causing her dyspnea with exertion, it would be more likely that her significant anemia would be, but again she should follow-up if her breathing gets worse. ED Disposition - Plan for ED Patient: Disposition: Home or Assisted Living Diagnosis: Symptomatic anemia, Pleural effusion, right, Atrial fibrillation Instructions: ED Anemia Iron Deficiency Prescriptions: Ferrous Sulfate [Iron] 325 mg PO TID #42 tab Referrals: [facility] Poppy Blanca [Primary Care Provider] - 3-5 Days
[2018-07-13 20:59] LABS: Differential Indicated SCAN CRITERIA MET; POSITIVE COUNT NO; POSITIVE DIFFERENTIAL NO; POSITIVE MORPHOLOGY YES
[2018-07-13 21:10] LABS: Platelet Estimate ADEQUATE (ADEQ); Toxic Granulation RARE
[2018-07-13 21:11] LABS: Anisocytosis 1+; Hypochromasia 2+; Microcytosis 2+; Ovalocyte RARE; Polychromasia RARE; Target Cells RARE; Tear Drop Cell RARE
--- NOTE | 2018-07-13 23:51 | RAD_ITS ---
STUDY: X-RAY CHEST REASON FOR EXAM: Female, 73 years old. Decreased hemoglobin. Patient had hysterectomy six weeks ago. TECHNIQUE: PA and lateral views of the chest. COMPARISON: June 02, 2018 FINDINGS: Cardiac monitoring leads are present. The lungs are clear and expanded. There appears to be a small right-sided pleural effusion. There is borderline cardiomegaly. There are calcified mediastinal and hilar lymph nodes. Normal visualized pulmonary arteries. There is atherosclerotic calcification of the aortic arch with tortuosity. There is demineralization of the osseous structures. Normal visualized ribs, clavicles, and shoulders. There is no demonstrated abnormality of the visualized soft tissue structures of the upper abdomen. RAD/Chest PA and Lateral IMPRESSION: Small right-sided pleural effusion. Electronically Signed: Georgia Anderson MD at 0:08 EDT , Service support ,
[2018-07-14 00:38] VITALS: BP 144/81; PULSE 80; RESP 16; TEMP 36.9; O2SAT 100
[2018-07-14 00:49] VITALS: BP 127/50; PULSE 80; RESP 16; TEMP 36.9; O2SAT 100
[2018-07-14 00:51] VITALS: BP 127/50; PULSE 80; RESP 16; O2SAT 100
[2018-07-14 01:00] LABS: Ferritin 8 ng/mL (8-252); Iron 16 ug/dL (50-170); Iron Binding Capacity,Total 407 ug/dL (250-450); PERCENT IRON SATURATION 3.9 % (15.0-55.0)
[2018-07-16 14:38] LABS: Pathologist Review Reviewed
== END 2018-07-14 00:55 | disposition home or self-care (01) ==
PROVIDERS: Emergency Provider Emergency Medicine
DX: D64.9 Anemia, unspecified (principal); J90 Pleural effusion, not elsewhere classified; I48.2 Chronic atrial fibrillation; I10 Essential (primary) hypertension; E11.9 Type 2 diabetes mellitus without complications; K21.9 Gastro-esophageal reflux disease without esophagitis; E78.5 Hyperlipidemia, unspecified; E03.9 Hypothyroidism, unspecified; I34.0 Nonrheumatic mitral (valve) insufficiency; I36.1 Nonrheumatic tricuspid (valve) insufficiency; E66.01 Morbid (severe) obesity due to excess calories; Z68.41 Body mass index [BMI] 40.0-44.9, adult; Z79.01 Long term (current) use of anticoagulants; Z79.82 Long term (current) use of aspirin; Z79.84 Long term (current) use of oral hypoglycemic drugs; Z79.899 Other long term (current) drug therapy; Z87.891 Personal history of nicotine dependence; Z82.49 Family history of ischemic heart disease and other diseases of the circulatory system
CPT/HCPCS: 36415; 71046; 80048; 82728; 83540; 83550; 83735; 84439; 84443; 85025; 85610; 86850; 86900; 86920; 86922; 99282; J7030; P9016; A4216

== ENCOUNTER 2018-07-19 16:10 | Emergency (ER) | payer MEDICARE, MEDICAID, SELFPAY ==
[2018-07-13 19:22] VITALS: BMI 44.4
[2018-07-19 16:11] VITALS: BP 127/81; PULSE 93; RESP 18; TEMP 36.4; O2SAT 99; BMI 44.2
--- NOTE | 2018-07-19 16:56 | ED.DCSUM_ITS ---
- ER Visit Summary Date of Service: 07/19/18 Chief Complaint: Anemia History of Present Illness: The patient is a 73 F who presents with low hemoglobin. Patient was noted to have a low hemoglobin 5 days ago. Patient was then transferred to the emergency department at that time. She was given a unit of packed red blood cells at that time. Patient states she still has some dyspnea and some lightheadedness with any walking. Patient states she stopped her Coumadin 5 days ago. Patient admits to some melena but has also started on iron. Patient saw her primary care physician today for follow-up. Patient states her primary care physician called her tube bender hand and they both thought it would better to have the patient seen in the emergency department. Physical Examination: Vital signs are stable. Patient is afebrile. Patient is in no acute distress. Pupils are equal, round, reactive to light bilaterally. Extraocular muscles are intact. There is no pallor to the conjunctiva. Oral mucosa is pink and moist. Neck is supple. Trachea is midline. There is no JVD noted. Heart was irregularly irregular. Lungs are clear and equal bilateral. Abdomen is soft. Bowel sounds are normal. There is no tenderness. There is no guarding noted. Skin is warm dry. Cranial nerves II through XII are intact. There are no focal motor or sensory deficits noted. The remaining physical exam is within normal limits. Test Results: CBC showed a hemoglobin of 7.3. This was improved from prior result of 6.4. Patient is currently on iron supplements. INR is 1.4. Creatinine is 1.27 which is consistent with prior results. Emergency Department Course and Treatment: I do not feel patient needs to be admitted for transfusion at this time. Patient was instructed to follow-up with her primary care physician in 5 to 7 days for further management of her anemia. Patient was instructed to continue her iron supplements. Patient was instructed to return if worse in any way. Patient understood and was agreeable with the plan. All questions were answered. Disposition: Discharge home Impression: Anemia This note was generated with [employer] dictation software. It may contain incorrect words, spelling, and punctuation that were not noted in review of the chart prior to signing ED Disposition - Plan for ED Patient: Disposition: Home or Assisted Living Diagnosis: Anemia Instructions: ED Anemia Type Not Specified Referrals: Poppy Ren [Primary Care Provider] - 5-7 Days
[2018-07-19 17:05] VITALS: BP 135/76; BP 140/77; BP 142/79; PULSE 71; PULSE 83; PULSE 93
[2018-07-19 17:06] LABS: International Normalized Ratio 1.4; Prothrombin Time (Protime)PT. 17.3 SECONDS (11.7-14.9)
[2018-07-19 17:07] LABS: Partial Thromboplast Time 26.8 Seconds (24.1-36.2)
[2018-07-19 17:09] LABS: Absolute Lymphocyte Count 1.44 X10^3/ul (0.83-4.51); Absolute Neutrophil Count 5.5 X10^3/uL (2.0-7.7); Basophil# 0.03 X10^3/uL; Basophil% 0.4 % (0-1); Eosinophil# 0.15 X10^3/uL; Eosinophils% 1.9 % (0-5); Hematocrit 25.9 % (37-47); Hemoglobin 7.3 g/dl (12.0-15.0); Lymphocyte # 1.44 X10^3/ul (4.0); Lymphocyte % 18.5 % (19-41); Mean Corp Hgb Conc 28.2 g/gl (32-36); Mean Corpuscular Hgb 21.6 pg (27.0-32.0); Mean Corpuscular Volume 76.6 fL (81-99); Mean Platelet Vol. 9.1 fl (6.2-12.0); Monocyte# 0.68 X10^3/uL; Monocyte% 8.7 % (0-10); Neutrophil # 5.48 X10^3/uL (2.7-7.7); Neutrophil % 70.5 % (47-70); Platelet Count 364 K/mm3 (150-450); RBC Distribution Width CV 22.7 % (11.6-14.6); RBC Distribution Width SD 59.1 fl (35.1-43.9); Red Blood Count 3.38 M/mm3 (4.2-5.4); White Blood Count 7.8 K/mm3 (4.4-11.0)
[2018-07-19 17:10] LABS: Differential Indicated SCAN CRITERIA MET; POSITIVE COUNT NO; POSITIVE DIFFERENTIAL NO; POSITIVE MORPHOLOGY YES
[2018-07-19 17:25] LABS: ALB/GLOB Ratio 1.1 RATIO (0.9-2.4); AST(SGOT) 16 U/L (15-37); Alanine Aminotransfer ALT/SGPT 19 U/L (13-56); Albumin, Serum 3.3 g/dL (3.2-5.0); Alkaline Phosphatase 86 U/L (45-117); Anion Gap 8 (5-15); BUN 24 mg/dL (7-18); BUN/Creat Ratio 18.9 RATIO (10-20); Calcium,Total 8.9 mg/dL (8.5-10.1); Chloride 111 mmol/L (98-107); Creatinine, Serum 1.27 mg/dL (0.55-1.02); EST Glomerular Filtration Rate 44 mL/min (>60); Est Glom Filt Rate - Afr Amer 53 mL/min (>60); Estimated Creatinine Clearance 37.48 ml/min; Globulin 3.1 g/dL (2.2-4.2); Glucose 100 mg/dL (74-106); Potassium 3.8 mmol/L (3.5-5.1); Protein, Total 6.4 g/dL (6.4-8.2); Sodium Level 143 mmol/L (136-145)
[2018-07-19 17:27] LABS: Anisocytosis 2+; Hypochromasia 2+; Microcytosis 2+; Ovalocyte RARE; Platelet Estimate ADEQUATE (ADEQ); Polychromasia RARE
[2018-07-19 18:41] VITALS: BP 138/76; PULSE 59; RESP 16; O2SAT 96
== END 2018-07-19 18:42 | disposition home or self-care (01) ==
PROVIDERS: Emergency Provider Emergency Medicine
DX: D64.9 Anemia, unspecified (principal); K92.1 Melena; R10.9 Unspecified abdominal pain; J44.9 Chronic obstructive pulmonary disease, unspecified; E11.9 Type 2 diabetes mellitus without complications; I48.91 Unspecified atrial fibrillation; Z79.82 Long term (current) use of aspirin; Z79.84 Long term (current) use of oral hypoglycemic drugs; Z79.01 Long term (current) use of anticoagulants; Z79.899 Other long term (current) drug therapy
CPT/HCPCS: 80053; 85025; 85610; 85730; 99284; A4216